=== PATIENT | female | born 1930 | race Caucasian/White ===

== ENCOUNTER 2017-04-02 07:46 | Inpatient (IN) | payer MEDICARE, OTHER ==
[~2017-04-02] VITALS: Ht 152.4 cm; Wt 50.1 kg
[~2017-04-02 07:46] MED LIST: ACET500C5 PO; CARV3.12 PO; CLOP75TA4 PO; DOCU-144 PO; DONE5TAB32 PO; FERR-55 PO; FURO40TA4 PO; GABA300C16 PO; LISI2.5T59 PO; MELO-174 PO; POTA8TAB2 PO; SMV40T PO; TRAM-40 PO
[2017-04-02] MEDS ORDERED: morphine 4 MG/ML VIAL IV STA (07:54)
[2017-04-02] MEDS ORDERED: ONDANSETRON 4 MG INJ IV STA (07:54)
[2017-04-02] MEDS ORDERED: SOD CHLORIDE 0.9% 500 ML IV STA (07:54)
--- NOTE | 2017-04-02 08:42 | RADRPT ---
PROCEDURE: XR Chest. CLINICAL INDICATION: Syncope, fall. TECHNIQUE: Single frontal portable chest was obtained. COMPARISON: 06/27/2016.. FINDINGS: Cardiac silhouette is mildly enlarged. The patient is status post TAVR. There is calcification in the thoracic aorta. Vasculature appears normal. Lungs appear clear. There is extensive calcified pleural plaques in the right hemithorax similar to the prior study. There is a comminuted fracture of the right humeral head. IMPRESSION: 1. Cardiomegaly and aortic atherosclerosis. 2. Comminuted fracture of the right humeral head. Please see associated right shoulder series. 3. Stable-appearing extensive calcified pleural plaques in the right hemithorax. RPTAT: [facility] Physician Mila Date Time Electronically viewed and signed by Dom Ellis Physician on 04/02/2017 08:42 /
--- NOTE | 2017-04-02 08:44 | RADRPT ---
PROCEDURE: XR Shoulder. CLINICAL INDICATION: Syncope, fall. TECHNIQUE: Three views of the right shoulder are available for review. COMPARISON: None available FINDINGS: There is a a comminuted fracture of the surgical neck of the right humeral head with extension into the greater tuberosity which is mildly displaced. There is slight impaction and mild varus deformit y. IMPRESSION: 1. Mildly impacted, comminuted fracture of the humeral head with slight varus deformity. RPTAT: A[facility] Physician Mila Date Time Electronically viewed and signed by Dom Ellis Physician on 04/02/2017 08:44 /
[2017-04-02] MEDS ORDERED: HYDR-3671 PO (09:51)
[2017-04-02] MEDS ORDERED: QUET100T32 PO (09:51)
[2017-04-02] MEDS ORDERED: LISI-313 PO (09:51)
--- NOTE | 2017-04-02 09:57 | RADRPT ---
PROCEDURE: CT Brain without contrast. CLINICAL INDICATION: Syncope; Neurologic deficit TECHNIQUE: A CT of the brain was performed on multidetector high-resolution CT scanner utilizing a xial sections from the skull base through the vertex without contrast. One or more of the following dose reduction techniques were used: Automated exposure control, Adjustment of the mA and/or kV acc ording to patient size, and/or use of iterative reconstruction technique. DOSE: CTDI = 45 mGy and the DLP = 630 mGy-cm. COMPARISON: Head CT 06/27/2016 FINDINGS: Chronic left posterior frontal cortical encephalomalacia. No acute intracranial hemorrhage, signific ant mass effect or midline shift. Patchy hypoattenuation of the cerebral white matter is compatible with chronic microvascular ischemic changes. Chronic left thalamic lacunar infarct. Vascular calcif ications. Prominence of the cortical sulci and ventricles are related to mild cerebral volume loss. No significant opacification of the visualized paranasal sinuses or mastoids. The bilateral ocular lens are thin which could be due to prior lens replacement surgery. IMPRESSION: No significant change. No acute intracranial findings. Chronic microvascular disease and intracranial atherosclerosis. Chronic left posterior frontal cortical encephalomalacia. Chronic left thalamic lacunar infarct. RPTAT: AA .Hema Riley MD, MD Date Time Electronically viewed and signed by .Hema Riley MD, MD on 04/02/2017 09:57 .T/
[2017-04-02 10:16] LABS: ADD SCAN DIFF NO
[2017-04-02 10:22] LABS: ABNORMAL IP MESSAGE 1; BASOPHILS % 0.1 % (0.0-2.0); EOSINOPHILS % 0.1 % (0.0-7.0); HEMATOCRIT 33.7 % (37.0-47.0); HEMOGLOBIN 10.7 g/dl (12.0-16.0); LYMPHOCYTES # 0.5 10^3/ul (0.8-2.9); LYMPHOCYTES % 5.3 % (15.0-51.0); MEAN CORPUSCULAR HGB CONC 31.8 g/dl (32.0-37.0); MEAN CORPUSCULAR VOLUME 91.3 fl (82.0-101.0); MONOCYTE # 0.4 10^3/ul (0.3-0.9); MONOCYTES % 4.2 % (0.0-11.0); NEUTROPHIL # 7.9 10^3/ul (1.6-7.5); NEUTROPHILS % 89.8 % (39.0-77.0); PLATELET COUNT 120 10^3/UL (140-415); RED BLOOD COUNT 3.69 10^6/ul (4.20-5.40); RED CELL DISTRIBUTION WIDTH 14.3 % (11.5-14.5); WHITE BLOOD COUNT 8.8 10^3/ul (4.8-10.8)
[2017-04-02 10:25] LABS: MEAN PLATELET VOLUME 12.4 fl (7.4-10.4)
[2017-04-02 10:36] LABS: POTASSIUM 4.2 mmol/L (3.5-5.1)
[2017-04-02 10:39] LABS: CREATININE 0.71 mg/dl (0.44-1.00)
[2017-04-02 10:40] LABS: CALCIUM 8.6 mg/dl (8.4-10.2)
[2017-04-02 11:03] LABS: TROPONIN-I 0.031 ng/ml (0.00-0.12)
--- NOTE | 2017-04-02 11:20 | ERA ---
ER Documentation Chief Complaint Date/Time DATE: 04/02/17 TIME: 11:19 Chief Complaint RIGHT SHOULDER PAIN AND SWELLING FROM FALL LAST NIGHT. UNK TIME/LOC HPI This is an 86-year-old female right shoulder pain and swelling from a fall last night. She was found down on the ground in the bathroom this morning by her son. She denies loss of consciousness or any head trauma. Denies any chest pain or palpitations. She does not remember the events preceding the fall however. Pain in right shoulder is mild to moderate. Worse when she moves it. No numbness or tingling. ROS All systems reviewed and are negative except as per history of present illness. Medications Home Meds Reported Medications Quetiapine Fumarate* (Quetiapine Fumarate*) 100 Mg Tablet, 100 MG PO HS, TAB 04/02/17 Hydralazine Hcl* (Hydralazine Hcl*) 25 Mg Tab, 25 MG PO DAILY Y for ELEVATED BLOOD PRESSURE, #120 TAB 04/02/17 Lisinopril* (Lisinopril*) 5 Mg Tablet, 5 MG PO BID, #30 TAB 04/02/17 Tramadol Hcl* (Ultram*) 50 Mg Tablet, 50 MG PO Q8 Y for PAIN, TAB 06/27/16 Potassium Chloride* (Klor-Con*) 8 Meq Tablet.sa, 8 MEQ PO DAILY, TAB 06/27/16 Donepezil* (Aricept*) 5 Mg Tablet, 5 MG PO DAILY, TAB 06/27/16 Carvedilol* (Coreg*) 3.125 Mg Tablet, 3.125 MG PO BID, #60 TAB 06/27/16 Simvastatin (Simvastatin) 40 Mg Tablet, 40 MG PO DAILY 05/19/13 Gabapentin* (Gabapentin*) 300 Mg Capsule, 300 MG PO DAILY 05/19/13 Ferrous Sulfate* (Ferrous Sulfate*) 325 Mg Tablet, 325 MG PO TID 05/19/13 Clopidogrel Bisulfate* (Clopidogrel Bisulfate*) 75 Mg Tablet, 75 MG PO DAILY 05/19/13 Furosemide (Lasix) 40 Mg Tab, 40 MG PO DAILY 05/19/13 Docusate Sodium* (Colace*) 100 Mg Capsule, 100 MG PO BID 05/19/13 Meloxicam* (Mobic*) 7.5 Mg Tab, 7.5 MG PO DAILY 05/19/13 Discontinued Reported Medications Lisinopril* (Lisinopril*) 2.5 Mg Tablet, 2.5 MG PO DAILY, #30 TAB 06/27/16 Potassium Chloride* (Klor-Con*) 8 Meq Tablet.sa, 8 MEQ PO DAILY 05/19/13 Discontinued Scripts Acetaminophen* (Tylophen*) 500 Mg Capsule, 2 CAP PO Q8H Y for PAIN AND OR ELEVATED TEMP, #20 CAP Prov:FELICITY MOORE MD 06/27/16 Allergies Allergies: Coded Allergies: vancomycin (Unverified Allergy, Severe, RASH, 04/02/17) PMhx/Soc Medical and Surgical Hx: Unable to obtain History of Surgery: Yes (Brain tumor, Heart valve replacement) Anesthesia Reaction: No Hx Neurological Disorder: No Hx Respiratory Disorders: No Hx Cardiac Disorders: Yes (HTN) Hx Psychiatric Problems: No Hx Miscellaneous Medical Probl: No Hx Alcohol Use: No Hx Substance Use: No Hx Tobacco Use: No Smoking Status: Unknown if ever smoked Physical Exam Vitals Vital Signs Date Time Temp Pulse Resp B/P Pulse Ox O2 Delivery O2 Flow Rate FiO2 04/02/17 10:07 69 19 155/69 97 Room Air 04/02/17 07:48 98.2 71 20 141/107 98 Physical Exam Const: [] Head: Atraumatic Eyes: Normal Conjunctiva ENT: Normal External Ears, Nose and Mouth. Neck: Full range of motion..~ No meningismus. Resp: Clear to auscultation bilaterally Cardio: Regular rate and rhythm, no murmurs Abd: Soft, non tender, non distended. Normal bowel sounds Skin: No petechiae or rashes Back: No midline or flank tenderness Ext: No cyanosis, or edema Neur: Awake and alert Psych: Normal Mood and Affect Result Diagram: 04/02/17 1005 04/02/17 1005 Results 24 hrs Laboratory Tests Test 04/02/17 08:30 04/02/17 10:05 Bedside Glucose 125mg/dL White Blood Count 8.810^3/ul Red Blood Count 3.6910^6/ul Hemoglobin 10.7g/dl Hematocrit 33.7% Mean Corpuscular Volume 91.3fl Mean Corpuscular Hemoglobin 29.0pg Mean Corpuscular Hemoglobin Concent 31.8g/dl Red Cell Distribution Width 14.3% Platelet Count 08119^3/UL Mean Platelet Volume 12.4fl Neutrophils % 89.8% Lymphocytes % 5.3% Monocytes % 4.2% Eosinophils % 0.1% Basophils % 0.1% Nucleated Red Blood Cells % 0.0/100WBC Neutrophils # 7.910^3/ul Lymphocytes # 0.510^3/ul Monocytes # 0.410^3/ul Eosinophils # 0.010^3/ul Basophils # 0.010^3/ul Nucleated Red Blood Cells # 0.010^3/ul Sodium Level 141mmol/L Potassium Level 4.2mmol/L Chloride Level 109mmol/L Carbon Dioxide Level 18mmol/L Anion Gap 18 Blood Urea Nitrogen 21mg/dl Creatinine 0.71mg/dl Glucose Level 134mg/dl Calcium Level 8.6mg/dl Troponin I 0.031ng/ml Current Medications Medications (Trade) Dose Ordered Sig/Ana Route PRN Reason Start Time Stop Time Status Last Admin Dose Admin Sodium Chloride (NS) 500 ml @ 500 mls/hr Q1H STAT IV 04/02/17 07:54 04/02/17 08:53 DC 04/02/17 08:36 Morphine Sulfate (morphine) 4 mg ONCE STAT IV 04/02/17 07:54 04/02/17 07:55 DC 04/02/17 08:39 Ondansetron HCl (Zofran Inj) 4 mg ONCE STAT IV 04/02/17 07:54 04/02/17 07:55 DC 04/02/17 08:37 Procedures/MDM EKG: Rate/Rhythm: Normal Sinus Rhythm QRS, ST, T-waves: No changes consistent w/ acute ischemia Impression: No evidence of ischemia or arrhythmia Chest X-ray 1V Interpreted by me: Soft Tissue: No acute abnormalities Bones: No acute abnormalities Mediastinum/Cardiac Silhouette/Lungs: No acute abnormalities X-ray Shoulder 3V Interpreted by me: Bones: Comminuted shoulder fracture Joints: No dislocation Foreign body: None Patient's syncopal symptoms are unstable at this time and require inpatient workup. No evidence of PE or dissection at this time but occult ischemia or fatal dysrhythmia cannot be ruled out. Patient will be admitted to hospitalist Departure Diagnosis: Primary Impression: Syncope Qualified Code: R55 - Syncope, unspecified syncope type Additional Impression: Shoulder fracture Qualified Code: S42.91XA - Shoulder fracture, right, closed, initial encounter Condition: Stable LUIS MÉNDEZ April 02, 2017 11:20
[2017-04-02 13:42] VITALS: PULSE 72
[2017-04-02 15:07] VITALS: RESP 19
[2017-04-02] MEDS ORDERED: morphine 2 MG INJ IV PRN (15:30)
[2017-04-02] MEDS ORDERED: SOD CHLORIDE 0.9% 1,000 ML IV SCH (15:30)
[2017-04-02 16:00] VITALS: PULSE 75
--- NOTE | 2017-04-02 16:04 | HP ---
DATE OF ADMISSION: 04/02/2017 PRESENTING COMPLAINT: Right shoulder pain. HISTORY OF PRESENTING COMPLAINT: This is an 86-year-old female who resides with her family, who unf ortunately was found on the floor this morning in the bathroom with a ___ and severe right shoulder pain and bruising injury to her right shoulder. This patient seemed alert and oriented, but she is an extremely poor historian. She does not seem to recall the events surrounding the fall and seems to space out intermittently during conversation. Hence, I am unable to get a detailed review of sy stems from the patient. Preliminary workup in the emergency room showed that she has sustained a mi ldly impacted comminuted fracture of the humeral head and a CT scan of the brain was negative for ac modoc injury or bleeding. She has been admitted for further evaluation and fracture management. PAST MEDICAL HISTORY: Positive for high blood pressure. Per report, she has had a heart valve repla kailyn and a brain tumor. Dyslipidemia on statins. PAST SURGICAL HISTORY: Heart valve replacement. ALLERGIES: SHE IS ALLERGIC TO VANCOMYCIN. Exact allergic reaction is unknown. SOCIAL HISTORY: She resides with her family. However, per chart, she does not smoke or drink alco hol. REVIEW OF SYSTEMS: Could not be done as the patient's memory is not the best. PHYSICAL EXAMINATION VITAL SIGNS: Temperature 98.2, pulse 72, respirations 19, blood pressure 114/57, saturations 97% on room air. When patient first got to the emergency room, blood pressure was 141/107. GENERAL: Elderly female, frail, alert and oriented to self and place. She is currently comfortable and in no acute distress except to move her right arm. HEENT: Head was normocephalic. Pupils were equal and reactive. There was no scleral jaundice, mi ld conjunctival pallor. Mucous membranes were slightly dry. Posterior pharynx is negative for eryt reva or exudate. NECK: Supple and there is a large right ecchymosis of the right shoulder. I did not attempt range of motion in the right arm, but she has good range of motion on the left. EXTREMITIES: Her right upper extremity is encased in a sling. Lower extremity did not show any fur ther bruising, no joint abnormalities and no edema. CHEST: Clear to auscultation with mildly reduced air entry in the bases. CARDIOVASCULAR: S1 and 2 without added sounds or murmurs. ABDOMEN: Soft, nontender, nondistended. PSYCHIATRIC: The patient is "confused", however, this could be due to acute trauma, but definitely has beginnings of mild dementia. LABORATORY VALUES: Her hematology is consistent with a mild thrombocytopenia of 120. Neutrophilia of 89%, even though she has normal white count and a mildly hypochromic anemia with hemoglobin of 10 . Her basic metabolic profile has a low CO2 of 18 and a BUN of 21, glucose is 134. Back in 2008, h er hemoglobin A1c was 5.3. As of today, her troponin is negative and the last TSH we have on her as well was back in 2008 and was normal. IMAGING: She had a chest x-ray that showed the aforementioned fracture as well as some cardiomegaly and aortic atherosclerosis and extensive calcified plaque. She also had a brain CT that shows timing adjuster bernardo microvascular disease, intracranial atherosclerosis, a chronic left posterior frontal ____enceph alomalacia, a chronic left thalamic lacunar infarct but no acute findings. The shoulder x-ray just confirms the presence of fracture. ASSESSMENT: 1. An 86-year-old female who was found on the bathroom floor by her family after a fall and sustain ed a right humeral fracture. Circumstances around the fall is unclear. 2. Right humeral fracture. Per emergency room physician, orthopedic surgeon has been consulted. I will also get cardiology consultation for cardiac clearance for surgery. 3. Probable syncopal episode versus accidental fall. I will do a syncope workup, as the patient do es not recall circumstances around her fall. She was monitored on telemetry. 4. History of heart valve replacement. We will do a 2D echo, and see what we have. 5. Thrombocytopenia, the source of which is not quite clear. Further workup is required. 6. Mild hypochromic anemia. We will check an iron. 7. Previous cerebrovascular accident with a mild encephalopathy, which could be secondary also to dementia. 8. 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 DISPOSITION: Patient to be monitored on telemetry floor. Further interventions per clinical course . All of her home medications will be continued and supportive care will include pain control, anti emetics and blood pressure regimen titration for good control. We will also follow consultants' rec ommendations. From report, the patient was on Plavix as an outpatient. I will be holding this in c ase she is going to have surgery. PROPHYLAXIS: She will be on Lovenox as well as oral PPI. Dictated By: GLENDY ZARATE MD, BA/JUAN Conf#: [id number] DID#: [id number]
--- NOTE | 2017-04-02 16:11 | CONS ---
DATE OF ADMISSION: 04/02/2017 DATE OF CONSULTATION: 04/02/2017 REASON FOR CONSULTATION: Preoperative evaluation as well as syncope, rule out cardiac etiology. REQUESTING PHYSICIAN: Dr. Zarate from the hospitalist service. HISTORY OF PRESENT ILLNESS: Ms. Warren is an 86-year-old female with a history of hypertension, dyslipidemia, coronary artery disease on medications, dementia, psychiatric disorder who initially presented status post fall with right shoulder pain. Upon arrival in the emergency department, temp erature 98.2, blood pressure 141/107, pulse ____, respiratory rate 20, saturating 98%. Patient's la bs showed white count of 8.8, hemoglobin 10.7, platelet count 120. Sodium 141, potassium 4.2, creat inine 0.7, BUN 21. Troponin negative. The patient underwent a shoulder x-ray revealing mildly impa cted comminuted fracture of the humeral head with slight varus deformity. The patient then underwen t a chest x-ray showing cardiomegaly, aortic valve sclerosis and comminuted fracture of the right hu meral head. The patient had a head CT revealing no significant change, no acute intracranial findin gs, chronic microvascular disease, intracranial atherosclerosis, chronic left posterior frontal dio ical encephalomalacia. The patient's electrocardiogram, normal sinus rhythm, rate of 68, left bundl e branch block pattern secondary to repolarization abnormalities. The patient has been admitted to the floor and since admit to floor was monitored on telemetry revealing sinus rhythm, no significant arrhythmias or pauses. The patient continues to have pain in her shoulder. PAST MEDICAL HISTORY: As above in HPI. MEDICATIONS CURRENTLY IN HOSPITAL: 1. Aricept 5 mg daily. 2. Lasix 40 mg daily. 3. Gabapentin 300 mg daily. 4. Potassium chloride 8 mEq daily. 5. MiraLax 8.5 grams daily. 6. Protonix 40 mg daily. 7. Carvedilol 3.125 mg p.o. b.i.d. 8. Colace 100 mg b.i.d. 9. Zestril 5 mg p.o. b.i.d. 10. Seroquel 100 mg at bedtime. 11. Heparin 5000 subq b.i.d. 12. Morphine p.r.n. 13. IV fluid hydration at 70 mL an hour. ALLERGIES: VANCOMYCIN. SOCIAL HISTORY: No tobacco, ETOH or illicit drug use. FAMILY HISTORY: Negative for sudden cardiac or early CAD. REVIEW OF SYSTEMS: As above in HPI. CONSTITUTIONAL: No fevers, chills. PULMONARY: No current signs of respiratory compromise. GASTROINTESTINAL: No vomiting. GENITOURINARY: No hematuria. MUSCULOSKELETAL: Shoulder fracture. PSYCHIATRIC: Positive psychiatric medications. NEUROLOGIC: History of dementia. PHYSICAL EXAMINATION: VITAL SIGNS: Temperature 97.9, blood pressure 114/57, pulse 68, respiration 19, saturating 97%. GENERAL: The patient is alert, awake, complaining of shoulder pain. NECK: JVP approximately 8 cm water. CHEST: Fair air movement throughout. HEART: Regular rate and rhythm. S1, S2, I/ systolic murmur, nondisplaced PMI. ABDOMEN: Positive bowel sounds, soft. EXTREMITIES: No pitting edema, 1+ pulses bilaterally posterior tibial. LABORATORY DATA: As above in HPI. No further labs for my review at this time. IMAGING STUDIES: As above in HPI. No further imaging studies for my review at this time. ELECTROCARDIOGRAM: As above in HPI. No further electrocardiograms for my review at this time. IMPRESSION: 1. Preoperative evaluation prior to possible surgery for shoulder fracture. 2. Syncope, assess for cardiac etiology. Rule out cardiac arrhythmia. 3. Hypertension. 4. Dyslipidemia. 5. Left bundle branch block on EKG. 6. Abnormal electrocardiogram. RECOMMENDATIONS: 1. At this time, would maintain patient on telemetry monitoring to follow rhythm and rate closely. 2. Continue the patient's carvedilol for control of blood pressure and her lisinopril. 3. Continue the patient's Lasix at this time, following volume status closely, strict I's and O's. 4. Would complete a rule out for myocardial infarction to ensure this patient's EKG abnormalities a re chronic in nature and not due to any recent acute coronary syndrome. 5. Check a 2D echocardiogram to further assess patient's ejection fraction, wall motion and any tae or valve abnormalities. 6. Pain control. 7. Further recommendations pertaining to the surgical candidacy of this patient will be made after completion of above studies. Dictated By: FREEMAN NESBITT/JUAN Conf#: [id number] DID#: [id number] CC: GLENDY ZARATE MD;*EndCC*
[2017-04-02] MEDS: POTASSIUM CHLORIDE (SR) 8 MEQ CAP PO SCH (17:02)
[2017-04-02] MEDS: FUROSEMIDE 40 MG TAB PO SCH (17:02)
[2017-04-02] MEDS: POLYETHYLENE GLYCOL 17 GM PACKET PO SCH (17:02)
[2017-04-02 17:03] LABS: CK-MB 3.12 ng/ml (0.0-2.4); TROPONIN-I 0.024 ng/ml (0.00-0.12)
[2017-04-02] MEDS: GABAPENTIN 300 MG CAP PO SCH (17:03)
[2017-04-02] MEDS: PANTOPRAZOLE (EC) 40 MG TAB PO SCH (17:03)
[2017-04-02 18:55] LABS: ADD UMIC YES; URINE BILIRUBIN (Dip) NEGATIVE (NEGATIVE); URINE BLOOD (Dip) 1+ (NEGATIVE); URINE COLOR YELLOW (YELLOW); URINE GLUCOSE (Dip) NEGATIVE (NEGATIVE); URINE KETONES (Dip) NEGATIVE (NEGATIVE); URINE LEUKOCYTE ESTERASE (Dip) NEGATIVE (NEGATIVE); URINE NITRITE (Dip) NEGATIVE (NEGATIVE); URINE TOTAL PROTEIN (Dip) 1+ (NEGATIVE); URINE UROBILINOGEN (Dip) 0.2 E.U./dL (0.1-1.0)
[2017-04-02 19:00] VITALS: BP 126/60; RESP 18
[2017-04-02 19:01] LABS: BACTERIA,URINE MANY; URINE RBCS 0-2 /HPF (0)
--- NOTE | 2017-04-02 19:13 | RADRPT ---
Echocardiogram Report Patient Name: BOBBY BURCH Gender: Female Date: 1930 Study Date: 02-Apr-2017 [employer] Operator: [facility] Location: 507 Ref. Physician: GLENDY ZARATE Quality: Adequate Procedures: Transthoracic echocardiogram with complete 2D, M-Mode, and doppler examination. Indications: CARDIAC CLEARANCE. 2D/M Mode Doppler Measurement Value Normal Ranges Measurement Value Normal Ranges LVIDd 2D 3.7 3.5 - 5.6 cm JULIO C Vmax 0.8 cm2 LVIDs 2D 3.2 2.1 - 4.1 cm JULIO C VTI 0.8 cm2 LVPWd 2D 2.0 0.6 - 1.1 cm AV Mean Hugo 1.5 m/sec IVSd 2D 2.0 0.6 - 1.1 cm AV Mean PG 10.2 mmHg AoR Diam 2D 2.1 2.0 - 3.7 cm AV Peak Hugo 2.1 m/sec EDV 2D 58.9 cm3 AV Peak PG 18.1 mmHg ESV 2D 34.2 cm3 AV VTI 34.9 cm LA Dimen 2D 3.5 2.3 - 4.0 cm LVOT Mean Hugo 0.4 m/sec LVOT Diam 1.8 cm LVOT Mean PG 0.7 mmHg LVOT Peak Hugo 0.7 m/sec LVOT Peak PG 1.8 mmHg LVOT VTI 10.1 cm MV PHT 118.0 msec MV Peak Hugo 1.6 m/sec MV Peak PG 10.2 mmHg MV Mean Hugo 0.8 m/sec MV Mean PG 3.4 mmHg MV PHT 118.0 msec MV VTI 39.3 cm MVA PHT 1.9 cm2 MVA VTI 0.6 cm Findings Left Ventricle: Severe concentric left ventricular hypertrophy. Mild enlargement of left ventricle cavity. Moderate left ventricular systolic dysfunction. Ejection fraction is visually estimated at 3540 %. Tissue Doppler/Mitral Doppler indices are consistent with impaired relaxation (Stage I diastolic dysfunction). These segments of the LV are hypokinetic anteroseptum mid segment, anteroseptum base segment, inferoseptum mid segment, inferoseptum basal segment, inferior mid segment and inferior base segment. Right Ventricle: Normal right ventricular size. Normal right ventricular systolic function. Left Atrium: There is moderate enlargement of left atrium. Right Atrium: The right atrium is normal in size. Mitral Valve: Mitral valve leaflets appear moderately thickened. Moderate mitral annular calcification. Mild mitral stenosis. Mitral valve Max Velocity 1.60 m/sec. MaxPG 10.20 mmHg. MeanPG 3.40 mmHg. Mitral Valve Area by PHT1.90 cm2. Mitral Valve Area by Continuity0.60 cm2. Aortic Valve: Aortic Valve Bio Prosthesis. Gradients normal for valve type and size. Tricuspid Valve: Tricuspid valve not well visualized. There is trace tricuspid regurgitation. Pulmonic Valve: Pulmonic valve not well visualized. There is trace pulmonic regurgitation. Pericardium: Small pericardial effusion. Aorta: Normal aortic root. IVC: Normal size and normal respiratory collapse consistent with normal right atrial pressure. Conclusions 1.Severe concentric left ventricular hypertrophy. Mild enlargement of left ventricle cavity. Moderate left ventricular systolic dysfunction. Ejection fraction is visually estimated at 35-40 %. Tissue Doppler/Mitral Doppler indices are consistent with impaired relaxation (Stage I diastolic dysfunction). 2.Mitral valve leaflets appear moderately thickened. Moderate mitral annular calcification. Mild mitral stenosis. MeanPG 3.40 mmHg. 3.Probable Aortic Valve Bio Prosthesis. Low mean gradient noted across the valve. 4.Tricuspid valve not well visualized. There is trace tricuspid regurgitation. 5.Pulmonic valve not well visualized. There is trace pulmonic regurgitation. 6.Small pericardial effusion. Electronically Signed By: Bright Coffey 02-Apr-2017 19:11:55 -0700 Patient Name: BOBBY BURCH Study Date: 02-Apr-2017 [id number]
[2017-04-02 20:00] VITALS: PULSE 79
[2017-04-02] MEDS: DONEPEZIL 5 MG TAB PO SCH (20:16)
[2017-04-02] MEDS: ATORVASTATIN 20 MG TAB PO SCH (20:16)
[2017-04-02] MEDS: FERROUS SULFATE (EC) 325 MG TAB PO SCH (20:16)
[2017-04-02] MEDS: DOCUSATE SODIUM 100 MG CAP PO SCH (20:16)
[2017-04-02] MEDS: QUETIAPINE 100 MG TAB PO SCH (20:16)
[2017-04-02] MEDS: LISINOPRIL 5 MG TAB PO SCH (20:16)
[2017-04-02] MEDS: HYDROCODONE/APAP (5/325) TAB PO PRN (20:18)
[2017-04-02] MEDS: HEPARIN 5,000 UNIT/0.5 ML VIAL SC SCH (20:26)
[2017-04-02 22:50] LABS: CK-MB 2.32 ng/ml (0.0-2.4)
[2017-04-02 22:53] LABS: TROPONIN-I 0.033 ng/ml (0.00-0.12)
[2017-04-02 23:37] VITALS: BP 115/57; PULSE 74; RESP 18
[2017-04-03] VITALS (11 sets, daily range): BP systolic 90–118; BP diastolic 52–73; PULSE 74–86; RESP 17–18
[2017-04-03] MEDS: PANTOPRAZOLE (EC) 40 MG TAB PO SCH (06:27)
[2017-04-03] MEDS: FUROSEMIDE 40 MG TAB PO SCH (06:27)
[2017-04-03 06:54] LABS: ADD SCAN DIFF NO
[2017-04-03 06:59] LABS: BASOPHILS % 0.5 % (0.0-2.0); EOSINOPHILS % 0.5 % (0.0-7.0); HEMATOCRIT 29.2 % (37.0-47.0); HEMOGLOBIN 9.2 g/dl (12.0-16.0); LYMPHOCYTES # 0.7 10^3/ul (0.8-2.9); LYMPHOCYTES % 10.4 % (15.0-51.0); MEAN CORPUSCULAR HEMOGLOBIN 29.6 pg (29.0-33.0); MEAN CORPUSCULAR HGB CONC 31.5 g/dl (32.0-37.0); MEAN CORPUSCULAR VOLUME 93.9 fl (82.0-101.0); MEAN PLATELET VOLUME 11.4 fl (7.4-10.4); MONOCYTE # 0.4 10^3/ul (0.3-0.9); MONOCYTES % 6.1 % (0.0-11.0); NEUTROPHIL # 5.1 10^3/ul (1.6-7.5); NEUTROPHILS % 82.2 % (39.0-77.0); PLATELET COUNT 145 10^3/UL (140-415); RED BLOOD COUNT 3.11 10^6/ul (4.20-5.40); RED CELL DISTRIBUTION WIDTH 14.6 % (11.5-14.5); WHITE BLOOD COUNT 6.3 10^3/ul (4.8-10.8)
[2017-04-03 07:14] LABS: ALBUMIN 3.1 g/dl (3.3-4.9)
[2017-04-03 07:16] LABS: CREATININE 1.29 mg/dl (0.44-1.00)
[2017-04-03 07:17] LABS: BILIRUBIN,INDIRECT 0.3 mg/dl (0-1.1); BILIRUBIN,TOTAL 0.3 mg/dl (0.2-1.3); CALCIUM 8.1 mg/dl (8.4-10.2); TOTAL PROTEIN 5.7 g/dl (6.1-8.1)
[2017-04-03 07:18] LABS: CHOL/HDL RATIO 3.1 RATIO
[2017-04-03 07:20] LABS: INR 1.01; PROTIME 13.3 Sec (12.2-14.2)
[2017-04-03 07:21] LABS: PARTIAL THROMBOPLASTIN TIME 33.7 Sec (25.0-35.0)
[2017-04-03 07:22] LABS: IRON 29 ug/dl (35-150)
[2017-04-03 07:31] LABS: TOTAL IRON BINDING CAPACITY 244 ug/dl (241-421)
[2017-04-03 08:13] LABS: THYROID STIMULATING HORMONE 0.892 MIU/L (0.465-4.680)
[2017-04-03] MEDS: POTASSIUM CHLORIDE (SR) 8 MEQ CAP PO SCH (08:31)
[2017-04-03] MEDS: FERROUS SULFATE (EC) 325 MG TAB PO SCH ×3 (08:31→21:07)
[2017-04-03] MEDS: GABAPENTIN 300 MG CAP PO SCH (08:32)
[2017-04-03] MEDS: DOCUSATE SODIUM 100 MG CAP PO SCH ×2 (08:32→21:08)
[2017-04-03] MEDS: HEPARIN 5,000 UNIT/0.5 ML VIAL SC SCH ×2 (08:32→21:19)
[2017-04-03] MEDS: LISINOPRIL 5 MG TAB PO SCH ×2 (08:32→21:00)
[2017-04-03] MEDS: POLYETHYLENE GLYCOL 17 GM PACKET PO SCH (08:33)
[2017-04-03 08:47] LABS: FOLATE 11.8 ng/ml (2.8-20.0)
[2017-04-03] MEDS ORDERED: NON-FORMULARY/PATIENT OWN MED (Simvastatin 40 MG) PO SCH (09:00)
--- NOTE | 2017-04-03 13:56 | PN ---
Date/Time of Note Date/Time of Note DATE: 04/03/17 TIME: 13:53 Assessment/Plan VTE Prophylaxis VTE Prophylaxis Intervention: heparin Lines/Catheters IV Catheter Type (from [facility]): Peripheral IV Urinary Cath still in place: Yes Reason Cath still needed: urinary retention Assessment/Plan Assessment/Plan 1. altered mental stauts s/p Syncopal episode 2. Right humeral fracture. Per emergency room physician, orthopedic surgeon has been consulted. I will also get cardiology consultation for cardiac clearance for surgery. 3. AMS multifactorial now resolved 4. History of heart valve replacement. We will do a 2D echo, and see what we have. 5. Thrombocytopenia, the source of which is not quite clear. Further workup is required. 6. Mild hypochromic anemia. We will check an iron. 7. Previous cerebrovascular accident with a mild encephalopathy, which could be secondary also to dementia. 8. 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 Plan: BP stable syncope work up Orthopedic surgery consutl In richy espinal to see for right shoulder comminuted fracture Cardiology has been following pt Heparin for DVT prophylaxis Subjective 24 Hr Interval Summary Free Text/Dictation c/o right shoulde rpain, BP stable, sling in place, Exam/Review of Systems Vital Signs Vitals Vital Signs Date Time Temp Pulse Resp B/P Pulse Ox O2 Delivery O2 Flow Rate FiO2 04/03/17 12:13 98.0 73 18 118/73 98 04/03/17 03:53 Room Air Intake and Output 04/02/17 04/02/17 04/03/17 15:00 23:00 07:00 Intake Total 480 ml 1160 ml Output Total 150 ml 600 ml Balance 330 ml 560 ml Exam GENERAL: Elderly female, frail, alert and oriented to self and place. She is currently comfortable and in no acute distress except to move her right arm. EXTREMITIES: Her right upper extremity is encased in a sling. Lower extremity did not show any further bruising, no joint abnormalities and no edema. CHEST: Clear to auscultation with mildly reduced air entry in the bases. CARDIOVASCULAR: S1 and 2 without added sounds or murmurs. ABDOMEN: Soft, nontender, nondistended. Results Result Diagram: 04/03/17 0600 04/03/17 0600 Results 24 hrs Laboratory Tests Test 04/02/17 16:20 04/02/17 18:40 04/02/17 21:55 04/03/17 06:00 Creatine Kinase 195 178 Creatine Kinase Index 1.6 1.3 Creatinine Kinase MB (Mass) 3.12 H 2.32 Troponin I 0.024 0.033 Thyroid Stimulating Hormone (TSH) 0.738 0.892 Urine Color YELLOW Urine Clarity CLEAR Urine pH 7.5 Urine Specific [place] 1.020 Urine Ketones NEGATIVE Urine Nitrite NEGATIVE Urine Bilirubin NEGATIVE Urine Urobilinogen 0.2 E.U./dL Urine Leukocyte Esterase NEGATIVE Urine Microscopic RBC 0-2 Urine Microscopic WBC 0-2 Urine Epithelial Cells RARE Urine Bacteria MANY Urine Hemoglobin 1+ H Urine Glucose NEGATIVE Urine Total Protein 1+ H White Blood Count 6.3 # Red Blood Count 3.11 L Hemoglobin 9.2 L Hematocrit 29.2 L Mean Corpuscular Volume 93.9 Mean Corpuscular Hemoglobin 29.6 Mean Corpuscular Hemoglobin Concent 31.5 L Red Cell Distribution Width 14.6 H Platelet Count 145 # Mean Platelet Volume 11.4 H Neutrophils % 82.2 H Lymphocytes % 10.4 L Monocytes % 6.1 Eosinophils % 0.5 Basophils % 0.5 Nucleated Red Blood Cells % 0.0 Neutrophils # 5.1 Lymphocytes # 0.7 L Monocytes # 0.4 Eosinophils # 0.0 Basophils # 0.0 Nucleated Red Blood Cells # 0.0 Prothrombin Time 13.3 Prothrombin Time Ratio 1.0 INR International Normalized Ratio 1.01 Activated Partial Thromboplast Time 33.7 Sodium Level 141 Potassium Level 4.0 Chloride Level 107 Carbon Dioxide Level 24 Anion Gap 14 Blood Urea Nitrogen 29 H Creatinine 1.29 H Glucose Level 102 Hemoglobin A1c 5.1 Lactic Acid Level 1.4 Calcium Level 8.1 L Magnesium Level 2.0 Total Bilirubin 0.3 Direct Bilirubin 0.00 Indirect Bilirubin 0.3 Aspartate Amino Transf (AST/SGOT) 26 Alanine Aminotransferase (ALT/SGPT) 19 Alkaline Phosphatase 61 Total Protein 5.7 L Albumin 3.1 L Triglycerides Level 138 Cholesterol Level 125 LDL Cholesterol, Calculated 57 HDL Cholesterol 40 Cholesterol/HDL Ratio 3.1 Folate 11.8 Test 04/03/17 06:05 Iron Level 29 L Total Iron Binding Capacity 244 Percent Iron Saturation 12 L Medications Medications Current Medications Carvedilol (Coreg) 3.125 mg BID PO Last administered on 04/03/17t 08:31; Admin Dose 3.125 MG; Start 04/02/17 at 21:00 Docusate Sodium (Colace) 100 mg BID PO Last administered on 04/03/17 08:32; Admin Dose 100 MG; Start 04/02/17 at 21:00 Donepezil HCl (Aricept) 5 mg QHS PO Last administered on 04/02/17 20:16; Admin Dose 5 MG; Start 04/02/17 at 21:00 Ferrous Sulfate (Ferrous Sulfate (Ec)) 325 mg TID PO Last administered on 13:11; Admin Dose 325 MG; Start 04/02/17 at 21:00 Furosemide (Lasix) 40 mg DAILY@06 PO Last administered on 04/03/17 06:27; Admin Dose 40 MG; Start 04/02/17 at 16:00 Gabapentin (Neurontin) 300 mg DAILY PO Last administered on 04/03/17 08:32; Admin Dose 300 MG; Start 04/02/17 at 16:00 Lisinopril (Zestril) 5 mg BID PO Last administered on 04/03/17 08:32; Admin Dose 5 MG; Start 04/02/17 at 21:00 Potassium Chloride (Micro-K) 8 meq DAILY PO Last administered on 04/03/17 08: 31; Admin Dose 8 MEQ; Start 04/02/17 at 16:00 Quetiapine Fumarate (Seroquel) 100 mg HS PO Last administered on 04/02/17 20: 16; Admin Dose 100 MG; Start 04/02/17 at 21:00 Morphine Sulfate (morphine) 2 mg Q4H PRN IV pain; Start 04/02/17 at 15:30 Pantoprazole (Protonix Tab) 40 mg DAILY@06 PO Last administered on 04/03/17 06 :27; Admin Dose 40 MG; Start 04/02/17 at 16:00 Polyethylene Glycol (Miralax) 8.5 gm DAILY PO Last administered on 04/03/17 08 :33; Admin Dose 8.5 GM; Start 04/02/17 at 16:00 Heparin Sodium (Porcine) (Heparin (5000 Units/0.5 ml)) 5,000 unit BID SC Last administered on 04/03/17 08:32; Admin Dose 5,000 UNIT; Start 04/02/17 at 21:00 Atorvastatin Calcium (Lipitor) 20 mg DAILY@21 PO Last administered on 20:16; Admin Dose 20 MG; Start 04/02/17 at 21:00 Acetaminophen/ Hydrocodone Bitart ([place] (5325)) 1 tab Q6H PRN PO pain Last administered on 04/02/17 20:18; Admin Dose 1 TAB; Start 04/02/17 at 18:00 GABBY DAVENPORT MD April 03, 2017 13:56
--- NOTE | 2017-04-03 16:22 | CONS ---
Date/Time of Note Date/Time of Note DATE: 04/03/17 TIME: 16:17 Assessment/Plan Assessment/Plan Additional Assessment/Plan Syncope S/P Bioprosthetic Aortic Valve Replacement Mild Mitral Stenosis Systolic dysfunction with EF 35-40% hypertension diabetes dyslipidemia Dementia Humerus fracture Hemodynamically stable Continue Coreg and Lisnopril Continue Lipitor Continue Insulin Consultation Date/Type/Reason Admit Date/Time April 02, 2017 at 10:58 Social History Smoking Status: Never smoker Exam/Review of Systems Vital Signs Vitals Vital Signs Date Time Temp Pulse Resp B/P Pulse Ox O2 Delivery O2 Flow Rate FiO2 04/03/17 16:12 86 04/03/17 16:05 98.0 18 109/55 98 04/03/17 03:53 Room Air Intake and Output 04/02/17 04/02/17 04/03/17 15:00 23:00 07:00 Intake Total 480 ml 1160 ml Output Total 150 ml 600 ml Balance 330 ml 560 ml Exam Constitutional: alert, oriented Head: atraumatic, normocephalic Neck: non-tender, supple Respiratory: clear to auscultation Cardiovascular: regular rate and rhythm Gastrointestinal: nl liver, spleen, non-tender, soft Extremities: normal pulses Results Result Diagram: 04/03/17 0600 04/03/17 0600 Results 24 hrs Laboratory Tests Test 04/02/17 16:20 04/02/17 18:40 04/02/17 21:55 04/03/17 06:00 Creatine Kinase 195 178 Creatine Kinase Index 1.6 1.3 Creatinine Kinase MB (Mass) 3.12 H 2.32 Troponin I 0.024 0.033 Thyroid Stimulating Hormone (TSH) 0.738 0.892 Urine Color YELLOW Urine Clarity CLEAR Urine pH 7.5 Urine Specific [place] 1.020 Urine Ketones NEGATIVE Urine Nitrite NEGATIVE Urine Bilirubin NEGATIVE Urine Urobilinogen 0.2 E.U./dL Urine Leukocyte Esterase NEGATIVE Urine Microscopic RBC 0-2 Urine Microscopic WBC 0-2 Urine Epithelial Cells RARE Urine Bacteria MANY Urine Hemoglobin 1+ H Urine Glucose NEGATIVE Urine Total Protein 1+ H White Blood Count 6.3 # Red Blood Count 3.11 L Hemoglobin 9.2 L Hematocrit 29.2 L Mean Corpuscular Volume 93.9 Mean Corpuscular Hemoglobin 29.6 Mean Corpuscular Hemoglobin Concent 31.5 L Red Cell Distribution Width 14.6 H Platelet Count 145 # Mean Platelet Volume 11.4 H Neutrophils % 82.2 H Lymphocytes % 10.4 L Monocytes % 6.1 Eosinophils % 0.5 Basophils % 0.5 Nucleated Red Blood Cells % 0.0 Neutrophils # 5.1 Lymphocytes # 0.7 L Monocytes # 0.4 Eosinophils # 0.0 Basophils # 0.0 Nucleated Red Blood Cells # 0.0 Prothrombin Time 13.3 Prothrombin Time Ratio 1.0 INR International Normalized Ratio 1.01 Activated Partial Thromboplast Time 33.7 Sodium Level 141 Potassium Level 4.0 Chloride Level 107 Carbon Dioxide Level 24 Anion Gap 14 Blood Urea Nitrogen 29 H Creatinine 1.29 H Glucose Level 102 Hemoglobin A1c 5.1 Lactic Acid Level 1.4 Calcium Level 8.1 L Magnesium Level 2.0 Total Bilirubin 0.3 Direct Bilirubin 0.00 Indirect Bilirubin 0.3 Aspartate Amino Transf (AST/SGOT) 26 Alanine Aminotransferase (ALT/SGPT) 19 Alkaline Phosphatase 61 Total Protein 5.7 L Albumin 3.1 L Triglycerides Level 138 Cholesterol Level 125 LDL Cholesterol, Calculated 57 HDL Cholesterol 40 Cholesterol/HDL Ratio 3.1 Folate 11.8 Test 04/03/17 06:05 Iron Level 29 L Total Iron Binding Capacity 244 Percent Iron Saturation 12 L Medications Medications Current Medications Carvedilol (Coreg) 3.125 mg BID PO Last administered on 04/03/17 08:31; Admin Dose 3.125 MG; Start 04/02/17 at 21:00 Docusate Sodium (Colace) 100 mg BID PO Last administered on 04/03/17 08:32; Admin Dose 100 MG; Start 04/02/17 at 21:00 Donepezil HCl (Aricept) 5 mg QHS PO Last administered on 04/02/17 20:16; Admin Dose 5 MG; Start 04/02/17 at 21:00 Ferrous Sulfate (Ferrous Sulfate (Ec)) 325 mg TID PO Last administered on 13:11; Admin Dose 325 MG; Start 04/02/17 at 21:00 Furosemide (Lasix) 40 mg DAILY@06 PO Last administered on 04/03/17 06:27; Admin Dose 40 MG; Start 04/02/17 at 16:00 Gabapentin (Neurontin) 300 mg DAILY PO Last administered on 04/03/17 08:32; Admin Dose 300 MG; Start 04/02/17 at 16:00 Lisinopril (Zestril) 5 mg BID PO Last administered on 04/03/17 08:32; Admin Dose 5 MG; Start 04/02/17 at 21:00 Potassium Chloride (Micro-K) 8 meq DAILY PO Last administered on 04/03/17 08: 31; Admin Dose 8 MEQ; Start 04/02/17 at 16:00 Quetiapine Fumarate (Seroquel) 100 mg HS PO Last administered on 04/02/17 20: 16; Admin Dose 100 MG; Start 04/02/17 at 21:00 Morphine Sulfate (morphine) 2 mg Q4H PRN IV pain; Start 04/02/17 at 15:30 Pantoprazole (Protonix Tab) 40 mg DAILY@06 PO Last administered on 04/03/17 06 :27; Admin Dose 40 MG; Start 04/02/17 at 16:00 Polyethylene Glycol (Miralax) 8.5 gm DAILY PO Last administered on 04/03/17 08 :33; Admin Dose 8.5 GM; Start 04/02/17 at 16:00 Heparin Sodium (Porcine) (Heparin (5000 Units/0.5 ml)) 5,000 unit BID SC Last administered on 04/03/17 08:32; Admin Dose 5,000 UNIT; Start 04/02/17 at 21:00 Atorvastatin Calcium (Lipitor) 20 mg DAILY@21 PO Last administered on 20:16; Admin Dose 20 MG; Start 04/02/17 at 21:00 Acetaminophen/ Hydrocodone Bitart ([place] (5/325)) 1 tab Q6H PRN PO pain Last administered on 04/02/17 20:18; Admin Dose 1 TAB; Start 04/02/17 at 18:00 NONA PIEDRA M.D. April 03, 2017 16:22
[2017-04-03] MEDS: HYDROCODONE/APAP (5/325) TAB PO PRN (18:15)
[2017-04-03] MEDS: DONEPEZIL 5 MG TAB PO SCH (21:07)
[2017-04-03] MEDS: ATORVASTATIN 20 MG TAB PO SCH (21:07)
[2017-04-03] MEDS: QUETIAPINE 100 MG TAB PO SCH (21:08)
[2017-04-04] VITALS (9 sets, daily range): BP systolic 103–148; BP diastolic 51–68; PULSE 75–83; RESP 18–19
[2017-04-04] MEDS: FUROSEMIDE 40 MG TAB PO SCH (06:24)
[2017-04-04] MEDS: PANTOPRAZOLE (EC) 40 MG TAB PO SCH (06:24)
[2017-04-04 06:28] LABS: ADD SCAN DIFF NO
[2017-04-04 06:35] LABS: HEMATOCRIT 26.7 % (37.0-47.0); HEMOGLOBIN 8.5 g/dl (12.0-16.0); MEAN CORPUSCULAR HEMOGLOBIN 29.4 pg (29.0-33.0); MEAN CORPUSCULAR HGB CONC 31.8 g/dl (32.0-37.0); MEAN CORPUSCULAR VOLUME 92.4 fl (82.0-101.0); MEAN PLATELET VOLUME 11.9 fl (7.4-10.4); RED BLOOD COUNT 2.89 10^6/ul (4.20-5.40); RED CELL DISTRIBUTION WIDTH 14.5 % (11.5-14.5); WHITE BLOOD COUNT 5.5 10^3/ul (4.8-10.8)
[2017-04-04 06:47] LABS: POTASSIUM 3.8 mmol/L (3.5-5.1)
[2017-04-04 06:50] LABS: CREATININE 1.57 mg/dl (0.44-1.00)
[2017-04-04 06:51] LABS: CALCIUM 8.1 mg/dl (8.4-10.2)
[2017-04-04 07:03] LABS: PLATELET COUNT 107 10^3/UL (140-415)
[2017-04-04] MEDS: POLYETHYLENE GLYCOL 17 GM PACKET PO SCH (08:54)
[2017-04-04] MEDS: GABAPENTIN 300 MG CAP PO SCH (08:55)
[2017-04-04] MEDS: POTASSIUM CHLORIDE (SR) 8 MEQ CAP PO SCH (08:55)
[2017-04-04] MEDS: LISINOPRIL 5 MG TAB PO SCH ×2 (08:55→20:21)
[2017-04-04] MEDS: DOCUSATE SODIUM 100 MG CAP PO SCH ×2 (08:55→20:21)
[2017-04-04] MEDS: FERROUS SULFATE (EC) 325 MG TAB PO SCH ×3 (08:55→20:21)
[2017-04-04] MEDS: HEPARIN 5,000 UNIT/0.5 ML VIAL SC SCH ×2 (09:00→20:33)
[2017-04-04 10:18] LABS: EOSINOPHILS # 0.1 10^3/ul (0.0-0.5); LYMPHOCYTES # 0.9 10^3/ul (0.8-2.9); MONOCYTE # 0.4 10^3/ul (0.3-0.9); NEUTROPHIL # 3.9 10^3/ul (1.6-7.5)
--- NOTE | 2017-04-04 11:39 | CONS ---
Date/Time of Note Date/Time of Note DATE: 04/04/17 TIME: 11:39 Assessment/Plan Assessment/Plan Additional Assessment/Plan Syncope S/P Bioprosthetic Aortic Valve Replacement Mild Mitral Stenosis Systolic dysfunction with EF 35-40% hypertension diabetes dyslipidemia Dementia Humerus fracture Hemodynamically stable Continue Coreg and Lisnopril Continue Lipitor Continue Insulin Consultation Date/Type/Reason Admit Date/Time April 02, 2017 at 10:58 Initial Consult Date Exam/Review of Systems Vital Signs Vitals Vital Signs Date Time Temp Pulse Resp B/P Pulse Ox O2 Delivery O2 Flow Rate FiO2 04/04/17 08:12 76 04/04/17 07:43 98.0 18 127/68 98 04/03/17 03:53 Room Air Intake and Output 04/03/17 04/03/17 04/04/17 15:00 23:00 07:00 Intake Total 750 ml 350 ml Output Total 1800 ml 1250 ml Balance -1050 ml -900 ml Exam Constitutional: alert, oriented Head: atraumatic, normocephalic Respiratory: clear to auscultation Cardiovascular: regular rate and rhythm Gastrointestinal: nl liver, spleen, non-tender, soft Extremities: normal pulses Results Result Diagram: 04/04/17 0552 04/04/17 0552 Results 24 hrs Laboratory Tests Test 04/04/17 05:52 White Blood Count 5.5 Red Blood Count 2.89 L Hemoglobin 8.5 L Hematocrit 26.7 L Mean Corpuscular Volume 92.4 Mean Corpuscular Hemoglobin 29.4 Mean Corpuscular Hemoglobin Concent 31.8 L Red Cell Distribution Width 14.5 Platelet Count 107 #L Mean Platelet Volume 11.9 H Neutrophils % 70.0 Band Neutrophils % 2.0 Lymphocytes % 17.0 Monocytes % 8.0 Eosinophils % 1.0 Metamyelocytes % 2.0 H Neutrophils # 3.9 Lymphocytes # 0.9 Monocytes # 0.4 Eosinophils # 0.1 Metamyelocytes # 0.1 Differential Comment MANUAL DIFF Large Platelets OCCASIONAL Sodium Level 140 Potassium Level 3.8 Chloride Level 107 Carbon Dioxide Level 25 Anion Gap 12 Blood Urea Nitrogen 34 H Creatinine 1.57 H Glucose Level 97 Calcium Level 8.1 L Medications Medications Current Medications Carvedilol (Coreg) 3.125 mg BID PO Last administered on 04/04/17t 08:54; Admin Dose 3.125 MG; Start 04/02/17 at 21:00 Docusate Sodium (Colace) 100 mg BID PO Last administered on 04/04/17 08:55; Admin Dose 100 MG; Start 04/02/17 at 21:00 Donepezil HCl (Aricept) 5 mg QHS PO Last administered on 04/03/17 21:07; Admin Dose 5 MG; Start 04/02/17 at 21:00 Ferrous Sulfate (Ferrous Sulfate (Ec)) 325 mg TID PO Last administered on 08:55; Admin Dose 325 MG; Start 04/02/17 at 21:00 Furosemide (Lasix) 40 mg DAILY@06 PO Last administered on 04/04/17 06:24; Admin Dose 40 MG; Start 04/02/17 at 16:00 Gabapentin (Neurontin) 300 mg DAILY PO Last administered on 04/04/17 08:55; Admin Dose 300 MG; Start 04/02/17 at 16:00 Lisinopril (Zestril) 5 mg BID PO Last administered on 04/04/17 08:55; Admin Dose 5 MG; Start 04/02/17 at 21:00 Potassium Chloride (Micro-K) 8 meq DAILY PO Last administered on 04/04/17 08: 55; Admin Dose 8 MEQ; Start 04/02/17 at 16:00 Quetiapine Fumarate (Seroquel) 100 mg HS PO Last administered on 04/03/17 21: 08; Admin Dose 100 MG; Start 04/02/17 at 21:00 Morphine Sulfate (morphine) 2 mg Q4H PRN IV pain; Start 04/02/17 at 15:30 Pantoprazole (Protonix Tab) 40 mg DAILY@06 PO Last administered on 04/04/17 06 :24; Admin Dose 40 MG; Start 04/02/17 at 16:00 Polyethylene Glycol (Miralax) 8.5 gm DAILY PO Last administered on 04/04/17 08 :54; Admin Dose 8.5 GM; Start 04/02/17 at 16:00 Heparin Sodium (Porcine) (Heparin (5000 Units/0.5 ml)) 5,000 unit BID SC Last administered on 04/04/17 09:00; Admin Dose 5,000 UNIT; Start 04/02/17 at 21:00 Atorvastatin Calcium (Lipitor) 20 mg DAILY@21 PO Last administered on 21:07; Admin Dose 20 MG; Start 04/02/17 at 21:00 Acetaminophen/ Hydrocodone Bitart ([place] (5)) 1 tab Q6H PRN PO pain Last administered on 04/03/17 18:15; Admin Dose 1 TAB; Start 04/02/17 at 18:00 NONA PIEDRA M.D. April 04, 2017 11:39
--- NOTE | 2017-04-04 14:15 | PN ---
Date/Time of Note Date/Time of Note DATE: 04/04/17 TIME: 14:12 Assessment/Plan VTE Prophylaxis VTE Prophylaxis Intervention: heparin Lines/Catheters IV Catheter Type (from [facility], [place]): Peripheral IV Urinary Cath still in place: Yes Reason Cath still needed: other (indicate) (d/c mauricio catheter ) Assessment/Plan Assessment/Plan 1. altered mental stauts s/p Syncopal episode 2. Right humeral fracture. s/p Ortho consult - no surgical plan 3. AMS multifactorial now resolved 4. History of heart valve replacement. We will do a 2D echo, and see what we have. 5. Thrombocytopenia, the source of which is not quite clear. Further workup is required. 6. Mild hypochromic anemia. We will check an iron. 7. Previous cerebrovascular accident with a mild encephalopathy, which could be secondary also to dementia. 8. 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 Plan: BP stable syncope work up negative, Physical therapy consult to assess for safety and ambulation S/p Ortho consult for right shoulder fracture, no sugery plan Cardiology has been following pt Heparin for DVT prophylaxis down grade to med/surge floor Case management consult for SNF placement, family wished for greek speaking Subjective 24 Hr Interval Summary Free Text/Dictation s/p Orthopedic consult, no surgical intervention, BP stable Exam/Review of Systems Vital Signs Vitals Vital Signs Date Time Temp Pulse Resp B/P Pulse Ox O2 Delivery O2 Flow Rate FiO2 04/04/17 12:32 80 04/04/17 12:19 98.0 18 119/53 98 04/03/17 03:53 Room Air Intake and Output 04/03/17 04/03/17 04/04/17 15:00 23:00 07:00 Intake Total 750 ml 350 ml Output Total 1800 ml 1250 ml Balance -1050 ml -900 ml Exam Constitutional: alert Head: normocephalic ENMT: nl external ears & nose Neck: supple Respiratory: clear to auscultation Cardiovascular: regular rate and rhythm Gastrointestinal: non-tender, soft Musculoskeletal: nl extremities to inspection, other (right sholder in sling ) Extremities: normal pulses Neurological: [employer]WARE DES[employer] II-XII intact Results Result Diagram: 04/04/17 0552 04/04/17 0552 Results 24 hrs Laboratory Tests Test 04/04/17 05:52 White Blood Count 5.5 Red Blood Count 2.89 L Hemoglobin 8.5 L Hematocrit 26.7 L Mean Corpuscular Volume 92.4 Mean Corpuscular Hemoglobin 29.4 Mean Corpuscular Hemoglobin Concent 31.8 L Red Cell Distribution Width 14.5 Platelet Count 107 #L Mean Platelet Volume 11.9 H Neutrophils % 70.0 Band Neutrophils % 2.0 Lymphocytes % 17.0 Monocytes % 8.0 Eosinophils % 1.0 Metamyelocytes % 2.0 H Neutrophils # 3.9 Lymphocytes # 0.9 Monocytes # 0.4 Eosinophils # 0.1 Metamyelocytes # 0.1 Differential Comment MANUAL DIFF Large Platelets OCCASIONAL Sodium Level 140 Potassium Level 3.8 Chloride Level 107 Carbon Dioxide Level 25 Anion Gap 12 Blood Urea Nitrogen 34 H Creatinine 1.57 H Glucose Level 97 Calcium Level 8.1 L Medications Medications Current Medications Carvedilol (Coreg) 3.125 mg BID PO Last administered on 04/04/17 08:54; Admin Dose 3.125 MG; Start 04/02/17 at 21:00 Docusate Sodium (Colace) 100 mg BID PO Last administered on 04/04/17 08:55; Admin Dose 100 MG; Start 04/02/17 at 21:00 Donepezil HCl (Aricept) 5 mg QHS PO Last administered on 04/03/17 21:07; Admin Dose 5 MG; Start 04/02/17 at 21:00 Ferrous Sulfate (Ferrous Sulfate (Ec)) 325 mg TID PO Last administered on 13:20; Admin Dose 325 MG; Start 04/02/17 at 21:00 Furosemide (Lasix) 40 mg DAILY@06 PO Last administered on 04/04/17 06:24; Admin Dose 40 MG; Start 04/02/17 at 16:00 Gabapentin (Neurontin) 300 mg DAILY PO Last administered on 04/04/17 08:55; Admin Dose 300 MG; Start 04/02/17 at 16:00 Lisinopril (Zestril) 5 mg BID PO Last administered on 04/04/17 08:55; Admin Dose 5 MG; Start 04/02/17 at 21:00 Potassium Chloride (Micro-K) 8 meq DAILY PO Last administered on 04/04/17 08: 55; Admin Dose 8 MEQ; Start 04/02/17 at 16:00 Quetiapine Fumarate (Seroquel) 100 mg HS PO Last administered on 04/03/17 21: 08; Admin Dose 100 MG; Start 04/02/17 at 21:00 Morphine Sulfate (morphine) 2 mg Q4H PRN IV pain; Start 04/02/17 at 15:30 Pantoprazole (Protonix Tab) 40 mg DAILY@06 PO Last administered on 04/04/17 06 :24; Admin Dose 40 MG; Start 04/02/17 at 16:00 Polyethylene Glycol (Miralax) 8.5 gm DAILY PO Last administered on 04/04/17 08 :54; Admin Dose 8.5 GM; Start 04/02/17 at 16:00 Heparin Sodium (Porcine) (Heparin (5000 Units/0.5 ml)) 5,000 unit BID SC Last administered on 04/04/17 09:00; Admin Dose 5,000 UNIT; Start 04/02/17 at 21:00 Atorvastatin Calcium (Lipitor) 20 mg DAILY@21 PO Last administered on 21:07; Admin Dose 20 MG; Start 04/02/17 at 21:00 Acetaminophen/ Hydrocodone Bitart ([place] (5/325)) 1 tab Q6H PRN PO pain Last administered on 04/03/17 18:15; Admin Dose 1 TAB; Start 04/02/17 at 18:00 GABBY DAVENPORT MD April 04, 2017 14:15
--- NOTE | 2017-04-04 19:44 | CONS ---
DATE OF ADMISSION: 04/02/2017 DATE OF CONSULTATION: 04/04/2017 TYPE OF CONSULTATION: Orthopedic surgical consultation. HISTORY OF PRESENT ILLNESS: The patient is an 86-year-old Faroese-speaking female who was admitted on 04/02/2017 when she was brought into the emergency room complaining of pain for swelling and sky it of motion involving her right shoulder. According to the available information, she was found do wn on the floor on the morning of her admission, but the fall was not witnessed. Following the even t, she was found to have a painful swelling and limit of motion of the right hip. She denies any si gns of head injury. She is known to have hypertension and heart valve replacement. She also has a history of brain tumo r. She has dyslipidemia and she is on statin. PHYSICAL EXAMINATION: My examination revealed an 86-year-old female who obviously has a painful swe lling and painful limit of motion involving her right shoulder at the range of motion of the right s houlder was considerably limited because of the pain. There were no signs of acute neurovascular co mpromise involving the right upper extremity. DIAGNOSTIC STUDIES: X-rays of the right shoulder revealed a fracture of the humeral head of the rig ht shoulder. An old chest x-ray which was obtained in June 2016 shows a slightly reduced size femo ral head without any evidence of fracture. DIAGNOSTIC IMPRESSION: Fracture involving the proximal humerus of the right shoulder., acute. TREATMENT PLAN: 1. CT scan of the right shoulder to further clarify of the type and shape of the fracture. 2. Possible trial of conservative treatment utilizing humerus stabilizing system brace and this has been ordered. Dictated By: LAURA CRONIN/JUAN Conf#: [id number] DID#: [id number]
[2017-04-04] MEDS: HYDROCODONE/APAP (5/325) TAB PO PRN (20:20)
[2017-04-04] MEDS: QUETIAPINE 100 MG TAB PO SCH (20:21)
[2017-04-04] MEDS: DONEPEZIL 5 MG TAB PO SCH (20:21)
[2017-04-04] MEDS: ATORVASTATIN 20 MG TAB PO SCH (20:21)
[2017-04-05] MEDS: PANTOPRAZOLE (EC) 40 MG TAB PO SCH (05:35)
[2017-04-05] MEDS: FUROSEMIDE 40 MG TAB PO SCH (05:35)
[2017-04-05 05:46] LABS: ADD SCAN DIFF NO
[2017-04-05 06:01] LABS: BASOPHILS % 0.4 % (0.0-2.0); EOSINOPHILS # 0.2 10^3/ul (0.0-0.5); EOSINOPHILS % 3.1 % (0.0-7.0); HEMATOCRIT 26.1 % (37.0-47.0); MEAN CORPUSCULAR HEMOGLOBIN 28.8 pg (29.0-33.0); MEAN CORPUSCULAR HGB CONC 30.7 g/dl (32.0-37.0); MEAN CORPUSCULAR VOLUME 93.9 fl (82.0-101.0); MEAN PLATELET VOLUME 11.8 fl (7.4-10.4); MONOCYTE # 0.4 10^3/ul (0.3-0.9); NEUTROPHIL # 3.2 10^3/ul (1.6-7.5); NEUTROPHILS % 67.3 % (39.0-77.0); PLATELET COUNT 107 10^3/UL (140-415); RED BLOOD COUNT 2.78 10^6/ul (4.20-5.40); RED CELL DISTRIBUTION WIDTH 14.6 % (11.5-14.5); WHITE BLOOD COUNT 4.8 10^3/ul (4.8-10.8)
[2017-04-05 06:58] LABS: CREATININE 1.39 mg/dl (0.44-1.00)
[2017-04-05 06:59] LABS: CALCIUM 8.1 mg/dl (8.4-10.2)
[2017-04-05 08:05] VITALS: BP 149/68; RESP 20
[2017-04-05] MEDS: DOCUSATE SODIUM 100 MG CAP PO SCH ×2 (09:49→21:11)
[2017-04-05] MEDS: LISINOPRIL 5 MG TAB PO SCH ×2 (09:50→21:12)
[2017-04-05] MEDS: GABAPENTIN 300 MG CAP PO SCH (09:50)
[2017-04-05] MEDS: POTASSIUM CHLORIDE (SR) 8 MEQ CAP PO SCH (09:50)
[2017-04-05] MEDS: FERROUS SULFATE (EC) 325 MG TAB PO SCH ×3 (09:50→21:11)
[2017-04-05] MEDS: POLYETHYLENE GLYCOL 17 GM PACKET PO SCH (09:51)
[2017-04-05] MEDS: HEPARIN 5,000 UNIT/0.5 ML VIAL SC SCH ×2 (09:53→21:27)
--- NOTE | 2017-04-05 15:17 | PN ---
Date/Time of Note Date/Time of Note DATE: 04/05/17 TIME: 15:12 Assessment/Plan VTE Prophylaxis VTE Prophylaxis Intervention: heparin Lines/Catheters [facility] Per[facility] IV Urinary Cath still in place: Yes Assessment/Plan Chief Complaint/Hosp Course Assessment and plan 1. reported altered Level of consciousness was reported. Syncope workup negative.. Continue to monitor neuro status. 2. Right humeral fracture. Patient seen by orthopedic surgeon. Continue the recommendations. 3. History of cardiomyopathy. 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 Note echocardiogram is seen with ejection fraction 35%. Continue optimization with cardiovascular medications and beta-hasmukh and SAÚL inhibitor. 4. Thrombocytopenia. No active bleeding noted at this time. Etiology unclear. Monitor for now. 5. Reported history of brain tumor. No active issue at this time. Monitor for now. Disposition plan: Continue with orthopedic surgeon recommendations. CT scan of the shoulder is pending. Will follow up. Discussed plan of care with Dr. Ernst Problems: Subjective 24 Hr Interval Summary Free Text/Dictation Comfortable at this time. No apparent distress. Family at bedside Exam/Review of Systems Vital Signs Vitals Vital Signs Date Time Temp Pulse Resp B/P Pulse Ox O2 Delivery O2 Flow Rate FiO2 04/05/17 08:05 98.1 78 20 149/68 95 04/04/17 19:30 Room Air Intake and Output 04/04/17 04/04/17 04/05/17 15:00 23:00 07:00 Intake Total 750 ml 580 ml Output Total 900 ml Balance -150 ml 580 ml Exam Constitutional: alert Psych: nl mood/affect Head: normocephalic Neck: supple, No jvd Respiratory: clear to auscultation, normal air movement Gastrointestinal: non-tender, soft Musculoskeletal: other (Right arm in sling) Neurological: nl mental status, nl speech Results Result Diagram: 04/05/17 0449 04/05/17 0449 Results 24 hrs Laboratory Tests Test 04/05/17 04:49 White Blood Count 4.8 Red Blood Count 2.78 L Hemoglobin 8.0 L Hematocrit 26.1 L Mean Corpuscular Volume 93.9 Mean Corpuscular Hemoglobin 28.8 L Mean Corpuscular Hemoglobin Concent 30.7 L Red Cell Distribution Width 14.6 H Platelet Count 107 L Mean Platelet Volume 11.8 H Neutrophils % 67.3 Lymphocytes % 21.0 Monocytes % 8.0 Eosinophils % 3.1 Basophils % 0.4 Nucleated Red Blood Cells % 0.0 Neutrophils # 3.2 Lymphocytes # 1.0 Monocytes # 0.4 Eosinophils # 0.2 Basophils # 0.0 Nucleated Red Blood Cells # 0.0 Sodium Level 140 Potassium Level 4.0 Chloride Level 107 Carbon Dioxide Level 24 Anion Gap 13 Blood Urea Nitrogen 33 H Creatinine 1.39 H Glucose Level 92 Calcium Level 8.1 L Medications Medications Current Medications Carvedilol (Coreg) 3.125 mg BID PO Last administered on 04/05/17 09:51; Admin Dose 3.125 MG; Start 04/02/17 at 21:00 Docusate Sodium (Colace) 100 mg BID PO Last administered on 04/05/17 09:49; Admin Dose 100 MG; Start 04/02/17 at 21:00 Donepezil HCl (Aricept) 5 mg QHS PO Last administered on 04/04/17 20:21; Admin Dose 5 MG; Start 04/02/17 at 21:00 Ferrous Sulfate (Ferrous Sulfate (Ec)) 325 mg TID PO Last administered on 13:11; Admin Dose 325 MG; Start 04/02/17 at 21:00 Furosemide (Lasix) 40 mg DAILY@06 PO Last administered on 04/05/17 05:35; Admin Dose 40 MG; Start 04/02/17 at 16:00 Gabapentin (Neurontin) 300 mg DAILY PO Last administered on 04/05/17 09:50; Admin Dose 300 MG; Start 04/02/17 at 16:00 Lisinopril (Zestril) 5 mg BID PO Last administered on 04/05/17 09:50; Admin Dose 5 MG; Start 04/02/17 at 21:00 Potassium Chloride (Micro-K) 8 meq DAILY PO Last administered on 04/05/17 09: 50; Admin Dose 8 MEQ; Start 04/02/17 at 16:00 Quetiapine Fumarate (Seroquel) 100 mg HS PO Last administered on 04/04/17 20: 21; Admin Dose 100 MG; Start 04/02/17 at 21:00 Morphine Sulfate (morphine) 2 mg Q4H PRN IV pain; Start 04/02/17 at 15:30 Pantoprazole (Protonix Tab) 40 mg DAILY@06 PO Last administered on 04/05/17 05 :35; Admin Dose 40 MG; Start 04/02/17 at 16:00 Polyethylene Glycol (Miralax) 8.5 gm DAILY PO Last administered on 04/05/17 09 :51; Admin Dose 8.5 GM; Start 04/02/17 at 16:00 Heparin Sodium (Porcine) (Heparin (5000 Units/0.5 ml)) 5,000 unit BID SC Last administered on 04/05/17 09:53; Admin Dose 5,000 UNIT; Start 04/02/17 at 21:00 Atorvastatin Calcium (Lipitor) 20 mg DAILY@21 PO Last administered on 20:21; Admin Dose 20 MG; Start 04/02/17 at 21:00 Acetaminophen/ Hydrocodone Bitart ([place] (5/325)) 1 tab Q6H PRN PO pain Last administered on 04/04/17 20:20; Admin Dose 1 TAB; Start 04/02/17 at 18:00 EDUARDA VALADEZ April 05, 2017 15:17
--- NOTE | 2017-04-05 16:34 | RADRPT ---
PROCEDURE: CT RIGHT SHOULDER. CLINICAL INDICATION: Pain and swelling. TECHNIQUE: CT scan of the right shoulder was performed on a multi -slice scanner. No IV contrast was administered. Coronal and sagittal reformatted images were obtained from the axial source imag es. The total exam DLP equals 236.31 mGy-cm. The CDTI volume was 13.55 mGy. One or more of the following dose reduction techniques were used: - Automated exposure control. - Adjustment of the mA and/or kV according to patient size . - Use of iterative reconstruction technique. Images were reviewed on a high-resolution PACS workstation. COMPARISON: X-ray of the right shoulder dated 04/02/2017. FINDINGS: Osseous acromion outlet: The acromion is type 2. Coronal images demonstrate mild lateral downslopin g. There is mild AC arthrosis. Rotator Cuff: The supraspinatus tendon density is thickened but intact and still attached to the rot ated humeral head. No fatty atrophy of the muscle bellies identified. Osseous structures: There is a subacute to chronic-appearing right proximal humeral fracture, predom inately anatomic neck. There is remodel at the fracture site and some sclerosis indicating either l ate subacute or chronic status. The humeral head is rotated. The fractures comminuted and overall is consistent with a Neer three-part greater tuberosity type fracture. The bones are osteoporotic. Other findings: No radiopaque foreign body is seen. IMPRESSION: 1. Subacute to chronic-appearing right proximal humeral fracture, predominantly the anatomic neck f racture. Findings overall are consistent with a Neer three-part greater tuberosity type fracture. 2. Osteoporosis. RPTAT: XX .Darnell Hubbard MD, Date Time Electronically viewed and signed by .Darnell Hubbard MD, on 04/05/2017 16:34 .T/
--- NOTE | 2017-04-05 19:44 | CONS ---
Date/Time of Note Date/Time of Note DATE: 04/05/17 TIME: 19:41 Assessment/Plan Assessment/Plan Chief Complaint/Hosp Course IMPRESSION: 1. Preoperative evaluation prior to possible surgery for shoulder fracture.- negative troponin x 3/Low EF by echo 2. Syncope, assess for cardiac etiology. Rule out cardiac arrhythmia. 3. Hypertension. 4. Dyslipidemia. 5. Left bundle branch block on EKG. 6. Abnormal electrocardiogram. Recc: -Continue coreg/zestril -Continue lasix -pain control -ongoing ortho f/u -Recc stress test to rule out any ischemia given EF in anticipation of possible surgery Problems: Consultation Date/Type/Reason Admit Date/Time April 04, 2017 at 14:16 Initial Consult Date 04/04/2017 Type of Consultation: Cardiology Reason for Consultation syncope/cardiomyopathy Referring Provider: GLENDY ZARATE Exam/Review of Systems Vital Signs Vitals Vital Signs Date Time Temp Pulse Resp B/P Pulse Ox O2 Delivery O2 Flow Rate FiO2 04/05/17 08:05 98.1 78 20 149/68 95 04/04/17 19:30 Room Air Intake and Output 04/04/17 04/04/17 04/05/17 14:59 22:59 06:59 Intake Total 750 ml 580 ml Output Total 900 ml Balance -150 ml 580 ml Exam Review of Systems: CONSTITUTIONAL: No fevers, chills. PULMONARY: No sob CARDIOVASCULAR: No chest pain/palpitations GASTROINTESTINAL: No nausea/vomiting. GENITOURINARY: No hematuria/dysuria. MUSCULOSKELETAL: shoulder fracture PSYCHIATRIC: The patient denies depression. NEUROLOGIC: lethargic Constitutional: other (sleeping) Psych: no complaints Head: normocephalic ENMT: mucosa pink and moist Neck: jvd (8 cm water), supple Respiratory: diminished breath sounds (at bases/B) Cardiovascular: regular rate and rhythm Gastrointestinal: non-tender, soft Musculoskeletal: muscle tone (normal) Extremities: edema (none) Neurological: other (No focal deficits) Results Result Diagram: 04/05/17 0449 04/05/17 0449 Results 24 hrs Laboratory Tests Test 04/05/17 04:49 White Blood Count 4.8 Red Blood Count 2.78 L Hemoglobin 8.0 L Hematocrit 26.1 L Mean Corpuscular Volume 93.9 Mean Corpuscular Hemoglobin 28.8 L Mean Corpuscular Hemoglobin Concent 30.7 L Red Cell Distribution Width 14.6 H Platelet Count 107 L Mean Platelet Volume 11.8 H Neutrophils % 67.3 Lymphocytes % 21.0 Monocytes % 8.0 Eosinophils % 3.1 Basophils % 0.4 Nucleated Red Blood Cells % 0.0 Neutrophils # 3.2 Lymphocytes # 1.0 Monocytes # 0.4 Eosinophils # 0.2 Basophils # 0.0 Nucleated Red Blood Cells # 0.0 Sodium Level 140 Potassium Level 4.0 Chloride Level 107 Carbon Dioxide Level 24 Anion Gap 13 Blood Urea Nitrogen 33 H Creatinine 1.39 H Glucose Level 92 Calcium Level 8.1 L Medications Medications Current Medications Carvedilol (Coreg) 3.125 mg BID PO Last administered on 04/05/17 09:51; Admin Dose 3.125 MG; Start 04/02/17 at 21:00 Docusate Sodium (Colace) 100 mg BID PO Last administered on 04/05/17 09:49; Admin Dose 100 MG; Start 04/02/17 at 21:00 Donepezil HCl (Aricept) 5 mg QHS PO Last administered on 04/04/17 20:21; Admin Dose 5 MG; Start 04/02/17 at 21:00 Ferrous Sulfate (Ferrous Sulfate (Ec)) 325 mg TID PO Last administered on 13:11; Admin Dose 325 MG; Start 04/02/17 at 21:00 Furosemide (Lasix) 40 mg DAILY@06 PO Last administered on 04/05/17 05:35; Admin Dose 40 MG; Start 04/02/17 at 16:00 Gabapentin (Neurontin) 300 mg DAILY PO Last administered on 04/05/17 09:50; Admin Dose 300 MG; Start 04/02/17 at 16:00 Lisinopril (Zestril) 5 mg BID PO Last administered on 04/05/17 09:50; Admin Dose 5 MG; Start 04/02/17 at 21:00 Potassium Chloride (Micro-K) 8 meq DAILY PO Last administered on 04/05/17 09: 50; Admin Dose 8 MEQ; Start 04/02/17 at 16:00 Quetiapine Fumarate (Seroquel) 100 mg HS PO Last administered on 04/04/17 20: 21; Admin Dose 100 MG; Start 04/02/17 at 21:00 Morphine Sulfate (morphine) 2 mg Q4H PRN IV pain; Start 04/02/17 at 15:30 Pantoprazole (Protonix Tab) 40 mg DAILY@06 PO Last administered on 04/05/17 05 :35; Admin Dose 40 MG; Start 04/02/17 at 16:00 Polyethylene Glycol (Miralax) 8.5 gm DAILY PO Last administered on 04/05/17 09 :51; Admin Dose 8.5 GM; Start 04/02/17 at 16:00 Heparin Sodium (Porcine) (Heparin (5000 Units/0.5 ml)) 5,000 unit BID SC Last administered on 04/05/17 09:53; Admin Dose 5,000 UNIT; Start 04/02/17 at 21:00 Atorvastatin Calcium (Lipitor) 20 mg DAILY@21 PO Last administered on 20:21; Admin Dose 20 MG; Start 04/02/17 at 21:00 Acetaminophen/ Hydrocodone Bitart ([place] (5/325)) 1 tab Q6H PRN PO pain Last administered on 04/04/17 20:20; Admin Dose 1 TAB; Start 04/02/17 at 18:00 FREEMAN BALTAZAR April 05, 2017 19:44
[2017-04-05 20:00] VITALS: BP 163/72; RESP 20
[2017-04-05] MEDS: DONEPEZIL 5 MG TAB PO SCH (21:11)
[2017-04-05] MEDS: ATORVASTATIN 20 MG TAB PO SCH (21:11)
[2017-04-05] MEDS: QUETIAPINE 100 MG TAB PO SCH (21:11)
[2017-04-05 23:00] VITALS: BP 150/68; PULSE 75; RESP 20
--- NOTE | 2017-04-06 00:23 | RADRPT ---
Vent Rate: 75 bpm RR Interval: 0 msec NM Interval: 162 msec QRS Duration: 146 msec QT Interval: 464 msec QTC Interval: 518 msec P-R-T [place]: 63 - -57 - 134 degrees Normal sinus rhythm Left axis deviation Left bundle branch block Abnormal ECG Electronically Signed By: Bright Coffey [id number]
[2017-04-06] MEDS: PANTOPRAZOLE (EC) 40 MG TAB PO SCH (06:47)
[2017-04-06] MEDS: FUROSEMIDE 40 MG TAB PO SCH (06:52)
[2017-04-06 07:41] VITALS: BP 160/69; RESP 20
[2017-04-06] MEDS: DOCUSATE SODIUM 100 MG CAP PO SCH ×2 (09:14→22:34)
[2017-04-06] MEDS: FERROUS SULFATE (EC) 325 MG TAB PO SCH ×3 (09:14→22:34)
[2017-04-06] MEDS: POTASSIUM CHLORIDE (SR) 8 MEQ CAP PO SCH (09:14)
[2017-04-06] MEDS: GABAPENTIN 300 MG CAP PO SCH (09:14)
[2017-04-06] MEDS: POLYETHYLENE GLYCOL 17 GM PACKET PO SCH (09:18)
[2017-04-06] MEDS: LISINOPRIL 5 MG TAB PO SCH ×2 (09:20→22:35)
[2017-04-06] MEDS: HEPARIN 5,000 UNIT/0.5 ML VIAL SC SCH ×2 (09:33→22:41)
--- NOTE | 2017-04-06 10:56 | CONS ---
Date/Time of Note Date/Time of Note DATE: 04/06/17 TIME: 10:54 Assessment/Plan Assessment/Plan Additional Assessment/Plan 1. Preoperative evaluation prior to possible surgery for shoulder fracture.- negative troponin x 3/Low EF by echo - stress test planned today 2. Syncope, assess for cardiac etiology. Rule out cardiac arrhythmia. Off tele now 3. Hypertension - well Rx, con'tt o adjust Rx as needed 4. Dyslipidemia. 5. Left bundle branch block on EKG- stable 6. Abnormal electrocardiogram. Consultation Date/Type/Reason Admit Date/Time April 04, 2017 at 14:16 Initial Consult Date Type of Consultation: Cardiology Referring Provider: GLENDY ZARATE 24 HR Interval Summary Free Text/Dictation No acute change - plan for stress test today ROS: No fever, no chills, no nausea, no vomiting, no diarrhea/constipation No recent weight changes No chest pain, no PND, no orthopnea No dizziness, blurred vision No thirst, no heat or cold intolerance Exam/Review of Systems Vital Signs Vitals Vital Signs Date Time Temp Pulse Resp B/P Pulse Ox O2 Delivery O2 Flow Rate FiO2 04/06/17 07:41 98.1 69 20 160/69 93 04/05/17 23:00 Room Air Intake and Output 04/05/17 04/05/17 04/06/17 15:00 23:00 07:00 Intake Total 620 ml Output Total 450 ml Balance 170 ml Exam General: WN/WD/NAD, AOx 2-3 HEENT: Unicetric/atraumatic/EOMI (follow commands) NECK: JVD elevated, no thyromegaly Lymph: no lymphadenopathy HEART: regular with no S3, II/ systolic murmur at apex LUNGS: Coarse sounds ABD: soft, NT, ND, +BS : Intact Neuro: non focal SKIN: chronic changes EXT: trace edema Results Result Diagram: 04/05/1744804/05/17448 Medications Medications Current Medications Carvedilol (Coreg) 3.125 mg BID PO Last administered on 04/06/17 09:13; Admin Dose 3.125 MG; Start 04/02/17 at 21:00 Docusate Sodium (Colace) 100 mg BID PO Last administered on 04/06/17 09:14; Admin Dose 100 MG; Start 04/02/17 at 21:00 Donepezil HCl (Aricept) 5 mg QHS PO Last administered on 04/05/17 21:11; Admin Dose 5 MG; Start 04/02/17 at 21:00 Ferrous Sulfate (Ferrous Sulfate (Ec)) 325 mg TID PO Last administered on 09:14; Admin Dose 325 MG; Start 04/02/17 at 21:00 Furosemide (Lasix) 40 mg DAILY@06 PO Last administered on 04/06/17 06:52; Admin Dose 40 MG; Start 04/02/17 at 16:00 Gabapentin (Neurontin) 300 mg DAILY PO Last administered on 04/06/17 09:14; Admin Dose 300 MG; Start 04/02/17 at 16:00 Lisinopril (Zestril) 5 mg BID PO Last administered on 04/06/17 09:20; Admin Dose 5 MG; Start 04/02/17 at 21:00 Potassium Chloride (Micro-K) 8 meq DAILY PO Last administered on 04/06/17 09: 14; Admin Dose 8 MEQ; Start 04/02/17 at 16:00 Quetiapine Fumarate (Seroquel) 100 mg HS PO Last administered on 04/05/17 21: 11; Admin Dose 100 MG; Start 04/02/17 at 21:00 Morphine Sulfate (morphine) 2 mg Q4H PRN IV pain; Start 04/02/17 at 15:30 Pantoprazole (Protonix Tab) 40 mg DAILY@06 PO Last administered on 04/06/17 06 :47; Admin Dose 40 MG; Start 04/02/17 at 16:00 Polyethylene Glycol (Miralax) 8.5 gm DAILY PO Last administered on 04/06/17 09 :18; Admin Dose 8.5 GM; Start 04/02/17 at 16:00 Heparin Sodium (Porcine) (Heparin (5000 Units/0.5 ml)) 5,000 unit BID SC Last administered on 04/06/17 09:33; Admin Dose 5,000 UNIT; Start 04/02/17 at 21:00 Atorvastatin Calcium (Lipitor) 20 mg DAILY@21 PO Last administered on 21:11; Admin Dose 20 MG; Start 04/02/17 at 21:00 Acetaminophen/ Hydrocodone Bitart ([place] (5/325)) 1 tab Q6H PRN PO pain Last administered on 04/04/17t 20:20; Admin Dose 1 TAB; Start 04/02/17 at 18:00 TANJA HADLEY MD April 06, 2017 10:56
[2017-04-06] MEDS ORDERED: REGADENOSON 0.4 MG/5 ML SYG ONE (12:22)
--- NOTE | 2017-04-06 14:11 | PN ---
Date/Time of Note Date/Time of Note DATE: 04/06/17 TIME: 14:09 Assessment/Plan VTE Prophylaxis VTE Prophylaxis Intervention: heparin Lines/Catheters IV C[facility]ter Type (from [facility]): Peripheral IV Urinary Cath still in place: No Assessment/Plan Chief Complaint/Hosp Course Assessment and plan 1. Altered level of consciousness was reported. Syncope workup negative.. Continue to monitor neuro status. 2. Right humeral fracture. Patient seen by orthopedic surgeon. Continue the recommendations. 3. History of cardiomyopathy. Plant Technician following. Note echocardiogram is seen with ejection fraction 35%. Continue optimization with cardiovascular medications and beta-hasmukh and SAÚL inhibitor. 4. Thrombocytopenia. No active bleeding noted at this time. Etiology unclear. Monitor for now. 5. Reported history of brain tumor. No active issue at this time. Monitor for now. Disposition plan: Plan for stress test today. We will follow-up Discussed plan of care with Dr. Ernst Problems: Subjective 24 Hr Interval Summary Free Text/Dictation No apparent distress seen at this time. Exam/Review of Systems Vital Signs Vitals Vital Signs Date Time Temp Pulse Resp B/P Pulse Ox O2 Delivery O2 Flow Rate FiO2 04/06/17 07:41 98.1 69 20 160/69 93 04/05/17 23:00 Room Air Intake and Output 04/05/17 04/05/17 04/06/17 15:00 23:00 07:00 Intake Total 620 ml Output Total 450 ml Balance 170 ml Exam Constitutional: alert, oriented Psych: nl mood/affect Neck: No jvd Respiratory: clear to auscultation, normal air movement Cardiovascular: other (Regular rate) Gastrointestinal: non-tender, soft Musculoskeletal: other (Right arm in sling) Extremities: normal pulses Neurological: nl mental status Results Result Diagram: 04/05/17 0449 04/05/17 0449 Medications Medications Current Medications Carvedilol (Coreg) 3.125 mg BID PO Last administered on 04/06/17 09:13; Admin Dose 3.125 MG; Start 04/02/17 at 21:00 Docusate Sodium (Colace) 100 mg BID PO Last administered on 04/06/17 09:14; Admin Dose 100 MG; Start 04/02/17 at 21:00 Donepezil HCl (Aricept) 5 mg QHS PO Last administered on 04/05/17 21:11; Admin Dose 5 MG; Start 04/02/17 at 21:00 Ferrous Sulfate (Ferrous Sulfate (Ec)) 325 mg TID PO Last administered on 14:00; Admin Dose 325 MG; Start 04/02/17 at 21:00 Furosemide (Lasix) 40 mg DAILY@06 PO Last administered on 04/06/17 06:52; Admin Dose 40 MG; Start 04/02/17 at 16:00 Gabapentin (Neurontin) 300 mg DAILY PO Last administered on 04/06/17 09:14; Admin Dose 300 MG; Start 04/02/17 at 16:00 Lisinopril (Zestril) 5 mg BID PO Last administered on 04/06/17 09:20; Admin Dose 5 MG; Start 04/02/17 at 21:00 Potassium Chloride (Micro-K) 8 meq DAILY PO Last administered on 04/06/17 09: 14; Admin Dose 8 MEQ; Start 04/02/17 at 16:00 Quetiapine Fumarate (Seroquel) 100 mg HS PO Last administered on 04/05/17 21: 11; Admin Dose 100 MG; Start 04/02/17 at 21:00 Morphine Sulfate (morphine) 2 mg Q4H PRN IV pain; Start 04/02/17 at 15:30 Pantoprazole (Protonix Tab) 40 mg DAILY@06 PO Last administered on 04/06/17 06 :47; Admin Dose 40 MG; Start 04/02/17 at 16:00 Polyethylene Glycol (Miralax) 8.5 gm DAILY PO Last administered on 04/06/17 09 :18; Admin Dose 8.5 GM; Start 04/02/17 at 16:00 Heparin Sodium (Porcine) (Heparin (5000 Units/0.5 ml)) 5,000 unit BID SC Last administered on 04/06/17 09:33; Admin Dose 5,000 UNIT; Start 04/02/17 at 21:00 Atorvastatin Calcium (Lipitor) 20 mg DAILY@21 PO Last administered on 21:11; Admin Dose 20 MG; Start 04/02/17 at 21:00 Acetaminophen/ Hydrocodone Bitart ([place] (5/325)) 1 tab Q6H PRN PO pain Last administered on 04/04/17 20:20; Admin Dose 1 TAB; Start 04/02/17 at 18:00 EDUARDA VALADEZ April 06, 2017 14:11
--- NOTE | 2017-04-06 15:09 | RADRPT ---
PROCEDURE: Lexiscan myocardial perfusion study CLINICAL INDICATION: 86 -year-old patient with syncope, complaining of chest pain. TECHNIQUE: Lexiscan 0.4 mg intravenously separate acquisition gated myocardial perfusion SPECT usi ng Tc 99m Myoview 28.1 mCi intravenously at stress and Tc-99m Myoview, 8.5 mCi intravenously at rest was performed using the rest/stress sequence. Poststress Myoview SPECT images were obtained in the supine position. COMPARISON: No prior studies. FINDINGS: Perfusion images reveal a small mild nonreversible perfusion abnormality in the apical and distal an teroseptal wall. Lexiscan post stress gated SPECT images demonstrate mild hypokinesis of the left ventricle. IMPRESSION: 1. The type and distribution of the scintigraphic abnormalities are most consistent with a small no nreversible perfusion defect in the apex and distal anteroseptal wall. 2. No evidence of stress-induced ischemia. 3. Mild hypokinesis of the left ventricle. 4. The left ventricle ejection fraction at stress is 35%. A call report was made to Dr. Rowan at 03:06 p.m. on April 06, 2017. RPTAT: HH .Joanna Cantu MD, MD Date Time Electronically viewed and signed by .Joanna Cantu MD, MD on 04/06/2017 15:08 .Alessandro/
[2017-04-06] MEDS ORDERED: VITAMIN A & D 5 GM OINT PACKET TOP ONE ×2 (15:52→15:53)
--- NOTE | 2017-04-06 19:47 | ECORPT ---
DATE OF SERVICE: 04/06/2017 LEXISCAN CARDIAC STRESS TEST REFERRING PHYSICIAN: Bright Coffey MD REASON FOR TEST: Preoperative assessment of chest pain. DESCRIPTION: The patient was brought into the heart station in a fasting condition. Initial blood pressure was about 147/65. The patient had successful Lexiscan injection. She developed some tachy cardia during the injection with some nonspecific ST-T changes. The imaging portion of the report w as dictated separately. Dictated By: TANJA HADLEY MD ML/NTS Conf#: [id number] DID#: [id number]
[2017-04-06 20:00] VITALS: BP 168/72; RESP 20
[2017-04-06] MEDS: QUETIAPINE 100 MG TAB PO SCH (22:33)
[2017-04-06] MEDS: ATORVASTATIN 20 MG TAB PO SCH (22:34)
[2017-04-06] MEDS: DONEPEZIL 5 MG TAB PO SCH (22:35)
[2017-04-07] MEDS: PANTOPRAZOLE (EC) 40 MG TAB PO SCH (06:32)
[2017-04-07] MEDS: FUROSEMIDE 40 MG TAB PO SCH (06:34)
[2017-04-07 07:30] VITALS: BP 143/67; RESP 18
[2017-04-07] MEDS: GABAPENTIN 300 MG CAP PO SCH (09:36)
[2017-04-07] MEDS: POLYETHYLENE GLYCOL 17 GM PACKET PO SCH (09:36)
[2017-04-07] MEDS: POTASSIUM CHLORIDE (SR) 8 MEQ CAP PO SCH (09:36)
[2017-04-07] MEDS: DOCUSATE SODIUM 100 MG CAP PO SCH ×2 (09:36→20:39)
[2017-04-07] MEDS: FERROUS SULFATE (EC) 325 MG TAB PO SCH ×3 (09:36→20:39)
[2017-04-07] MEDS: LISINOPRIL 5 MG TAB PO SCH (09:37)
[2017-04-07] MEDS: HEPARIN 5,000 UNIT/0.5 ML VIAL SC SCH ×2 (09:38→20:43)
--- NOTE | 2017-04-07 13:27 | CONS ---
Date/Time of Note Date/Time of Note DATE: 04/07/17 TIME: 13:23 Assessment/Plan Assessment/Plan Chief Complaint/Hosp Course IMPRESSION: 1. Preoperative evaluation prior to possible surgery for shoulder fracture.- negative troponin x 3/Low EF by echo 2. Syncope, assess for cardiac etiology. Rule out cardiac arrhythmia. 3. Hypertension. 4. Dyslipidemia. 5. Left bundle branch block on EKG. 6. Abnormal electrocardiogram. Recc: -Continue coreg and increase zestril to improve BP -Continue lasix -pain control -ongoing ortho f/u Problems: Consultation Date/Type/Reason Admit Date/Time April 04, 2017 at 14:16 Initial Consult Date 04/04/2017 Type of Consultation: Cardiology Reason for Consultation Pre-op/HTN Referring Provider: GLENDY ZARATE Exam/Review of Systems Vital Signs Vitals Vital Signs Date Time Temp Pulse Resp B/P Pulse Ox O2 Delivery O2 Flow Rate FiO2 04/07/17 07:30 97.8 69 18 143/67 95 04/05/17 23:00 Room Air Intake and Output 04/06/17 04/06/17 04/07/17 15:00 23:00 07:00 Intake Total 840 ml 480 ml Output Total 1450 ml 650 ml Balance -610 ml -170 ml Exam Review of Systems: CONSTITUTIONAL: No fevers, chills. PULMONARY: No sob CARDIOVASCULAR: No chest pain/palpitations GASTROINTESTINAL: No nausea/vomiting. GENITOURINARY: No hematuria/dysuria. MUSCULOSKELETAL: No myagias/arthalgias. PSYCHIATRIC: The patient denies depression. NEUROLOGIC: No weakness Constitutional: alert Psych: no complaints Head: normocephalic ENMT: mucosa pink and moist Neck: jvd (8 cm water), supple Respiratory: diminished breath sounds (at bases/B) Cardiovascular: regular rate and rhythm Gastrointestinal: non-tender, soft Musculoskeletal: muscle tone (normal) Extremities: edema (none) Neurological: other (No focal deficits) Results Result Diagram: 04/05/179 04/05/17448 Medications Medications Current Medications Carvedilol (Coreg) 3.125 mg BID PO Last administered on 04/07/17t 09:37; Admin Dose 3.125 MG; Start 04/02/17 at 21:00 Docusate Sodium (Colace) 100 mg BID PO Last administered on 04/07/17 09:36; Admin Dose 100 MG; Start 04/02/17 at 21:00 Donepezil HCl (Aricept) 5 mg QHS PO Last administered on 04/06/17 22:35; Admin Dose 5 MG; Start 04/02/17 at 21:00 Ferrous Sulfate (Ferrous Sulfate (Ec)) 325 mg TID PO Last administered on 09:36; Admin Dose 325 MG; Start 04/02/17 at 21:00 Furosemide (Lasix) 40 mg DAILY@06 PO Last administered on 04/07/17 06:34; Admin Dose 40 MG; Start 04/02/17 at 16:00 Gabapentin (Neurontin) 300 mg DAILY PO Last administered on 04/07/17 09:36; Admin Dose 300 MG; Start 04/02/17 at 16:00 Lisinopril (Zestril) 5 mg BID PO Last administered on 04/07/17 09:37; Admin Dose 5 MG; Start 04/02/17 at 21:00 Potassium Chloride (Micro-K) 8 meq DAILY PO Last administered on 04/07/17 09: 36; Admin Dose 8 MEQ; Start 04/02/17 at 16:00 Quetiapine Fumarate (Seroquel) 100 mg HS PO Last administered on 04/06/17 22: 33; Admin Dose 100 MG; Start 04/02/17 at 21:00 Morphine Sulfate (morphine) 2 mg Q4H PRN IV pain; Start 04/02/17 at 15:30 Pantoprazole (Protonix Tab) 40 mg DAILY@06 PO Last administered on 04/07/17 06 :32; Admin Dose 40 MG; Start 04/02/17 at 16:00 Polyethylene Glycol (Miralax) 8.5 gm DAILY PO Last administered on 04/07/17 09 :36; Admin Dose 8.5 GM; Start 04/02/17 at 16:00 Heparin Sodium (Porcine) (Heparin (5000 Units/0.5 ml)) 5,000 unit BID SC Last administered on 04/07/17 09:38; Admin Dose 5,000 UNIT; Start 04/02/17 at 21:00 Atorvastatin Calcium (Lipitor) 20 mg DAILY@21 PO Last administered on 22:34; Admin Dose 20 MG; Start 04/02/17 at 21:00 Acetaminophen/ Hydrocodone Bitart ([place] (5)) 1 tab Q6H PRN PO pain Last administered on 04/04/17t 20:20; Admin Dose 1 TAB; Start 04/02/17 at 18:00 FREEMAN BALTAZAR April 07, 2017 13:27
--- NOTE | 2017-04-07 15:49 | PN ---
Date/Time of Note Date/Time of Note DATE: 04/07/17 TIME: 15:46 Assessment/Plan VTE Prophylaxis VTE Prophylaxis Intervention: heparin Lines/Catheters IV [facility]from [facility] Saline Lock Urinary Cath still in place: No Assessment/Plan Chief Complaint/Hosp Course Assessment and plan 1. reported altered Level of consciousness was reported. Syncope workup negative.. Continue to monitor neuro status. 2. Right humeral fracture. Patient seen by orthopedic surgeon. Continue the recommendations. Follow-up with surgeon should surgical intervention be needed. 3. History of cardiomyopathy. Neonatal Nurse Practitioner following. Note echocardiogram is seen with ejection fraction 35%. Continue optimization with cardiovascular medications and beta-hasmukh and SAÚL inhibitor. 4. Thrombocytopenia. No active bleeding noted at this time. Etiology unclear. Monitor for now. 5. Reported history of brain tumor. No active issue at this time. Monitor for now. Disposition plan: Left call for orthopedic surgeon. We will follow-up should surgical intervention be needed. Continue with analgesics for now. Discussed plan of care with Dr. Ernst Problems: Subjective 24 Hr Interval Summary Free Text/Dictation still reports having some pain on right arm Exam/Review of Systems Vital Signs Vitals Vital Signs Date Time Temp Pulse Resp B/P Pulse Ox O2 Delivery O2 Flow Rate FiO2 04/07/17 07:30 97.8 69 18 143/67 95 04/05/17 23:00 Room Air Intake and Output 04/06/17 04/06/17 04/07/17 15:00 23:00 07:00 Intake Total 840 ml 480 ml Output Total 1450 ml 650 ml Balance -610 ml -170 ml Exam Constitutional: alert, oriented Psych: nl mood/affect Neck: No jvd Respiratory: clear to auscultation, normal air movement Cardiovascular: other (Regular rate) Gastrointestinal: non-tender, soft Musculoskeletal: other (Right arm in sling) Extremities: normal pulses Neurological: nl mental status Results Result Diagram: 04/05/17 0449 04/05/17 0449 Medications Medications Current Medications Carvedilol (Coreg) 3.125 mg BID PO Last administered on 04/07/17 09:37; Admin Dose 3.125 MG; Start 04/02/17 at 21:00 Docusate Sodium (Colace) 100 mg BID PO Last administered on 04/07/17 09:36; Admin Dose 100 MG; Start 04/02/17 at 21:00 Donepezil HCl (Aricept) 5 mg QHS PO Last administered on 04/06/17 22:35; Admin Dose 5 MG; Start 04/02/17 at 21:00 Ferrous Sulfate (Ferrous Sulfate (Ec)) 325 mg TID PO Last administered on 13:49; Admin Dose 325 MG; Start 04/02/17 at 21:00 Furosemide (Lasix) 40 mg DAILY@06 PO Last administered on 04/07/17 06:34; Admin Dose 40 MG; Start 04/02/17 at 16:00 Gabapentin (Neurontin) 300 mg DAILY PO Last administered on 04/07/17 09:36; Admin Dose 300 MG; Start 04/02/17 at 16:00 Potassium Chloride (Micro-K) 8 meq DAILY PO Last administered on 04/07/17 09: 36; Admin Dose 8 MEQ; Start 04/02/17 at 16:00 Quetiapine Fumarate (Seroquel) 100 mg HS PO Last administered on 04/06/17 22: 33; Admin Dose 100 MG; Start 04/02/17 at 21:00 Morphine Sulfate (morphine) 2 mg Q4H PRN IV pain; Start 04/02/17 at 15:30 Pantoprazole (Protonix Tab) 40 mg DAILY@06 PO Last administered on 04/07/17 06 :32; Admin Dose 40 MG; Start 04/02/17 at 16:00 Polyethylene Glycol (Miralax) 8.5 gm DAILY PO Last administered on 04/07/17 09 :36; Admin Dose 8.5 GM; Start 04/02/17 at 16:00 Heparin Sodium (Porcine) (Heparin (5000 Units/0.5 ml)) 5,000 unit BID SC Last administered on 04/07/17 09:38; Admin Dose 5,000 UNIT; Start 04/02/17 at 21:00 Atorvastatin Calcium (Lipitor) 20 mg DAILY@21 PO Last administered on 22:34; Admin Dose 20 MG; Start 04/02/17 at 21:00 Acetaminophen/ Hydrocodone Bitart ([place] (5/325)) 1 tab Q6H PRN PO pain Last administered on 04/04/17 20:20; Admin Dose 1 TAB; Start 04/02/17 at 18:00 Lisinopril (Zestril) 10 mg BID PO ; Start 04/07/17 at 21:00 EDUARDA VALADEZ April 07, 2017 15:49
[2017-04-07 19:50] VITALS: BP 176/76; RESP 20
[2017-04-07] MEDS: DONEPEZIL 5 MG TAB PO SCH (20:38)
[2017-04-07] MEDS: ATORVASTATIN 20 MG TAB PO SCH (20:39)
[2017-04-07] MEDS: LISINOPRIL 10 MG TAB PO SCH (20:39)
[2017-04-07] MEDS: QUETIAPINE 100 MG TAB PO SCH (20:39)
[2017-04-08] MEDS: HYDROCODONE/APAP (5/325) TAB PO PRN ×2 (05:29→21:14)
[2017-04-08] MEDS: FUROSEMIDE 40 MG TAB PO SCH (05:30)
[2017-04-08] MEDS: PANTOPRAZOLE (EC) 40 MG TAB PO SCH (05:30)
[2017-04-08 07:42] VITALS: BP 109/52; RESP 18
[2017-04-08] MEDS: FERROUS SULFATE (EC) 325 MG TAB PO SCH ×3 (09:00→21:08)
[2017-04-08] MEDS: POTASSIUM CHLORIDE (SR) 8 MEQ CAP PO SCH (10:03)
[2017-04-08] MEDS: HEPARIN 5,000 UNIT/0.5 ML VIAL SC SCH ×2 (10:06→21:17)
[2017-04-08] MEDS: POLYETHYLENE GLYCOL 17 GM PACKET PO SCH (10:14)
[2017-04-08] MEDS: GABAPENTIN 300 MG CAP PO SCH (10:14)
[2017-04-08] MEDS: DOCUSATE SODIUM 100 MG CAP PO SCH ×2 (10:14→21:09)
--- NOTE | 2017-04-08 11:08 | PN ---
Date/Time of Note Date/Time of Note DATE: 04/08/17 TIME: 11:05 Assessment/Plan VTE Prophylaxis VTE Prophylaxis Intervention: heparin Lines/Catheters IV [facility]from [facility] Saline Lock Urinary Cath still in place: No Assessment/Plan Chief Complaint/Hosp Course Assessment and plan 1. reported altered Level of consciousness was reported. Syncope workup negative.. Continue to monitor neuro status. 2. Right humeral fracture. Patient seen by orthopedic surgeon. Continue the recommendations. Await Surgical consult input. Plan for brace for right upper extremity for now. 3. History of cardiomyopathy. Commissary Worker following. Note echocardiogram is seen with ejection fraction 35%. Continue optimization with cardiovascular medications and beta-hasmukh and SAÚL inhibitor. Of note patient is moderate risk for surgical intervention 4. Thrombocytopenia. No active bleeding noted at this time. Etiology unclear. Monitor for now. 5. Reported history of brain tumor. No active issue at this time. Monitor for now. Disposition plan: Left call for orthopedic surgeon again. Awaiting callback. Tentative plan for brace placement on right upper extremity. Considering patient's low EF patient is moderate risk for surgical intervention however the benefits of orthopedic intervention make it reasonable to proceed. Follow-up with surgical consult input. Discussed plan of care with Dr. Ernst Problems: Subjective 24 Hr Interval Summary Free Text/Dictation still reports having some right arm pain. no other specific complaints Exam/Review of Systems Vital Signs Vitals Vital Signs Date Time Temp Pulse Resp B/P Pulse Ox O2 Delivery O2 Flow Rate FiO2 04/08/17 07:42 98.2 76 18 109/52 96 04/05/17 23:00 Room Air Intake and Output 04/07/17 04/07/17 04/08/17 15:00 23:00 07:00 Intake Total 600 ml Balance 600 ml Exam Constitutional: alert, oriented Psych: nl mood/affect Head: normocephalic Neck: supple, No jvd Respiratory: clear to auscultation Cardiovascular: regular rate and rhythm Gastrointestinal: non-tender, soft Musculoskeletal: swelling (right arm with ecchymosis) Neurological: FORENSIC AUDIT EXPERT II-XII intact, nl mental status, nl speech Results Result Diagram: 04/05/17 0449 04/05/179 Medications Medications Current Medications Carvedilol (Coreg) 3.125 mg BID PO Last administered on 04/08/17 09:00; Admin Dose 3.125 MG; Start 04/02/17 at 21:00 Docusate Sodium (Colace) 100 mg BID PO Last administered on 04/08/17 10:14; Admin Dose 100 MG; Start 04/02/17 at 21:00 Donepezil HCl (Aricept) 5 mg QHS PO Last administered on 04/07/17 20:38; Admin Dose 5 MG; Start 04/02/17 at 21:00 Ferrous Sulfate (Ferrous Sulfate (Ec)) 325 mg TID PO Last administered on 09:00; Admin Dose 325 MG; Start 04/02/17 at 21:00 Furosemide (Lasix) 40 mg DAILY@06 PO Last administered on 04/08/17 05:30; Admin Dose 40 MG; Start 04/02/17 at 16:00 Gabapentin (Neurontin) 300 mg DAILY PO Last administered on 04/08/17 10:14; Admin Dose 300 MG; Start 04/02/17 at 16:00 Potassium Chloride (Micro-K) 8 meq DAILY PO Last administered on 04/08/17 10: 03; Admin Dose 8 MEQ; Start 04/02/17 at 16:00 Quetiapine Fumarate (Seroquel) 100 mg HS PO Last administered on 04/07/17 20: 39; Admin Dose 100 MG; Start 04/02/17 at 21:00 Morphine Sulfate (morphine) 2 mg Q4H PRN IV pain; Start 04/02/17 at 15:30 Pantoprazole (Protonix Tab) 40 mg DAILY@06 PO Last administered on 04/08/17 05 :30; Admin Dose 40 MG; Start 04/02/17 at 16:00 Polyethylene Glycol (Miralax) 8.5 gm DAILY PO Last administered on 04/08/17 10 :14; Admin Dose 8.5 GM; Start 04/02/17 at 16:00 Heparin Sodium (Porcine) (Heparin (5000 Units/0.5 ml)) 5,000 unit BID SC Last administered on 04/08/17 10:06; Admin Dose 5,000 UNIT; Start 04/02/17 at 21:00 Atorvastatin Calcium (Lipitor) 20 mg DAILY@21 PO Last administered on 20:39; Admin Dose 20 MG; Start 5/19/17 at 21:00 Acetaminophen/ Hydrocodone Bitart ([place] (5/325)) 1 tab Q6H PRN PO pain Last administered on 04/08/17 05:29; Admin Dose 1 TAB; Start 04/02/17 at 18:00 Lisinopril (Zestril) 10 mg BID PO Last administered on 04/07/17 20:39; Admin Dose 10 MG; Start 04/07/17 at 21:00 EDUARDA VALADEZ April 08, 2017 11:08
[2017-04-08] MEDS: LISINOPRIL 10 MG TAB PO SCH ×2 (13:20→21:08)
[2017-04-08 13:22] VITALS: BP 138/63; PULSE 77
--- NOTE | 2017-04-08 13:27 | CONS ---
Date/Time of Note Date/Time of Note DATE: 04/08/17 TIME: 13:24 Assessment/Plan Assessment/Plan Chief Complaint/Hosp Course IMPRESSION: 1. Preoperative evaluation prior to possible surgery for shoulder fracture.- negative troponin x 3/Low EF by echo 35-40. lexiscan with no ischemia/+ scar( prior [facility]) and EF 35%. Thus ok to proceed to OR at [place] risk on current medications, without further noninvasive evaluation 2. Syncope, assess for cardiac etiology. Rule out cardiac arrhythmia. 3. Hypertension. 4. Dyslipidemia. 5. Left bundle branch block on EKG. 6. Abnormal electrocardiogram. Recc: -Continue coreg and zestril at increased dose with currently reasonable improve BP control -Continue lasix -Contiue statin -pain control -ongoing ortho f/u Problems: Consultation Date/Type/Reason Admit Date/Time April 04, 2017 at 14:16 Initial Consult Date 04/04/2017 Type of Consultation: Cardiology Reason for Consultation preop/cardiomyopathy Referring Provider: GLENDY ZARATE Exam/Review of Systems Vital Signs Vitals Vital Signs Date Time Temp Pulse Resp B/P Pulse Ox O2 Delivery O2 Flow Rate FiO2 04/08/17 13:22 77 138/63 04/08/17 07:42 98.2 18 96 04/05/17 23:00 Room Air Intake and Output 04/07/17 04/07/17 04/08/17 15:00 23:00 07:00 Intake Total 600 ml Balance 600 ml Exam Review of Systems: CONSTITUTIONAL: No fevers, chills. PULMONARY: No sob CARDIOVASCULAR: No chest pain/palpitations GASTROINTESTINAL: No nausea/vomiting. GENITOURINARY: No hematuria/dysuria. MUSCULOSKELETAL: No myagias/arthalgias. PSYCHIATRIC: The patient denies depression. NEUROLOGIC: No weakness Constitutional: alert Psych: no complaints Head: normocephalic ENMT: mucosa pink and moist Neck: jvd (9 cm water), supple Respiratory: clear to auscultation Cardiovascular: regular rate and rhythm Gastrointestinal: non-tender, soft Musculoskeletal: other (arm in sling) Extremities: edema (none) Neurological: other (No focal deficits) Results Result Diagram: 04/05/17 0449 04/05/17 0449 Medications Medications Current Medications Carvedilol (Coreg) 3.125 mg BID PO Last administered on 04/08/17 09:00; Admin Dose 3.125 MG; Start 04/02/17 at 21:00 Docusate Sodium (Colace) 100 mg BID PO Last administered on 04/08/17 10:14; Admin Dose 100 MG; Start 04/02/17 at 21:00 Donepezil HCl (Aricept) 5 mg QHS PO Last administered on 04/07/17 20:38; Admin Dose 5 MG; Start 04/02/17 at 21:00 Ferrous Sulfate (Ferrous Sulfate (Ec)) 325 mg TID PO Last administered on 13:18; Admin Dose 325 MG; Start 04/02/17 at 21:00 Furosemide (Lasix) 40 mg DAILY@06 PO Last administered on 04/08/17 05:30; Admin Dose 40 MG; Start 04/02/17 at 16:00 Gabapentin (Neurontin) 300 mg DAILY PO Last administered on 04/08/17 10:14; Admin Dose 300 MG; Start 04/02/17 at 16:00 Potassium Chloride (Micro-K) 8 meq DAILY PO Last administered on 04/08/17 10: 03; Admin Dose 8 MEQ; Start 04/02/17 at 16:00 Quetiapine Fumarate (Seroquel) 100 mg HS PO Last administered on 04/07/17 20: 39; Admin Dose 100 MG; Start 04/02/17 at 21:00 Morphine Sulfate (morphine) 2 mg Q4H PRN IV pain; Start 04/02/17 at 15:30 Pantoprazole (Protonix Tab) 40 mg DAILY@06 PO Last administered on 04/08/17 05 :30; Admin Dose 40 MG; Start 04/02/17 at 16:00 Polyethylene Glycol (Miralax) 8.5 gm DAILY PO Last administered on 04/08/17 10 :14; Admin Dose 8.5 GM; Start 04/02/17 at 16:00 Heparin Sodium (Porcine) (Heparin (5000 Units/0.5 ml)) 5,000 unit BID SC Last administered on 04/08/17 10:06; Admin Dose 5,000 UNIT; Start 04/02/17 at 21:00 Atorvastatin Calcium (Lipitor) 20 mg DAILY@21 PO Last administered on 20:39; Admin Dose 20 MG; Start 04/02/17 at 21:00 Acetaminophen/ Hydrocodone Bitart ([place] (5/)) 1 tab Q6H PRN PO pain Last administered on 04/08/17 05:29; Admin Dose 1 TAB; Start 04/02/17 at 18:00 Lisinopril (Zestril) 10 mg BID PO Last administered on 04/08/17 13:20; Admin Dose 10 MG; Start 04/07/17 at 21:00 FREEMAN BALTAZAR April 08, 2017 13:27
--- NOTE | 2017-04-08 17:43 | PN ---
DATE: 04/08/2017 Still waiting for HSS brace. CT scan of the right shoulder again revealed a fracture of the humeral neck with the impaction of the femoral fragment at the humeral head onto the neck. Repeat x-rays a fter right upper extremity is in a brace. Dictated By: LAURA CRONIN/JUAN Conf#: [id number] DID#: [id number]
[2017-04-08 19:33] VITALS: BP 133/60; RESP 18
[2017-04-08] MEDS: QUETIAPINE 100 MG TAB PO SCH (21:08)
[2017-04-08] MEDS: ATORVASTATIN 20 MG TAB PO SCH (21:08)
[2017-04-08] MEDS: DONEPEZIL 5 MG TAB PO SCH (21:09)
[2017-04-09 05:38] LABS: ADD SCAN DIFF NO
[2017-04-09 05:44] LABS: BASOPHILS % 0.3 % (0.0-2.0); EOSINOPHILS # 0.2 10^3/ul (0.0-0.5); EOSINOPHILS % 2.7 % (0.0-7.0); HEMATOCRIT 28.4 % (37.0-47.0); HEMOGLOBIN 8.9 g/dl (12.0-16.0); LYMPHOCYTES # 1.3 10^3/ul (0.8-2.9); LYMPHOCYTES % 20.5 % (15.0-51.0); MEAN CORPUSCULAR HEMOGLOBIN 29.2 pg (29.0-33.0); MEAN CORPUSCULAR HGB CONC 31.3 g/dl (32.0-37.0); MEAN CORPUSCULAR VOLUME 93.1 fl (82.0-101.0); MEAN PLATELET VOLUME 10.8 fl (7.4-10.4); MONOCYTE # 0.6 10^3/ul (0.3-0.9); MONOCYTES % 9.7 % (0.0-11.0); NEUTROPHIL # 4.3 10^3/ul (1.6-7.5); NEUTROPHILS % 66.5 % (39.0-77.0); PLATELET COUNT 164 10^3/UL (140-415); RED BLOOD COUNT 3.05 10^6/ul (4.20-5.40); RED CELL DISTRIBUTION WIDTH 14.7 % (11.5-14.5); WHITE BLOOD COUNT 6.4 10^3/ul (4.8-10.8)
[2017-04-09 06:06] LABS: POTASSIUM 4.8 mmol/L (3.5-5.1)
[2017-04-09 06:08] LABS: CREATININE 1.42 mg/dl (0.44-1.00)
[2017-04-09 06:09] LABS: CALCIUM 8.8 mg/dl (8.4-10.2)
[2017-04-09] MEDS: PANTOPRAZOLE (EC) 40 MG TAB PO SCH (06:18)
[2017-04-09] MEDS: FUROSEMIDE 40 MG TAB PO SCH (06:19)
[2017-04-09 07:59] VITALS: BP 121/56; RESP 16
[2017-04-09 08:10] VITALS: BP 121/56; RESP 16
[2017-04-09] MEDS: LISINOPRIL 10 MG TAB PO SCH ×2 (09:35→21:37)
[2017-04-09] MEDS: POTASSIUM CHLORIDE (SR) 8 MEQ CAP PO SCH (09:35)
[2017-04-09] MEDS: GABAPENTIN 300 MG CAP PO SCH (09:36)
[2017-04-09] MEDS: FERROUS SULFATE (EC) 325 MG TAB PO SCH ×3 (09:36→21:37)
[2017-04-09] MEDS: DOCUSATE SODIUM 100 MG CAP PO SCH ×2 (09:36→21:36)
[2017-04-09] MEDS: POLYETHYLENE GLYCOL 17 GM PACKET PO SCH (09:37)
[2017-04-09] MEDS: HEPARIN 5,000 UNIT/0.5 ML VIAL SC SCH ×2 (09:45→21:38)
[2017-04-09] MEDS: SOD CHLORIDE 0.9% 1,000 ML IV SCH (11:09)
--- NOTE | 2017-04-09 13:05 | RADRPT ---
PROCEDURE: XR Shoulder. CLINICAL INDICATION: Right shoulder pain. Brace placement. TECHNIQUE: Three views of the right shoulder are available for review. COMPARISON: CT scan dated 04/05/2017. FINDINGS: Again seen is the mildly displaced right proximal humerus fracture. The bones are osteoporotic. 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 no clavicular fractures seen. IMPRESSION: 1. Mildly displaced right proximal humerus fracture. 2. Osteoporosis. 3. 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 RPTAT: XX .Darnell Hubbard MD, MD Date Time Electronically viewed and signed by .Darnell Hubbard MD, on 04/09/2017 13:04 .T/
--- NOTE | 2017-04-09 15:26 | PN ---
Date/Time of Note Date/Time of Note DATE: 04/09/17 TIME: 15:24 Assessment/Plan VTE Prophylaxis VTE Prophylaxis Intervention: heparin Lines/Catheters [facility]from [facility] Saline Lock Urinary Cath still in place: No Assessment/Plan Chief Complaint/Hosp Course Assessment and plan 1. reported altered Level of consciousness was reported. Syncope workup negative.. Continue to monitor neuro status. 2. Right humeral fracture. Patient seen by orthopedic surgeon. Continue the recommendations. Plan for brace for right upper extremity for now. 3. History of cardiomyopathy. Embossing Calender Operator following. Note echocardiogram is seen with ejection fraction 35%. Continue optimization with cardiovascular medications and beta-hasmukh and SAÚL inhibitor. Of note patient is moderate risk for surgical intervention 4. Thrombocytopenia. No active bleeding noted at this time. Etiology unclear. Monitor for now. 5. Reported history of brain tumor. No active issue at this time. Monitor for now. Disposition plan: Plan for brace of right arm. follow up with surgeon. d/c when cleared by consultants Discussed plan of care with Dr. Ernst Problems: Subjective 24 Hr Interval Summary Free Text/Dictation no acute distress noted Exam/Review of Systems Vital Signs Vitals Vital Signs Date Time Temp Pulse Resp B/P Pulse Ox O2 Delivery O2 Flow Rate FiO2 04/09/17 08:10 98.0 74 16 121/56 98 04/05/17 23:00 Room Air Intake and Output 04/08/17 04/08/17 04/09/17 15:00 23:00 07:00 Intake Total 720 ml 200 ml Output Total 600 ml Balance 120 ml 200 ml Exam Constitutional: alert, oriented Head: normocephalic Neck: supple Respiratory: clear to auscultation, normal air movement Cardiovascular: other (regular rate ) Gastrointestinal: non-tender, soft Musculoskeletal: swelling (right upper arm with some bruising ) Neurological: BEAD MAKER II-XII intact, nl mental status, nl speech Skin: other (ecchymoses right upper arm ) Results Result Diagram: 04/09/1725 04/09/17 0525 Results 24 hrs Laboratory Tests Test 04/09/17 05:25 White Blood Count 6.4 # Red Blood Count 3.05 L Hemoglobin 8.9 L Hematocrit 28.4 L Mean Corpuscular Volume 93.1 Mean Corpuscular Hemoglobin 29.2 Mean Corpuscular Hemoglobin Concent 31.3 L Red Cell Distribution Width 14.7 H Platelet Count 164 # Mean Platelet Volume 10.8 H Neutrophils % 66.5 Lymphocytes % 20.5 Monocytes % 9.7 Eosinophils % 2.7 Basophils % 0.3 Nucleated Red Blood Cells % 0.0 Neutrophils # 4.3 Lymphocytes # 1.3 Monocytes # 0.6 Eosinophils # 0.2 Basophils # 0.0 Nucleated Red Blood Cells # 0.0 Sodium Level 142 Potassium Level 4.8 Chloride Level 102 Carbon Dioxide Level 29 Anion Gap 16 Blood Urea Nitrogen 51 H Creatinine 1.42 H Glucose Level 99 Calcium Level 8.8 Medications Medications Current Medications Carvedilol (Coreg) 3.125 mg BID PO Last administered on 04/09/17 09:36; Admin Dose 3.125 MG; Start 04/02/17 at 21:00 Docusate Sodium (Colace) 100 mg BID PO Last administered on 04/09/17 09:36; Admin Dose 100 MG; Start 04/02/17 at 21:00 Donepezil HCl (Aricept) 5 mg QHS PO Last administered on 04/08/17 21:09; Admin Dose 5 MG; Start 04/02/17 at 21:00 Ferrous Sulfate (Ferrous Sulfate (Ec)) 325 mg TID PO Last administered on 13:43; Admin Dose 325 MG; Start 04/02/17 at 21:00 Furosemide (Lasix) 40 mg DAILY@06 PO Last administered on 04/09/17 06:19; Admin Dose 40 MG; Start 04/02/17 at 16:00; Status Future Hold Gabapentin (Neurontin) 300 mg DAILY PO Last administered on 04/09/17 09:36; Admin Dose 300 MG; Start 04/02/17 at 16:00 Potassium Chloride (Micro-K) 8 meq DAILY PO Last administered on 04/09/17 09: 35; Admin Dose 8 MEQ; Start 04/02/17 at 16:00 Quetiapine Fumarate (Seroquel) 100 mg HS PO Last administered on 04/08/17 21: 08; Admin Dose 100 MG; Start 04/02/17 at 21:00 Morphine Sulfate (morphine) 2 mg Q4H PRN IV pain; Start 04/02/17 at 15:30 Pantoprazole (Protonix Tab) 40 mg DAILY@06 PO Last administered on 04/09/17 06 :18; Admin Dose 40 MG; Start 04/02/17 at 16:00 Polyethylene Glycol (Miralax) 8.5 gm DAILY PO Last administered on 04/09/17 09 :37; Admin Dose 8.5 GM; Start 04/02/17 at 16:00 Heparin Sodium (Porcine) (Heparin (5000 Units/0.5 ml)) 5,000 unit BID SC Last administered on 04/09/17 09:45; Admin Dose 5,000 UNIT; Start 04/02/17 at 21:00 Atorvastatin Calcium (Lipitor) 20 mg DAILY@21 PO Last administered on 21:08; Admin Dose 20 MG; Start 04/02/17 at 21:00 Acetaminophen/ Hydrocodone Bitart ([place] (5/325)) 1 tab Q6H PRN PO pain Last administered on 04/08/17 21:14; Admin Dose 1 TAB; Start 04/02/17 at 18:00 Lisinopril 10 mg 10 mg BID PO Last administered on 04/09/17 09:35; Admin Dose 10 MG; Start 04/07/17 at 21:00 Sodium Chloride (NS) 1,000 ml @ 75 mls/hr [id number] IV Last administered on 04/09 11:09; Admin Dose 75 MLS/HR; Start 04/09/17 at 10:30 EDUARDA VALADEZ April 09, 2017 15:26
[2017-04-09 19:23] VITALS: BP 123/60; RESP 18
[2017-04-09] MEDS: ATORVASTATIN 20 MG TAB PO SCH (21:36)
[2017-04-09] MEDS: QUETIAPINE 100 MG TAB PO SCH (21:36)
[2017-04-09] MEDS: DONEPEZIL 5 MG TAB PO SCH (21:36)
[2017-04-10] MEDS: SOD CHLORIDE 0.9% 1,000 ML IV SCH ×2 (00:37→14:29)
[2017-04-10] MEDS: PANTOPRAZOLE (EC) 40 MG TAB PO SCH (05:12)
[2017-04-10 05:55] LABS: ADD SCAN DIFF NO
[2017-04-10 05:58] LABS: BASOPHILS % 0.5 % (0.0-2.0); EOSINOPHILS # 0.1 10^3/ul (0.0-0.5); EOSINOPHILS % 1.8 % (0.0-7.0); HEMATOCRIT 26.6 % (37.0-47.0); HEMOGLOBIN 8.6 g/dl (12.0-16.0); LYMPHOCYTES # 1.2 10^3/ul (0.8-2.9); LYMPHOCYTES % 20.3 % (15.0-51.0); MEAN CORPUSCULAR HEMOGLOBIN 30.2 pg (29.0-33.0); MEAN CORPUSCULAR HGB CONC 32.3 g/dl (32.0-37.0); MEAN CORPUSCULAR VOLUME 93.3 fl (82.0-101.0); MEAN PLATELET VOLUME 11.1 fl (7.4-10.4); MONOCYTE # 0.5 10^3/ul (0.3-0.9); NEUTROPHIL # 4.1 10^3/ul (1.6-7.5); NEUTROPHILS % 67.7 % (39.0-77.0); PLATELET COUNT 183 10^3/UL (140-415); RED BLOOD COUNT 2.85 10^6/ul (4.20-5.40); RED CELL DISTRIBUTION WIDTH 14.8 % (11.5-14.5)
[2017-04-10 06:32] LABS: POTASSIUM 4.7 mmol/L (3.5-5.1)
[2017-04-10 06:35] LABS: CREATININE 1.3 mg/dl (0.44-1.00)
[2017-04-10 06:36] LABS: CALCIUM 8.6 mg/dl (8.4-10.2)
[2017-04-10 07:47] VITALS: BP 146/67; RESP 20
[2017-04-10] MEDS: DOCUSATE SODIUM 100 MG CAP PO SCH (10:01)
[2017-04-10] MEDS: GABAPENTIN 300 MG CAP PO SCH (10:02)
[2017-04-10] MEDS: FERROUS SULFATE (EC) 325 MG TAB PO SCH ×2 (10:02→12:18)
[2017-04-10] MEDS: POTASSIUM CHLORIDE (SR) 8 MEQ CAP PO SCH (10:03)
[2017-04-10] MEDS: LISINOPRIL 10 MG TAB PO SCH (10:03)
[2017-04-10] MEDS: POLYETHYLENE GLYCOL 17 GM PACKET PO SCH (10:04)
[2017-04-10] MEDS: HEPARIN 5,000 UNIT/0.5 ML VIAL SC SCH (10:25)
[2017-04-10] MEDS ORDERED: HYDR-3498 PO (15:51)
--- NOTE | 2017-04-10 15:58 | PN ---
Date/Time of Note Date/Time of Note DATE: 04/10/17 TIME: 15:55 Assessment/Plan VTE Prophylaxis VTE Prophylaxis Intervention: heparin Lines/Catheters IV Catheter Type (from [facility]): Peripheral IV Urinary Cath still in place: No Assessment/Plan Chief Complaint/Hosp Course Assessment and plan 1. reported altered Level of consciousness was reported. Syncope workup negative.. Continue to monitor neuro status. 2. Right humeral fracture. Patient seen by orthopedic surgeon. Continue the recommendations. brace put in place. Await for ortho evaluation 3. History of cardiomyopathy. Proposal Manager Writer following. Note echocardiogram is seen with ejection fraction 35%. Continue optimization with cardiovascular medications and beta-hasmukh and SAÚL inhibitor. Of note patient is moderate risk for surgical intervention 4. Thrombocytopenia. No active bleeding noted at this time. Etiology unclear. Monitor for now. 5. Reported history of brain tumor. No active issue at this time. Monitor for now. Disposition plan: Brace in right arm in place. Await ortho evaluation. plan for snf placement once cleared by consults. will follow up Discussed plan of care with Dr. Ernst Problems: Subjective 24 Hr Interval Summary Free Text/Dictation no s/s of distress family at bedside Exam/Review of Systems Vital Signs Vitals Vital Signs Date Time Temp Pulse Resp B/P Pulse Ox O2 Delivery O2 Flow Rate FiO2 04/10/17 07:47 98.5 78 20 146/67 95 Intake and Output 04/09/17 04/09/17 04/10/17 15:00 23:00 07:00 Intake Total 3485 ml 1000 ml Balance 3485 ml 1000 ml Exam Constitutional: alert, oriented Head: normocephalic Neck: supple Respiratory: clear to auscultation, normal air movement Cardiovascular: other (regular rate ) Gastrointestinal: non-tender, soft Musculoskeletal: swelling (right upper arm with some bruising ) Neurological: SOFTWARE SALES REPRESENTATIVE II-XII intact, nl mental status, nl speech Skin: other (ecchymoses right upper arm , noted with brace in place. ) Results Result Diagram: 04/10/1712 04/10/17 0512 Results 24 hrs Laboratory Tests Test 04/09/17 17:32 04/10/17 05:12 Bedside Glucose 114 White Blood Count 6.0 Red Blood Count 2.85 L Hemoglobin 8.6 L Hematocrit 26.6 L Mean Corpuscular Volume 93.3 Mean Corpuscular Hemoglobin 30.2 Mean Corpuscular Hemoglobin Concent 32.3 Red Cell Distribution Width 14.8 H Platelet Count 183 Mean Platelet Volume 11.1 H Neutrophils % 67.7 Lymphocytes % 20.3 Monocytes % 9.0 Eosinophils % 1.8 Basophils % 0.5 Nucleated Red Blood Cells % 0.0 Neutrophils # 4.1 Lymphocytes # 1.2 Monocytes # 0.5 Eosinophils # 0.1 Basophils # 0.0 Nucleated Red Blood Cells # 0.0 Sodium Level 140 Potassium Level 4.7 Chloride Level 105 Carbon Dioxide Level 25 Anion Gap 15 Blood Urea Nitrogen 52 H Creatinine 1.30 H Glucose Level 97 Calcium Level 8.6 Medications Medications Current Medications Carvedilol (Coreg) 3.125 mg BID PO Last administered on 04/10/17 10:22; Admin Dose 3.125 MG; Start 04/02/17 at 21:00 Docusate Sodium (Colace) 100 mg BID PO Last administered on 04/10/17 10:01; Admin Dose 100 MG; Start 04/02/17 at 21:00 Donepezil HCl (Aricept) 5 mg QHS PO Last administered on 04/09/17 21:36; Admin Dose 5 MG; Start 04/02/17 at 21:00 Ferrous Sulfate (Ferrous Sulfate (Ec)) 325 mg TID PO Last administered on 12:18; Admin Dose 325 MG; Start 04/02/17 at 21:00 Furosemide (Lasix) 40 mg DAILY@06 PO Last administered on 04/09/17 06:19; Admin Dose 40 MG; Start 04/02/17 at 16:00; Status Future Hold Gabapentin (Neurontin) 300 mg DAILY PO Last administered on 04/10/17 10:02; Admin Dose 300 MG; Start 04/02/17 at 16:00 Potassium Chloride (Micro-K) 8 meq DAILY PO Last administered on 04/10/17 10: 03; Admin Dose 8 MEQ; Start 04/02/17 at 16:00 Quetiapine Fumarate (Seroquel) 100 mg HS PO Last administered on 04/09/17 21: 36; Admin Dose 100 MG; Start 04/02/17 at 21:00 Morphine Sulfate (morphine) 2 mg Q4H PRN IV pain; Start 04/02/17 at 15:30 Pantoprazole (Protonix Tab) 40 mg DAILY@06 PO Last administered on 04/10/17 05 :12; Admin Dose 40 MG; Start 04/02/17 at 16:00 Polyethylene Glycol (Miralax) 8.5 gm DAILY PO Last administered on 04/10/17 10 :04; Admin Dose 8.5 GM; Start 04/02/17 at 16:00 Heparin Sodium (Porcine) (Heparin (5000 Units/0.5 ml)) 5,000 unit BID SC Last administered on 04/10/17 10:25; Admin Dose 5,000 UNIT; Start 04/02/17 at 21:00 Atorvastatin Calcium (Lipitor) 20 mg DAILY@21 PO Last administered on 21:36; Admin Dose 20 MG; Start 04/02/17 at 21:00 Acetaminophen/ Hydrocodone Bitart ([place] (5/325)) 1 tab Q6H PRN PO pain Last administered on 04/08/17 21:14; Admin Dose 1 TAB; Start 04/02/17 at 18:00 Lisinopril 10 mg 10 mg BID PO Last administered on 04/10/17 10:03; Admin Dose 10 MG; Start 04/07/17 at 21:00 Sodium Chloride (NS) 1,000 ml @ 75 mls/hr [id number] IV Last administered on 04/10 14:29; Admin Dose 75 MLS/HR; Start 04/09/17 at 10:30 EDUARDA VALADEZ April 10, 2017 15:58
--- NOTE | 2017-04-10 17:23 | PDOCDIS ---
Discharge Instructions DIAGNOSIS Discharge Diagnosis: 1. Reported altered level of consciousness 2. Right humeral fracture 3. CONDITION Patient Condition: Stable HOME CARE INSTRUCTIONS: Diet Instructions: Low Fat /Cholesterol FOLLOW UP/APPOINTMENTS Appointments 1. Follow up with Dr. Kathe Corona in one week for repeat xray of right arm OTHER ORDERS: Other Orders: 1. Further care and management per [facility] facility EDUARDA VALADEZ April 10, 2017 17:23
--- NOTE | 2017-04-10 17:36 | CONS ---
Date/Time of Note Date/Time of Note DATE: 04/10/17 TIME: 17:34 Assessment/Plan Assessment/Plan Additional Assessment/Plan Syncope S/P Bioprosthetic Aortic Valve Replacement Mild Mitral Stenosis Systolic dysfunction with EF 35-40% Hypertension Dyslipidemia Dementia Humerus fracture in brace Hemodynamically stable Continue Coreg and Lisinopril Continue Lipitor Continue GI and DVT Prophylaxis Continue Braces Consultation Date/Type/Reason Admit Date/Time April 04, 2017 at 14:16 Psychological: no complaints Social History Smoking Status: Never smoker Exam/Review of Systems Vital Signs Vitals Vital Signs Date Time Temp Pulse Resp B/P Pulse Ox O2 Delivery O2 Flow Rate FiO2 04/10/17 07:47 98.5 78 20 146/67 95 Intake and Output 04/09/17 04/09/17 04/10/17 15:00 23:00 07:00 Intake Total 3485 ml 1000 ml Balance 3485 ml 1000 ml Exam Constitutional: alert Head: atraumatic, normocephalic Neck: non-tender, supple Respiratory: clear to auscultation Cardiovascular: regular rate and rhythm Gastrointestinal: nl liver, spleen, non-tender, soft Extremities: normal pulses Results Result Diagram: 04/10/17 0512 04/10/17 0512 Results 24 hrs Laboratory Tests Test 04/10/17 05:12 White Blood Count 6.0 Red Blood Count 2.85 L Hemoglobin 8.6 L Hematocrit 26.6 L Mean Corpuscular Volume 93.3 Mean Corpuscular Hemoglobin 30.2 Mean Corpuscular Hemoglobin Concent 32.3 Red Cell Distribution Width 14.8 H Platelet Count 183 Mean Platelet Volume 11.1 H Neutrophils % 67.7 Lymphocytes % 20.3 Monocytes % 9.0 Eosinophils % 1.8 Basophils % 0.5 Nucleated Red Blood Cells % 0.0 Neutrophils # 4.1 Lymphocytes # 1.2 Monocytes # 0.5 Eosinophils # 0.1 Basophils # 0.0 Nucleated Red Blood Cells # 0.0 Sodium Level 140 Potassium Level 4.7 Chloride Level 105 Carbon Dioxide Level 25 Anion Gap 15 Blood Urea Nitrogen 52 H Creatinine 1.30 H Glucose Level 97 Calcium Level 8.6 Medications Medications Current Medications Carvedilol (Coreg) 3.125 mg BID PO Last administered on 04/10/17t 10:22; Admin Dose 3.125 MG; Start 04/02/17 at 21:00 Docusate Sodium (Colace) 100 mg BID PO Last administered on 04/10/17 10:01; Admin Dose 100 MG; Start 04/02/17 at 21:00 Donepezil HCl (Aricept) 5 mg QHS PO Last administered on 04/09/17 21:36; Admin Dose 5 MG; Start 04/02/17 at 21:00 Ferrous Sulfate (Ferrous Sulfate (Ec)) 325 mg TID PO Last administered on 12:18; Admin Dose 325 MG; Start 04/02/17 at 21:00 Furosemide (Lasix) 40 mg DAILY@06 PO Last administered on 04/09/17 06:19; Admin Dose 40 MG; Start 04/02/17 at 16:00; Status Future Hold Gabapentin (Neurontin) 300 mg DAILY PO Last administered on 04/10/17 10:02; Admin Dose 300 MG; Start 04/02/17 at 16:00 Potassium Chloride (Micro-K) 8 meq DAILY PO Last administered on 04/10/17 10: 03; Admin Dose 8 MEQ; Start 04/02/17 at 16:00 Quetiapine Fumarate (Seroquel) 100 mg HS PO Last administered on 04/09/17 21: 36; Admin Dose 100 MG; Start 04/02/17 at 21:00 Morphine Sulfate (morphine) 2 mg Q4H PRN IV pain; Start 04/02/17 at 15:30 Pantoprazole (Protonix Tab) 40 mg DAILY@06 PO Last administered on 04/10/17 05 :12; Admin Dose 40 MG; Start 04/02/17 at 16:00 Polyethylene Glycol (Miralax) 8.5 gm DAILY PO Last administered on 04/10/17 10 :04; Admin Dose 8.5 GM; Start 04/02/17 at 16:00 Heparin Sodium (Porcine) (Heparin (5000 Units/0.5 ml)) 5,000 unit BID SC Last administered on 04/10/17 10:25; Admin Dose 5,000 UNIT; Start 04/02/17 at 21:00 Atorvastatin Calcium (Lipitor) 20 mg DAILY@21 PO Last administered on 21:36; Admin Dose 20 MG; Start 04/02/17 at 21:00 Acetaminophen/ Hydrocodone Bitart ([place] (5/325)) 1 tab Q6H PRN PO pain Last administered on 04/08/17 21:14; Admin Dose 1 TAB; Start 04/02/17 at 18:00 Lisinopril 10 mg 10 mg BID PO Last administered on 04/10/17 10:03; Admin Dose 10 MG; Start 04/07/17 at 21:00 Sodium Chloride (NS) 1,000 ml @ 75 mls/hr [id number] IV Last administered on 04/10 14:29; Admin Dose 75 MLS/HR; Start 04/09/17 at 10:30 NONA PIEDRA M.D. April 10, 2017 17:36
[2017-04-10 19:36] VITALS: BP 121/55; RESP 18
== END 2017-04-10 19:55 | DRG 562 ==
LOC: E/R 07:46 → TEL 10:58 → OBSVTOIN 04-04 14:16 → MS2 04-04 20:00
PROVIDERS: ADMIT Family Medicine; ATTEND Family Medicine
PROC: 2W38X3Z Immobilization of Right Upper Extremity using Brace (ICD-10-PCS; principal; 2017-04-04)
DX: S42.231A 3-part fracture of surgical neck of right humerus, initial encounter for closed fracture (principal); G93.40 Encephalopathy, unspecified; I42.9 Cardiomyopathy, unspecified; R55 Syncope and collapse; D69.6 Thrombocytopenia, unspecified; F03.90 Unspecified dementia, unspecified severity, without behavioral disturbance, psychotic disturbance, mood disturbance, and anxiety; I10 Essential (primary) hypertension; Z95.2 Presence of prosthetic heart valve; W19.XXXA Unspecified fall, initial encounter; E78.5 Hyperlipidemia, unspecified; I44.7 Left bundle-branch block, unspecified; D50.9 Iron deficiency anemia, unspecified; I69.998 Other sequelae following unspecified cerebrovascular disease
CPT/HCPCS: 36415; 70450; 71010; 73200; 78452; 80048; 80061; 80076; 81001; 81003; 82550; 82553; 82746; 82962; 83036; 83540; 83605; 83735; 84443; 84484; 85025; 85610; 85730; 92610; 93005; 93017; 93306; 96374; 96375; 97162; G0378; A9500; A9505; J1644; J2270; J2405; J2785; J7030; J7040; L3980

== ENCOUNTER 2017-07-13 11:48 | Inpatient (IN) | payer MEDICARE, OTHER ==
[~2017-07-13] VITALS: Ht 152.4 cm; Wt 50.0 kg
[~2017-07-13 11:48] MED LIST changes: -ACET500C5 PO; +HYDR-3498 PO; +HYDR-3671 PO; +LISI-313 PO; -LISI2.5T59 PO; +QUET100T32 PO; +SIMV40TA3 PO; -SMV40T PO
[2017-07-13] MEDS ORDERED: morphine 4 MG/ML VIAL IV STA (12:20)
[2017-07-13] MEDS ORDERED: SOD CHLORIDE 0.9% 500 ML IV ONE ×2 (12:30→21:00)
[2017-07-13 12:35] LABS: BASOPHILS % 0.2 % (0.0-2.0); EOSINOPHILS # 0.1 10^3/ul (0.0-0.5); EOSINOPHILS % 0.7 % (0.0-7.0); HEMATOCRIT 24.8 % (37.0-47.0); HEMOGLOBIN 7.9 g/dl (12.0-16.0); LYMPHOCYTES # 1.6 10^3/ul (0.8-2.9); LYMPHOCYTES % 15.2 % (15.0-51.0); MEAN CORPUSCULAR HEMOGLOBIN 28.8 pg (29.0-33.0); MEAN CORPUSCULAR HGB CONC 31.9 g/dl (32.0-37.0); MEAN CORPUSCULAR VOLUME 90.5 fl (82.0-101.0); MEAN PLATELET VOLUME 9.3 fl (7.4-10.4); MONOCYTE # 0.6 10^3/ul (0.3-0.9); NEUTROPHILS % 77.3 % (39.0-77.0); PLATELET COUNT 305 10^3/UL (140-415); RED BLOOD COUNT 2.74 10^6/ul (4.20-5.40); RED CELL DISTRIBUTION WIDTH 13.3 % (11.5-14.5); WHITE BLOOD COUNT 10.4 10^3/ul (4.8-10.8)
--- NOTE | 2017-07-13 12:41 | ERA ---
ER Documentation Chief Complaint Date/Time DATE: 07/13/17 TIME: 12:25 Chief Complaint RIGHT LEG AND FOOT PAIN WITH POSSIBLE INFECTED WOUND. NO FEVER. NO TRAUMA HPI This is an 87-year-old female with a past medical history of hypertension, hyperlipidemia, heart failure, dementia, a fall 1 year ago and again 3 months ago reportedly with injuries to her RUE and RLE complicated by open ankle ulceration, chronic pains to her right lower extremity since with contractures and atrophy of that leg and a chronic wound to the right ankle, who is now presenting with worsening of her right lower extremity pain since around 9 AM this morning. The patient reportedly woke up and was screaming in pain. The patient does have gabapentin and meloxicam and Vicodin ordered at her nursing facility, but this is reportedly not adequately helping her pain at this time. The patient does have wound care at her nursing facility, but the wounds in her right ankle have remained open. The family is concerned of infection. The patient has not been sick recently. She has not had fever or chills. She does not endorse chest pain or trouble breathing. She does not endorse abdominal pain. Her only pain is related to her right lower extremity. She has had no changes to bowel movements urination, but she does have a history of long-standing constipation. ROS All systems reviewed and are negative except as per history of present illness. Medications Home Meds Reported Medications Heparin Sodium,Porcine/Pf (HEPARIN SOD 5,000 UNIT/ 0.5 ML) 5,000 Unit/0.5 Ml Vial, 5000 UNIT IJ BID, VIAL 07/13/17 Simvastatin* (Zocor*) 40 Mg Tablet, 40 MG PO DAILY, #30 TAB 07/13/17 Potassium Chloride* (Potassium Chloride*) 8 Meq Capsule.er, 8 MEQ PO DAILY, CAP 07/13/17 Furosemide* (Furosemide*) 20 Mg Tablet, 20 MG PO DAILY, #60 TAB 07/13/17 Mirtazapine* (Mirtazapine*) 7.5 Mg Tablet, 7.5 MG PO HS, TAB 07/13/17 Clopidogrel Bisulfate* (Clopidogrel Bisulfate*) 75 Mg Tablet, 75 MG PO DAILY, # 30 TAB 07/13/17 Carvedilol* (Carvedilol*) 3.125 Mg Tablet, 3.125 MG PO BID, #60 TAB HOLD IF SBP<110 OR HR<60 07/13/17 Hydralazine Hcl* (Hydralazine Hcl*) 25 Mg Tab, 25 MG PO BID Y for HTN, #60 TAB HOLD IF SBP<110 OR HR<60 07/13/17 Lisinopril* (Lisinopril*) 5 Mg Tablet, 5 MG PO BID, #30 TAB HOLD IF SBP<110 OR HR<60 07/13/17 Gabapentin* (Gabapentin*) 100 Mg Capsule, 200 MG PO Q4 RIGHT, #180 CAP 07/13/17 Tramadol Hcl* (Ultram*) 50 Mg Tablet, 50 MG PO Q8 Y for PAIN4-04/24, TAB 07/13/17 Hydrocodone/Acetaminophen ([place] 5-325 Tablet) 1 Each Tablet, 1 EACH PO Q6H Y for PAIN7-08/24, TAB 07/13/17 Discontinued Reported Medications Quetiapine Fumarate* (Quetiapine Fumarate*) 100 Mg Tablet, 100 MG PO HS, TAB 04/02/17 Hydralazine Hcl* (Hydralazine Hcl*) 25 Mg Tab, 25 MG PO DAILY Y for ELEVATED BLOOD PRESSURE, #120 TAB 04/02/17 Lisinopril* (Lisinopril*) 5 Mg Tablet, 5 MG PO BID, #30 TAB 04/02/17 Tramadol Hcl* (Ultram*) 50 Mg Tablet, 50 MG PO Q8 Y for PAIN, TAB 06/27/16 Potassium Chloride* (Klor-Con*) 8 Meq Tablet.sa, 8 MEQ PO DAILY, TAB 06/27/16 Donepezil* (Aricept*) 5 Mg Tablet, 5 MG PO DAILY, TAB 06/27/16 Carvedilol* (Coreg*) 3.125 Mg Tablet, 3.125 MG PO BID, #60 TAB 06/27/16 Simvastatin (Simvastatin) 40 Mg Tablet, 40 MG PO DAILY 05/19/13 Gabapentin* (Gabapentin*) 300 Mg Capsule, 300 MG PO DAILY 05/19/13 Ferrous Sulfate* (Ferrous Sulfate*) 325 Mg Tablet, 325 MG PO TID 05/19/13 Clopidogrel Bisulfate* (Clopidogrel Bisulfate*) 75 Mg Tablet, 75 MG PO DAILY 05/19/13 Furosemide (Lasix) 40 Mg Tab, 40 MG PO DAILY 05/19/13 Docusate Sodium* (Colace*) 100 Mg Capsule, 100 MG PO BID 05/19/13 Meloxicam* (Mobic*) 7.5 Mg Tab, 7.5 MG PO DAILY 05/19/13 Discontinued Scripts Hydrocodone Bit-Acetaminophen (Hydrocodone Bit-APAP) 5-325MG Tablet, 1 TAB PO Q6H Y for pain, #30 TAB Prov:EDUARDA VALADEZ 04/10/17 Allergies Allergies: Coded Allergies: vancomycin (Unverified Allergy, Severe, RASH, 07/13/17) PMhx/Soc History of Surgery: Yes (Brain tumor) Anesthesia Reaction: No Hx Neurological Disorder: Yes (Chronic Pain) Hx Respiratory Disorders: No Hx Cardiac Disorders: Yes (HTN, HLD) Hx Psychiatric Problems: Yes (Dementia) Hx Miscellaneous Medical Probl: Yes (HTN, brain tumor. See EMR for more details. ) Hx Alcohol Use: No Hx Substance Use: No Hx Tobacco Use: No FmHx Family History: No diabetes Physical Exam Vitals Vital Signs Date Time Temp Pulse Resp B/P Pulse Ox O2 Delivery O2 Flow Rate FiO2 07/13/17 12:01 98.9 80 22 119/48 99 Physical Exam Const: Screaming in pain, significant distress related to pain, vitals stable Head: Atraumatic Eyes: Normal Conjunctiva ENT: Normal External Ears, Nose and Mouth. Neck: Full range of motion. ~ No meningismus. Resp: Clear to auscultation bilaterally Cardio: Regular rate and rhythm, no murmurs Abd: Soft, non tender, non distended. Normal bowel sounds Skin: No petechiae. Candidal rash with satellite lesions to her buttock Back: No midline or flank tenderness Ext: No cyanosis, no edema. Contracturing to RLE, no tenderness to palpation of hip, femur, knee or tib/fib of RLE, Tenderness to ankle, open wound to right ankle with granulation tissue, no erythema or induration around the chronic open lesions, bone not visualized. Neur: Awake and alert, oriented x1 to person Psych: Anxious, Agitated Result Diagram: 07/13/17 1223 07/13/17 1223 Results 24 hrs Laboratory Tests Test 07/13/17 12:23 White Blood Count 10.410^3/ul Red Blood Count 2.7410^6/ul Hemoglobin 7.9g/dl Hematocrit 24.8% Mean Corpuscular Volume 90.5fl Mean Corpuscular Hemoglobin 28.8pg Mean Corpuscular Hemoglobin Concent 31.9g/dl Red Cell Distribution Width 13.3% Platelet Count 62778^3/UL Mean Platelet Volume 9.3fl Neutrophils % 77.3% Lymphocytes % 15.2% Monocytes % 6.0% Eosinophils % 0.7% Basophils % 0.2% Nucleated Red Blood Cells % 0.0/100WBC Neutrophils # (Manual) 8.010^3/ul Lymphocytes # 1.610^3/ul Monocytes # 0.610^3/ul Eosinophils # 0.110^3/ul Basophils # 0.010^3/ul Nucleated Red Blood Cells # 0.010^3/ul Erythrocyte Sedimentation Rate 135.0mm/Hr Sodium Level 140mmol/L Potassium Level 5.0mmol/L Chloride Level 99mmol/L Carbon Dioxide Level 27mmol/L Anion Gap 19 Blood Urea Nitrogen 34mg/dl Creatinine 1.21mg/dl Glucose Level 115mg/dl Calcium Level 9.2mg/dl C-Reactive Protein 23.1mg/dl Current Medications Medications (Trade) Dose Ordered Sig/Ana Route PRN Reason Start Time Stop Time Status Last Admin Dose Admin Sodium Chloride (NS) 500 ml @ 500 mls/hr Q1H ONCE IV 07/13/17 12:30 07/13/17 13:29 DC 07/13/17 12:35 Morphine Sulfate (morphine) 4 mg ONCE STAT IV 07/13/17 12:20 07/13/17 12:25 DC 07/13/17 12:39 Procedures/MDM The patient's presenting with progressive worsening of chronic pain to her right lower extremity. She does have an open wound over the right ankle that does appear to have some purulence. Her pulses and sensation are intact, she does not want to move her ankle secondary to pain, but she will move her toes. I do not suspect an arterial acute lesion given her strong pulse in the leg. The leg is not swollen and the calf is not tender. I do not suspect DVT. I have some suspicion of infection at the site of her wounds based on her worsening pains, but it clinically does not appear infected. I will also evaluate for osteomyelitis. Patient does have chronic contracturing of the leg since her fall. She does not have tenderness to palpation to the rest of the leg and I do not see any external signs of trauma or injury. The patient's blood work was obtained and reviewed. The patient's CBC showed no leukocytosis. She is anemic with a hemoglobin of 7.9, which is around her baseline. The patient's BMP revealed elevated Cr, but this actually an improved Cr from several previous visits. The patient's ESR and CRP were both elevated. The patient's xray imaging of the RLE showed findings that were concerning for possible osteomyelitis. There are no obvious fractures or dislocations. They recommended an MRI of the ankle for further evaluation. The patient was given morphine in the emergency department with improvement of her pain. The patient is otherwise stable at this time. I do not intend to start antibiotics immediately until speaking to the orthopedic surgeon who may want to evaluate the wound and obtain a wound culture prior to antibiotic initiation. If the orthopedic physician requests antibiotic coverage now, I will started in the emergency department. Otherwise, I will defer to the hospitalist and orthopedic teams. Dr. Corona of orthopedics was called to discuss the case. He will see the patient in the hospital. He recommends and MRI for further evaluation. The patient will be admitted to the hospital for further evaluation and management. Morphine was given to the patient with adequate relief of her pain. Departure Diagnosis: Primary Impression: Wound of right ankle Qualified Code: S91.001D - Wound of right ankle, subsequent encounter Additional Impressions: Pain of right lower extremity Osteomyelitis of ankle Qualified Code: M86.9 - Osteomyelitis of right ankle, unspecified type Condition: Serious ALEX DE LUNA MD Jul 13, 2017 12:39
[2017-07-13 12:59] LABS: CALCIUM 9.2 mg/dl (8.4-10.2); CREATININE 1.21 mg/dl (0.44-1.00)
--- NOTE | 2017-07-13 14:46 | RADRPT ---
PROCEDURE: XR Hip. CLINICAL INDICATION: Pain TECHNIQUE: AP views of the right hip were performed. COMPARISON: None. FINDINGS: Single view of the right hip were obtained. The exam is extremely limited due to the patient's cont racted nature. The hip is in abduction. No displaced fracture seen. The femoral head articulates anatomically with the acetabulum. There is mild degenerative change of the hip joint. The bones ar e osteopenic. IMPRESSION: 1. Limited study due to contracture 2. Hip fixed in abduction 3. No displaced fracture visualized on this limited view RPTAT: HH .Quinn Graham MD, Date Time Electronically viewed and signed by .Quinn Graham MD, on 07/13/2017 14:45 .W/
--- NOTE | 2017-07-13 14:53 | RADRPT ---
PROCEDURE: XR Ankle. CLINICAL INDICATION: Right ankle pain, ulceration, concern for osteomyelitis TECHNIQUE: 3 views of the right ankle were performed. COMPARISON: None. FINDINGS: The bones are osteopenic. There is lateral soft tissue swelling and possible soft tissue gas with ulceration. There is suggestion of cortical irregularity of the distal fibula, cannot exclude osteomyelitis. Thi s is poorly assessed due to overlying external material. There is diffuse soft tissue swelling. There is no definite fracture. IMPRESSION: 1. Lateral soft tissue swelling and suggestion of skin ulceration/soft tissue gas overlying the dist al fibula. 2. Questionable cortical irregularity of the distal fibula, cannot exclude osteomyelitis. Recommend MRI for further evaluation. 3. Background osteopenia. RPTAT: UU .Vishnu Persaud MD, Date Time Electronically viewed and signed by .Vishnu Persaud MD, on 07/13/2017 14:53 .K/
--- NOTE | 2017-07-13 14:54 | RADRPT ---
PROCEDURE: XR Tibia and Fibula. CLINICAL INDICATION: Right ankle pain, ulceration, concern for osteomyelitis TECHNIQUE: 3 views of the right ankle were performed. COMPARISON: Radiographs of the right ankle same day FINDINGS: The bones are osteopenic. There is lateral soft tissue swelling and possible soft tissue gas with ulceration. There is suggestion of cortical irregularity of the distal fibula, cannot exclude osteomyelitis. Thi s is poorly assessed due to overlying external material. There is diffuse soft tissue swelling. There is no definite fracture. There are vascular calcificat ions. Limited evaluation of the knee is grossly unremarkable. IMPRESSION: 1. Lateral soft tissue swelling and suggestion of skin ulceration/soft tissue gas overlying the dist al fibula. 2. Questionable cortical irregularity of the distal fibula, cannot exclude osteomyelitis. Recommend MRI for further evaluation. 3. Background osteopenia. RPTAT: UU .Vishnu Persaud MD, Date Time Electronically viewed and signed by .Vishnu Persaud MD, on 07/13/2017 14:54 .K/
[2017-07-13] MEDS ORDERED: HYDR-906 PO (16:06)
[2017-07-13] MEDS ORDERED: GABA100C14 PO (16:07)
[2017-07-13] MEDS ORDERED: TRAM-40 PO (16:07)
[2017-07-13] MEDS ORDERED: LISI-313 PO (16:09)
[2017-07-13] MEDS ORDERED: CARV3.1260 PO (16:10)
[2017-07-13] MEDS ORDERED: HYDR-3671 PO (16:10)
[2017-07-13] MEDS ORDERED: MIRT7.5T8 PO (16:11)
[2017-07-13] MEDS ORDERED: CLOP75TA4 PO (16:11)
[2017-07-13] MEDS ORDERED: FURO20TA3 PO (16:11)
[2017-07-13] MEDS ORDERED: HEPA500021 IJ (16:12)
[2017-07-13] MEDS ORDERED: SIMV40TA2 PO (16:12)
[2017-07-13] MEDS ORDERED: POTA8CAP PO (16:12)
[2017-07-13] MEDS ORDERED: ONDANSETRON 4 MG INJ IV PRN ×2 (18:30→19:00)
[2017-07-13] MEDS ORDERED: ACETAMINOPHEN 325 MG TAB PO PRN ×2 (18:30→19:00)
[2017-07-13] MEDS ORDERED: DEXTROSE 5%-0.45% NACL 1,000 ML IV SCH (18:31)
--- NOTE | 2017-07-13 18:42 | HP ---
Date/Time of Note Date/Time of Note DATE: 07/13/17 TIME: 18:31 Assessment/Plan VTE Prophylaxis VTE Prophylaxis Intervention: LMWH Assessment/Plan Chief Complaint/Hosp Course 1. Lower extremity ulcer with possible underlying osteomyelitis MRI of right ankle Ortho aware IV antibiotics 2. History of dementia with debility 3. History of hypertension 4. Acute on chronic kidney disease IV fluids Prophylaxis-Lovenox Problems: HPI/ROS Admit Date/Time Admit Date/Time July 13, 2017 Hx of Present Illness Patient is an 87-year-old female with a past medical history of hypertension, hyperlipidemia, heart failure, dementia with debility and history of fall 1 year ago and again 3 months ago reportedly with injuries to her RUE and RLE complicated by open ankle ulceration pain. Patient was at a nursing facility up until 1 week ago but did not want to stay any further and was brought home and has home care. The patient was brought in by son who states that the wound has become worse in the right leg. The patient does have pain medications but apparently this is not helping. The patient did have wound care at her nursing facility, but the wounds in her right ankle have remained open. Patient is unable to provide any history and history is obtained by son who was bedside. ROS Unable to obtain secondary to dementia PMH/Family/Social Past Medical History Per HPI Family History Significant Family History: no pertinent family hx Social History Alcohol Use: none Smoking Status: Smoker,current status unk Drug Use: none Exam/Review of Systems Vital Signs Vitals Vital Signs Date Time Temp Pulse Resp B/P Pulse Ox O2 Delivery O2 Flow Rate FiO2 07/13/17 12:01 98.9 80 22 119/48 99 Exam Psych: confusion Head: normocephalic Respiratory: clear to auscultation Cardiovascular: regular rate and rhythm Gastrointestinal: soft, No distended Musculoskeletal: No nl extremities to inspection Labs Result Diagram: 07/13/17 1223 07/13/17 1223 REINA SWANSON Jul 13, 2017 18:42
[2017-07-13 18:57] VITALS: TEMP 101.1
[2017-07-13] MEDS ORDERED: VANCOMYCIN IV PER PHARMACY XX SCH ×2 (19:00→21:00)
[2017-07-13] MEDS ORDERED: DOCUSATE SODIUM 100 MG CAP PO PRN (19:00)
[2017-07-13] MEDS ORDERED: MAGNESIUM HYDROXIDE 30ML CUP PO PRN (19:00)
[2017-07-13] MEDS ORDERED: ACETAMINOPHEN 650MG/20.3ML CUP ONE (19:04)
[2017-07-13 20:05] VITALS: BP 88/53; RESP 18
[2017-07-13] MEDS: LISINOPRIL 5 MG TAB PO SCH (20:54)
[2017-07-13 21:46] VITALS: Ht 152.4 cm; Wt 50.0 kg
[2017-07-13] MEDS: MIRTAZAPINE 15 MG TAB PO SCH (22:05)
[2017-07-13] MEDS: morphine 2 MG INJ IV PRN (22:05)
[2017-07-13] MEDS: SOD CHLORIDE 0.9% 1,000 ML IV SCH (22:05)
[2017-07-14] MEDS: CLINDAMYCIN 600 MG/D5W (PMX) 50 ML IVPB SCH ×4 (01:01→21:45)
[2017-07-14 02:50] VITALS: BP 108/67; RESP 19
[2017-07-14] MEDS: morphine 2 MG INJ IV PRN ×3 (04:41→19:18)
[2017-07-14 06:31] LABS: ABNORMAL IP MESSAGE 1; BASOPHILS % 0.2 % (0.0-2.0); EOSINOPHILS % 0.5 % (0.0-7.0); HEMATOCRIT 22.9 % (37.0-47.0); LYMPHOCYTES # 0.9 10^3/ul (0.8-2.9); LYMPHOCYTES % 10.1 % (15.0-51.0); MEAN CORPUSCULAR HEMOGLOBIN 27.1 pg (29.0-33.0); MEAN CORPUSCULAR HGB CONC 30.1 g/dl (32.0-37.0); MEAN CORPUSCULAR VOLUME 89.8 fl (82.0-101.0); MEAN PLATELET VOLUME 10.4 fl (7.4-10.4); MONOCYTE # 0.4 10^3/ul (0.3-0.9); MONOCYTES % 5.1 % (0.0-11.0); NEUTROPHILS % 83.4 % (39.0-77.0); PLATELET COUNT 236 10^3/UL (140-415); RED BLOOD COUNT 2.55 10^6/ul (4.20-5.40); RED CELL DISTRIBUTION WIDTH 13.7 % (11.5-14.5); WHITE BLOOD COUNT 8.7 10^3/ul (4.8-10.8)
[2017-07-14] MEDS: SOD CHLORIDE 0.9% 1,000 ML IV SCH ×3 (06:31→20:49)
[2017-07-14 06:34] LABS: POSITIVE DIFF @See below
[2017-07-14 06:40] LABS: HEMOGLOBIN 6.9 g/dl (12.0-16.0)
[2017-07-14 07:12] LABS: CALCIUM 8.5 mg/dl (8.4-10.2); CREATININE 1.19 mg/dl (0.44-1.00); MAGNESIUM 2.3 mg/dl (1.7-2.5); PHOSPHORUS 3.4 mg/dl (2.5-4.9); POTASSIUM 4.6 mmol/L (3.5-5.1)
[2017-07-14 08:30] VITALS: BP 100/49; RESP 19
[2017-07-14] MEDS: FUROSEMIDE 20 MG TAB PO SCH (09:00)
[2017-07-14] MEDS: ENOXAPARIN 30 MG/0.3 ML SYG SC SCH (09:00)
[2017-07-14] MEDS: LISINOPRIL 5 MG TAB PO SCH ×2 (09:00→20:42)
[2017-07-14] MEDS: POTASSIUM CHLORIDE (SR) 8 MEQ CAP PO SCH (09:18)
[2017-07-14] MEDS ORDERED: BALSAM PERU/CASTOR OIL 60 GM TUBE TOP SCH (12:00)
[2017-07-14] MEDS: COLLAGENASE 30 GM TUBE TOP SCH ×3 (12:00→20:24)
[2017-07-14] MEDS: HYDROCODONE/APAP (5/325) TAB PO PRN (12:24)
[2017-07-14] MEDS: CEFTRIAXONE 1 GM/50 ML (PMX) 50 ML IVPB SCH (13:40)
[2017-07-14] MEDS: BALSAM PERU/CASTOR OIL 60 GM TUBE TOP SCH ×2 (14:00→20:24)
[2017-07-14] MEDS: NYSTATIN 30 GM POWDER BTL TOP SCH ×2 (14:00→20:41)
[2017-07-14 15:20] VITALS: BP 127/60; RESP 19
--- NOTE | 2017-07-14 16:03 | PN ---
Date/Time of Note Date/Time of Note DATE: 07/14/17 TIME: 16:00 Assessment/Plan VTE Prophylaxis VTE Prophylaxis Intervention: LMWH Lines/Catheters IV Catheter Type (from Nrs): Peripheral IV Urinary Cath still in place: No Assessment/Plan Chief Complaint/Hosp Course 1. Lower extremity ulcer with possible underlying osteomyelitis MRI of right ankle cannot be obtained secondary to patient's contractions and significant pain Ortho aware IV antibiotics ID consult obtained Vascular consultation obtained for evaluation of possible ischemic ulcer 2. History of dementia with debility 3. History of hypertension 4. Acute on chronic kidney disease IV fluids Prophylaxis-Lovenox Problems: Subjective 24 Hr Interval Summary Constitutional: disoriented Exam/Review of Systems Vital Signs Vitals Vital Signs Date Time Temp Pulse Resp B/P Pulse Ox O2 Delivery O2 Flow Rate FiO2 07/14/17 08:30 99.0 84 19 100/49 95 07/13/17 18:57 Room Air Intake and Output 07/13/17 07/13/17 07/14/17 15:00 23:00 07:00 Intake Total 500 ml 750 ml Balance 500 ml 750 ml Exam Psych: confusion Respiratory: clear to auscultation Cardiovascular: regular rate and rhythm Gastrointestinal: soft, No distended Musculoskeletal: nl extremities to inspection Results Result Diagram: 07/14/17 0553 07/14/17 0553 Results 24 hrs Laboratory Tests Test 07/14/17 05:53 White Blood Count 8.7 Red Blood Count 2.55 L Hemoglobin 6.9 *L Hematocrit 22.9 L Mean Corpuscular Volume 89.8 Mean Corpuscular Hemoglobin 27.1 L Mean Corpuscular Hemoglobin Concent 30.1 L Red Cell Distribution Width 13.7 Platelet Count 236 # Mean Platelet Volume 10.4 Neutrophils % 83.4 H Lymphocytes % 10.1 L Monocytes % 5.1 Eosinophils % 0.5 Basophils % 0.2 Nucleated Red Blood Cells % 0.0 Neutrophils # (Manual) 7.3 Lymphocytes # 0.9 Monocytes # 0.4 Eosinophils # 0.0 Basophils # 0.0 Nucleated Red Blood Cells # 0.0 Sodium Level 138 Potassium Level 4.6 Chloride Level 101 Carbon Dioxide Level 25 Anion Gap 17 H Blood Urea Nitrogen 33 H Creatinine 1.19 H Glucose Level 120 Calcium Level 8.5 Phosphorus Level 3.4 Magnesium Level 2.3 Medications Medications Current Medications Ondansetron HCl (Zofran Inj) 4 mg Q6H PRN IV NAUSEA AND/OR VOMITING; Start at 19:00 Acetaminophen (Tylenol Tab) 650 mg Q6H PRN PO PAIN LEVEL 1-3 OR FEVER; Start at 19:00 Acetaminophen/ Hydrocodone Bitart ([place] (5/325)) 1 tab Q6H PRN PO MODERATE PAIN LEVEL 4-6 Last administered on 07/14/17 12:24; Admin Dose 1 TAB; Start at 19:00 Morphine Sulfate (morphine) 2 mg Q4H PRN IV SEVERE PAIN LEVEL 7-10 Last administered on 07/14/17 10:15; Admin Dose 2 MG; Start 07/13/17 at 19:00 Docusate Sodium (Colace) 100 mg Q12H PRN PO CONSTIPATION; Start 07/13/17 at 19: 00 Magnesium Hydroxide (Milk Of Mag) 30 ml DAILY PRN PO CONSTIPATION; Start at 19:00 Zolpidem Tartrate (Ambien) 5 mg QHS PRN PO SLEEP; Start 07/13/17 at 19:00 Enoxaparin Sodium (Lovenox) 30 mg DAILY SC ; Start 07/14/17 at 09:00 Carvedilol (Coreg) 3.125 mg BID PO ; Start 07/13/17 at 21:00 Furosemide (Lasix) 20 mg DAILY PO ; Start 07/14/17 at 09:00 Hydralazine HCl (Apresoline) 25 mg BID PRN PO SBP>160; Start 07/13/17 at 19:00 Lisinopril (Zestril) 5 mg BID PO ; Start 07/13/17 at 21:00 Mirtazapine (Remeron) 7.5 mg HS PO Last administered on 07/13/17 22:05; Admin Dose 7.5 MG; Start 07/13/17 at 21:00 Potassium Chloride 8 meq 8 meq DAILY PO Last administered on 07/14/17 09:18; Admin Dose 8 MEQ; Start 07/14/17 at 09:00 Sodium Chloride 1,000 ml @ 100 mls/hr Q10H IV Last administered on 07/13/17 22:05; Admin Dose 100 MLS/HR; Start 07/13/17 at 21:00 Clindamycin HCl/ Dextrose 50 ml @ 50 mls/hr Q8 IVPB Last administered on 15:15; Admin Dose 50 MLS/HR; Start 07/14/17 at 00:00 Ceftriaxone Sodium (Rocephin) 50 ml @ 100 mls/hr Q24H IVPB Last administered on 07/14/17 13:40; Admin Dose 100 MLS/HR; Start 07/14/17 at 10:00 Collagenase (Santyl) 1 applic DAILY TOP ; Start 07/14/17 at 12:00 Collagenase (Santyl) 1 applic DAILY TOP ; Start 07/14/17 at 14:00 Nystatin (Nystatin Powder) 1 applic BID TOP ; Start 07/14/17 at 14:00 REINA SWANSON Jul 14, 2017 16:03
--- NOTE | 2017-07-14 18:26 | HP ---
DATE OF ADMISSION: 07/13/2017 HISTORY OF PRESENT ILLNESS: Dear Doctors, Ms. Warren is an 87-year-old female with significant dementia and bedridden, and nonverbal who presents with 3 months of right lower extremity non- healing ankle ulcer that has been gradually getting worse. It seems the patient had been in a nursing facility, in which she had transitioned to home with home care and they had noticed that the patient's wound had become significantly worse. Unfortunately, patient has also significant contracture of the right lower extremity. REVIEW OF SYSTEMS: Fourteen point review is limited and unable to ascertain as the patient is non-communicative and has dementia. PAST MEDICAL HISTORY: Entails, hypertension, hyperlipidemia, hyperlipidemia, congestive heart failure unspecified, bed ridden. History of a fall about a year ago. Right lower extremity nonhealing ulcer. This bilateral lower extremity atherosclerosis. PAST SURGICAL HISTORY: None reported. FAMILY HISTORY: Hypertension. SOCIAL HISTORY: Denies tobacco, alcohol or illicit drug use. PHYSICAL EXAMINATION: GENERAL APPEARANCE: The patient is awake, unable to communicate, speak or answer any basic questions. HEENT: Normocephalic and atraumatic. Mucosa is moist. NECK: Supple. No carotid bruit. Poor dentition. LUNGS: Coarse breath sounds bilaterally. No crackles. HEART: S1, S2 present. No murmurs. ABDOMEN: Soft, nontender, nondistended. Bowel sounds positive. EXTREMITIES: Right lower extremity, palpable femoral pulse. Nonpalpable pedal pulse significant ulceration of the lateral malleolus with a necrotic tissue, with exposed tendon and surrounding erythema, dorsal foot ulcer with eschar and surrounding erythema. Left lower extremity, palpable femoral pulse. Nonpalpable pedal pulse. Motor and sensory unable to ascertain as the patient is non-communicative. Capillary refill 3-4 seconds. Right lower extremity. Motor and sensory unable to ascertain as the patient is non-communicative. Knee contracture of greater than 40 degrees. IMPRESSION AND PLAN: 1. Bilateral lower extremity atherosclerosis with right lower extremity nonhealing ulcer: It seems the patient has developed a lateral malleolar ulcer that has been gradually worsening, with now an eschar that has developed on the dorsum aspect of the foot. Unfortunately, the patient has significant knee contracture, with dementia and non-ambulatory, limits the amount of vascular intervention that can be performed. The patient would not be a candidate for any open vascular surgery. We will plan to obtain noninvasive vascular studies to better ascertain the patient's infrainguinal atherosclerotic disease. 2. Optimize vascular status (blood pressure medications, diet, nutrition, exercise, sugar control, and antiplatelets). Discussed findings, plan and management with the primary service. Thank you for allowing us to partake in the care of your patient. Please call with any questions. Dictated By: Garry Mena MD /[email or web address]/erik /Document#: [id number]
[2017-07-14 20:00] VITALS: BP 119/56; RESP 20
[2017-07-14 20:40] VITALS: BP 119/56; PULSE 92; RESP 20
[2017-07-14] MEDS: MIRTAZAPINE 15 MG TAB PO SCH (20:42)
--- NOTE | 2017-07-14 23:40 | CONS ---
DATE OF ADMISSION: 07/13/2017 DATE OF CONSULTATION: 07/14/2017 REASON FOR CONSULTATION: Antibiotic management. HISTORY OF PRESENT ILLNESS: Madhavi Mcclellan is an 87-year-old female, who is admitted with a lower extremity ulcer and possible underlying osteomyelitis and is being seen for antibiotic management. PROBLEMS: 1. Hypertension. 2. Hyperlipidemia. 3. Coronary artery disease with congestive heart failure. 4. Dementia with debility. 5. History of a fall 1 year ago and 3 months ago with injuries to right upper and right lower extremities complicated by open ankle ulceration and pain. The patient was at a long term until 1 week ago then was brought home. She was brought in by her son who states that the wound has become worse in the right leg. She has pain medicines but apparently is not helping. The wounds on her ankle and remained open. LABORATORY: On admission, white count was 10.4, H and H of 7.9 and 24.8, and platelet count 305,000. BUN and creatinine is 34/1.21 and glucose of 115 random. PAST MEDICAL HISTORY/OPERATIONS: As outlined. FAMILY HISTORY: Noncontributory. SOCIAL HISTORY: She does not smoke, drink, or abuse drugs. ALLERGIES: NONE TO PENICILLIN, SULFA, OR FOODS. MEDICATION: Per chart review. REVIEW OF SYSTEMS: As per HPI. PHYSICAL EXAMINATION: GENERAL APPEARANCE: The patient is an elderly appearing female who is awake, responsive, in no acute distress. VITAL SIGNS: Stable. She is afebrile. SKIN: Without generalized rash. HEENT: Within normal limits. NECK: Supple. Lymph nodes nonpalpable. CHEST: Decreased breath sounds at the bases. HEART: Without murmur or gallop. ABDOMEN: Soft, nontender, without organosplenomegaly or masses. EXTREMITIES: She has lower extremity ulcer of the right ankle. RECTAL: Deferred. NEUROLOGIC: Confused. No focal neurological abnormalities. TREATMENT: The patient was begun on ceftriaxone and clindamycin. She is allergic to vancomycin. An x-ray of the ankle shows background osteopenia, questionable cortical irregularity of the distal fibula. Cannot exclude osteomyelitis. Recommend MRI for further evaluation. Lateral soft tissue swelling suggestion of skin ulceration and soft tissue gas overlying the distal fibula. Tibia and fibula x-rays lateral soft tissue swelling. Suggestion is skin ulceration. Her hip x-ray shows contractures, but no displaced fracture. IMPRESSION AND PLAN: Continue on current therapy, clindamycin and ceftriaxone and await MRI. I will dictate my findings to the hospitalist. Dictated By: Nakul Lagos MD JD/miguelangel/tyrone /Document#: [id number]
--- NOTE | 2017-07-14 23:55 | RADRPT ---
PROCEDURE: US Lower extremity Veins. CLINICAL INDICATION: Lower extremity ulcer. TECHNIQUE: Multiple sonographic images of the lower extremity veins were obtained. Evaluation is pa rtially limited due to the patient's inability to tolerate the examination. COMPARISON: None available FINDINGS: Right lower extremity: Upper thigh GSV 0.34 cm Mid thigh GSV 0.38 cm Lower thigh GSV 0.27 cm Knee GSV 0.26 cm Upper calf GSV 0.22 cm Mid calf GSV 0.25 cm Ankle GSV0.34 cm The vessels compressible throughout. IMPRESSION: 1. Right lower extremity venous mapping as above. RPTAT: HLBP .Gera Silva MD, MD Date Time Electronically viewed and signed by .Gera Silva MD, on 07/14/2017 23:55 .P/
[2017-07-15] VITALS (24 sets, daily range): BP systolic 83–181; BP diastolic 48–108; PULSE 49–132; RESP 18–36
--- NOTE | 2017-07-15 01:22 | CONS ---
Date/Time of Note Date/Time of Note DATE: 07/14/17 TIME: 10:18 Assessment/Plan Assessment/Plan Problems: (1) Wound of right ankle Status: Acute Qualifiers: Qualified Code: S91.001D - Wound of right ankle, subsequent encounter (2) Pain of right lower extremity Status: Acute (3) Osteomyelitis of ankle Status: Acute Qualifiers: Qualified Code: M86.9 - Osteomyelitis of right ankle, unspecified type (4) Fall Status: Acute Additional Assessment/Plan Patient is being taken for arterial studies and vein mapping. Patient will be reevaluated after these studies. Thank you again for involving me in the care of this patient. If you have any questions regarding this case, please feel free to contact me at pager: or reach me at mobile: [phone]. Consultation Date/Type/Reason Admit Date/Time July 13, 2017 Hx of Present Illness Thank you Dr. Mena for involving me in the care of this patient. Patient is a very poor historian and is non cooperative. Patient's family is present and most of the history was obtained from the family. Constitutional: disoriented Psychological: confusion Social History Alcohol Use: none Smoking Status: Never smoker Drug Use: none Exam/Review of Systems Vital Signs Vitals Vital Signs Date Time Temp Pulse Resp B/P Pulse Ox O2 Delivery O2 Flow Rate FiO2 07/14/17 20:40 97.7 92 20 119/56 94 Room Air Intake and Output 07/14/17 07/14/17 07/15/17 15:00 23:00 07:00 Intake Total 400 ml 750 ml Balance 400 ml 750 ml Results Result Diagram: 07/14/17 0553 07/14/17 0553 Results 24 hrs Laboratory Tests Test 07/14/17 05:53 White Blood Count 8.7 Red Blood Count 2.55 L Hemoglobin 6.9 *L Hematocrit 22.9 L Mean Corpuscular Volume 89.8 Mean Corpuscular Hemoglobin 27.1 L Mean Corpuscular Hemoglobin Concent 30.1 L Red Cell Distribution Width 13.7 Platelet Count 236 # Mean Platelet Volume 10.4 Neutrophils % 83.4 H Lymphocytes % 10.1 L Monocytes % 5.1 Eosinophils % 0.5 Basophils % 0.2 Nucleated Red Blood Cells % 0.0 Neutrophils # (Manual) 7.3 Lymphocytes # 0.9 Monocytes # 0.4 Eosinophils # 0.0 Basophils # 0.0 Nucleated Red Blood Cells # 0.0 Sodium Level 138 Potassium Level 4.6 Chloride Level 101 Carbon Dioxide Level 25 Anion Gap 17 H Blood Urea Nitrogen 33 H Creatinine 1.19 H Glucose Level 120 Calcium Level 8.5 Phosphorus Level 3.4 Magnesium Level 2.3 Medications Medications Current Medications Ondansetron HCl (Zofran Inj) 4 mg Q6H PRN IV NAUSEA AND/OR VOMITING; Start at 19:00 Acetaminophen (Tylenol Tab) 650 mg Q6H PRN PO PAIN LEVEL 1-3 OR FEVER; Start at 19:00 Acetaminophen/ Hydrocodone Bitart ([place] (5/325)) 1 tab Q6H PRN PO MODERATE PAIN LEVEL 4-6 Last administered on 07/14/17 12:24; Admin Dose 1 TAB; Start at 19:00 Morphine Sulfate (morphine) 2 mg Q4H PRN IV SEVERE PAIN LEVEL 7-10 Last administered on 07/14/17 19:18; Admin Dose 2 MG; Start 07/13/17 at 19:00 Docusate Sodium (Colace) 100 mg Q12H PRN PO CONSTIPATION; Start 07/13/17 at 19: 00 Magnesium Hydroxide (Milk Of Mag) 30 ml DAILY PRN PO CONSTIPATION; Start at 19:00 Zolpidem Tartrate (Ambien) 5 mg QHS PRN PO SLEEP; Start 07/13/17 at 19:00 Enoxaparin Sodium (Lovenox) 30 mg DAILY SC ; Start 07/14/17 at 09:00 Carvedilol (Coreg) 3.125 mg BID PO Last administered on 07/14/17 20:42; Admin Dose 3.125 MG; Start 07/13/17 at 21:00 Furosemide (Lasix) 20 mg DAILY PO ; Start 07/14/17 at 09:00 Hydralazine HCl (Apresoline) 25 mg BID PRN PO SBP>160; Start 07/13/17 at 19:00 Lisinopril (Zestril) 5 mg BID PO Last administered on 07/14/17 20:42; Admin Dose 5 MG; Start 07/13/17 at 21:00 Mirtazapine (Remeron) 7.5 mg HS PO Last administered on 07/14/17 20:42; Admin Dose 7.5 MG; Start 07/13/17 at 21:00 Potassium Chloride 8 meq 8 meq DAILY PO Last administered on 07/14/17 09:18; Admin Dose 8 MEQ; Start 07/14/17 at 09:00 Sodium Chloride 1,000 ml @ 100 mls/hr Q10H IV Last administered on 07/14/17 20:49; Admin Dose 100 MLS/HR; Start 07/13/17 at 21:00 Clindamycin HCl/ Dextrose 50 ml @ 50 mls/hr Q8 IVPB Last administered on 21:45; Admin Dose 50 MLS/HR; Start 07/14/17 at 00:00 Ceftriaxone Sodium (Rocephin) 50 ml @ 100 mls/hr Q24H IVPB Last administered on 07/14/17 13:40; Admin Dose 100 MLS/HR; Start 07/14/17 at 10:00 Collagenase (Santyl) 1 applic DAILY TOP Last administered on 07/14/17 20:24; Admin Dose 1 APPLIC; Start 07/14/17 at 12:00 Collagenase (Santyl) 1 applic DAILY TOP ; Start 07/14/17 at 14:00 Nystatin (Nystatin Powder) 1 applic BID TOP Last administered on 07/14/17 20: 41; Admin Dose 1 APPLIC; Start 07/14/17 at 14:00 MAYO BROWNLEE DPM Jul 15, 2017 01:21
[2017-07-15] MEDS: SOD CHLORIDE 0.9% 1,000 ML IV SCH ×3 (02:40→21:19)
--- NOTE | 2017-07-15 05:06 | CONS ---
DATE OF ADMISSION: 07/13/2017 DATE OF CONSULTATION: 07/14/2017 HISTORY OF PRESENT ILLNESS: Patient is an 87-year-old female with dementia, who was admitted on 13 July 2017 when she was brought into the emergency room because of the chronic decubitus ulcer over the lateral aspect of the right ankle, which seems to be getting worse and persistent. According to available information, she has been bedridden for about 5 months, and she was slowly developing a decubitus ulcer involving the lateral aspect of the right ankle, which has been getting worse progressively. She was also developing a flexure contracture involving right lower extremity, which has been getting progressively worse. Her main treatment has been local wound care. She is known to have multiple medical problems, including hypertension, hyperlipidemia, heart failure. She had it for about a year ago, and her mobility has been compromised since her fall about a year ago; however, she was completely bedridden for about 4-5 months. PHYSICAL EXAMINATION: My examination revealed an 87-year-old female, who could not participate in any history taking or physical examination because of her dementia. She was holding her right lower extremity flexed at the knee and the hip along with the external rotation of the right lower extremity causing constant pressure around the lateral aspect of the right ankle right over the lateral malleolus. There was a chronic ulceration over the lateral malleolus with exposed bony structures and tendinous structures. There also was an ulceration developed over the dorsum of the right foot, most probably from ischemia. Femoral pulse was palpable; however, popliteal pulse and tether pulses are not palpable. LABORATORY: X-rays of the right ankle were showing the changes in the lateral malleolar bony structures, which are suggestive of osteomyelitis. The patient was afebrile, and there was no leukocytosis at the time of admission. DIAGNOSTIC IMPRESSION: 1. Chronic decubitus ulceration over the lateral aspect of the right ankle right over the lateral malleolus with possible osteomyelitis, healing. 2. Peripheral vascular insufficiency. DISCUSSION FOR TREATMENT: 1. MRI scan of the right ankle should be done in order to rule in or to rule out the osteomyelitis completely; however, this could not be done because of the less than ideal cooperation from the patient. 2. The decubitus ulceration over the lateral aspect of the right ankle will be difficult to heal because of persistent pressure caused by an unusual position causing pressure over the area because of the flexion contracture involving the right hip and right knee. Unless some type of vascular surgical procedure to improve the peripheral circulation can be done, the healing of the decubitus ulcer over the lateral aspect of the right ankle will be difficult. 3. In the presence of an osteomyelitis over the lateral malleolus, again, healing of the decubitus ulcer will be rather difficult. 4. Because of the continuous pressure over the area, because of the unusual posture caused by flexion contractures and because of the peripheral vascular insufficiency and also because of possible presence of osteomyelitis, healing of the decubitus ulcer over the lateral aspect of the right ankle will be very difficult. Considering the fact that this patient is nonambulatory, amputation, preferably low above the knee level and reluctantly through the level below the knee, could be a more reasonable option. Dictated By: In Ashley Corona MD /[email or web address]/daisha /Document#: [id number]
[2017-07-15 05:51] LABS: BASOPHILS % 0.1 % (0.0-2.0); EOSINOPHILS % 0.2 % (0.0-7.0); HEMATOCRIT 22.8 % (37.0-47.0); HEMOGLOBIN 7.4 g/dl (12.0-16.0); LYMPHOCYTES # 0.9 10^3/ul (0.8-2.9); LYMPHOCYTES % 9.9 % (15.0-51.0); MEAN CORPUSCULAR HEMOGLOBIN 28.8 pg (29.0-33.0); MEAN CORPUSCULAR HGB CONC 32.5 g/dl (32.0-37.0); MEAN CORPUSCULAR VOLUME 88.7 fl (82.0-101.0); MEAN PLATELET VOLUME 10.6 fl (7.4-10.4); MONOCYTE # 0.5 10^3/ul (0.3-0.9); MONOCYTES % 5.6 % (0.0-11.0); NEUTROPHILS % 83.5 % (39.0-77.0); PLATELET COUNT 253 10^3/UL (140-415); RED BLOOD COUNT 2.57 10^6/ul (4.20-5.40); RED CELL DISTRIBUTION WIDTH 13.5 % (11.5-14.5); WHITE BLOOD COUNT 8.7 10^3/ul (4.8-10.8)
[2017-07-15] MEDS: CLINDAMYCIN 600 MG/D5W (PMX) 50 ML IVPB SCH ×3 (05:52→21:19)
[2017-07-15 05:59] LABS: POSITIVE DIFF @See below
[2017-07-15 06:13] LABS: CALCIUM 8.5 mg/dl (8.4-10.2); CREATININE 0.85 mg/dl (0.44-1.00); POTASSIUM 5.1 mmol/L (3.5-5.1)
[2017-07-15] MEDS: NYSTATIN 30 GM POWDER BTL TOP SCH (09:00)
[2017-07-15] MEDS: FUROSEMIDE 20 MG TAB PO SCH (09:34)
[2017-07-15] MEDS: LISINOPRIL 5 MG TAB PO SCH ×2 (09:35→20:48)
[2017-07-15] MEDS: POTASSIUM CHLORIDE (SR) 8 MEQ CAP PO SCH (09:35)
[2017-07-15] MEDS: ENOXAPARIN 30 MG/0.3 ML SYG SC SCH (09:36)
[2017-07-15] MEDS: CEFTRIAXONE 1 GM/50 ML (PMX) 50 ML IVPB SCH (10:40)
[2017-07-15] MEDS: hydrALAzine 20 MG INJ IV ONE ×2 (14:40→15:18)
[2017-07-15] MEDS ORDERED: hydrALAzine 20 MG INJ ONE (14:48)
[2017-07-15] MEDS: morphine 2 MG INJ IV PRN ×2 (14:52→17:13)
[2017-07-15] MEDS: MEROPENEM 500MG/50 ML (PMX) 50 ML IVPB SCH ×3 (15:00→23:44)
--- NOTE | 2017-07-15 15:34 | PN ---
DATE: 07/15/2017 SUBJECTIVE DATA: No acute changes. No acute changes overnight. OBJECTIVE DATA: The patient is lying comfortably in bed spiking low-grade fevers with a T-max of 100.8, temperature currently 97.6, pulse 80, respirations 20, blood pressure 119/56, saturation 95 on room air. LABORATORY AND DIAGNOSTIC DATA: WBC 8.7, hemoglobin 7.4, hematocrit 22.8, platelets 253,000, neutrophils 83.5, BUN 25, creatinine 0.85. MICROBIOLOGY: No cultures done. ANTIMICROBIALS: The patient is on ceftriaxone and clindamycin. ALLERGIES: VANCOMYCIN. PHYSICAL EXAMINATION: This is a fragile, chronically ill appearing, elderly woman who is in no distress. HEENT: Head atraumatic, normocephalic. Sclerae anicteric. Buccal mucosa dry. NECK: Supple. CHEST: Rise symmetrical. Breath sounds diminished at the bases. HEART: S1, S2. ABDOMEN: Soft, bowel sounds present. EXTREMITIES: Right foot contracture. Dressing intact. SKIN: No jaundice. No cyanosis. Patient has unstageable right ankle wound. ASSESSMENT: 1. Systemic inflammatory response syndrome with low-grade fevers, likely secondary to #2. 2. Unstageable right ankle decubitus with probable osteomyelitis. 3. Dementia. 4. Right lower extremity severe contracture. 5. History of congestive heart failure (CHF) and coronary artery disease. PLAN: Patient remains clinically stable. She is being followed by Orthopedics and Podiatry. We will send a wound culture. We will send a urine culture and order blood cultures, since she is spiking fevers. We will change Rocephin to meropenem, continue clindamycin. Further recommendations per patient's clinical course. CODE STATUS: FULL CODE. Dictated By: Agusto Watson NP /miguelangel/elizabeth /Document#: [id number]
[2017-07-15 16:48] LABS: AADO2 Arterial 152.5 mmHg (7.0-24.0); Allen Test ACCEPTAB; Arterial Base Excess -2.8 mmol/L (-3.0-3); Arterial COHb 0.3 % (0.0-3.0); Arterial Fraction of Oxyhgb 98.3 % (93.0-99.0); Arterial HCO3 19.3 mmol/L (22.0-26.0); Arterial MetHb 0.3 % (0.0-1.5); Arterial Total Hemglobin 9.5 g/dl (12.0-18.0); MODE MASK - SIMPLE
--- NOTE | 2017-07-15 17:11 | RADRPT ---
Vent Rate: 130 bpm RR Interval: 0 msec [place] Interval: 0 msec QRS Duration: 152 msec QT Interval: 360 msec QTC Interval: 529 msec P-R-T [place]: 0 - -48 - 156 degrees Atrial fibrillation with rapid ventricular response with premature ventricular or aberrantly conducted complexes Left axis deviation Left bundle branch block Abnormal ECG Electronically Signed By: Smith Del Cid [id number]
[2017-07-15] MEDS: BALSAM PERU/CASTOR OIL 60 GM TUBE TOP SCH ×2 (17:13→20:51)
[2017-07-15] MEDS: COLLAGENASE 30 GM TUBE TOP SCH (17:13)
--- NOTE | 2017-07-15 17:31 | PN ---
Date/Time of Note Date/Time of Note DATE: 07/15/17 TIME: 17:28 Assessment/Plan VTE Prophylaxis VTE Prophylaxis Intervention: LMWH Lines/Catheters IV Catheter Type (from [facility]): Saline Lock Urinary Cath still in place: No Assessment/Plan Chief Complaint/Hosp Course 1. Lower extremity decubitus ulcer with possible underlying osteomyelitis MRI of right ankle cannot be obtained secondary to patient's contractions and significant pain Ortho aware IV antibiotics ID consult appreciated Vascular consultation appreciated, nonaggressive therapy recommended considering patient's degree of dementia and contractures Wound care 2. History of dementia with debility 3. History of hypertension BP elevated after blood transfusion, status post hydralazine 4. Acute on chronic kidney disease IV fluids 5. A. fib with RVR Transfer to telemetry Prophylaxis-Lovenox Problems: Subjective 24 Hr Interval Summary Subjective hx not possible: pt non-verbal Exam/Review of Systems Vital Signs Vitals Vital Signs Date Time Temp Pulse Resp B/P Pulse Ox O2 Delivery O2 Flow Rate FiO2 07/15/17 14:52 50 32 164/108 99 Mask 10.0 07/15/17 14:20 97.5 Intake and Output 07/14/17 07/14/17 07/15/17 15:00 23:00 07:00 Intake Total 400 ml 750 ml 800 ml Balance 400 ml 750 ml 800 ml Exam Constitutional: non-verbal Respiratory: clear to auscultation Cardiovascular: regular rate and rhythm Gastrointestinal: soft, No distended Musculoskeletal: No nl extremities to inspection Results Result Diagram: 07/15/17 0512 07/15/17 0512 Results 24 hrs Laboratory Tests Test 07/15/17 05:12 07/15/17 15:57 White Blood Count 8.7 Red Blood Count 2.57 L Hemoglobin 7.4 L Hematocrit 22.8 L Mean Corpuscular Volume 88.7 Mean Corpuscular Hemoglobin 28.8 L Mean Corpuscular Hemoglobin Concent 32.5 Red Cell Distribution Width 13.5 Platelet Count 253 Mean Platelet Volume 10.6 H Neutrophils % 83.5 H Lymphocytes % 9.9 L Monocytes % 5.6 Eosinophils % 0.2 Basophils % 0.1 Nucleated Red Blood Cells % 0.0 Neutrophils # (Manual) 7.3 Lymphocytes # 0.9 Monocytes # 0.5 Eosinophils # 0.0 Basophils # 0.0 Nucleated Red Blood Cells # 0.0 Sodium Level 136 Potassium Level 5.1 Chloride Level 101 Carbon Dioxide Level 23 Anion Gap 17 H Blood Urea Nitrogen 25 H Creatinine 0.85 Glucose Level 107 Calcium Level 8.5 Blood Gas Specimen Source Blood arterial Arterial Blood Date Drawn 07/15/2017 4:39:43 PM Arterial Blood pH (Temp corrected) 7.508 H Arterial Blood pCO2 (Temp correct) 24.8 L Arterial Blood pO2 (Temp corrected) 197.7 H Arterial Blood HCO3 19.3 L Arterial Blood Base Excess -2.8 Arterial Blood Oxygen Saturation 98.9 Phil Test ACCEPTAB Arterial Blood Gas Puncture Site Right Radial Arterial Blood Carboxyhemoglobin 0.3 Arterial Blood Methemoglobin 0.3 Blood Gas A-a O2 Differential 152.5 H Oxyhemoglobin Percent 98.3 Total Hemoglobin 9.5 L Blood Gas Temperature 37.0 Blood Gas Modality MASK - SIMPLE FiO2 53.0 Blood Gas Notified Whom M.Leah Blood Gas Notified Time 07/15/2017 4:48:16 PM Medications Medications Current Medications Ondansetron HCl (Zofran Inj) 4 mg Q6H PRN IV NAUSEA AND/OR VOMITING; Start at 19:00 Acetaminophen (Tylenol Tab) 650 mg Q6H PRN PO PAIN LEVEL 1-3 OR FEVER Last administered on 07/15/17 09:34; Admin Dose 650 MG; Start 07/13/17 at 19:00 Acetaminophen/ Hydrocodone Bitart ([place] (5/325)) 1 tab Q6H PRN PO MODERATE PAIN LEVEL 4-6 Last administered on 07/14/17 12:24; Admin Dose 1 TAB; Start at 19:00 Morphine Sulfate (morphine) 2 mg Q4H PRN IV SEVERE PAIN LEVEL 7-10 Last administered on 07/15/17 17:13; Admin Dose 2 MG; Start 07/13/17 at 19:00 Docusate Sodium (Colace) 100 mg Q12H PRN PO CONSTIPATION; Start 07/13/17 at 19: 00 Magnesium Hydroxide (Milk Of Mag) 30 ml DAILY PRN PO CONSTIPATION; Start at 19:00 Zolpidem Tartrate (Ambien) 5 mg QHS PRN PO SLEEP; Start 07/13/17 at 19:00 Enoxaparin Sodium (Lovenox) 30 mg DAILY SC Last administered on 07/15/17 09:36 ; Admin Dose 30 MG; Start 07/14/17 at 09:00 Carvedilol (Coreg) 3.125 mg BID PO Last administered on 07/14/17 20:42; Admin Dose 3.125 MG; Start 07/13/17 at 21:00 Furosemide (Lasix) 20 mg DAILY PO Last administered on 07/15/17 09:34; Admin Dose 20 MG; Start 07/14/17 at 09:00 Hydralazine HCl (Apresoline) 25 mg BID PRN PO SBP>160; Start 07/13/17 at 19:00 Lisinopril (Zestril) 5 mg BID PO Last administered on 07/15/17 09:35; Admin Dose 5 MG; Start 07/13/17 at 21:00 Mirtazapine (Remeron) 7.5 mg HS PO Last administered on 07/14/17 20:42; Admin Dose 7.5 MG; Start 07/13/17 at 21:00 Potassium Chloride 8 meq 8 meq DAILY PO Last administered on 07/15/17 09:35; Admin Dose 8 MEQ; Start 07/14/17 at 09:00 Sodium Chloride 1,000 ml @ 100 mls/hr Q10H IV Last administered on 07/15/17 02:40; Admin Dose 100 MLS/HR; Start 07/13/17 at 21:00 Clindamycin HCl/ Dextrose (Cleocin 600 Mg/ D5W (Pmx)) 50 ml @ 50 mls/hr Q8 IVPB Last administered on 07/15/17 05:52; Admin Dose 50 MLS/HR; Start 07/14/17 at 00:00 Collagenase (Santyl) 1 applic DAILY TOP Last administered on 07/14/17 20:24; Admin Dose 1 APPLIC; Start 07/14/17 at 12:00 Collagenase (Santyl) 1 applic DAILY TOP Last administered on 07/15/17 17:13; Admin Dose 1 APPLIC; Start 07/14/17 at 14:00 Nystatin 1 applic 1 applic BID TOP Last administered on 07/15/17 09:00; Admin Dose 1 APPLIC; Start 07/14/17 at 14:00 Meropenem/Sodium Chloride (Merrem 500mg/50 ml(Pmx)) 50 ml @ 100 mls/hr Q12 IVPB ; Start 07/15/17 at 15:00 REINA SWANSON Jul 15, 2017 17:31
[2017-07-15] MEDS ORDERED: SOD CHLORIDE 0.9% 250 ML IV ONE (23:30)
[2017-07-15] MEDS: MIRTAZAPINE 15 MG TAB PO SCH (23:41)
--- NOTE | 2017-07-15 23:55 | PN ---
Date/Time of Note Date/Time of Note DATE: 07/15/17 TIME: 23:54 Assessment/Plan Lines/Catheters IV Catheter Type (from Nrs): Saline Lock Smalls in Place (from Nrs): No Assessment/Plan Problems: (1) Fall Status: Acute (2) Closed head injury Status: Acute (3) Scalp laceration Status: Acute (4) Closed fracture of distal radius and ulna Status: Acute (5) Wound of right ankle Status: Acute Qualifiers: Encounter type: subsequent encounter Qualified Code: S91.001D - Wound of right ankle, subsequent encounter (6) Pain of right lower extremity Status: Acute (7) Osteomyelitis of ankle Status: Acute Qualifiers: Osteomyelitis type: unspecified type Laterality: right Qualified Code: M86.9 - Osteomyelitis of right ankle, unspecified type Assessment/Plan I will discuss with vascular surgery as per their plan prior to any foot and ankle treatments. Patient will be followed in-house. Exam/Review of Systems Vital Signs Vitals Vital Signs Date Time Temp Pulse Resp B/P Pulse Ox O2 Delivery O2 Flow Rate FiO2 07/15/17 20:23 88 07/15/17 19:32 98.0 20 101/60 98 07/15/17 17:50 Simple Mask 10.0 Intake and Output 07/14/17 07/14/17 07/15/17 15:00 23:00 07:00 Intake Total 400 ml 750 ml 800 ml Balance 400 ml 750 ml 800 ml Results Result Diagram: 07/15/17 0512 07/15/17 0512 MAYO BROWNLEE DPM Jul 15, 2017 23:55
[2017-07-16] VITALS (11 sets, daily range): BP systolic 103–148; BP diastolic 51–64; PULSE 77–80; RESP 16–20
[2017-07-16 03:11] LABS: PRETRANSFUSION BILIRUBIN 0.1 mg/dl
[2017-07-16 03:12] LABS: POST-TRANSFUSION BILIRUBIN 0.3 mg/dl
[2017-07-16] MEDS: NYSTATIN 30 GM POWDER BTL TOP SCH ×3 (03:42→23:33)
[2017-07-16] MEDS: morphine 2 MG INJ IV PRN (03:45)
[2017-07-16] MEDS: CLINDAMYCIN 600 MG/D5W (PMX) 50 ML IVPB SCH ×3 (05:46→23:29)
[2017-07-16 08:34] LABS: BASOPHILS % 0.4 % (0.0-2.0); EOSINOPHILS # 0.1 10^3/ul (0.0-0.5); EOSINOPHILS % 1.9 % (0.0-7.0); HEMATOCRIT 23.6 % (37.0-47.0); HEMOGLOBIN 7.8 g/dl (12.0-16.0); LYMPHOCYTES # 0.9 10^3/ul (0.8-2.9); LYMPHOCYTES % 11.4 % (15.0-51.0); MEAN CORPUSCULAR HEMOGLOBIN 29.2 pg (29.0-33.0); MEAN CORPUSCULAR HGB CONC 33.1 g/dl (32.0-37.0); MEAN CORPUSCULAR VOLUME 88.4 fl (82.0-101.0); MEAN PLATELET VOLUME 9.6 fl (7.4-10.4); MONOCYTE # 0.6 10^3/ul (0.3-0.9); MONOCYTES % 7.7 % (0.0-11.0); NEUTROPHILS % 78.1 % (39.0-77.0); PLATELET COUNT 260 10^3/UL (140-415); RED BLOOD COUNT 2.67 10^6/ul (4.20-5.40); WHITE BLOOD COUNT 7.6 10^3/ul (4.8-10.8)
[2017-07-16 08:49] LABS: CALCIUM 8.2 mg/dl (8.4-10.2); CREATININE 0.92 mg/dl (0.44-1.00); POTASSIUM 4.1 mmol/L (3.5-5.1)
[2017-07-16] MEDS: MEROPENEM 500MG/50 ML (PMX) 50 ML IVPB SCH ×2 (08:50→21:14)
[2017-07-16] MEDS: POTASSIUM CHLORIDE (SR) 8 MEQ CAP PO SCH (08:50)
[2017-07-16] MEDS: LISINOPRIL 5 MG TAB PO SCH (08:50)
[2017-07-16] MEDS: BALSAM PERU/CASTOR OIL 60 GM TUBE TOP SCH ×2 (08:51→23:33)
[2017-07-16] MEDS: COLLAGENASE 30 GM TUBE TOP SCH ×2 (08:51→09:00)
[2017-07-16] MEDS: SOD CHLORIDE 0.9% 1,000 ML IV SCH ×2 (08:52→21:18)
[2017-07-16] MEDS: ENOXAPARIN 30 MG/0.3 ML SYG SC SCH (08:53)
[2017-07-16] MEDS: FUROSEMIDE 20 MG TAB PO SCH (09:00)
--- NOTE | 2017-07-16 13:48 | PN ---
DATE: 07/16/2017 SUBJECTIVE DATA: No acute changes. Patient is noncommunicative, lying comfortably in bed. No fevers. LABORATORY AND DIAGNOSTIC DATA: WBC 7.6, platelets 260,000; neutrophils 78.1. BUN 22, creatinine 0.92. MICROBIOLOGY: Urine culture pending. Right foot culture growing gram-negative rods, preliminary. ANTIMICROBIALS: The patient is on IV meropenem and clindamycin. ALLERGIES: VANCOMYCIN. OBJECTIVE DATA: GENERAL: This is a chronically ill-appearing, elderly woman, who is in no distress. HEENT: Head atraumatic, normocephalic. Sclerae anicteric. Buccal mucosa dry. CHEST: Rise symmetrical. Breath sounds diminished at the bases. HEART: S1, S2. ABDOMEN: Soft, bowel sounds present. EXTREMITIES: With contracture right lower extremity. SKIN: No jaundice. No cyanosis. ASSESSMENT: 1. Right ankle osteomyelitis with infected wound. 2. Systemic inflammatory response syndrome on admission, with low-grade fevers. 3. Right lower extremity contracture. 4. Dementia. 5. Coronary artery disease, history of congestive heart failure. PLAN: The patient is clinically unchanged. Ortho and podiatry follow her. Cultures are pending. We will continue her on current antimicrobials. Dictated By: Agusto Watson NP /miguelangel/ec /Document#: [id number]
--- NOTE | 2017-07-16 14:01 | RADRPT ---
PROCEDURE: US bilateral lower extremity arteries. CLINICAL INDICATION: Bilateral leg pain. Nonhealing ulcers of the right foot. TECHNIQUE: Multiple longitudinal and transverse images of the bilateral lower extremity arteries w ere obtained with jackson scale, pulsed Doppler, and color Doppler imaging. COMPARISON: No prior studies are available for comparison. FINDINGS: Right UNIT REACTOR OPERATOR:99 cm/sec PSFA:39 cm/sec MSFA:32 cm/sec DSFA:19 cm/sec POP:58 cm/sec WEBSPHERE ARCHITECT:8.6 cm/sec DPA:Occluded Left UNIT REACTOR OPERATOR:105 cm/sec PSFA:35 cm/sec MSFA:48 cm/sec DSFA:47 cm/sec POP:135 cm/sec WEBSPHERE ARCHITECT:41 cm/sec DPA:Occluded The ankle-brachial indices are unobtainable due to patient inability to tolerate the blood pressure cuffs. Abnormal flow is present bilaterally in the mid to distal superficial femoral artery consist ent significant stenosis. Bilateral popliteal and posterior tibial arteries demonstrate monophasic flow. IMPRESSION: 1. Significant stenosis bilaterally in the mid to distal superficial femoral artery. 2. Occluded bilateral dorsalis pedis artery. RPTAT: QQ .Jose Enrique Olivares MD, MD Date Time Electronically viewed and signed by .Jose Enrique Olivares MD, on 07/16/2017 14:01 .R/
--- NOTE | 2017-07-16 14:48 | PN ---
Date/Time of Note Date/Time of Note DATE: 07/16/17 TIME: 14:47 Assessment/Plan VTE Prophylaxis VTE Prophylaxis Intervention: LMWH Lines/Catheters IV Catheter Type (from Nrs): Peripheral IV Urinary Cath still in place: No Assessment/Plan Chief Complaint/Hosp Course 1. Lower extremity decubitus ulcer with possible underlying osteomyelitis MRI of right ankle cannot be obtained secondary to patient's contractions and significant pain Ortho aware IV antibiotics ID consult appreciated Vascular consultation appreciated, nonaggressive therapy recommended considering patient's degree of dementia and contractures Wound care, will discuss with surgery about possible debridement 2. History of dementia with debility 3. History of hypertension BP elevated after blood transfusion, status post hydralazine 4. Acute on chronic kidney disease IV fluids 5. A. fib with RVR Transfer to telemetry Prophylaxis-Lovenox Problems: Subjective 24 Hr Interval Summary Subjective hx not possible: pt non-verbal Exam/Review of Systems Vital Signs Vitals Vital Signs Date Time Temp Pulse Resp B/P Pulse Ox O2 Delivery O2 Flow Rate FiO2 07/16/17 12:16 80 07/16/17 12:04 98.2 16 103/53 94 07/15/17 17:50 Simple Mask 10.0 Intake and Output 07/15/17 07/15/17 07/16/17 15:00 23:00 07:00 Intake Total 900 ml 150 ml 1050 ml Balance 900 ml 150 ml 1050 ml Exam Constitutional: non-verbal Respiratory: clear to auscultation Cardiovascular: regular rate and rhythm Gastrointestinal: soft, No distended Musculoskeletal: No nl extremities to inspection Results Result Diagram: 07/16/17 0803 07/16/17 0803 Results 24 hrs Laboratory Tests Test 07/15/17 15:57 07/16/17 08:03 Blood Gas Specimen Source Blood arterial Arterial Blood Date Drawn 07/15/2017 4:39:43 PM Arterial Blood pH (Temp corrected) 7.508 H Arterial Blood pCO2 (Temp correct) 24.8 L Arterial Blood pO2 (Temp corrected) 197.7 H Arterial Blood HCO3 19.3 L Arterial Blood Base Excess -2.8 Arterial Blood Oxygen Saturation 98.9 Phil Test ACCEPTAB Arterial Blood Gas Puncture Site Right Radial Arterial Blood Carboxyhemoglobin 0.3 Arterial Blood Methemoglobin 0.3 Blood Gas A-a O2 Differential 152.5 H Oxyhemoglobin Percent 98.3 Total Hemoglobin 9.5 L Blood Gas Temperature 37.0 Blood Gas Modality MASK - SIMPLE FiO2 53.0 Blood Gas Notified Whom M.D. Blood Gas Notified Time 07/15/2017 4:48:16 PM White Blood Count 7.6 Red Blood Count 2.67 L Hemoglobin 7.8 L Hematocrit 23.6 L Mean Corpuscular Volume 88.4 Mean Corpuscular Hemoglobin 29.2 Mean Corpuscular Hemoglobin Concent 33.1 Red Cell Distribution Width 14.0 Platelet Count 260 Mean Platelet Volume 9.6 Neutrophils % 78.1 H Lymphocytes % 11.4 L Monocytes % 7.7 Eosinophils % 1.9 Basophils % 0.4 Nucleated Red Blood Cells % 0.0 Neutrophils # (Manual) 5.9 Lymphocytes # 0.9 Monocytes # 0.6 Eosinophils # 0.1 Basophils # 0.0 Nucleated Red Blood Cells # 0.0 Sodium Level 136 Potassium Level 4.1 Chloride Level 107 Carbon Dioxide Level 22 Anion Gap 11 Blood Urea Nitrogen 22 H Creatinine 0.92 Glucose Level 93 Calcium Level 8.2 L Medications Medications Current Medications Ondansetron HCl (Zofran Inj) 4 mg Q6H PRN IV NAUSEA AND/OR VOMITING Last administered on 07/15/17 21:25; Admin Dose 4 MG; Start 07/13/17 at 19:00 Acetaminophen (Tylenol Tab) 650 mg Q6H PRN PO PAIN LEVEL 1-3 OR FEVER Last administered on 07/15/17 09:34; Admin Dose 650 MG; Start 07/13/17 at 19:00 Acetaminophen/ Hydrocodone Bitart ([place] (5/325)) 1 tab Q6H PRN PO MODERATE PAIN LEVEL 4-6 Last administered on 07/14/17 12:24; Admin Dose 1 TAB; Start at 19:00 Morphine Sulfate (morphine) 2 mg Q4H PRN IV SEVERE PAIN LEVEL 7-10 Last administered on 07/16/17 03:45; Admin Dose 2 MG; Start 07/13/17 at 19:00 Docusate Sodium (Colace) 100 mg Q12H PRN PO CONSTIPATION Last administered on 21:25; Admin Dose 100 MG; Start 07/13/17 at 19:00 Magnesium Hydroxide (Milk Of Mag) 30 ml DAILY PRN PO CONSTIPATION; Start at 19:00 Zolpidem Tartrate (Ambien) 5 mg QHS PRN PO SLEEP; Start 07/13/17 at 19:00 Enoxaparin Sodium (Lovenox) 30 mg DAILY SC Last administered on 07/16/17 08:53 ; Admin Dose 30 MG; Start 07/14/17 at 09:00 Carvedilol (Coreg) 3.125 mg BID PO Last administered on 07/16/17 08:50; Admin Dose 3.125 MG; Start 07/13/17 at 21:00 Furosemide (Lasix) 20 mg DAILY PO Last administered on 07/15/17 09:34; Admin Dose 20 MG; Start 07/14/17 at 09:00 Hydralazine HCl (Apresoline) 25 mg BID PRN PO SBP>160; Start 07/13/17 at 19:00 Lisinopril (Zestril) 5 mg BID PO Last administered on 07/15/17 09:35; Admin Dose 5 MG; Start 07/13/17 at 21:00 Mirtazapine (Remeron) 7.5 mg HS PO Last administered on 07/15/17 23:41; Admin Dose 7.5 MG; Start 07/13/17 at 21:00 Potassium Chloride 8 meq 8 meq DAILY PO Last administered on 07/16/17 08:50; Admin Dose 8 MEQ; Start 07/14/17 at 09:00 Sodium Chloride 1,000 ml @ 100 mls/hr Q10H IV Last administered on 07/16/17 08 :52; Admin Dose 100 MLS/HR; Start 07/13/17 at 21:00 Clindamycin HCl/ Dextrose (Cleocin 600 Mg/ D5W (Pmx)) 50 ml @ 50 mls/hr Q8 IVPB Last administered on 07/16/17 13:11; Admin Dose 50 MLS/HR; Start 07/14/17 at 00:00 Collagenase (Santyl) 1 applic DAILY TOP Last administered on 07/16/17 08:51; Admin Dose 1 APPLIC; Start 07/14/17 at 12:00 Collagenase (Santyl) 1 applic DAILY TOP Last administered on 07/15/17 17:13; Admin Dose 1 APPLIC; Start 07/14/17 at 14:00 Nystatin 1 applic 1 applic BID TOP Last administered on 07/16/17 08:51; Admin Dose 1 APPLIC; Start 07/14/17 at 14:00 Meropenem/Sodium Chloride (Merrem 500mg/50 ml(Pmx)) 50 ml @ 100 mls/hr Q12 IVPB Last administered on 07/16/17 08:50; Admin Dose 100 MLS/HR; Start at 15:00 Miscellaneous Information Patients own medicat... BID@10,16 XX ; Start 07/16/17 at 10:00 REINA SWANSON Jul 16, 2017 14:48
[2017-07-16] MEDS: MIRTAZAPINE 15 MG TAB PO SCH (21:14)
[2017-07-17 02:00] VITALS: BP 133/63; RESP 19
[2017-07-17] MEDS: LISINOPRIL 5 MG TAB PO SCH ×3 (02:47→21:48)
[2017-07-17] MEDS: CLINDAMYCIN 600 MG/D5W (PMX) 50 ML IVPB SCH ×3 (05:59→21:49)
[2017-07-17 07:58] VITALS: BP 131/71; RESP 20
[2017-07-17] MEDS: SOD CHLORIDE 0.9% 1,000 ML IV SCH ×2 (08:00→09:36)
[2017-07-17] MEDS: FUROSEMIDE 20 MG TAB PO SCH (09:23)
[2017-07-17] MEDS: POTASSIUM CHLORIDE (SR) 8 MEQ CAP PO SCH (09:23)
[2017-07-17] MEDS: ENOXAPARIN 30 MG/0.3 ML SYG SC SCH (09:25)
[2017-07-17] MEDS: NYSTATIN 30 GM POWDER BTL TOP SCH ×2 (09:25→21:51)
[2017-07-17] MEDS: COLLAGENASE 30 GM TUBE TOP SCH ×2 (09:26)
[2017-07-17] MEDS: BALSAM PERU/CASTOR OIL 60 GM TUBE TOP SCH ×2 (09:26→21:51)
[2017-07-17] MEDS: MEROPENEM 500MG/50 ML (PMX) 50 ML IVPB SCH (09:36)
[2017-07-17] MEDS: morphine 2 MG INJ IV PRN ×3 (10:44→21:52)
--- NOTE | 2017-07-17 12:13 | CONS ---
Date/Time of Note Date/Time of Note DATE: 07/17/17 TIME: 11:47 Assessment/Plan Assessment/Plan Chief Complaint/Hosp Course ID PROGRESS NOTE CURRENT ABX: ABX Day #7 => Clindamycin #4 + Merrem #3 s/p Vanco IV x1 07/13 + Ceftriaxone 24H INTERVAL SUMMARY * Stable -- no fevers,NAD * MICROBIOLOGY: (+)Enterococcal <10,000 Urine Cx, * 07/15 Wound (+) GNR WOUND CULTURE Preliminary Organism 1 PROVID[employer]IA STUARTII QUANTITY 2+ P STUARTII M.I.C. RX --------- --- AMIKACIN <=2 S CEFEPIME <=1 S CEFOTAXIME I CIPROFLOXACIN 2 I GENTAMICIN >=16 R IMIPENEM 2 I LEVOFLOXACIN >=8 R TOBRAMYCIN R TRIMETHOPRIM/SULFAMETHOXAZOLE >=320 R PIPERACILLIN/TAZOBACTAM <=4 S PHYSICAL EXAMINATION: GENERAL: 87 yo F, VSS, afebrile HEENT: Unremarkable NECK: Supple. Trachea midline. CHEST: Rise symmetrical. Breath sounds diminished. HEART: S1, S2. ABDOMEN: Soft, bowel sounds present. EXT: Contracted RLEXT w/wounds ID ASSESSMENT 87 yo F s/PMHX Dementia, debility, admit with: 1. s/p SEPSIS on admission w/SIRS (+)TMax 101.1, ESR 135, CRP 23.1 => due to ( +)osteomyelitis * 07/15/17 BCx (-) to date 2. Right ankle osteomyelitis with infected wound. * 07/15/17 MICRO (+)P.Stuartii WOUND CULTURE Preliminary Organism 1 [employer] STUARTII QUANTITY 2+ P STUARTII M.I.C. RX --------- --- AMIKACIN <=2 S CEFEPIME <=1 S CEFOTAXIME I CIPROFLOXACIN 2 I GENTAMICIN >=16 R IMIPENEM 2 I LEVOFLOXACIN >=8 R TOBRAMYCIN R TRIMETHOPRIM/SULFAMETHOXAZOLE >=320 R PIPERACILLIN/TAZOBACTAM <=4 S 3. Right lower extremity contracture w/pressure ulcers 4. Severe peripheral arterial occlusive disease * 07/16/17 LEXT Arterial Duplex: IMPRESSION: * 1. Significant stenosis bilaterally in the mid to distal superficial femoral artery. * 2. Occluded bilateral dorsalis pedis artery 5. Enterococcal bacteruria vs early UTI * 07/15/17 Urine Cx: URINE CULTURE Preliminary Organism 1 ENTEROCOCCUS SPECIES COLONY COUNT <10,000 CFU/ml 6. Acute renal insufficiency 7. H/O CAD 8. H/O CHF ( - ) MRSA Nares INVASIVES: PICC 07/13 RUXT ABX ALLERGY: Vanco IV CURRENT ABX: ABX Day #7 => Clindamycin #4 + Merrem #3 s/p Vanco IV x1 07/13 + Ceftriaxone ID RECOMMENDATIONS * Continue Clinda, DC Merrem-> Replace with CEFEPIME #1 * Give Fosfomycin po x1 to cover concern Enterococcal UTI vs bacteruria * GNR is RESISTANT to po Bactrim/Quinolones -> Anticipate 6 weeks IV ABX w/ Cefepime * Further recs vascular/podiatry . Problems: Consultation Date/Type/Reason Admit Date/Time Jul 13, 2017 at 18:03 Initial Consult Date Exam/Review of Systems Vital Signs Vitals Vital Signs Date Time Temp Pulse Resp B/P Pulse Ox O2 Delivery O2 Flow Rate FiO2 07/17/17 07:58 98.3 71 20 131/71 97 07/15/17 17:50 Simple Mask 10.0 Intake and Output 07/16/17 07/16/17 07/17/17 14:59 22:59 06:59 Intake Total 1500 ml 800 ml Balance 1500 ml 800 ml Results Result Diagram: 07/16/17 0803 07/16/17 0803 Medications Medications Current Medications Ondansetron HCl (Zofran Inj) 4 mg Q6H PRN IV NAUSEA AND/OR VOMITING Last administered on 07/15/17 21:25; Admin Dose 4 MG; Start 07/13/17 at 19:00 Acetaminophen (Tylenol Tab) 650 mg Q6H PRN PO PAIN LEVEL 1-3 OR FEVER Last administered on 07/15/17 09:34; Admin Dose 650 MG; Start 07/13/17 at 19:00 Acetaminophen/ Hydrocodone Bitart ([place] (5/325)) 1 tab Q6H PRN PO MODERATE PAIN LEVEL 4-6 Last administered on 07/14/17 12:24; Admin Dose 1 TAB; Start at 19:00 Morphine Sulfate (morphine) 2 mg Q4H PRN IV SEVERE PAIN LEVEL 7-10 Last administered on 07/17/17 10:44; Admin Dose 2 MG; Start 07/13/17 at 19:00 Docusate Sodium (Colace) 100 mg Q12H PRN PO CONSTIPATION Last administered on 21:25; Admin Dose 100 MG; Start 07/13/17 at 19:00 Magnesium Hydroxide (Milk Of Mag) 30 ml DAILY PRN PO CONSTIPATION; Start at 19:00 Zolpidem Tartrate (Ambien) 5 mg QHS PRN PO SLEEP; Start 07/13/17 at 19:00 Enoxaparin Sodium (Lovenox) 30 mg DAILY SC Last administered on 07/17/17 09:25 ; Admin Dose 30 MG; Start 07/14/17 at 09:00 Carvedilol (Coreg) 3.125 mg BID PO Last administered on 07/17/17 09:22; Admin Dose 3.125 MG; Start 07/13/17 at 21:00 Furosemide (Lasix) 20 mg DAILY PO Last administered on 07/17/17 09:23; Admin Dose 20 MG; Start 07/14/17 at 09:00 Hydralazine HCl (Apresoline) 25 mg BID PRN PO SBP>160; Start 07/13/17 at 19:00 Lisinopril (Zestril) 5 mg BID PO Last administered on 07/17/17 09:23; Admin Dose 5 MG; Start 07/13/17 at 21:00 Mirtazapine (Remeron) 7.5 mg HS PO Last administered on 07/16/17 21:14; Admin Dose 7.5 MG; Start 07/13/17 at 21:00 Potassium Chloride 8 meq 8 meq DAILY PO Last administered on 07/17/17 09:23; Admin Dose 8 MEQ; Start 07/14/17 at 09:00 Sodium Chloride 1,000 ml @ 100 mls/hr Q10H IV Last administered on 07/17/17 09 :36; Admin Dose 100 MLS/HR; Start 07/13/17 at 21:00 Clindamycin HCl/ Dextrose (Cleocin 600 Mg/ D5W (Pmx)) 50 ml @ 50 mls/hr Q8 IVPB Last administered on 07/17/17 05:59; Admin Dose 50 MLS/HR; Start 07/14/17 at 00:00 Collagenase (Santyl) 1 applic DAILY TOP Last administered on 07/17/17 09:26; Admin Dose 1 APPLIC; Start 07/14/17 at 12:00 Collagenase (Santyl) 1 applic DAILY TOP Last administered on 07/17/17 09:26; Admin Dose 1 APPLIC; Start 07/14/17 at 14:00 Nystatin 1 applic 1 applic BID TOP Last administered on 07/17/17 09:25; Admin Dose 1 APPLIC; Start 07/14/17 at 14:00 Meropenem/Sodium Chloride (Merrem 500mg/50 ml(Pmx)) 50 ml @ 100 mls/hr Q12 IVPB Last administered on 07/17/17 09:36; Admin Dose 100 MLS/HR; Start at 15:00 Miscellaneous Information Patients own medicat... BID@10,16 XX ; Start 07/16/17 at 10:00 FREDY JOHNSON NP Jul 17, 2017 11:58
[2017-07-17] MEDS ORDERED: FOSFOMYCIN 3 GM PACKET PO ONE (12:30)
--- NOTE | 2017-07-17 13:23 | PN ---
Date/Time of Note Date/Time of Note DATE: 07/17/17 TIME: 13:20 Assessment/Plan VTE Prophylaxis VTE Prophylaxis Intervention: LMWH Lines/Catheters IV Catheter Type (from Nrs): Saline Lock Urinary Cath still in place: No Assessment/Plan Chief Complaint/Hosp Course 1. Lower extremity decubitus ulcer with possible underlying osteomyelitis MRI of right ankle cannot be obtained secondary to patient's contractions and significant pain Ortho aware IV antibiotics ID consult appreciated Vascular consultation appreciated, nonaggressive therapy recommended considering patient's degree of dementia and contractures Wound care Have discussed with surgery about possible debridement, will follow up with recommendations 2. History of dementia with debility 3. History of hypertension BP elevated after blood transfusion, status post hydralazine 4. Acute on chronic kidney disease IV fluids 5. A. fib with RVR-stable Prophylaxis-Lovenox Problems: Subjective 24 Hr Interval Summary Subjective hx not possible: pt non-verbal Exam/Review of Systems Vital Signs Vitals Vital Signs Date Time Temp Pulse Resp B/P Pulse Ox O2 Delivery O2 Flow Rate FiO2 07/17/17 07:58 98.3 71 20 131/71 97 07/15/17 17:50 Simple Mask 10.0 Intake and Output 07/16/17 07/16/17 07/17/17 15:00 23:00 07:00 Intake Total 1500 ml 800 ml Balance 1500 ml 800 ml Exam Constitutional: non-verbal Respiratory: clear to auscultation Cardiovascular: regular rate and rhythm Gastrointestinal: soft, No distended Musculoskeletal: No nl extremities to inspection Results Result Diagram: 07/16/17 0803 07/16/17 0803 Medications Medications Current Medications Ondansetron HCl (Zofran Inj) 4 mg Q6H PRN IV NAUSEA AND/OR VOMITING Last administered on 07/15/17 21:25; Admin Dose 4 MG; Start 07/13/17 at 19:00 Acetaminophen (Tylenol Tab) 650 mg Q6H PRN PO PAIN LEVEL 1-3 OR FEVER Last administered on 07/15/17 09:34; Admin Dose 650 MG; Start 07/13/17 at 19:00 Acetaminophen/ Hydrocodone Bitart ([place] (5/325)) 1 tab Q6H PRN PO MODERATE PAIN LEVEL 4-6 Last administered on 07/14/17 12:24; Admin Dose 1 TAB; Start at 19:00 Morphine Sulfate (morphine) 2 mg Q4H PRN IV SEVERE PAIN LEVEL 7-10 Last administered on 07/17/17 10:44; Admin Dose 2 MG; Start 07/13/17 at 19:00 Docusate Sodium (Colace) 100 mg Q12H PRN PO CONSTIPATION Last administered on 21:25; Admin Dose 100 MG; Start 07/13/17 at 19:00 Magnesium Hydroxide (Milk Of Mag) 30 ml DAILY PRN PO CONSTIPATION; Start at 19:00 Zolpidem Tartrate (Ambien) 5 mg QHS PRN PO SLEEP; Start 07/13/17 at 19:00 Enoxaparin Sodium (Lovenox) 30 mg DAILY SC Last administered on 07/17/17 09:25 ; Admin Dose 30 MG; Start 07/14/17 at 09:00 Carvedilol (Coreg) 3.125 mg BID PO Last administered on 07/17/17 09:22; Admin Dose 3.125 MG; Start 07/13/17 at 21:00 Furosemide (Lasix) 20 mg DAILY PO Last administered on 07/17/17 09:23; Admin Dose 20 MG; Start 07/14/17 at 09:00 Hydralazine HCl (Apresoline) 25 mg BID PRN PO SBP>160; Start 07/13/17 at 19:00 Lisinopril (Zestril) 5 mg BID PO Last administered on 07/17/17 09:23; Admin Dose 5 MG; Start 07/13/17 at 21:00 Mirtazapine (Remeron) 7.5 mg HS PO Last administered on 07/16/17 21:14; Admin Dose 7.5 MG; Start 07/13/17 at 21:00 Potassium Chloride 8 meq 8 meq DAILY PO Last administered on 07/17/17 09:23; Admin Dose 8 MEQ; Start 07/14/17 at 09:00 Sodium Chloride 1,000 ml @ 100 mls/hr Q10H IV Last administered on 07/17/17 09 :36; Admin Dose 100 MLS/HR; Start 07/13/17 at 21:00 Clindamycin HCl/ Dextrose (Cleocin 600 Mg/ D5W (Pmx)) 50 ml @ 50 mls/hr Q8 IVPB Last administered on 07/17/17 13:04; Admin Dose 50 MLS/HR; Start 07/14/17 at 00:00 Collagenase (Santyl) 1 applic DAILY TOP Last administered on 07/17/17 09:26; Admin Dose 1 APPLIC; Start 07/14/17 at 12:00 Collagenase (Santyl) 1 applic DAILY TOP Last administered on 07/17/17 09:26; Admin Dose 1 APPLIC; Start 07/14/17 at 14:00 Nystatin (Nystatin Powder) 1 applic BID TOP Last administered on 07/17/17 09:25 ; Admin Dose 1 APPLIC; Start 07/14/17 at 14:00 Miscellaneous Information Patients own medicat... BID@10,16 XX ; Start 07/16/17 at 10:00 Cefepime HCl (Maxipime 1gm/50 ml (Pmx)) 50 ml @ 100 mls/hr Q8 IVPB ; Start 07/17 at 14:00 REINA SWANSON Jul 17, 2017 13:23
[2017-07-17 13:44] LABS: ADD UMIC YES; UR ASCORBIC ACID NEGATIVE (NEGATIVE); UR BACTERIA FEW /HPF (NONE SEEN); UR BILIRUBIN (Dip) NEGATIVE (NEGATIVE); UR BLOOD (Dip) 2+ mg/dL (NEGATIVE); UR CLARITY CLEAR (CLEAR); UR COLOR AMBER (YELLOW); UR GLUCOSE (Dip) NEGATIVE (NEGATIVE); UR KETONES (Dip) NEGATIVE (NEGATIVE); UR LEUKOCYTE ESTERASE (Dip) 2+ Leu/ul (NEGATIVE); UR NITRITE (Dip) NEGATIVE (NEGATIVE); UR RBC 4 /HPF (0-5); UR SPECIFIC GRAVITY (Dip) 1.006 (1.003-1.030); UR TOTAL PROTEIN (Dip) NEGATIVE (NEGATIVE); UR UROBILINOGEN (Dip) NEGATIVE (NEGATIVE)
--- NOTE | 2017-07-17 14:46 | CONS ---
Date/Time of Note Date/Time of Note DATE: 07/17/17 TIME: 14:41 Assessment/Plan Assessment/Plan Chief Complaint/Hosp Course 1. Right ankle wound: with possible osteomyelitis (unable to obtain MRI 2/2 significant contractures); cultures noted -defer to podiatry and vascular -local wound care -frequent turning and offloading -low airloss mattress -recommend vitamin C and short term zinc -abx per sensitivity 2. Lower extremity atherosclerosis -optimize vascular status 3. LEYDA: +uop; cr normalized -continue to monitor 4. Hypochromic anemia: No acute bleed noted -monitor and transfuse prn -further work-up per medical team 5. UTI -abx per sensitivity -frequent bladder emptying 6. Hypertension -medical optimization 7. Dementia -supportive 8. Right ankle pain: 2/2 #1 -pain management 9. Atrial fibrillation: controlled -per cards Thank you. Patient seen and examined in collaboration with Dr. Mehrdad Casillas. Problems: Consultation Date/Type/Reason Admit Date/Time Jul 13, 2017 at 18:03 Date of Consultation: Jul 17, 2017 Type of Consultation: surgical Reason for Consultation Right leg wound Referring Provider: REINA SWANSON of Present Illness Madhavi Warren is an 87 yo woman with multiple medical conditions who was brought in by family to [facility] with complaints of worsening right leg wound. Reportedly she experienced a fall 1 year prior and again 3 months ago with injuries sustained to her right upper and lower extremities, including an open right ankle ulcer. She was receiving wound care for her right ankle at the nursing facility where she was residing until a week ago when the patient decided to go home with family and scheduled home care. There is also also associated pain from this wound, without reports of fevers, chills or paresthesia on the affected extremity. A contributing factor to her wound is pressure second to declining mobility where she mostly in bed. General surgery was asked to evaluate. Constitutional: disoriented, No chills, No diaphoresis, No febrile Eyes: No pain ENT: No congestion Respiratory: No shortness of breath Cardiovascular: No chest pain Gastrointestinal: No diarrhea, No nausea Genitourinary: No dysuria Musculoskeletal: restricted range of motion (right ankle) Skin: other (open right ankle wound) Neurologic: No seizure Psychological: confusion Past Medical History hypertension hyperlipidemia, congestive heart failure immobility currently bed ridden fall right lower extremity chronic wound atherosclerosis. Past Surgical History Past Surgical Hx: no surgical history Family History Significant Family History: no pertinent family hx Social History Alcohol Use: none Smoking Status: Never smoker Drug Use: none Exam/Review of Systems Vital Signs Vitals Vital Signs Date Time Temp Pulse Resp B/P Pulse Ox O2 Delivery O2 Flow Rate FiO2 07/17/17 07:58 98.3 71 20 131/71 97 07/15/17 17:50 Simple Mask 10.0 Intake and Output 07/16/17 07/16/17 07/17/17 15:00 23:00 07:00 Intake Total 1500 ml 800 ml Balance 1500 ml 800 ml Exam Constitutional: alert, No oriented Psych: confusion Head: atraumatic, normocephalic Eyes: nl lids, nl sclera ENMT: mucosa pink and moist Neck: non-tender, supple Respiratory: normal air movement, No congested cough Cardiovascular: irregular rhythm, No regular rate and rhythm (afib) Gastrointestinal: bowel sounds, non-tender, soft Musculoskeletal: other (contracture right leg), No nl gait and stance Extremities: No edema, No normal pulses (palpable Femoral pulse, non-palpable dp) Neurological: confused, No nl mental status Skin: other (right malleolous: with eschar and slough, periwound erythema and exposed tendon) Results Result Diagram: 07/16/1780207/16/17 0803 Medications Medications Current Medications Ondansetron HCl (Zofran Inj) 4 mg Q6H PRN IV NAUSEA AND/OR VOMITING Last administered on 07/15/17 21:25; Admin Dose 4 MG; Start 07/13/17 at 19:00 Acetaminophen (Tylenol Tab) 650 mg Q6H PRN PO PAIN LEVEL 1-3 OR FEVER Last administered on 07/15/17 09:34; Admin Dose 650 MG; Start 07/13/17 at 19:00 Acetaminophen/ Hydrocodone Bitart ([place] (5/325)) 1 tab Q6H PRN PO MODERATE PAIN LEVEL 4-6 Last administered on 07/14/17 12:24; Admin Dose 1 TAB; Start at 19:00 Morphine Sulfate (morphine) 2 mg Q4H PRN IV SEVERE PAIN LEVEL 7-10 Last administered on 07/17/17 10:44; Admin Dose 2 MG; Start 07/13/17 at 19:00 Docusate Sodium (Colace) 100 mg Q12H PRN PO CONSTIPATION Last administered on 21:25; Admin Dose 100 MG; Start 07/13/17 at 19:00 Magnesium Hydroxide (Milk Of Mag) 30 ml DAILY PRN PO CONSTIPATION; Start at 19:00 Zolpidem Tartrate (Ambien) 5 mg QHS PRN PO SLEEP; Start 07/13/17 at 19:00 Enoxaparin Sodium (Lovenox) 30 mg DAILY SC Last administered on 07/17/17 09:25 ; Admin Dose 30 MG; Start 07/14/17 at 09:00 Carvedilol (Coreg) 3.125 mg BID PO Last administered on 07/17/17 09:22; Admin Dose 3.125 MG; Start 07/13/17 at 21:00 Furosemide (Lasix) 20 mg DAILY PO Last administered on 07/17/17 09:23; Admin Dose 20 MG; Start 07/14/17 at 09:00 Hydralazine HCl (Apresoline) 25 mg BID PRN PO SBP>160; Start 07/13/17 at 19:00 Lisinopril (Zestril) 5 mg BID PO Last administered on 07/17/17 09:23; Admin Dose 5 MG; Start 07/13/17 at 21:00 Mirtazapine (Remeron) 7.5 mg HS PO Last administered on 07/16/17 21:14; Admin Dose 7.5 MG; Start 07/13/17 at 21:00 Potassium Chloride 8 meq 8 meq DAILY PO Last administered on 07/17/17 09:23; Admin Dose 8 MEQ; Start 07/14/17 at 09:00 Sodium Chloride 1,000 ml @ 100 mls/hr Q10H IV Last administered on 07/17/17 09 :36; Admin Dose 100 MLS/HR; Start 07/13/17 at 21:00 Clindamycin HCl/ Dextrose (Cleocin 600 Mg/ D5W (Pmx)) 50 ml @ 50 mls/hr Q8 IVPB Last administered on 07/17/17 13:04; Admin Dose 50 MLS/HR; Start 07/14/17 at 00:00 Collagenase (Santyl) 1 applic DAILY TOP Last administered on 07/17/17 09:26; Admin Dose 1 APPLIC; Start 07/14/17 at 12:00 Collagenase (Santyl) 1 applic DAILY TOP Last administered on 07/17/17 09:26; Admin Dose 1 APPLIC; Start 07/14/17 at 14:00 Nystatin (Nystatin Powder) 1 applic BID TOP Last administered on 07/17/17 09:25 ; Admin Dose 1 APPLIC; Start 07/14/17 at 14:00 Miscellaneous Information Patients own medicat... BID@10,16 XX ; Start 07/16/17 at 10:00 Cefepime HCl (Maxipime 1gm/50 ml (Pmx)) 50 ml @ 100 mls/hr Q8 IVPB ; Start 07/17 at 14:00 DILLON WOOD NP Jul 17, 2017 14:46
[2017-07-17] MEDS: CEFEPIME 1GM/50 ML (PMX) 50 ML IVPB SCH ×2 (14:50→21:58)
[2017-07-17 21:33] VITALS: BP 124/56; RESP 19
[2017-07-17] MEDS: MIRTAZAPINE 15 MG TAB PO SCH (21:48)
[2017-07-18] MEDS: SOD CHLORIDE 0.9% 1,000 ML IV SCH ×3 (01:28→22:00)
[2017-07-18 02:00] VITALS: BP 150/70; RESP 18
[2017-07-18] MEDS: CLINDAMYCIN 600 MG/D5W (PMX) 50 ML IVPB SCH ×3 (06:09→22:01)
[2017-07-18] MEDS: CEFEPIME 1GM/50 ML (PMX) 50 ML IVPB SCH ×3 (06:09→21:31)
[2017-07-18 07:15] VITALS: BP 155/62; RESP 20
--- NOTE | 2017-07-18 08:38 | CONS ---
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 6) coronary angioplasty status 7) CHF systolic and diastolic chronic 8) Old LBBB Problems: Additional Assessment/Plan 1) continue beta hasmukh and SAÚL 2) start of antiplatelet therapy if no further procedures planned 3) consideration of anticoagulation if no fall 4) repeat EKG Consultation Date/Type/Reason Admit Date/Time Jul 13, 2017 at 18:03 Date of Consultation: Jul 18, 2017 Type of Consultation: cv Reason for Consultation LV dysfunction Hx of Present Illness patient well known to me through office w h/o valvular heart disease, TAVR after and LV dysfunction and ischemic cardiomyopathy after NC with PCI. Currently no sob, no chest pain. Constitutional: disoriented ENT: no complaints Respiratory: no complaints Cardiovascular: no complaints Skin: laceration, skin lesions Neurologic: confusion Psychological: confusion Past Medical History Medical History: congestive heart failure, coronary artery disease, high cholesterol, hypertension, other (TAVR, aortic valve stenosis, old myocardial infarction, coronary angioplasty status, labile blood pressures) Past Surgical History Past Surgical Hx: angioplasty, other (TAVR) Family History Significant Family History: hypertension Social History Alcohol Use: none Smoking Status: Never smoker Drug Use: none Exam/Review of Systems Vital Signs Vitals Vital Signs Date Time Temp Pulse Resp B/P Pulse Ox O2 Delivery O2 Flow Rate FiO2 07/18/17 02:00 97.7 72 18 150/70 92 07/15/17 17:50 Simple Mask 10.0 Intake and Output 07/17/17 07/17/17 07/18/17 15:00 23:00 07:00 Intake Total 300 ml 1820 ml 650 ml Balance 300 ml 1820 ml 650 ml Exam Constitutional: frail Head: atraumatic, normocephalic Neck: supple Respiratory: clear to auscultation Cardiovascular: regular rate and rhythm Gastrointestinal: soft Musculoskeletal: nl extremities to inspection Extremities: normal pulses Neurological: confused Skin: laceration Results Result Diagram: 07/16/17 0803 07/16/17 0803 Medications Medications Current Medications Ondansetron HCl (Zofran Inj) 4 mg Q6H PRN IV NAUSEA AND/OR VOMITING Last administered on 07/15/17 21:25; Admin Dose 4 MG; Start 07/13/17 at 19:00 Acetaminophen (Tylenol Tab) 650 mg Q6H PRN PO PAIN LEVEL 1-3 OR FEVER Last administered on 07/15/17 09:34; Admin Dose 650 MG; Start 07/13/17 at 19:00 Acetaminophen/ Hydrocodone Bitart ([place] (5/325)) 1 tab Q6H PRN PO MODERATE PAIN LEVEL 4-6 Last administered on 07/14/17 12:24; Admin Dose 1 TAB; Start at 19:00 Morphine Sulfate (morphine) 2 mg Q4H PRN IV SEVERE PAIN LEVEL 7-10 Last administered on 07/17/17 21:52; Admin Dose 2 MG; Start 07/13/17 at 19:00 Docusate Sodium (Colace) 100 mg Q12H PRN PO CONSTIPATION Last administered on 21:25; Admin Dose 100 MG; Start 07/13/17 at 19:00 Magnesium Hydroxide (Milk Of Mag) 30 ml DAILY PRN PO CONSTIPATION; Start at 19:00 Zolpidem Tartrate (Ambien) 5 mg QHS PRN PO SLEEP; Start 07/13/17 at 19:00 Enoxaparin Sodium (Lovenox) 30 mg DAILY SC Last administered on 07/17/17 09:25 ; Admin Dose 30 MG; Start 07/14/17 at 09:00 Carvedilol (Coreg) 3.125 mg BID PO Last administered on 07/17/17 21:48; Admin Dose 3.125 MG; Start 07/13/17 at 21:00 Furosemide (Lasix) 20 mg DAILY PO Last administered on 07/17/17 09:23; Admin Dose 20 MG; Start 07/14/17 at 09:00 Hydralazine HCl (Apresoline) 25 mg BID PRN PO SBP>160; Start 07/13/17 at 19:00 Lisinopril (Zestril) 5 mg BID PO Last administered on 07/17/17 21:48; Admin Dose 5 MG; Start 07/13/17 at 21:00 Mirtazapine (Remeron) 7.5 mg HS PO Last administered on 07/17/17 21:48; Admin Dose 7.5 MG; Start 07/13/17 at 21:00 Potassium Chloride 8 meq 8 meq DAILY PO Last administered on 07/17/17 09:23; Admin Dose 8 MEQ; Start 07/14/17 at 09:00 Sodium Chloride 1,000 ml @ 100 mls/hr Q10H IV Last administered on 07/18/17 01 :28; Admin Dose 100 MLS/HR; Start 07/13/17 at 21:00 Clindamycin HCl/ Dextrose (Cleocin 600 Mg/ D5W (Pmx)) 50 ml @ 50 mls/hr Q8 IVPB Last administered on 07/18/17 06:09; Admin Dose 50 MLS/HR; Start 07/14/17 at 00:00 Collagenase (Santyl) 1 applic DAILY TOP Last administered on 07/17/17 09:26; Admin Dose 1 APPLIC; Start 07/14/17 at 12:00 Collagenase (Santyl) 1 applic DAILY TOP Last administered on 07/17/17 09:26; Admin Dose 1 APPLIC; Start 07/14/17 at 14:00 Nystatin (Nystatin Powder) 1 applic BID TOP Last administered on 07/17/17 21:51 ; Admin Dose 1 APPLIC; Start 07/14/17 at 14:00 Miscellaneous Information Patients own medicat... BID@10,16 XX ; Start 07/16/17 at 10:00 Cefepime HCl (Maxipime 1gm/50 ml (Pmx)) 50 ml @ 100 mls/hr Q8 IVPB Last administered on 07/18/17 06:09; Admin Dose 100 MLS/HR; Start 07/17/17 at 14:00 NATHANIEL WATT MD Jul 18, 2017 08:37
[2017-07-18] MEDS: FUROSEMIDE 20 MG TAB PO SCH (09:06)
[2017-07-18] MEDS: NYSTATIN 30 GM POWDER BTL TOP SCH ×2 (09:07→21:35)
[2017-07-18] MEDS: POTASSIUM CHLORIDE (SR) 8 MEQ CAP PO SCH (09:07)
[2017-07-18] MEDS: LISINOPRIL 5 MG TAB PO SCH ×2 (09:07→21:31)
[2017-07-18] MEDS: COLLAGENASE 30 GM TUBE TOP SCH ×2 (09:08)
[2017-07-18] MEDS: BALSAM PERU/CASTOR OIL 60 GM TUBE TOP SCH ×2 (09:08→21:34)
[2017-07-18] MEDS: ENOXAPARIN 30 MG/0.3 ML SYG SC SCH (09:10)
[2017-07-18 14:29] VITALS: BP 154/84; RESP 18
--- NOTE | 2017-07-18 15:14 | CONS ---
Date/Time of Note Date/Time of Note DATE: 07/18/17 TIME: 15:08 Assessment/Plan Assessment/Plan Chief Complaint/Hosp Course ID PROGRESS NOTE CURRENT ABX: ABX Day #8 => Start Daptomycin + Cefepime Clindamycin #5 + Merrem # 24H INTERVAL SUMMARY * Stable -- no fevers,NAD * MICROBIOLOGY: (+)Enterococcal <10,000 Urine Cx, * 07/15 Wound (+) WOUND CULTURE Preliminary Organism 1 PROVIDENCIA STUARTII QUANTITY 2+ Organism 2 STREP AGALACTIAE - (GROUP B) QUANTITY ISOLATED FROM BROTH ONLY Organism 3 GRAM NEGATIVE SIMON QUANTITY 2+ Organism 4 STAPHYLOCOCCUS AUREUS QUANTITY 2+ Organism 5 ENTEROCOCCUS SPECIES QUANTITY SCANT GROWTH P STUARTII M.I.C. RX --------- --- AMIKACIN <=2 S CEFEPIME <=1 S CEFOTAXIME I CIPROFLOXACIN 2 I GENTAMICIN >=16 R IMIPENEM 2 I LEVOFLOXACIN >=8 R TOBRAMYCIN R TRIMETHOPRIM/SULFAMETHOXAZOLE >=320 R PIPERACILLIN/TAZOBACTAM <=4 S PHYSICAL EXAMINATION: GENERAL: 87 yo F, VSS, afebrile HEENT: Unremarkable NECK: Supple. Trachea midline. CHEST: Rise symmetrical. Breath sounds diminished. HEART: S1, S2. ABDOMEN: Soft, bowel sounds present. EXT: Contracted RLEXT w/wounds ID ASSESSMENT 87 yo F s/PMHX Dementia, debility, admit with: 1. s/p SEPSIS on admission w/SIRS (+)TMax 101.1, ESR 135, CRP 23.1 => due to ( +)osteomyelitis * 07/15/17 BCx (-) to date 2. Right ankle osteomyelitis with infected wound. * 07/15/17 MICRO WOUND CULTURE Preliminary Organism 1 PROVIDENCIA STUARTII QUANTITY 2+ Organism 2 STREP AGALACTIAE - (GROUP B) QUANTITY ISOLATED FROM BROTH ONLY Organism 3 GRAM NEGATIVE SIMON QUANTITY 2+ Organism 4 STAPHYLOCOCCUS AUREUS QUANTITY 2+ Organism 5 ENTEROCOCCUS SPECIES QUANTITY SCANT GROWTH 3. Right lower extremity contracture w/pressure ulcers 4. Severe peripheral arterial occlusive disease * 07/16/17 LEXT Arterial Duplex: IMPRESSION: * 1. Significant stenosis bilaterally in the mid to distal superficial femoral artery. * 2. Occluded bilateral dorsalis pedis artery 5. Enterococcal bacteruria vs early UTI * 07/15/17 Urine Cx: URINE CULTURE Preliminary Organism 1 ENTEROCOCCUS SPECIES COLONY COUNT <10,000 CFU/ml 6. Acute renal insufficiency 7. H/O CAD 8. H/O CHF ( - ) MRSA Nares INVASIVES: PICC 07/13 RUXT ABX ALLERGY: Vanco IV CURRENT ABX: ABX Day #8 => Start Daptomycin + Cefepime Clindamycin #5 + Merrem # s/p Vanco IV x1 07/13 + Ceftriaxone ID RECOMMENDATIONS * DC Clinda -- it does not cover Enterococcus growing in the wound=> Start Daptomycin * CEFEPIME -> Continue for GNR coverage * Give Fosfomycin po x1 to cover concern Enterococcal UTI vs bacteruria * GNR is RESISTANT to po Bactrim/Quinolones -> Anticipate 6 weeks IV ABX w/ Cefepime * Further recs vascular/podiatry . Problems: Consultation Date/Type/Reason Admit Date/Time Jul 13, 2017 at 18:03 Type of Consultation: ID Referring Provider: REINA SWANSON Exam/Review of Systems Vital Signs Vitals Vital Signs Date Time Temp Pulse Resp B/P Pulse Ox O2 Delivery O2 Flow Rate FiO2 07/18/17 14:29 97.8 74 18 154/84 96 07/15/17 17:50 Simple Mask 10.0 Intake and Output 07/17/17 07/17/17 07/18/17 15:00 23:00 07:00 Intake Total 300 ml 1820 ml 650 ml Balance 300 ml 1820 ml 650 ml Results Result Diagram: 07/16/17 0803 07/16/17 0803 Medications Medications Current Medications Ondansetron HCl (Zofran Inj) 4 mg Q6H PRN IV NAUSEA AND/OR VOMITING Last administered on 07/15/17 21:25; Admin Dose 4 MG; Start 07/13/17 at 19:00 Acetaminophen (Tylenol Tab) 650 mg Q6H PRN PO PAIN LEVEL 1-3 OR FEVER Last administered on 07/15/17 09:34; Admin Dose 650 MG; Start 07/13/17 at 19:00 Acetaminophen/ Hydrocodone Bitart ([place] (5/325)) 1 tab Q6H PRN PO MODERATE PAIN LEVEL 4-6 Last administered on 07/14/17 12:24; Admin Dose 1 TAB; Start at 19:00 Morphine Sulfate (morphine) 2 mg Q4H PRN IV SEVERE PAIN LEVEL 7-10 Last administered on 07/17/17 21:52; Admin Dose 2 MG; Start 07/13/17 at 19:00 Docusate Sodium (Colace) 100 mg Q12H PRN PO CONSTIPATION Last administered on 21:25; Admin Dose 100 MG; Start 07/13/17 at 19:00 Magnesium Hydroxide (Milk Of Mag) 30 ml DAILY PRN PO CONSTIPATION; Start at 19:00 Zolpidem Tartrate (Ambien) 5 mg QHS PRN PO SLEEP; Start 07/13/17 at 19:00 Enoxaparin Sodium (Lovenox) 30 mg DAILY SC Last administered on 07/18/17 09:10 ; Admin Dose 30 MG; Start 07/14/17 at 09:00 Carvedilol (Coreg) 3.125 mg BID PO Last administered on 07/18/17 09:06; Admin Dose 3.125 MG; Start 07/13/17 at 21:00 Furosemide (Lasix) 20 mg DAILY PO Last administered on 07/18/17 09:06; Admin Dose 20 MG; Start 07/14/17 at 09:00 Hydralazine HCl (Apresoline) 25 mg BID PRN PO SBP>160; Start 07/13/17 at 19:00 Lisinopril (Zestril) 5 mg BID PO Last administered on 07/18/17 09:07; Admin Dose 5 MG; Start 07/13/17 at 21:00 Mirtazapine (Remeron) 7.5 mg HS PO Last administered on 07/17/17 21:48; Admin Dose 7.5 MG; Start 07/13/17 at 21:00 Potassium Chloride 8 meq 8 meq DAILY PO Last administered on 07/18/17 09:07; Admin Dose 8 MEQ; Start 07/14/17 at 09:00 Sodium Chloride 1,000 ml @ 100 mls/hr Q10H IV Last administered on 9/3/17at 11 :44; Admin Dose 100 MLS/HR; Start 07/13/17 at 21:00 Clindamycin HCl/ Dextrose (Cleocin 600 Mg/ D5W (Pmx)) 50 ml @ 50 mls/hr Q8 IVPB Last administered on 07/18/17 06:09; Admin Dose 50 MLS/HR; Start 07/14/17 at 00:00 Collagenase (Santyl) 1 applic DAILY TOP Last administered on 07/18/17 09:08; Admin Dose 1 APPLIC; Start 07/14/17 at 12:00 Collagenase (Santyl) 1 applic DAILY TOP Last administered on 07/18/17 09:08; Admin Dose 1 APPLIC; Start 07/14/17 at 14:00 Nystatin (Nystatin Powder) 1 applic BID TOP Last administered on 07/18/17 09:07 ; Admin Dose 1 APPLIC; Start 07/14/17 at 14:00 Miscellaneous Information Patients own medicat... BID@10,16 XX ; Start 07/16/17 at 10:00 Cefepime HCl (Maxipime 1gm/50 ml (Pmx)) 50 ml @ 100 mls/hr Q8 IVPB Last administered on 07/18/17 06:09; Admin Dose 100 MLS/HR; Start 07/17/17 at 14:00 FREDY JOHNSON NP Jul 18, 2017 15:14
--- NOTE | 2017-07-18 16:39 | PN ---
Date/Time of Note Date/Time of Note DATE: 07/18/17 TIME: 16:36 Assessment/Plan Lines/Catheters IV Catheter Type (from Nrs): Peripheral IV Smalls in Place (from Nrs): No Assessment/Plan Chief Complaint/Hosp Course 1. Right ankle wound: with possible osteomyelitis (unable to obtain MRI 2/2 significant contractures); cultures noted -defer to podiatry and vascular -local wound care -frequent turning and offloading -low airloss mattress -recommend vitamin C and short term zinc -abx per sensitivity 2. Lower extremity atherosclerosis -optimize vascular status 3. LEYDA: +uop; cr normalized -continue to monitor 4. Hypochromic anemia: No acute bleed noted -monitor and transfuse prn -further work-up per medical team 5. UTI -abx per sensitivity -frequent bladder emptying 6. Hypertension -medical optimization 7. Dementia -supportive 8. Right ankle pain: 2/2 #1 -pain management 9. Atrial fibrillation: controlled -per cards Thank you, Problems: Subjective 24 Hr Interval Summary Min pain from at the wound. No fevers, chills or paresthesia on the affected extremity. No cough, sz, rash, vomiting, bloating, dysuria. Bowel function. Exam/Review of Systems Vital Signs Vitals Vital Signs Date Time Temp Pulse Resp B/P Pulse Ox O2 Delivery O2 Flow Rate FiO2 07/18/17 14:29 97.8 74 18 154/84 96 07/15/17 17:50 Simple Mask 10.0 Intake and Output 07/17/17 07/17/17 07/18/17 15:00 23:00 07:00 Intake Total 300 ml 1820 ml 650 ml Balance 300 ml 1820 ml 650 ml Exam Free Text/Dictation Constitutional: awake, No oriented Psych: confusion Head: atraumatic, normocephalic Eyes: nl lids, nl sclera ENMT: mucosa pink and moist Neck: non-tender, supple Respiratory: normal air movement, No congested cough Cardiovascular: irregular rhythm, No regular rate and rhythm (afib) Gastrointestinal: bowel sounds, non-tender, soft Musculoskeletal: other (contracture right leg), No nl gait and stance Extremities: No edema, No normal pulses (palpable Femoral pulse, non-palpable dp) Neurological: confused, No nl mental status Skin: other (right malleolus: with eschar and slough, periwound erythema and exposed tendon) Results Result Diagram: 07/16/17 0803 07/16/17 0803 YANNI DENNIS MD Jul 18, 2017 16:39
--- NOTE | 2017-07-18 18:59 | PN ---
Date/Time of Note Date/Time of Note DATE: 07/18/17 TIME: 18:55 Assessment/Plan VTE Prophylaxis VTE Prophylaxis Intervention: LMWH Lines/Catheters Urinary Cath still in place: No Assessment/Plan Chief Complaint/Hosp Course 1. Lower extremity decubitus ulcer with possible underlying osteomyelitis MRI of right ankle cannot be obtained secondary to patient's contractions and significant pain Ortho aware IV antibiotics ID consult appreciated Wound care Arterial study shows significant stenosis bilaterally in the mid to distal superficial femoral artery was occluded bilateral dorsalis pedis artery Vascular and podiatry on the case, defer plan for debridement to them 2. History of dementia with debility 3. History of hypertension BP elevated after blood transfusion, status post hydralazine 4. Acute on chronic kidney disease IV fluids 5. A. fib with RVR-stable Prophylaxis-Lovenox Problems: Subjective 24 Hr Interval Summary Subjective hx not possible: pt non-verbal Exam/Review of Systems Vital Signs Vitals Vital Signs Date Time Temp Pulse Resp B/P Pulse Ox O2 Delivery O2 Flow Rate FiO2 07/18/17 14:29 97.8 74 18 154/84 96 07/15/17 17:50 Simple Mask 10.0 Intake and Output 07/17/17 07/17/17 07/18/17 14:59 22:59 06:59 Intake Total 300 ml 1820 ml 650 ml Balance 300 ml 1820 ml 650 ml Exam Constitutional: non-verbal Respiratory: clear to auscultation Cardiovascular: regular rate and rhythm Gastrointestinal: soft, No distended Musculoskeletal: No nl extremities to inspection Results Result Diagram: 07/16/17 0803 07/16/17 0803 Medications Medications Current Medications Ondansetron HCl (Zofran Inj) 4 mg Q6H PRN IV NAUSEA AND/OR VOMITING Last administered on 07/15/17 21:25; Admin Dose 4 MG; Start 07/13/17 at 19:00 Acetaminophen (Tylenol Tab) 650 mg Q6H PRN PO PAIN LEVEL 1-3 OR FEVER Last administered on 07/15/17 09:34; Admin Dose 650 MG; Start 07/13/17 at 19:00 Acetaminophen/ Hydrocodone Bitart ([place] (5/325)) 1 tab Q6H PRN PO MODERATE PAIN LEVEL 4-6 Last administered on 07/14/17 12:24; Admin Dose 1 TAB; Start at 19:00 Morphine Sulfate (morphine) 2 mg Q4H PRN IV SEVERE PAIN LEVEL 7-10 Last administered on 07/17/17 21:52; Admin Dose 2 MG; Start 07/13/17 at 19:00 Docusate Sodium (Colace) 100 mg Q12H PRN PO CONSTIPATION Last administered on 21:25; Admin Dose 100 MG; Start 07/13/17 at 19:00 Magnesium Hydroxide (Milk Of Mag) 30 ml DAILY PRN PO CONSTIPATION; Start at 19:00 Zolpidem Tartrate (Ambien) 5 mg QHS PRN PO SLEEP; Start 07/13/17 at 19:00 Enoxaparin Sodium (Lovenox) 30 mg DAILY SC Last administered on 07/18/17 09:10 ; Admin Dose 30 MG; Start 07/14/17 at 09:00 Carvedilol (Coreg) 3.125 mg BID PO Last administered on 07/18/17 09:06; Admin Dose 3.125 MG; Start 07/13/17 at 21:00 Furosemide (Lasix) 20 mg DAILY PO Last administered on 07/18/17 09:06; Admin Dose 20 MG; Start 07/14/17 at 09:00 Hydralazine HCl (Apresoline) 25 mg BID PRN PO SBP>160; Start 07/13/17 at 19:00 Lisinopril (Zestril) 5 mg BID PO Last administered on 07/18/17 09:07; Admin Dose 5 MG; Start 07/13/17 at 21:00 Mirtazapine (Remeron) 7.5 mg HS PO Last administered on 07/17/17 21:48; Admin Dose 7.5 MG; Start 07/13/17 at 21:00 Potassium Chloride 8 meq 8 meq DAILY PO Last administered on 07/18/17 09:07; Admin Dose 8 MEQ; Start 07/14/17 at 09:00 Sodium Chloride 1,000 ml @ 100 mls/hr Q10H IV Last administered on 07/18/17 11 :44; Admin Dose 100 MLS/HR; Start 07/13/17 at 21:00 Clindamycin HCl/ Dextrose (Cleocin 600 Mg/ D5W (Pmx)) 50 ml @ 50 mls/hr Q8 IVPB Last administered on 07/18/17 15:24; Admin Dose 50 MLS/HR; Start 07/14/17 at 00:00 Collagenase (Santyl) 1 applic DAILY TOP Last administered on 07/18/17 09:08; Admin Dose 1 APPLIC; Start 07/14/17 at 12:00 Collagenase (Santyl) 1 applic DAILY TOP Last administered on 07/18/17 09:08; Admin Dose 1 APPLIC; Start 07/14/17 at 14:00 Nystatin (Nystatin Powder) 1 applic BID TOP Last administered on 07/18/17 09:07 ; Admin Dose 1 APPLIC; Start 07/14/17 at 14:00 Miscellaneous Information Patients own medicat... BID@10,16 XX ; Start 07/16/17 at 10:00 Cefepime HCl (Maxipime 1gm/50 ml (Pmx)) 50 ml @ 100 mls/hr Q8 IVPB Last administered on 07/18/17 15:23; Admin Dose 100 MLS/HR; Start 07/17/17 at 14:00 REINA SWANSON Jul 18, 2017 18:59
[2017-07-18 20:00] VITALS: BP 143/64; RESP 19
[2017-07-18] MEDS: MIRTAZAPINE 15 MG TAB PO SCH (21:30)
[2017-07-19 02:00] VITALS: BP 152/70; RESP 18
[2017-07-19] MEDS: CEFEPIME 1GM/50 ML (PMX) 50 ML IVPB SCH ×3 (05:24→20:17)
[2017-07-19] MEDS: CLINDAMYCIN 600 MG/D5W (PMX) 50 ML IVPB SCH ×3 (06:14→20:17)
[2017-07-19 08:00] VITALS: BP 100/51; RESP 20
[2017-07-19] MEDS: ENOXAPARIN 30 MG/0.3 ML SYG SC SCH (10:05)
[2017-07-19] MEDS: FUROSEMIDE 20 MG TAB PO SCH (10:06)
[2017-07-19] MEDS: POTASSIUM CHLORIDE (SR) 8 MEQ CAP PO SCH (10:06)
[2017-07-19] MEDS: LISINOPRIL 5 MG TAB PO SCH ×2 (10:07→20:17)
[2017-07-19] MEDS: SOD CHLORIDE 0.9% 1,000 ML IV SCH ×2 (10:07→17:00)
[2017-07-19] MEDS: NYSTATIN 30 GM POWDER BTL TOP SCH ×2 (10:08→20:18)
[2017-07-19] MEDS: COLLAGENASE 30 GM TUBE TOP SCH ×2 (10:09)
[2017-07-19] MEDS: BALSAM PERU/CASTOR OIL 60 GM TUBE TOP SCH ×2 (10:09→20:19)
[2017-07-19 15:29] VITALS: BP 102/54; RESP 20
--- NOTE | 2017-07-19 15:52 | PN ---
Date/Time of Note Date/Time of Note DATE: 07/19/17 TIME: 15:47 Assessment/Plan Lines/Catheters IV Catheter Type (from Nrs): Peripheral IV Smalls in Place (from Nrs): No Assessment/Plan Chief Complaint/Hosp Course 1. Right ankle wound: with possible osteomyelitis (unable to obtain MRI 2/2 significant contractures); cultures noted -defer to podiatry and vascular -local wound care -frequent turning and offloading -low airloss mattress -recommend vitamin C and short term zinc -abx per sensitivity 2. Lower extremity atherosclerosis -optimize vascular status 3. LEYDA: +uop; cr normalized -continue to monitor 4. Hypochromic anemia: No acute bleed noted -monitor and transfuse prn -further work-up per medical team 5. UTI -abx per sensitivity -frequent bladder emptying 6. Hypertension -medical optimization 7. Dementia -supportive 8. Right ankle pain: 2/2 #1 -pain management 9. Atrial fibrillation: controlled -per cards Thank you, Problems: Subjective 24 Hr Interval Summary Min pain from at the wound. No fevers, chills or paresthesia on the affected extremity. No cough, sz, rash, vomiting, bloating, dysuria. Bowel function. Exam/Review of Systems Vital Signs Vitals Vital Signs Date Time Temp Pulse Resp B/P Pulse Ox O2 Delivery O2 Flow Rate FiO2 07/19/17 15:29 98.3 78 20 102/54 97 07/15/17 17:50 Simple Mask 10.0 Intake and Output 07/18/17 07/18/17 07/19/17 14:59 22:59 06:59 Intake Total 600 ml 1350 ml 850 ml Balance 600 ml 1350 ml 850 ml Exam Free Text/Dictation Constitutional: awake, No oriented Psych: confusion Head: atraumatic, normocephalic Eyes: nl lids, nl sclera ENMT: mucosa pink and moist Neck: non-tender, supple Respiratory: normal air movement, No congested cough Cardiovascular: irregular rhythm, No regular rate and rhythm (afib) Gastrointestinal: bowel sounds, non-tender, soft Musculoskeletal: other (contracture right leg), No nl gait and stance Extremities: No edema, No normal pulses (palpable Femoral pulse, non-palpable dp) Neurological: confused, No nl mental status Skin: other (right malleolus: with eschar and slough, periwound erythema and exposed tendon) Results Result Diagram: 07/16/17 0803 07/16/17 0803 YANNI DENNIS MD Jul 19, 2017 15:52
--- NOTE | 2017-07-19 19:25 | CONS ---
Date/Time of Note Date/Time of Note DATE: 07/19/17 TIME: 19:22 Assessment/Plan Assessment/Plan Chief Complaint/Hosp Course ID PROGRESS NOTE CURRENT ABX: ABX Day #9 =>Daptomycin + Cefepime Clindamycin #5 + Merrem # 24H INTERVAL SUMMARY * Stable -- no fevers,NAD * MICROBIOLOGY: (+)Enterococcal <10,000 Urine Cx, * 07/15 Wound (+) WOUND CULTURE Preliminary Organism 1 PROVIDENCIA STUARTII QUANTITY 2+ Organism 2 STREP AGALACTIAE - (GROUP B) QUANTITY ISOLATED FROM BROTH ONLY Organism 3 GRAM NEGATIVE SIMON QUANTITY 2+ Organism 4 STAPHYLOCOCCUS AUREUS QUANTITY 2+ Organism 5 ENTEROCOCCUS SPECIES QUANTITY SCANT GROWTH P STUARTII M.I.C. RX --------- --- AMIKACIN <=2 S CEFEPIME <=1 S CEFOTAXIME I CIPROFLOXACIN 2 I GENTAMICIN >=16 R IMIPENEM 2 I LEVOFLOXACIN >=8 R TOBRAMYCIN R TRIMETHOPRIM/SULFAMETHOXAZOLE >=320 R PIPERACILLIN/TAZOBACTAM <=4 S PHYSICAL EXAMINATION: GENERAL: 87 yo F, VSS, afebrile HEENT: Unremarkable NECK: Supple. Trachea midline. CHEST: Rise symmetrical. Breath sounds diminished. HEART: S1, S2. ABDOMEN: Soft, bowel sounds present. EXT: Contracted RLEXT w/wounds ID ASSESSMENT 87 yo F s/PMHX Dementia, debility, admit with: 1. s/p SEPSIS on admission w/SIRS (+)TMax 101.1, ESR 135, CRP 23.1 => due to ( +)osteomyelitis * 07/15/17 BCx (-) to date 2. Right ankle osteomyelitis with infected wound. * 07/15/17 MICRO WOUND CULTURE Preliminary Organism 1 PROVIDENCIA STUARTII QUANTITY 2+ Organism 2 STREP AGALACTIAE - (GROUP B) QUANTITY ISOLATED FROM BROTH ONLY Organism 3 GRAM NEGATIVE SIMON QUANTITY 2+ Organism 4 STAPHYLOCOCCUS AUREUS QUANTITY 2+ Organism 5 ENTEROCOCCUS SPECIES QUANTITY SCANT GROWTH 3. Right lower extremity contracture w/pressure ulcers 4. Severe peripheral arterial occlusive disease * 07/16/17 LEXT Arterial Duplex: IMPRESSION: * 1. Significant stenosis bilaterally in the mid to distal superficial femoral artery. * 2. Occluded bilateral dorsalis pedis artery 5. Enterococcal bacteruria vs early UTI * 07/15/17 Urine Cx: URINE CULTURE Preliminary Organism 1 ENTEROCOCCUS SPECIES COLONY COUNT <10,000 CFU/ml 6. Acute renal insufficiency 7. H/O CAD 8. H/O CHF ( - ) MRSA Nares INVASIVES: PICC 07/13 RUXT ABX ALLERGY: Vanco IV CURRENT ABX: ABX Day #9 => Daptomycin + Cefepime Clindamycin #5 + Merrem # s/p Vanco IV x1 07/13 + Ceftriaxone ID RECOMMENDATIONS * DC Clinda -- it does not cover Enterococcus growing in the wound=> Started Daptomycin * CEFEPIME -> Continue for GNR coverage * s/p Fosfomycin po x1 to cover concern Enterococcal UTI vs bacteruria * GNR is RESISTANT to po Bactrim/Quinolones -> Anticipate 6 weeks IV ABX w/ Cefepime * Further recs vascular/podiatry . Problems: Consultation Date/Type/Reason Admit Date/Time Jul 13, 2017 at 18:03 Type of Consultation: ID Referring Provider: REINA SWANSON Exam/Review of Systems Vital Signs Vitals Vital Signs Date Time Temp Pulse Resp B/P Pulse Ox O2 Delivery O2 Flow Rate FiO2 07/19/17 15:29 98.3 78 20 102/54 97 07/15/17 17:50 Simple Mask 10.0 Intake and Output 07/18/17 07/18/17 07/19/17 14:59 22:59 06:59 Intake Total 600 ml 1350 ml 850 ml Balance 600 ml 1350 ml 850 ml Results Result Diagram: 07/16/17 0803 07/16/17 0803 Medications Medications Current Medications Ondansetron HCl (Zofran Inj) 4 mg Q6H PRN IV NAUSEA AND/OR VOMITING Last administered on 07/15/17 21:25; Admin Dose 4 MG; Start 07/13/17 at 19:00 Acetaminophen (Tylenol Tab) 650 mg Q6H PRN PO PAIN LEVEL 1-3 OR FEVER Last administered on 07/15/17 09:34; Admin Dose 650 MG; Start 07/13/17 at 19:00 Acetaminophen/ Hydrocodone Bitart ([place] (5/325)) 1 tab Q6H PRN PO MODERATE PAIN LEVEL 4-6 Last administered on 07/14/17 12:24; Admin Dose 1 TAB; Start at 19:00 Morphine Sulfate (morphine) 2 mg Q4H PRN IV SEVERE PAIN LEVEL 7-10 Last administered on 07/17/17 21:52; Admin Dose 2 MG; Start 07/13/17 at 19:00 Docusate Sodium (Colace) 100 mg Q12H PRN PO CONSTIPATION Last administered on 21:25; Admin Dose 100 MG; Start 07/13/17 at 19:00 Magnesium Hydroxide (Milk Of Mag) 30 ml DAILY PRN PO CONSTIPATION; Start at 19:00 Zolpidem Tartrate (Ambien) 5 mg QHS PRN PO SLEEP; Start 07/13/17 at 19:00 Enoxaparin Sodium (Lovenox) 30 mg DAILY SC Last administered on 07/19/17 10:05 ; Admin Dose 30 MG; Start 07/14/17 at 09:00 Carvedilol (Coreg) 3.125 mg BID PO Last administered on 07/19/17 09:00; Admin Dose 3.125 MG; Start 07/13/17 at 21:00 Furosemide (Lasix) 20 mg DAILY PO Last administered on 07/19/17 10:06; Admin Dose 20 MG; Start 07/14/17 at 09:00 Hydralazine HCl (Apresoline) 25 mg BID PRN PO SBP>160; Start 07/13/17 at 19:00 Lisinopril (Zestril) 5 mg BID PO Last administered on 07/19/17 10:07; Admin Dose 5 MG; Start 07/13/17 at 21:00 Mirtazapine (Remeron) 7.5 mg HS PO Last administered on 07/18/17 21:30; Admin Dose 7.5 MG; Start 07/13/17 at 21:00 Potassium Chloride 8 meq 8 meq DAILY PO Last administered on 07/19/17 10:06; Admin Dose 8 MEQ; Start 07/14/17 at 09:00 Sodium Chloride 1,000 ml @ 100 mls/hr Q10H IV Last administered on 9/4/17at 10 :07; Admin Dose 100 MLS/HR; Start 07/13/17 at 21:00 Clindamycin HCl/ Dextrose (Cleocin 600 Mg/ D5W (Pmx)) 50 ml @ 50 mls/hr Q8 IVPB Last administered on 07/19/17 15:20; Admin Dose 50 MLS/HR; Start 07/14/17 at 00:00 Collagenase (Santyl) 1 applic DAILY TOP Last administered on 07/19/17 10:09; Admin Dose 1 APPLIC; Start 07/14/17 at 12:00 Collagenase (Santyl) 1 applic DAILY TOP Last administered on 07/19/17 10:09; Admin Dose 1 APPLIC; Start 07/14/17 at 14:00 Nystatin (Nystatin Powder) 1 applic BID TOP Last administered on 07/19/17 10:08 ; Admin Dose 1 APPLIC; Start 07/14/17 at 14:00 Miscellaneous Information Patients own medicat... BID@10,16 XX ; Start 07/16/17 at 10:00 Cefepime HCl (Maxipime 1gm/50 ml (Pmx)) 50 ml @ 100 mls/hr Q8 IVPB Last administered on 07/19/17 14:42; Admin Dose 100 MLS/HR; Start 07/17/17 at 14:00 FREDY JOHNSON NP Jul 19, 2017 19:25
[2017-07-19 19:40] VITALS: BP 185/81; RESP 16
--- NOTE | 2017-07-19 19:53 | PN ---
Date/Time of Note Date/Time of Note DATE: 07/19/17 TIME: 19:37 Assessment/Plan Lines/Catheters IV Catheter Type (from [facility]): Peripheral IV Smalls in Place (from [facility]): No Assessment/Plan Chief Complaint/Hosp Course -Bilateral lower extremity atherosclerosis with right lower extremity nonhealing ulcer: It seems the patient has developed a lateral malleolar ulcer in addition to infrainguinal atherosclerotic disease, that has been gradually worsening, with now an eschar that has developed on the dorsum aspect of the foot. Unfortunately, the patient has significant knee contracture, with dementia and non-ambulatory, which limits any vascular intervention. The patient would not be a candidate for any open vascular surgery. -If her wounds worsen or threaten her life would recommend an AKA -Optimize vascular status (blood pressure medications, diet, nutrition, exercise , sugar control, and antiplatelets). -Discussed findings, plan and management with the primary service. -Thank you for allowing us to partake in the care of your patient. Please call with any questions. Problems: Subjective 24 Hr Interval Summary no new vascular events overnight Exam/Review of Systems Vital Signs Vitals Vital Signs Date Time Temp Pulse Resp B/P Pulse Ox O2 Delivery O2 Flow Rate FiO2 07/19/17 15:29 98.3 78 20 102/54 97 07/15/17 17:50 Simple Mask 10.0 Intake and Output 07/18/17 07/18/17 07/19/17 15:00 23:00 07:00 Intake Total 600 ml 1350 ml 850 ml Balance 600 ml 1350 ml 850 ml Exam Free Text/Dictation GENERAL APPEARANCE: awake, unable to communicate LUNGS: Coarse breath sounds bilaterally. HEART: S1, S2 present ABDOMEN: Soft, nontender, nondistended. Bowel sounds positive. EXTREMITIES: -Right lower extremity, palpable femoral pulse. Nonpalpable pedal pulse, significant ulceration of the lateral malleolus with a necrotic tissue, with exposed tendon and improving erythema, dorsal foot ulcer with eschar and surrounding erythema.Knee contracture of greater than 40 degrees. -Left lower extremity, palpable femoral pulse. Nonpalpable pedal pulse. Motor and sensory unable to ascertain as the patient is non-communicative. Capillary refill 3-4 seconds. Results Result Diagram: 07/16/1780207/16/17802 UNIQUE ARVIZU MD Jul 19, 2017 19:53
[2017-07-19] MEDS: MIRTAZAPINE 15 MG TAB PO SCH (20:17)
[2017-07-20] VITALS (7 sets, daily range): BP systolic 125–174; BP diastolic 67–82; PULSE 78; RESP 16–20
[2017-07-20] MEDS: SOD CHLORIDE 0.9% 1,000 ML IV SCH ×2 (01:38→13:00)
[2017-07-20] MEDS: CLINDAMYCIN 600 MG/D5W (PMX) 50 ML IVPB SCH ×3 (04:41→22:05)
[2017-07-20] MEDS: CEFEPIME 1GM/50 ML (PMX) 50 ML IVPB SCH ×3 (04:41→21:35)
[2017-07-20 07:08] LABS: IRON 18 ug/dl (35-150)
[2017-07-20 07:18] LABS: TOTAL IRON BINDING CAPACITY 158 ug/dl (241-421)
[2017-07-20] MEDS: ENOXAPARIN 30 MG/0.3 ML SYG SC SCH (08:29)
[2017-07-20] MEDS: POTASSIUM CHLORIDE (SR) 8 MEQ CAP PO SCH (08:29)
[2017-07-20] MEDS: LISINOPRIL 5 MG TAB PO SCH ×2 (08:31→21:09)
[2017-07-20] MEDS: FUROSEMIDE 20 MG TAB PO SCH (08:31)
[2017-07-20] MEDS: BALSAM PERU/CASTOR OIL 60 GM TUBE TOP SCH ×2 (08:33→21:11)
[2017-07-20] MEDS: NYSTATIN 30 GM POWDER BTL TOP SCH ×2 (08:33→21:10)
[2017-07-20] MEDS: COLLAGENASE 30 GM TUBE TOP SCH ×2 (08:33)
--- NOTE | 2017-07-20 12:31 | PN ---
Date/Time of Note Date/Time of Note DATE: 07/20/17 TIME: 12:30 Assessment/Plan Lines/Catheters IV Catheter Type (from Nrs): Peripheral IV Smalls in Place (from Nrs): No Assessment/Plan Chief Complaint/Hosp Course 1. Right ankle wound: with possible osteomyelitis (unable to obtain MRI 2/2 significant contractures); cultures noted. Vascular input noted. -defer to podiatry and vascular -local wound care -frequent turning and offloading -low airloss mattress -recommend vitamin C and short term zinc -abx per sensitivity 2. Lower extremity atherosclerosis -optimize vascular status 3. LEYDA: +uop; cr normalized -continue to monitor 4. Hypochromic anemia: No acute bleed noted -monitor and transfuse prn -further work-up per medical team 5. UTI -abx per sensitivity -frequent bladder emptying 6. Hypertension -medical optimization 7. Dementia -supportive 8. Right ankle pain: 2/2 #1 -pain management 9. Atrial fibrillation: controlled -per cards Thank you, Problems: Subjective 24 Hr Interval Summary Vascular input noted. Min pain from at the wound. No fevers, chills or paresthesia on the affected extremity. No cough, sz, rash, vomiting, bloating, dysuria. Bowel function. Exam/Review of Systems Vital Signs Vitals Vital Signs Date Time Temp Pulse Resp B/P Pulse Ox O2 Delivery O2 Flow Rate FiO2 07/20/17 08:00 97.9 70 19 160/76 94 07/20/17 04:45 Room Air Intake and Output 07/19/17 07/19/17 07/20/17 15:00 23:00 07:00 Intake Total 50 ml 560 ml 1450 ml Balance 50 ml 560 ml 1450 ml Exam Free Text/Dictation Constitutional: awake, No oriented Psych: confusion Head: atraumatic, normocephalic Eyes: nl lids, nl sclera ENMT: mucosa pink and moist Neck: non-tender, supple Respiratory: normal air movement, No congested cough Cardiovascular: irregular rhythm, No regular rate and rhythm (afib) Gastrointestinal: bowel sounds, non-tender, soft Musculoskeletal: other (contracture right leg), No nl gait and stance Extremities: No edema, No normal pulses (palpable Femoral pulse, non-palpable dp) Neurological: confused, No nl mental status Skin: other (right malleolus: with eschar and slough, periwound erythema and exposed tendon) Results Result Diagram: 07/16/17 0803 07/16/17 0803 YANNI DENNIS MD Jul 20, 2017 12:31
--- NOTE | 2017-07-20 17:01 | PN ---
Date/Time of Note Date/Time of Note DATE: 07/20/17 TIME: 16:56 Assessment/Plan VTE Prophylaxis VTE Prophylaxis Intervention: LMWH Lines/Catheters IV Catheter Type (from Nrsg): Peripheral IV Urinary Cath still in place: No Assessment/Plan Chief Complaint/Hosp Course 87 yo dementia, A Fib, PVD, with osteomyelitis and nonhealing ulcers Osteomyelitis: - Cefepime course per ID PVD and pressure ulcerations: - Local wound care - No acute need for surgery per vascular and general surgery A Fib: - Restart AC - Rate controlled Dementia: - Continue mirtazapine Discharge to facility Problems: Subjective 24 Hr Interval Summary Free Text/Dictation Patient sleeping comfortably when seen Awoken for interview, clearly w dementia but no complaints Exam/Review of Systems Vital Signs Vitals Vital Signs Date Time Temp Pulse Resp B/P Pulse Ox O2 Delivery O2 Flow Rate FiO2 07/20/17 08:00 97.9 70 19 160/76 94 07/20/17 04:45 Room Air Intake and Output 07/19/17 07/19/17 07/20/17 15:00 23:00 07:00 Intake Total 50 ml 560 ml 1450 ml Balance 50 ml 560 ml 1450 ml Exam Constitutional: alert, oriented, well developed Results Result Diagram: 07/16/17 0803 07/16/17 0803 Results 24 hrs Laboratory Tests Test 07/20/17 05:32 07/20/17 08:41 Iron Level 18 L Total Iron Binding Capacity 158 L Percent Iron Saturation 11 L Ferritin 234.0 Lab Scanned Report BLOOD TRANSFUSION Medications Medications Current Medications Ondansetron HCl (Zofran Inj) 4 mg Q6H PRN IV NAUSEA AND/OR VOMITING Last administered on 07/15/17 21:25; Admin Dose 4 MG; Start 07/13/17 at 19:00 Acetaminophen (Tylenol Tab) 650 mg Q6H PRN PO PAIN LEVEL 1-3 OR FEVER Last administered on 07/15/17 09:34; Admin Dose 650 MG; Start 07/13/17 at 19:00 Acetaminophen/ Hydrocodone Bitart ([place] (5/325)) 1 tab Q6H PRN PO MODERATE PAIN LEVEL 4-6 Last administered on 07/14/17 12:24; Admin Dose 1 TAB; Start at 19:00 Morphine Sulfate (morphine) 2 mg Q4H PRN IV SEVERE PAIN LEVEL 7-10 Last administered on 07/17/17 21:52; Admin Dose 2 MG; Start 07/13/17 at 19:00 Docusate Sodium (Colace) 100 mg Q12H PRN PO CONSTIPATION Last administered on 21:25; Admin Dose 100 MG; Start 07/13/17 at 19:00 Magnesium Hydroxide (Milk Of Mag) 30 ml DAILY PRN PO CONSTIPATION; Start at 19:00 Zolpidem Tartrate (Ambien) 5 mg QHS PRN PO SLEEP; Start 07/13/17 at 19:00 Enoxaparin Sodium (Lovenox) 30 mg DAILY SC Last administered on 07/20/17 08:29 ; Admin Dose 30 MG; Start 07/14/17 at 09:00 Carvedilol (Coreg) 3.125 mg BID PO Last administered on 07/20/17 08:30; Admin Dose 3.125 MG; Start 07/13/17 at 21:00 Furosemide (Lasix) 20 mg DAILY PO Last administered on 07/20/17 08:31; Admin Dose 20 MG; Start 07/14/17 at 09:00 Hydralazine HCl (Apresoline) 25 mg BID PRN PO SBP>160; Start 07/13/17 at 19:00 Lisinopril (Zestril) 5 mg BID PO Last administered on 07/20/17 08:31; Admin Dose 5 MG; Start 07/13/17 at 21:00 Mirtazapine (Remeron) 7.5 mg HS PO Last administered on 07/19/17 20:17; Admin Dose 7.5 MG; Start 07/13/17 at 21:00 Potassium Chloride 8 meq 8 meq DAILY PO Last administered on 07/20/17 08:29; Admin Dose 8 MEQ; Start 07/14/17 at 09:00 Sodium Chloride 1,000 ml @ 100 mls/hr Q10H IV Last administered on 07/20/17 01 :38; Admin Dose 100 MLS/HR; Start 07/13/17 at 21:00 Clindamycin HCl/ Dextrose (Cleocin 600 Mg/ D5W (Pmx)) 50 ml @ 50 mls/hr Q8 IVPB Last administered on 07/20/17 15:08; Admin Dose 50 MLS/HR; Start 07/14/17 at 00:00 Collagenase (Santyl) 1 applic DAILY TOP Last administered on 07/20/17 08:33; Admin Dose 1 APPLIC; Start 07/14/17 at 12:00 Collagenase (Santyl) 1 applic DAILY TOP Last administered on 07/20/17 08:33; Admin Dose 1 APPLIC; Start 07/14/17 at 14:00 Nystatin (Nystatin Powder) 1 applic BID TOP Last administered on 07/20/17 08:33 ; Admin Dose 1 APPLIC; Start 07/14/17 at 14:00 Miscellaneous Information Patients own medicat... BID@10,16 XX ; Start 07/16/17 at 10:00 Cefepime HCl (Maxipime 1gm/50 ml (Pmx)) 50 ml @ 100 mls/hr Q8 IVPB Last administered on 07/20/17 14:21; Admin Dose 100 MLS/HR; Start 07/17/17 at 14:00 AUDRA PLASCENCIA MD Jul 20, 2017 17:01
--- NOTE | 2017-07-20 17:02 | PN ---
Date/Time of Note Date/Time of Note DATE: 07/19/17 TIME: 17:01 Assessment/Plan VTE Prophylaxis VTE Prophylaxis Intervention: LMWH Lines/Catheters IV Catheter Type (from Nrs): Peripheral IV Urinary Cath still in place: No Assessment/Plan Chief Complaint/Hosp Course 87 yo dementia, A Fib, PVD, with osteomyelitis and nonhealing ulcers Osteomyelitis: - Cefepime/clinda course per ID PVD and pressure ulcerations: - Local wound care - No acute need for surgery per vascular and general surgery A Fib: - Restart AC - Rate controlled Dementia: - Continue mirtazapine Discharge to facility Problems: Subjective 24 Hr Interval Summary Free Text/Dictation Patient comfortable, no compliaints Exam/Review of Systems Vital Signs Vitals Vital Signs Date Time Temp Pulse Resp B/P Pulse Ox O2 Delivery O2 Flow Rate FiO2 07/20/17 08:00 97.9 70 19 160/76 94 07/20/17 04:45 Room Air Intake and Output 07/19/17 07/19/17 07/20/17 15:00 23:00 07:00 Intake Total 50 ml 560 ml 1450 ml Balance 50 ml 560 ml 1450 ml Exam Constitutional: alert, oriented, well developed Psych: nl mood/affect, no complaints Head: atraumatic, normocephalic Eyes: EOMI, PERRL, nl conjunctiva, nl lids, nl sclera ENMT: nl external ears & nose, nl lips & teeth, nl nasal mucosa & septum Neck: non-tender, supple Respiratory: clear to auscultation, normal air movement Cardiovascular: nl pulses, regular rate and rhythm Gastrointestinal: nl liver, spleen, non-tender, soft Musculoskeletal: nl extremities to inspection, nl gait and stance Extremities: normal pulses Neurological: DIE TROUBLE SHOOTER II-XII intact, nl mental status, nl speech, nl strength Skin: nl turgor, No rash or lesions Lymph: nl lymph nodes Results Result Diagram: 07/16/1780207/16/17 0803 Results 24 hrs Laboratory Tests Test 07/20/17 05:32 07/20/17 08:41 Iron Level 18 L Total Iron Binding Capacity 158 L Percent Iron Saturation 11 L Ferritin 234.0 Lab Scanned Report BLOOD TRANSFUSION Medications Medications Current Medications Ondansetron HCl (Zofran Inj) 4 mg Q6H PRN IV NAUSEA AND/OR VOMITING Last administered on 07/15/17 21:25; Admin Dose 4 MG; Start 07/13/17 at 19:00 Acetaminophen (Tylenol Tab) 650 mg Q6H PRN PO PAIN LEVEL 1-3 OR FEVER Last administered on 07/15/17 09:34; Admin Dose 650 MG; Start 07/13/17 at 19:00 Acetaminophen/ Hydrocodone Bitart ([place] (5/325)) 1 tab Q6H PRN PO MODERATE PAIN LEVEL 4-6 Last administered on 07/14/17 12:24; Admin Dose 1 TAB; Start at 19:00 Morphine Sulfate (morphine) 2 mg Q4H PRN IV SEVERE PAIN LEVEL 7-10 Last administered on 07/17/17 21:52; Admin Dose 2 MG; Start 07/13/17 at 19:00 Docusate Sodium (Colace) 100 mg Q12H PRN PO CONSTIPATION Last administered on 21:25; Admin Dose 100 MG; Start 07/13/17 at 19:00 Magnesium Hydroxide (Milk Of Mag) 30 ml DAILY PRN PO CONSTIPATION; Start at 19:00 Zolpidem Tartrate (Ambien) 5 mg QHS PRN PO SLEEP; Start 07/13/17 at 19:00 Enoxaparin Sodium (Lovenox) 30 mg DAILY SC Last administered on 07/20/17 08:29 ; Admin Dose 30 MG; Start 07/14/17 at 09:00 Carvedilol (Coreg) 3.125 mg BID PO Last administered on 07/20/17 08:30; Admin Dose 3.125 MG; Start 07/13/17 at 21:00 Furosemide (Lasix) 20 mg DAILY PO Last administered on 07/20/17 08:31; Admin Dose 20 MG; Start 07/14/17 at 09:00 Hydralazine HCl (Apresoline) 25 mg BID PRN PO SBP>160; Start 07/13/17 at 19:00 Lisinopril (Zestril) 5 mg BID PO Last administered on 07/20/17 08:31; Admin Dose 5 MG; Start 07/13/17 at 21:00 Mirtazapine (Remeron) 7.5 mg HS PO Last administered on 07/19/17 20:17; Admin Dose 7.5 MG; Start 07/13/17 at 21:00 Potassium Chloride 8 meq 8 meq DAILY PO Last administered on 07/20/17 08:29; Admin Dose 8 MEQ; Start 07/14/17 at 09:00 Sodium Chloride 1,000 ml @ 100 mls/hr Q10H IV Last administered on 07/20/17 01 :38; Admin Dose 100 MLS/HR; Start 07/13/17 at 21:00 Clindamycin HCl/ Dextrose (Cleocin 600 Mg/ D5W (Pmx)) 50 ml @ 50 mls/hr Q8 IVPB Last administered on 07/20/17 15:08; Admin Dose 50 MLS/HR; Start 07/14/17 at 00:00 Collagenase (Santyl) 1 applic DAILY TOP Last administered on 07/20/17 08:33; Admin Dose 1 APPLIC; Start 07/14/17 at 12:00 Collagenase (Santyl) 1 applic DAILY TOP Last administered on 07/20/17 08:33; Admin Dose 1 APPLIC; Start 07/14/17 at 14:00 Nystatin (Nystatin Powder) 1 applic BID TOP Last administered on 07/20/17 08:33 ; Admin Dose 1 APPLIC; Start 07/14/17 at 14:00 Miscellaneous Information Patients own medicat... BID@10,16 XX ; Start 07/16/17 at 10:00 Cefepime HCl (Maxipime 1gm/50 ml (Pmx)) 50 ml @ 100 mls/hr Q8 IVPB Last administered on 07/20/17 14:21; Admin Dose 100 MLS/HR; Start 07/17/17 at 14:00 AUDRA PLASCENCIA MD Jul 20, 2017 17:02
--- NOTE | 2017-07-20 18:41 | CONS ---
Date/Time of Note Date/Time of Note DATE: 07/20/17 TIME: 18:35 Assessment/Plan Assessment/Plan Additional Assessment/Plan Lower extremity ulcer Peripheral atrial disease Cardiomyopathy with ejection fraction 35-40% Aortic stenosis with history of TAVR Atrial fibrillation Severe anemia requiring blood transfusion -On review of vascular surgery consult note, patient on plan for any intervention. Extensive discussion had with patient's family regarding anticoagulation. Patient has been bedbound since her fall approximately 4 months ago. On review of laboratory studies, patient with severe anemia requiring blood transfusion. Would hold off on reinitiating anticoagulation at the current time. Blood pressure trend has been labile, if remains elevated, would consider increasing Coreg or lisinopril, based on heart rate and renal function. Consultation Date/Type/Reason Admit Date/Time Jul 13, 2017 at 18:03 Initial Consult Date 07/18/17 Type of Consultation: cv Referring Provider: REINA SWANSON 24 HR Interval Summary Free Text/Dictation Patient seen and examined. Family at bedside, concerned regarding management of lower extremity ulcer. Shortness of breath or chest pain or palpitations, as per family, patient has been bedbound for the past 4 months since her recent fall Exam/Review of Systems Vital Signs Vitals Vital Signs Date Time Temp Pulse Resp B/P Pulse Ox O2 Delivery O2 Flow Rate FiO2 07/20/17 08:00 97.9 70 19 160/76 94 07/20/17 04:45 Room Air Intake and Output 07/19/17 07/19/17 07/20/17 15:00 23:00 07:00 Intake Total 50 ml 560 ml 1450 ml Balance 50 ml 560 ml 1450 ml Exam Follows commands, no apparent distress Constitutional: alert Head: normocephalic Respiratory: other (First breath sounds bilaterally, no wheezing) Cardiovascular: other (S1-S2 heard), regular rate and rhythm (With occasional irregularities) Gastrointestinal: bowel sounds, non-tender, soft Extremities: other (Edema right lower extremity with bandage present) Results Result Diagram: 07/16/1780207/16/17 0803 Results 24 hrs Laboratory Tests Test 07/20/17 05:32 07/20/17 08:41 Iron Level 18 L Total Iron Binding Capacity 158 L Percent Iron Saturation 11 L Ferritin 234.0 Lab Scanned Report BLOOD TRANSFUSION Medications Medications Current Medications Ondansetron HCl (Zofran Inj) 4 mg Q6H PRN IV NAUSEA AND/OR VOMITING Last administered on 07/15/17 21:25; Admin Dose 4 MG; Start 07/13/17 at 19:00 Acetaminophen (Tylenol Tab) 650 mg Q6H PRN PO PAIN LEVEL 1-3 OR FEVER Last administered on 07/15/17 09:34; Admin Dose 650 MG; Start 07/13/17 at 19:00 Acetaminophen/ Hydrocodone Bitart ([place] (5/325)) 1 tab Q6H PRN PO MODERATE PAIN LEVEL 4-6 Last administered on 07/14/17 12:24; Admin Dose 1 TAB; Start at 19:00 Morphine Sulfate (morphine) 2 mg Q4H PRN IV SEVERE PAIN LEVEL 7-10 Last administered on 07/17/17 21:52; Admin Dose 2 MG; Start 07/13/17 at 19:00 Docusate Sodium (Colace) 100 mg Q12H PRN PO CONSTIPATION Last administered on 21:25; Admin Dose 100 MG; Start 07/13/17 at 19:00 Magnesium Hydroxide (Milk Of Mag) 30 ml DAILY PRN PO CONSTIPATION; Start at 19:00 Zolpidem Tartrate (Ambien) 5 mg QHS PRN PO SLEEP; Start 07/13/17 at 19:00 Enoxaparin Sodium (Lovenox) 30 mg DAILY SC Last administered on 07/20/17 08:29 ; Admin Dose 30 MG; Start 07/14/17 at 09:00 Carvedilol (Coreg) 3.125 mg BID PO Last administered on 07/20/17 08:30; Admin Dose 3.125 MG; Start 07/13/17 at 21:00 Furosemide (Lasix) 20 mg DAILY PO Last administered on 07/20/17 08:31; Admin Dose 20 MG; Start 07/14/17 at 09:00 Hydralazine HCl (Apresoline) 25 mg BID PRN PO SBP>160; Start 07/13/17 at 19:00 Lisinopril (Zestril) 5 mg BID PO Last administered on 07/20/17 08:31; Admin Dose 5 MG; Start 07/13/17 at 21:00 Mirtazapine (Remeron) 7.5 mg HS PO Last administered on 07/19/17 20:17; Admin Dose 7.5 MG; Start 07/13/17 at 21:00 Potassium Chloride 8 meq 8 meq DAILY PO Last administered on 07/20/17 08:29; Admin Dose 8 MEQ; Start 07/14/17 at 09:00 Sodium Chloride 1,000 ml @ 100 mls/hr Q10H IV Last administered on 07/20/17 01 :38; Admin Dose 100 MLS/HR; Start 07/13/17 at 21:00 Clindamycin HCl/ Dextrose (Cleocin 600 Mg/ D5W (Pmx)) 50 ml @ 50 mls/hr Q8 IVPB Last administered on 07/20/17 15:08; Admin Dose 50 MLS/HR; Start 07/14/17 at 00:00 Collagenase (Santyl) 1 applic DAILY TOP Last administered on 07/20/17 08:33; Admin Dose 1 APPLIC; Start 07/14/17 at 12:00 Collagenase (Santyl) 1 applic DAILY TOP Last administered on 07/20/17 08:33; Admin Dose 1 APPLIC; Start 07/14/17 at 14:00 Nystatin (Nystatin Powder) 1 applic BID TOP Last administered on 07/20/17 08:33 ; Admin Dose 1 APPLIC; Start 07/14/17 at 14:00 Miscellaneous Information Patients own medicat... BID@10,16 XX ; Start 07/16/17 at 10:00 Cefepime HCl (Maxipime 1gm/50 ml (Pmx)) 50 ml @ 100 mls/hr Q8 IVPB Last administered on 07/20/17 14:21; Admin Dose 100 MLS/HR; Start 07/17/17 at 14:00 Atorvastatin Calcium (Lipitor) 20 mg HS PO ; Start 07/20/17 at 21:00 Smith Del Cid DO Jul 20, 2017 18:41
[2017-07-20] MEDS ORDERED: ATORVASTATIN 20 MG TAB PO SCH (21:00)
[2017-07-20] MEDS: MIRTAZAPINE 15 MG TAB PO SCH (21:10)
[2017-07-21 02:57] VITALS: BP 156/72; RESP 18
--- NOTE | 2017-07-21 03:37 | PN ---
DATE: 07/20/2017 SUBJECTIVE DATA: No events overnight. The patient is lying comfortably in bed. She is awake and in no distress. MICROBIOLOGY: Wound culture grew MRSA, Enterococcus species, streptococcal, Providencia stuartii, and Proteus mirabilis. Blood cultures negative. Urine culture on admission grew Enterococcus species. ANTIMICROBIALS: The patient is on clindamycin. PHYSICAL EXAMINATION: VITALS: Temperature 97.9, pulse 70, respirations 19, blood pressure 160/76, saturation 94 percent on room air. GENERAL: This is a well-developed, elderly woman, who is in no distress. HEENT: Head is atraumatic and normocephalic. Sclerae are anicteric. Buccal mucosa is dry. NECK: Supple. LUNGS: Chest rise is symmetrical. Breath sounds are diminished at the bases. HEART: S1, S2. ABDOMEN: Soft. Bowel sounds are present. EXTREMITIES: Right lower extremity severe contracture and unstageable wound. ASSESSMENT: 1. Right ankle osteomyelitis, infected wounds. 2. Status post urinary tract infection. 3. Dementia. 4. Right lower extremity contracture. 5. Coronary artery disease. 6. Allergy to vancomycin. PLAN: We are going to change clindamycin to daptomycin to cover Enterococcus species that she is growing in her wound. Continue cefepime. Continue local wound care as per ortho and vascular surgery. Anticipate long-term IV antibiotics to treat underlying osteomyelitis. Dictated By: Agusto Watson NP /miguelangel/toro /Document#: [id number]
[2017-07-21] MEDS: CEFEPIME 1GM/50 ML (PMX) 50 ML IVPB SCH ×3 (06:07→23:46)
[2017-07-21] MEDS: SOD CHLORIDE 0.9% 1,000 ML IV SCH (06:10)
[2017-07-21] MEDS: CLINDAMYCIN 600 MG/D5W (PMX) 50 ML IVPB SCH ×2 (06:52→16:16)
[2017-07-21 06:56] LABS: BASOPHILS % 0.4 % (0.0-2.0); EOSINOPHILS # 0.1 10^3/ul (0.0-0.5); EOSINOPHILS % 1.7 % (0.0-7.0); HEMATOCRIT 26.8 % (37.0-47.0); HEMOGLOBIN 8.6 g/dl (12.0-16.0); LYMPHOCYTES # 1.3 10^3/ul (0.8-2.9); LYMPHOCYTES % 17.6 % (15.0-51.0); MEAN CORPUSCULAR HEMOGLOBIN 27.9 pg (29.0-33.0); MEAN CORPUSCULAR HGB CONC 32.1 g/dl (32.0-37.0); MEAN PLATELET VOLUME 9.5 fl (7.4-10.4); MONOCYTE # 0.5 10^3/ul (0.3-0.9); NEUTROPHILS % 71.6 % (39.0-77.0); PLATELET COUNT 320 10^3/UL (140-415); RED BLOOD COUNT 3.08 10^6/ul (4.20-5.40); RED CELL DISTRIBUTION WIDTH 13.9 % (11.5-14.5); WHITE BLOOD COUNT 7.3 10^3/ul (4.8-10.8)
[2017-07-21 07:30] LABS: IRON 25 ug/dl (35-150)
[2017-07-21 07:34] LABS: ALBUMIN 2.6 g/dl (3.3-4.9); ALBUMIN/GLOBULIN RATIO 0.83; BILIRUBIN,INDIRECT 0.2 mg/dl (0-1.1); BILIRUBIN,TOTAL 0.2 mg/dl (0.2-1.3); CALCIUM 8.4 mg/dl (8.4-10.2); CREATININE 0.68 mg/dl (0.44-1.00); TOTAL PROTEIN 5.7 g/dl (6.1-8.1)
[2017-07-21 07:38] LABS: POTASSIUM 2.9 mmol/L (3.5-5.1)
[2017-07-21 07:39] LABS: TOTAL IRON BINDING CAPACITY 162 ug/dl (241-421)
[2017-07-21 09:03] VITALS: BP 166/73; RESP 22
[2017-07-21] MEDS ORDERED: POTASSIUM CHLORIDE (SR) 20 MEQ TAB PO STA (09:08)
[2017-07-21] MEDS: ENOXAPARIN 30 MG/0.3 ML SYG SC SCH (09:27)
[2017-07-21] MEDS: COLLAGENASE 30 GM TUBE TOP SCH ×2 (09:31→09:32)
[2017-07-21] MEDS: NYSTATIN 30 GM POWDER BTL TOP SCH ×2 (09:31→20:57)
[2017-07-21] MEDS: POTASSIUM CHLORIDE (SR) 8 MEQ CAP PO SCH (09:31)
[2017-07-21] MEDS: LISINOPRIL 5 MG TAB PO SCH ×2 (09:31→20:52)
[2017-07-21] MEDS: BALSAM PERU/CASTOR OIL 60 GM TUBE TOP SCH ×2 (09:32→20:57)
[2017-07-21] MEDS ORDERED: LIDOCAINE 1% (MPF) 5 ML VIAL SC ONE ×2 (11:00→14:00)
[2017-07-21] MEDS ORDERED: LIDOCAINE 1% (MDV) 20 ML INJ INJ SCH (11:30)
[2017-07-21] MEDS ORDERED: POTASSIUM CHLORIDE 250 ML IVPB SCH (12:30)
--- NOTE | 2017-07-21 14:22 | PN ---
DATE: 07/21/2017 SUBJECTIVE DATA: No acute changes. The patient is lying comfortably in bed, afebrile. WBC 7.3, no shift, no bands. BUN 7, creatinine 0.68. ANTIMICROBIALS: Cefepime, clindamycin. MICROBIOLOGY: Right foot wound culture grew enterococcus Enterococcus species. MRSA Proteus strep and Proteus, Providencia stuartii. PHYSICAL EXAMINATION: GENERAL: This is a fragile, well-developed, elderly woman, who is in no distress. HEENT: Head atraumatic, normocephalic. Sclerae anicteric. Buccal mucosa dry. NECK: Neck is supple. CHEST: Chest rise symmetrical. Breath sounds are diminished at the bases. HEART: Heart S1, S2. ABDOMEN: Soft. Bowel sounds present. EXTREMITIES: Extremities without cyanosis. Right foot contracture with unstageable wound. SKIN: No jaundice. No cyanosis. ASSESSMENT: 1. Right ankle cellulitis with chronic nonhealing wound and evidence of osteomyelitis. 2. Severe right lower extremity contracture. 3. Dementia. 4. Urinary tract infection on admission. 5. Allergy to vancomycin. 6. History of coronary artery disease. PLAN: The patient remains stable. We will change clindamycin to daptomycin. Continue Cefepime. Continue local wound care and anticipate treatment with IV antibiotics for 6-8 weeks, continue offload. Dictated By: Agusto Watson NP /miguelangel/erik /Document#: [id number]
--- NOTE | 2017-07-21 14:48 | PN ---
Date/Time of Note Date/Time of Note DATE: 07/21/17 TIME: 14:46 Assessment/Plan VTE Prophylaxis VTE Prophylaxis Intervention: LMWH Lines/Catheters IV Catheter Type (from Nrs): Peripheral IV Urinary Cath still in place: No Assessment/Plan Chief Complaint/Hosp Course 87 yo dementia, A Fib, PVD, chronic systolic CHF, with osteomyelitis and nonhealing ulcers from leg contracture of unclear etiology Osteomyelitis: - Cefepime/dapto course per ID - PICC to be placed PVD and pressure ulcerations: - Local wound care - No acute need for surgery per vascular and general surgery A Fib: - Restart AC - Rate controlled Dementia: - Continue mirtazapine Chronic sysotlic CHF: - Hold further lasix given marked hypoklemia, euvolemic currently and not eating much Discharge to facility Problems: Subjective 24 Hr Interval Summary Free Text/Dictation No change to clinical status Patient is resting comfortably Marked hypokalemia present today, holding furhter lasix Exam/Review of Systems Vital Signs Vitals Vital Signs Date Time Temp Pulse Resp B/P Pulse Ox O2 Delivery O2 Flow Rate FiO2 07/21/17 09:03 97.5 77 22 166/73 96 07/20/17 04:45 Room Air Intake and Output 07/20/17 07/20/17 07/21/17 15:00 23:00 07:00 Intake Total 50 ml 1090 ml 1100 ml Balance 50 ml 1090 ml 1100 ml Exam Constitutional: alert, oriented, well developed Results Result Diagram: 07/21/17 0548 07/21/17 0548 Results 24 hrs Laboratory Tests Test 07/21/17 05:48 White Blood Count 7.3 Red Blood Count 3.08 L Hemoglobin 8.6 L Hematocrit 26.8 L Mean Corpuscular Volume 87.0 Mean Corpuscular Hemoglobin 27.9 L Mean Corpuscular Hemoglobin Concent 32.1 Red Cell Distribution Width 13.9 Platelet Count 320 # Mean Platelet Volume 9.5 Neutrophils % 71.6 Lymphocytes % 17.6 Monocytes % 7.0 Eosinophils % 1.7 Basophils % 0.4 Nucleated Red Blood Cells % 0.0 Neutrophils # (Manual) 5.2 Lymphocytes # 1.3 Monocytes # 0.5 Eosinophils # 0.1 Basophils # 0.0 Nucleated Red Blood Cells # 0.0 Sodium Level 138 Potassium Level 2.9 *L Chloride Level 107 Carbon Dioxide Level 25 Anion Gap 9 Blood Urea Nitrogen 7 Creatinine 0.68 Glucose Level 94 Calcium Level 8.4 Iron Level 25 L Total Iron Binding Capacity 162 L Percent Iron Saturation 15 L Ferritin 220.0 Total Bilirubin 0.2 Direct Bilirubin 0.00 Indirect Bilirubin 0.2 Aspartate Amino Transf (AST/SGOT) 33 Alanine Aminotransferase (ALT/SGPT) 33 Alkaline Phosphatase 84 Total Protein 5.7 L Albumin 2.6 L Globulin 3.10 Albumin/Globulin Ratio 0.83 Medications Medications Current Medications Ondansetron HCl (Zofran Inj) 4 mg Q6H PRN IV NAUSEA AND/OR VOMITING Last administered on 07/15/17 21:25; Admin Dose 4 MG; Start 07/13/17 at 19:00 Acetaminophen (Tylenol Tab) 650 mg Q6H PRN PO PAIN LEVEL 1-3 OR FEVER Last administered on 07/15/17 09:34; Admin Dose 650 MG; Start 07/13/17 at 19:00 Acetaminophen/ Hydrocodone Bitart ([place] (5/325)) 1 tab Q6H PRN PO MODERATE PAIN LEVEL 4-6 Last administered on 07/14/17 12:24; Admin Dose 1 TAB; Start at 19:00 Docusate Sodium (Colace) 100 mg Q12H PRN PO CONSTIPATION Last administered on 21:25; Admin Dose 100 MG; Start 07/13/17 at 19:00 Magnesium Hydroxide (Milk Of Mag) 30 ml DAILY PRN PO CONSTIPATION; Start at 19:00 Zolpidem Tartrate (Ambien) 5 mg QHS PRN PO SLEEP; Start 07/13/17 at 19:00 Enoxaparin Sodium (Lovenox) 30 mg DAILY SC Last administered on 07/21/17 09:27 ; Admin Dose 30 MG; Start 07/14/17 at 09:00 Carvedilol (Coreg) 3.125 mg BID PO Last administered on 07/21/17 09:30; Admin Dose 3.125 MG; Start 07/13/17 at 21:00 Lisinopril (Zestril) 5 mg BID PO Last administered on 07/21/17 09:31; Admin Dose 5 MG; Start 07/13/17 at 21:00 Mirtazapine (Remeron) 7.5 mg HS PO Last administered on 07/20/17 21:10; Admin Dose 7.5 MG; Start 07/13/17 at 21:00 Potassium Chloride 8 meq 8 meq DAILY PO Last administered on 07/21/17 09:31; Admin Dose 8 MEQ; Start 07/14/17 at 09:00 Clindamycin HCl/ Dextrose (Cleocin 600 Mg/ D5W (Pmx)) 50 ml @ 50 mls/hr Q8 IVPB Last administered on 07/21/17 06:52; Admin Dose 50 MLS/HR; Start 07/14/17 at 00:00 Collagenase (Santyl) 1 applic DAILY TOP Last administered on 07/21/17 09:31; Admin Dose 1 APPLIC; Start 07/14/17 at 12:00 Collagenase (Santyl) 1 applic DAILY TOP Last administered on 07/21/17 09:32; Admin Dose 1 APPLIC; Start 07/14/17 at 14:00 Nystatin 1 applic 1 applic BID TOP Last administered on 07/21/17 09:31; Admin Dose 1 APPLIC; Start 07/14/17 at 14:00 Cefepime HCl (Maxipime 1gm/50 ml (Pmx)) 50 ml @ 100 mls/hr Q8 IVPB Last administered on 07/21/17 06:07; Admin Dose 100 MLS/HR; Start 07/17/17 at 14:00 Miscellaneous Information Patients own medicat... NOTE XX ; Start 07/21/17 at 10: 00 Potassium Chloride (KCl 40 MEQ/250 ML NS) 250 ml @ 62.5 mls/hr ONCE IVPB ; Start 07/21/17 at 12:30; Stop 07/21/17 at 16:29 Lidocaine (Xylocaine 1% (Mdv) 20 ml) 20 ml ONCE INJ ; Start 07/21/17 at 11:30; Stop 07/21/17 at 15:00 AUDRA PLASCENCIA MD Jul 21, 2017 14:48
--- NOTE | 2017-07-21 15:54 | RADRPT ---
PROCEDURE: Ultrasound guidance for placement of needle in the left upper extremity vein CLINICAL INDICATION: Venous access. TECHNIQUE: Limited sonography of the left upper extremity was performed. Ultrasound images were recorded and st ored in the patient's medical record. COMPARISON: None. FINDINGS: The ultrasound images demonstrate a patent left upper extremity vein. The PICC line was inserted by the PICC line nurse. IMPRESSION: 1. Ultrasound guidance for a needle placement in a left upper extremity vein. 2. The visualized left upper extremity vein is patent. RPTAT: QQ .Vishnu Persaud MD, MD Date Time Electronically viewed and signed by .Vishnu Persaud MD, on 07/21/2017 15:53 .K/
--- NOTE | 2017-07-21 16:03 | RADRPT ---
PROCEDURE: XR Chest. CLINICAL INDICATION: Post the placement evaluation TECHNIQUE: Single view of the chest COMPARISON: Chest radiograph April 02, 2017 FINDINGS: There is a left-sided PICC with its tip at the cavoatrial junction. There is some significant pleural calcification and thickening throughout the right lung. The cardia c silhouette is moderately enlarged. There is evidence of TAVR, as on prior. There is no pleural effusion. There is no pneumothorax. There is a subacute surgical neck fracture of the proximal humerus. IMPRESSION: 1. Left-sided PICC with its tip at the cavoatrial junction. 2. Redemonstration of extensive pleural plaques and thickening throughout the right lung. 3. Moderately enlarged cardiac silhouette and atherosclerotic calcifications of the aorta. 4. Subacute impacted surgical neck fracture of the right proximal humerus. RPTAT: UU .Vishnu Persaud MD, Date Time Electronically viewed and signed by .Vishnu Persaud MD, on 07/21/2017 16:02 .Sarahi/
--- NOTE | 2017-07-21 17:49 | PN ---
Date/Time of Note Date/Time of Note DATE: 07/21/17 TIME: 17:43 Assessment/Plan Lines/Catheters IV Catheter Type (from Nrs): Peripheral IV Smalls in Place (from Nrs): No Assessment/Plan Chief Complaint/Hosp Course 1. Right ankle wound: with possible osteomyelitis (unable to obtain MRI 2/2 significant contractures); cultures noted. Vascular input noted. -defer to podiatry and vascular -continue local wound care -frequent turning and offloading -low airloss mattress -recommend vitamin C and short term zinc -abx per sensitivity 2. Lower extremity atherosclerosis -optimize vascular status 3. LEYDA: +uop; cr normalized -continue to monitor 4. Hypochromic anemia: No acute bleed noted -monitor and transfuse prn -further work-up per medical team 5. UTI -abx per sensitivity -frequent bladder emptying 6. Hypertension -medical optimization 7. Dementia -supportive 8. Right ankle pain: 2/2 #1 -pain management 9. Atrial fibrillation: controlled -per cards 10. Hypokalemia -replete and monitor 11. Hypoalbuminemia -nutrition optimization Thank you. Patient seen and examined in collaboration with Dr. Mehrdad Casillas. Problems: Subjective 24 Hr Interval Summary Appears comfortable. Right foot with discomfort when touched. No drainage noted from wound. No fevers, chills or paresthesia on the affected extremity. No cough, sz, rash, vomiting, bloating, dysuria, sob, v/d. + Bowel function. Exam/Review of Systems Vital Signs Vitals Vital Signs Date Time Temp Pulse Resp B/P Pulse Ox O2 Delivery O2 Flow Rate FiO2 07/21/17 09:03 97.5 77 22 166/73 96 07/20/17 04:45 Room Air Intake and Output 07/20/17 07/20/17 07/21/17 15:00 23:00 07:00 Intake Total 50 ml 1090 ml 1100 ml Balance 50 ml 1090 ml 1100 ml Exam Free Text/Dictation Constitutional: awake, No oriented Psych: confusion Head: atraumatic, normocephalic Eyes: nl lids, nl sclera ENMT: mucosa pink and moist Neck: non-tender, supple Respiratory: normal air movement, No congested cough Cardiovascular: irregular rhythm, No regular rate and rhythm (afib) Gastrointestinal: bowel sounds, non-tender, soft Musculoskeletal: other (contracture right leg), No nl gait and stance Extremities: No edema, No normal pulses (palpable Femoral pulse, non-palpable dp) Neurological: confused, No nl mental status Skin: other (right malleolus: dressing in place dry without drainage Results Result Diagram: 07/21/17 0548 07/21/17 0548 DILLON WOOD NP Jul 21, 2017 17:49
[2017-07-21] MEDS: MIRTAZAPINE 15 MG TAB PO SCH (20:52)
[2017-07-21 21:12] VITALS: BP 166/72; RESP 16
[2017-07-21] MEDS ORDERED: hydrALAzine 20 MG INJ IV PRN (22:30)
[2017-07-21] MEDS: ZOLPIDEM 5 MG TAB PO PRN (23:52)
[2017-07-22 00:15] VITALS: BP 136/63
[2017-07-22] MEDS: CLINDAMYCIN 600 MG/D5W (PMX) 50 ML IVPB SCH ×3 (00:29→15:12)
[2017-07-22 02:58] VITALS: BP 150/71; RESP 16
[2017-07-22] MEDS: CEFEPIME 1GM/50 ML (PMX) 50 ML IVPB SCH ×3 (05:38→23:01)
[2017-07-22 06:19] LABS: CALCIUM 8.5 mg/dl (8.4-10.2); CREATININE 0.7 mg/dl (0.44-1.00); POTASSIUM 3.4 mmol/L (3.5-5.1)
[2017-07-22] MEDS: ENOXAPARIN 30 MG/0.3 ML SYG SC SCH (09:00)
--- NOTE | 2017-07-22 09:30 | PN ---
Date/Time of Note Date/Time of Note DATE: 07/22/17 TIME: 09:24 Assessment/Plan Lines/Catheters IV Catheter Type (from Nrs): PICC Line Smalls in Place (from Nrs): No Assessment/Plan Chief Complaint/Hosp Course 1. Right ankle wound: with possible osteomyelitis (unable to obtain MRI 2/2 significant contractures) -defer to podiatry and vascular -continue local wound care -frequent turning and offloading -low airloss mattress -recommend vitamin C and short term zinc -abx per sensitivity 2. Lower extremity atherosclerosis -optimize vascular status 3. Hypokalemia -replete and monitor 4. Hypochromic anemia: No acute bleed noted -monitor and transfuse prn -further work-up per medical team 5. UTI -abx per sensitivity -frequent bladder emptying 6. Hypertension -medical optimization 7. Dementia -supportive 8. Right ankle pain: 2/2 #1 -pain management 9. Atrial fibrillation: controlled -per cards 10. Hypoalbuminemia -nutrition optimization Thank you. Patient seen and examined in collaboration with Dr. Mehrdad Casillas. Problems: Subjective 24 Hr Interval Summary Right foot wrapped, no drainage noted. Appears comfortable, non verbal indicators of pain not present. Right foot with discomfort when touched. No fevers, chills or paresthesia on the affected extremity. No cough, sz, rash, vomiting, bloating, dysuria, sob, v/d. + Bowel function. Exam/Review of Systems Vital Signs Vitals Vital Signs Date Time Temp Pulse Resp B/P Pulse Ox O2 Delivery O2 Flow Rate FiO2 07/22/17 02:58 97.4 94 16 150/71 93 07/20/17 04:45 Room Air Intake and Output 07/21/17 07/21/17 07/22/17 15:00 23:00 07:00 Intake Total 50 ml 1700 ml 720 ml Balance 50 ml 1700 ml 720 ml Exam Free Text/Dictation Constitutional: awake, No oriented, NAD Psych: confusion Head: atraumatic, normocephalic Eyes: nl lids, nl sclera ENMT: mucosa pink and moist Neck: non-tender, supple Respiratory: normal air movement, No congested cough Cardiovascular: irregular rhythm, No regular rate and rhythm (afib) Gastrointestinal: bowel sounds, non-tender, soft Musculoskeletal: other (contracture right leg), right leg guarding, No nl gait and stance Extremities: No edema, No normal pulses (palpable Femoral pulse, non-palpable dp) Neurological: confused, No nl mental status Skin: other (right malleolus: dressing in place dry without drainage Results Result Diagram: 07/21/17 0548 07/22/17 0436 DILLON WOOD NP Jul 22, 2017 09:30
[2017-07-22] MEDS: POTASSIUM CHLORIDE (SR) 8 MEQ CAP PO SCH (11:15)
[2017-07-22] MEDS: LISINOPRIL 5 MG TAB PO SCH ×2 (11:16→21:19)
[2017-07-22] MEDS: NYSTATIN 30 GM POWDER BTL TOP SCH ×2 (11:17→21:21)
[2017-07-22] MEDS: COLLAGENASE 30 GM TUBE TOP SCH ×2 (11:17→11:18)
[2017-07-22] MEDS: BALSAM PERU/CASTOR OIL 60 GM TUBE TOP SCH ×2 (11:18→21:21)
[2017-07-22] MEDS ORDERED: POTASSIUM CHLORIDE 250 ML IVPB ONE (12:00)
[2017-07-22 12:38] VITALS: BP 150/70; RESP 24
[2017-07-22] MEDS: HYDROCODONE/APAP (5/325) TAB PO PRN (13:25)
--- NOTE | 2017-07-22 15:36 | CONS ---
Date/Time of Note Date/Time of Note DATE: 07/22/17 TIME: 15:34 Assessment/Plan Assessment/Plan Additional Assessment/Plan Lower extremity ulcer Peripheral atrial disease Cardiomyopathy with ejection fraction 35-40% Aortic stenosis with history of TAVR Atrial fibrillation Severe anemia requiring blood transfusion -Patient started on Coreg as per primary team, would follow blood pressure trend and if needed could up titrate Coreg and lisinopril given history of systolic left ventricular function. Given patient with anemia requiring blood transfusion and history of fall risk, would hold off on initiation of anticoagulation at the current time. Consultation Date/Type/Reason Admit Date/Time Jul 13, 2017 at 18:03 Initial Consult Date 07/18/17 Type of Consultation: cv Referring Provider: REINA SWANSON 24 HR Interval Summary Free Text/Dictation Patient seen and examined Exam/Review of Systems Vital Signs Vitals Vital Signs Date Time Temp Pulse Resp B/P Pulse Ox O2 Delivery O2 Flow Rate FiO2 07/22/17 12:38 99.3 82 24 150/70 94 07/20/17 04:45 Room Air Intake and Output 07/21/17 07/21/17 07/22/17 15:00 23:00 07:00 Intake Total 50 ml 1700 ml 720 ml Balance 50 ml 1700 ml 720 ml Exam Awake, alert, follows commands, no apparent distress Head: normocephalic Respiratory: other (Coarse breath sounds bilaterally, no wheezing) Cardiovascular: irregular rhythm, other (S1-S2 heard) Gastrointestinal: bowel sounds, non-tender, soft Extremities: edema, other (Bandaged lower extremity) Results Result Diagram: 07/21/17 0548 07/22/17 0436 Results 24 hrs Laboratory Tests Test 07/22/17 04:36 Sodium Level 141 Potassium Level 3.4 L Chloride Level 110 Carbon Dioxide Level 24 Anion Gap 10 Blood Urea Nitrogen 9 Creatinine 0.70 Glucose Level 95 Calcium Level 8.5 Medications Medications Current Medications Ondansetron HCl (Zofran Inj) 4 mg Q6H PRN IV NAUSEA AND/OR VOMITING Last administered on 07/15/17 21:25; Admin Dose 4 MG; Start 07/13/17 at 19:00 Acetaminophen (Tylenol Tab) 650 mg Q6H PRN PO PAIN LEVEL 1-3 OR FEVER Last administered on 07/15/17 09:34; Admin Dose 650 MG; Start 07/13/17 at 19:00 Acetaminophen/ Hydrocodone Bitart ([place] (5/325)) 1 tab Q6H PRN PO MODERATE PAIN LEVEL 4-6 Last administered on 07/22/17 13:25; Admin Dose 1 TAB; Start at 19:00 Docusate Sodium (Colace) 100 mg Q12H PRN PO CONSTIPATION Last administered on 21:25; Admin Dose 100 MG; Start 07/13/17 at 19:00 Magnesium Hydroxide (Milk Of Mag) 30 ml DAILY PRN PO CONSTIPATION; Start at 19:00 Zolpidem Tartrate (Ambien) 5 mg QHS PRN PO SLEEP Last administered on 07/21/17 23:52; Admin Dose 5 MG; Start 07/13/17 at 19:00 Enoxaparin Sodium (Lovenox) 30 mg DAILY SC Last administered on 07/21/17 09:27 ; Admin Dose 30 MG; Start 07/14/17 at 09:00 Lisinopril (Zestril) 5 mg BID PO Last administered on 07/22/17 11:16; Admin Dose 5 MG; Start 07/13/17 at 21:00 Mirtazapine (Remeron) 7.5 mg HS PO Last administered on 07/21/17 20:52; Admin Dose 7.5 MG; Start 07/13/17 at 21:00 Potassium Chloride 8 meq 8 meq DAILY PO Last administered on 07/22/17 11:15; Admin Dose 8 MEQ; Start 07/14/17 at 09:00 Clindamycin HCl/ Dextrose (Cleocin 600 Mg/ D5W (Pmx)) 50 ml @ 50 mls/hr Q8 IVPB Last administered on 07/22/17 15:12; Admin Dose 50 MLS/HR; Start 07/14/17 at 00:00 Collagenase (Santyl) 1 applic DAILY TOP Last administered on 07/22/17 11:17; Admin Dose 1 APPLIC; Start 07/14/17 at 12:00 Collagenase (Santyl) 1 applic DAILY TOP Last administered on 07/22/17 11:18; Admin Dose 1 APPLIC; Start 07/14/17 at 14:00 Nystatin 1 applic 1 applic BID TOP Last administered on 07/22/17 11:17; Admin Dose 1 APPLIC; Start 07/14/17 at 14:00 Cefepime HCl (Maxipime 1gm/50 ml (Pmx)) 50 ml @ 100 mls/hr Q8 IVPB Last administered on 07/22/17 15:12; Admin Dose 100 MLS/HR; Start 07/17/17 at 14:00 Miscellaneous Information Patients own medicat... NOTE XX ; Start 07/21/17 at 10: 00 IV Flush (NS 10 ml) 10 ml PRN PRN IV FLUSH LINE; Start 07/21/17 at 17:00 Carvedilol 6.25 mg 6.25 mg BID PO Last administered on 07/22/17 11:16; Admin Dose 6.25 MG; Start 07/21/17 at 21:00 Potassium Chloride (KCl 40 MEQ/250 ML NS) 250 ml @ 62.5 mls/hr ONCE ONCE IVPB Last administered on 07/22/17 13:14; Admin Dose 62.5 MLS/HR; Start 07/22/17 at 12:00; Stop 07/22/17 at 15:59 Carvedilol (Coreg) 3.125 mg BID PO Last administered on 07/22/17 15:14; Admin Dose 3.125 MG; Start 07/22/17 at 14:00 Smith Del Cid DO Jul 22, 2017 15:36
[2017-07-22 17:05] VITALS: BP 141/65; RESP 20
[2017-07-22] MEDS: DAPTOMYCIN 300 MG in SOD CHLORIDE 0.9% 100 ML IVPB SCH (19:01)
--- NOTE | 2017-07-22 19:13 | PN ---
Date/Time of Note Date/Time of Note DATE: 07/22/17 TIME: 19:11 Assessment/Plan VTE Prophylaxis VTE Prophylaxis Intervention: contraindicated Lines/Catheters IV Catheter Type (from Nrsg): PICC Line Central line still needed: No Urinary Cath still in place: No Assessment/Plan Chief Complaint/Hosp Course 87 yo dementia, A Fib, PVD, chronic systolic CHF, with osteomyelitis and nonhealing ulcers from leg contracture of unclear etiology Osteomyelitis: - Cefepime/dapto course per ID - PICC to be placed PVD and pressure ulcerations: - Local wound care - No acute need for surgery per vascular and general surgery A Fib: - Restart AC - Rate controlled Dementia: - Continue mirtazapine Chronic sysotlic CHF: - Hold further lasix given marked hypoklemia, euvolemic currently and not eating much Discharge to facility Problems: Subjective 24 Hr Interval Summary Free Text/Dictation No change to clinical status Awaiting transfer to SNF Exam/Review of Systems Vital Signs Vitals Vital Signs Date Time Temp Pulse Resp B/P Pulse Ox O2 Delivery O2 Flow Rate FiO2 07/22/17 17:05 98.6 80 20 141/65 94 07/20/17 04:45 Room Air Intake and Output 07/21/17 07/21/17 07/22/17 15:00 23:00 07:00 Intake Total 50 ml 1700 ml 720 ml Balance 50 ml 1700 ml 720 ml Exam Constitutional: alert, oriented, well developed Results Result Diagram: 07/21/17 0548 07/22/17 0436 Results 24 hrs Laboratory Tests Test 07/22/17 04:36 Sodium Level 141 Potassium Level 3.4 L Chloride Level 110 Carbon Dioxide Level 24 Anion Gap 10 Blood Urea Nitrogen 9 Creatinine 0.70 Glucose Level 95 Calcium Level 8.5 Medications Medications Current Medications Ondansetron HCl (Zofran Inj) 4 mg Q6H PRN IV NAUSEA AND/OR VOMITING Last administered on 07/15/17 21:25; Admin Dose 4 MG; Start 07/13/17 at 19:00 Acetaminophen (Tylenol Tab) 650 mg Q6H PRN PO PAIN LEVEL 1-3 OR FEVER Last administered on 07/15/17 09:34; Admin Dose 650 MG; Start 07/13/17 at 19:00 Acetaminophen/ Hydrocodone Bitart ([place] (5/325)) 1 tab Q6H PRN PO MODERATE PAIN LEVEL 4-6 Last administered on 07/22/17 13:25; Admin Dose 1 TAB; Start at 19:00 Docusate Sodium (Colace) 100 mg Q12H PRN PO CONSTIPATION Last administered on 21:25; Admin Dose 100 MG; Start 07/13/17 at 19:00 Magnesium Hydroxide (Milk Of Mag) 30 ml DAILY PRN PO CONSTIPATION; Start at 19:00 Zolpidem Tartrate (Ambien) 5 mg QHS PRN PO SLEEP Last administered on 07/21/17 23:52; Admin Dose 5 MG; Start 07/13/17 at 19:00 Enoxaparin Sodium (Lovenox) 30 mg DAILY SC Last administered on 07/21/17 09:27 ; Admin Dose 30 MG; Start 07/14/17 at 09:00 Lisinopril (Zestril) 5 mg BID PO Last administered on 07/22/17 11:16; Admin Dose 5 MG; Start 07/13/17 at 21:00 Mirtazapine (Remeron) 7.5 mg HS PO Last administered on 07/21/17 20:52; Admin Dose 7.5 MG; Start 07/13/17 at 21:00 Potassium Chloride (Micro-K) 8 meq DAILY PO Last administered on 07/22/17 11:15 ; Admin Dose 8 MEQ; Start 07/14/17 at 09:00 Collagenase (Santyl) 1 applic DAILY TOP Last administered on 07/22/17 11:17; Admin Dose 1 APPLIC; Start 07/14/17 at 12:00 Collagenase (Santyl) 1 applic DAILY TOP Last administered on 07/22/17 11:18; Admin Dose 1 APPLIC; Start 07/14/17 at 14:00 Nystatin (Nystatin Powder) 1 applic BID TOP Last administered on 07/22/17 11:17 ; Admin Dose 1 APPLIC; Start 07/14/17 at 14:00 Miscellaneous Information Patients own medicat... NOTE XX ; Start 07/21/17 at 10: 00 IV Flush (NS 10 ml) 10 ml PRN PRN IV FLUSH LINE; Start 07/21/17 at 17:00 Carvedilol (Coreg) 6.25 mg BID PO Last administered on 07/22/17 11:16; Admin Dose 6.25 MG; Start 07/21/17 at 21:00 Carvedilol 3.125 mg 3.125 mg BID PO Last administered on 07/22/17 15:14; Admin Dose 3.125 MG; Start 07/22/17 at 14:00 Daptomycin 300 mg/ Sodium Chloride 100 ml @ 200 mls/hr Q24H IVPB Last administered on 07/22/17 19:01; Admin Dose 200 MLS/HR; Start 07/22/17 at 18:00 Cefepime HCl (Maxipime 1gm/50 ml (Pmx)) 50 ml @ 100 mls/hr Q12 IVPB ; Start 07/22/17 at 23:00 AUDRA PLASCENCIA MD Jul 22, 2017 19:12
--- NOTE | 2017-07-22 19:40 | PN ---
DATE: 07/22/2017 SUBJECTIVE DATA: The patient is awake, looks comfortable. No fevers overnight per report. LABORATORY AND DIAGNOSTIC DATA: No CBC this morning. BUN 9, creatinine 0.70. INDWELLINGS: The patient had PICC line placed yesterday. ANTIMICROBIALS: Cefepime and Daptomycin. PHYSICAL EXAMINATION: GENERAL: This is a fragile, chronically ill-appearing, elderly woman, who is awake, in no distress. HEENT: Head atraumatic, normocephalic. Sclerae anicteric. Buccal mucosa dry. NECK: Supple. CHEST: Chest rise symmetrical. Breath sounds clear. Diminished at bases. HEART: S1, S2. ABDOMEN: Soft, bowel sounds present. EXTREMITIES: Without cyanosis. ASSESSMENT: 1. Right lower extremity nonhealing wound with evidence of osteomyelitis. 2. Right lower extremity severe structure. 3. Dementia. 4. Coronary artery disease. 5. Status post urinary tract infection. 6. Allergy vancomycin. PLAN: 1. The patient remains stable on appropriate antibiotics 2. Pending discharge planning. 3. Continue antibiotics for 6 weeks, possibly longer. 4. Follow Podiatry recommendations. Dictated By: Agusto Watson NP /miguelangel/tyrone /Document#: [id number]
[2017-07-22 21:04] VITALS: BP 122/56; RESP 16
[2017-07-22] MEDS: MIRTAZAPINE 15 MG TAB PO SCH (21:19)
[2017-07-23] MEDS: HYDROCODONE/APAP (5/325) TAB PO PRN (02:22)
[2017-07-23 03:18] VITALS: BP 139/63; RESP 16
[2017-07-23 07:53] VITALS: BP 136/66; RESP 18
[2017-07-23] MEDS: LISINOPRIL 5 MG TAB PO SCH ×2 (08:31→21:12)
[2017-07-23] MEDS: POTASSIUM CHLORIDE (SR) 8 MEQ CAP PO SCH (08:31)
[2017-07-23] MEDS: CEFEPIME 1GM/50 ML (PMX) 50 ML IVPB SCH ×2 (08:31→21:08)
[2017-07-23] MEDS: ENOXAPARIN 30 MG/0.3 ML SYG SC SCH (08:32)
[2017-07-23] MEDS: COLLAGENASE 30 GM TUBE TOP SCH ×2 (08:33)
[2017-07-23] MEDS: BALSAM PERU/CASTOR OIL 60 GM TUBE TOP SCH ×2 (08:33→21:10)
[2017-07-23] MEDS: NYSTATIN 30 GM POWDER BTL TOP SCH ×2 (08:33→21:09)
[2017-07-23] MEDS: NACL 0.9% 3 ML SYG IV SCH ×2 (08:42→17:02)
--- NOTE | 2017-07-23 08:45 | PN ---
Date/Time of Note Date/Time of Note DATE: 07/23/17 TIME: 08:42 Assessment/Plan Lines/Catheters IV Catheter Type (from Nrsg): PICC Line Smalls in Place (from Nrsg): No Assessment/Plan Chief Complaint/Hosp Course 1. Right ankle wound: with possible osteomyelitis: pending discharge with abx -defer to podiatry and vascular -continue local wound care -frequent turning and offloading -low airloss mattress -recommend vitamin C and short term zinc -abx per sensitivity 2. Lower extremity atherosclerosis -optimize vascular status 3. Atrial fibrillation: controlled -per cards 4. Hypochromic anemia: No acute bleed noted -monitor and transfuse prn -further work-up per medical team 5. UTI -abx per sensitivity -frequent bladder emptying 6. Hypertension -medical optimization 7. Dementia -supportive 8. Right ankle pain: 2/2 #1 -pain management 9. Hypoalbuminemia -nutrition optimization Thank you. Patient seen and examined in collaboration with Dr. Mehrdad Casillas. Problems: Subjective 24 Hr Interval Summary Appears comfortable, non verbal indicators of pain not present. Awake and tracks. Right foot contracted, wrapped, no drainage noted. No fevers, chills or paresthesia on the affected extremity. No cough, sz, rash, vomiting, bloating, dysuria, sob, v/d. + Bowel function. Exam/Review of Systems Vital Signs Vitals Vital Signs Date Time Temp Pulse Resp B/P Pulse Ox O2 Delivery O2 Flow Rate FiO2 07/23/17 07:53 98.5 77 18 136/66 95 07/20/17 04:45 Room Air Intake and Output 07/22/17 07/22/17 07/23/17 15:00 23:00 07:00 Intake Total 50 ml 100 ml 600 ml Balance 50 ml 100 ml 600 ml Exam Free Text/Dictation Constitutional: awake, No oriented, NAD, tracks Psych: confusion Head: atraumatic, normocephalic Eyes: nl lids, nl sclera ENMT: mucosa pink and moist Neck: non-tender, supple Respiratory: normal air movement, No congested cough Cardiovascular: irregular rhythm, No regular rate and rhythm (afib) Gastrointestinal: bowel sounds, non-tender, soft Musculoskeletal: other (contracture right leg), right leg guarding, No nl gait and stance Extremities: No edema, No normal pulses (palpable Femoral pulse, non-palpable dp) Neurological: confused, No nl mental status Skin: other (right malleolus: dressing in place dry without drainage Results Result Diagram: 07/21/17 0548 07/22/17 0436 DILLON WOOD NP Jul 23, 2017 08:45
--- NOTE | 2017-07-23 14:54 | CONS ---
Date/Time of Note Date/Time of Note DATE: 07/23/17 TIME: 14:52 Assessment/Plan Assessment/Plan Additional Assessment/Plan Lower extremity ulcer Peripheral atrial disease Cardiomyopathy with ejection fraction 35-40% Aortic stenosis with history of TAVR Atrial fibrillation Severe anemia requiring blood transfusion -Blood pressure trend overall improved. Given patient with anemia requiring blood transfusion and history of fall risk, would hold off on initiation of anticoagulation at the current time. Consultation Date/Type/Reason Admit Date/Time Jul 13, 2017 at 18:03 Initial Consult Date 07/18/17 Type of Consultation: cv Referring Provider: REINA SWANSON 24 HR Interval Summary Free Text/Dictation Patient seen and examined Exam/Review of Systems Vital Signs Vitals Vital Signs Date Time Temp Pulse Resp B/P Pulse Ox O2 Delivery O2 Flow Rate FiO2 07/23/17 07:53 98.5 77 18 136/66 95 07/20/17 04:45 Room Air Intake and Output 07/22/17 07/22/17 07/23/17 15:00 23:00 07:00 Intake Total 50 ml 100 ml 600 ml Balance 50 ml 100 ml 600 ml Exam No apparent distress, following commands Constitutional: alert Head: normocephalic Respiratory: other (Coarse breath sounds bilaterally, no wheezing) Cardiovascular: other (S1-S2 heard), regular rate and rhythm Gastrointestinal: bowel sounds, non-tender, soft Extremities: edema, other (Bandage lower extremity) Results Result Diagram: 07/21/17 0548 07/22/17 0436 Results 24 hrs Laboratory Tests Test 07/23/17 06:07 Creatine Kinase 29 Medications Medications Current Medications Ondansetron HCl (Zofran Inj) 4 mg Q6H PRN IV NAUSEA AND/OR VOMITING Last administered on 07/15/17 21:25; Admin Dose 4 MG; Start 07/13/17 at 19:00 Acetaminophen (Tylenol Tab) 650 mg Q6H PRN PO PAIN LEVEL 1-3 OR FEVER Last administered on 07/15/17 09:34; Admin Dose 650 MG; Start 07/13/17 at 19:00 Acetaminophen/ Hydrocodone Bitart ([place] (5/325)) 1 tab Q6H PRN PO MODERATE PAIN LEVEL 4-6 Last administered on 07/23/17 02:22; Admin Dose 1 TAB; Start at 19:00 Docusate Sodium (Colace) 100 mg Q12H PRN PO CONSTIPATION Last administered on 21:25; Admin Dose 100 MG; Start 07/13/17 at 19:00 Magnesium Hydroxide (Milk Of Mag) 30 ml DAILY PRN PO CONSTIPATION; Start at 19:00 Zolpidem Tartrate (Ambien) 5 mg QHS PRN PO SLEEP Last administered on 07/21/17 23:52; Admin Dose 5 MG; Start 07/13/17 at 19:00 Enoxaparin Sodium (Lovenox) 30 mg DAILY SC Last administered on 07/23/17 08:32 ; Admin Dose 30 MG; Start 07/14/17 at 09:00 Lisinopril (Zestril) 5 mg BID PO Last administered on 07/23/17 08:31; Admin Dose 5 MG; Start 07/13/17 at 21:00 Mirtazapine (Remeron) 7.5 mg HS PO Last administered on 07/22/17 21:19; Admin Dose 7.5 MG; Start 07/13/17 at 21:00 Potassium Chloride (Micro-K) 8 meq DAILY PO Last administered on 07/23/17 08:31 ; Admin Dose 8 MEQ; Start 07/14/17 at 09:00 Collagenase (Santyl) 1 applic DAILY TOP Last administered on 07/23/17 08:33; Admin Dose 1 APPLIC; Start 07/14/17 at 12:00 Collagenase (Santyl) 1 applic DAILY TOP Last administered on 07/23/17 08:33; Admin Dose 1 APPLIC; Start 07/14/17 at 14:00 Nystatin (Nystatin Powder) 1 applic BID TOP Last administered on 07/23/17 08:33 ; Admin Dose 1 APPLIC; Start 07/14/17 at 14:00 Miscellaneous Information Patients own medicat... NOTE XX ; Start 07/21/17 at 10: 00 IV Flush (NS 10 ml) 10 ml PRN PRN IV FLUSH LINE; Start 07/21/17 at 17:00 Carvedilol 3.125 mg 3.125 mg BID PO Last administered on 07/23/17 08:31; Admin Dose 3.125 MG; Start 07/22/17 at 14:00 Daptomycin 300 mg/ Sodium Chloride 100 ml @ 200 mls/hr Q24H IVPB Last administered on 07/22/17 19:01; Admin Dose 200 MLS/HR; Start 07/22/17 at 18:00 Cefepime HCl (Maxipime 1gm/50 ml (Pmx)) 50 ml @ 100 mls/hr Q12 IVPB Last administered on 07/23/17 08:31; Admin Dose 100 MLS/HR; Start 07/22/17 at 23:00 Smith Del Cid DO Jul 23, 2017 14:54
--- NOTE | 2017-07-23 16:29 | CONS ---
Date/Time of Note Date/Time of Note DATE: 07/23/17 TIME: 16:27 Assessment/Plan Assessment/Plan Chief Complaint/Hosp Course SUBJECTIVE DATA: No acute changes, sleep, no fevers, nad INDWELLINGS: PICC line ANTIMICROBIALS: Cefepime and Daptomycin. PHYSICAL EXAMINATION: GENERAL: This is a fragile, chronically ill-appearing, elderly woman, who is awake, in no distress. HEENT: Head atraumatic, normocephalic. Sclerae anicteric. Buccal mucosa dry. NECK: Supple. CHEST: Chest rise symmetrical. Breath sounds clear. Diminished at bases. HEART: S1, S2. ABDOMEN: Soft, bowel sounds present. EXTREMITIES: Without cyanosis. ASSESSMENT: 1. Right lower extremity nonhealing wound with evidence of osteomyelitis. 2. Right lower extremity severe contracture 3. Dementia. 4. Coronary artery disease. 5. Status post urinary tract infection. 6. Allergy: vancomycin. PLAN: The patient remains stable, continue on current antibiotics for 6-8 weeks , f/u podiatry and ortho rec-s [facility] staff Problems: Consultation Date/Type/Reason Admit Date/Time Jul 13, 2017 at 18:03 Initial Consult Date 07/18/17 Type of Consultation: id Referring Provider: REINA SWANSON Exam/Review of Systems Vital Signs Vitals Vital Signs Date Time Temp Pulse Resp B/P Pulse Ox O2 Delivery O2 Flow Rate FiO2 07/23/17 07:53 98.5 77 18 136/66 95 07/20/17 04:45 Room Air Intake and Output 07/22/17 07/22/17 07/23/17 15:00 23:00 07:00 Intake Total 50 ml 100 ml 600 ml Balance 50 ml 100 ml 600 ml Results Result Diagram: 07/21/17 0548 07/22/17 0436 Results 24 hrs Laboratory Tests Test 07/23/17 06:07 Creatine Kinase 29 Medications Medications Current Medications Ondansetron HCl (Zofran Inj) 4 mg Q6H PRN IV NAUSEA AND/OR VOMITING Last administered on 07/15/17 21:25; Admin Dose 4 MG; Start 07/13/17 at 19:00 Acetaminophen (Tylenol Tab) 650 mg Q6H PRN PO PAIN LEVEL 1-3 OR FEVER Last administered on 07/15/17 09:34; Admin Dose 650 MG; Start 07/13/17 at 19:00 Acetaminophen/ Hydrocodone Bitart ([place] (5/325)) 1 tab Q6H PRN PO MODERATE PAIN LEVEL 4-6 Last administered on 07/23/17 02:22; Admin Dose 1 TAB; Start at 19:00 Docusate Sodium (Colace) 100 mg Q12H PRN PO CONSTIPATION Last administered on 21:25; Admin Dose 100 MG; Start 07/13/17 at 19:00 Magnesium Hydroxide (Milk Of Mag) 30 ml DAILY PRN PO CONSTIPATION; Start at 19:00 Zolpidem Tartrate (Ambien) 5 mg QHS PRN PO SLEEP Last administered on 07/21/17 23:52; Admin Dose 5 MG; Start 07/13/17 at 19:00 Enoxaparin Sodium (Lovenox) 30 mg DAILY SC Last administered on 07/23/17 08:32 ; Admin Dose 30 MG; Start 07/14/17 at 09:00 Lisinopril (Zestril) 5 mg BID PO Last administered on 07/23/17 08:31; Admin Dose 5 MG; Start 07/13/17 at 21:00 Mirtazapine (Remeron) 7.5 mg HS PO Last administered on 07/22/17 21:19; Admin Dose 7.5 MG; Start 07/13/17 at 21:00 Potassium Chloride (Micro-K) 8 meq DAILY PO Last administered on 07/23/17 08:31 ; Admin Dose 8 MEQ; Start 07/14/17 at 09:00 Collagenase (Santyl) 1 applic DAILY TOP Last administered on 07/23/17 08:33; Admin Dose 1 APPLIC; Start 07/14/17 at 12:00 Collagenase (Santyl) 1 applic DAILY TOP Last administered on 07/23/17 08:33; Admin Dose 1 APPLIC; Start 07/14/17 at 14:00 Nystatin (Nystatin Powder) 1 applic BID TOP Last administered on 07/23/17 08:33 ; Admin Dose 1 APPLIC; Start 07/14/17 at 14:00 Miscellaneous Information Patients own medicat... NOTE XX ; Start 07/21/17 at 10: 00 IV Flush (NS 10 ml) 10 ml PRN PRN IV FLUSH LINE; Start 07/21/17 at 17:00 Carvedilol 3.125 mg 3.125 mg BID PO Last administered on 07/23/17 08:31; Admin Dose 3.125 MG; Start 07/22/17 at 14:00 Daptomycin 300 mg/ Sodium Chloride 100 ml @ 200 mls/hr Q24H IVPB Last administered on 07/22/17 19:01; Admin Dose 200 MLS/HR; Start 07/22/17 at 18:00 Cefepime HCl (Maxipime 1gm/50 ml (Pmx)) 50 ml @ 100 mls/hr Q12 IVPB Last administered on 07/23/17 08:31; Admin Dose 100 MLS/HR; Start 07/22/17 at 23:00 ROXANNE FERRARI NP Jul 23, 2017 16:29
[2017-07-23] MEDS: DAPTOMYCIN 300 MG in SOD CHLORIDE 0.9% 100 ML IVPB SCH (17:00)
--- NOTE | 2017-07-23 18:05 | PN ---
Date/Time of Note Date/Time of Note DATE: 07/23/17 TIME: 18:05 Assessment/Plan VTE Prophylaxis VTE Prophylaxis Intervention: LMWH Lines/Catheters IV Catheter Type (from Nrsg): PICC Line Central line still needed: No Urinary Cath still in place: No Assessment/Plan Chief Complaint/Hosp Course 87 yo dementia, A Fib, PVD, chronic systolic CHF, with osteomyelitis and nonhealing ulcers from leg contracture of unclear etiology Osteomyelitis: - Cefepime/dapto course per ID - PICC to be placed PVD and pressure ulcerations: - Local wound care - No acute need for surgery per vascular and general surgery A Fib: - Restart AC - Rate controlled Dementia: - Continue mirtazapine Chronic sysotlic CHF: - Hold further lasix given marked hypoklemia, euvolemic currently and not eating much Discharge to facility Problems: Subjective 24 Hr Interval Summary Free Text/Dictation No change to clinical status Continues on IV abx Awaiting placement in SNF Exam/Review of Systems Vital Signs Vitals Vital Signs Date Time Temp Pulse Resp B/P Pulse Ox O2 Delivery O2 Flow Rate FiO2 07/23/17 07:53 98.5 77 18 136/66 95 07/20/17 04:45 Room Air Intake and Output 07/22/17 07/22/17 07/23/17 15:00 23:00 07:00 Intake Total 50 ml 100 ml 600 ml Balance 50 ml 100 ml 600 ml Results Result Diagram: 07/21/17 0548 07/22/17 0436 Results 24 hrs Laboratory Tests Test 07/23/17 06:07 Creatine Kinase 29 Medications Medications Current Medications Ondansetron HCl (Zofran Inj) 4 mg Q6H PRN IV NAUSEA AND/OR VOMITING Last administered on 07/15/17 21:25; Admin Dose 4 MG; Start 07/13/17 at 19:00 Acetaminophen (Tylenol Tab) 650 mg Q6H PRN PO PAIN LEVEL 1-3 OR FEVER Last administered on 07/15/17 09:34; Admin Dose 650 MG; Start 07/13/17 at 19:00 Acetaminophen/ Hydrocodone Bitart ([employer] (5/325)) 1 tab Q6H PRN PO MODERATE PAIN LEVEL 4-6 Last administered on 07/23/17 02:22; Admin Dose 1 TAB; Start at 19:00 Docusate Sodium (Colace) 100 mg Q12H PRN PO CONSTIPATION Last administered on 21:25; Admin Dose 100 MG; Start 07/13/17 at 19:00 Magnesium Hydroxide (Milk Of Mag) 30 ml DAILY PRN PO CONSTIPATION; Start at 19:00 Zolpidem Tartrate (Ambien) 5 mg QHS PRN PO SLEEP Last administered on 07/21/17 23:52; Admin Dose 5 MG; Start 07/13/17 at 19:00 Enoxaparin Sodium (Lovenox) 30 mg DAILY SC Last administered on 07/23/17 08:32 ; Admin Dose 30 MG; Start 07/14/17 at 09:00 Lisinopril (Zestril) 5 mg BID PO Last administered on 07/23/17 08:31; Admin Dose 5 MG; Start 07/13/17 at 21:00 Mirtazapine (Remeron) 7.5 mg HS PO Last administered on 07/22/17 21:19; Admin Dose 7.5 MG; Start 07/13/17 at 21:00 Potassium Chloride (Micro-K) 8 meq DAILY PO Last administered on 07/23/17 08:31 ; Admin Dose 8 MEQ; Start 07/14/17 at 09:00 Collagenase (Santyl) 1 applic DAILY TOP Last administered on 07/23/17 08:33; Admin Dose 1 APPLIC; Start 07/14/17 at 12:00 Collagenase (Santyl) 1 applic DAILY TOP Last administered on 07/23/17 08:33; Admin Dose 1 APPLIC; Start 07/14/17 at 14:00 Nystatin (Nystatin Powder) 1 applic BID TOP Last administered on 07/23/17 08:33 ; Admin Dose 1 APPLIC; Start 07/14/17 at 14:00 Miscellaneous Information Patients own medicat... NOTE XX ; Start 07/21/17 at 10: 00 IV Flush (NS 10 ml) 10 ml PRN PRN IV FLUSH LINE; Start 07/21/17 at 17:00 Carvedilol 3.125 mg 3.125 mg BID PO Last administered on 07/23/17 08:31; Admin Dose 3.125 MG; Start 07/22/17 at 14:00 Daptomycin 300 mg/ Sodium Chloride 100 ml @ 200 mls/hr Q24H IVPB Last administered on 07/23/17 17:00; Admin Dose 200 MLS/HR; Start 07/22/17 at 18:00 Cefepime HCl (Maxipime 1gm/50 ml (Pmx)) 50 ml @ 100 mls/hr Q12 IVPB Last administered on 07/23/17 08:31; Admin Dose 100 MLS/HR; Start 07/22/17 at 23:00 AUDRA PLASCENCIA MD Jul 23, 2017 18:05
[2017-07-23 19:50] VITALS: BP 144/65; RESP 19
[2017-07-23] MEDS: MIRTAZAPINE 15 MG TAB PO SCH (21:09)
[2017-07-24 02:00] VITALS: BP 135/80; RESP 19
[2017-07-24 08:08] VITALS: BP 173/77; RESP 18
[2017-07-24] MEDS: LISINOPRIL 5 MG TAB PO SCH ×2 (08:41→22:08)
[2017-07-24] MEDS: ENOXAPARIN 30 MG/0.3 ML SYG SC SCH (08:41)
[2017-07-24] MEDS: CEFEPIME 1GM/50 ML (PMX) 50 ML IVPB SCH ×2 (08:41→22:07)
[2017-07-24] MEDS: POTASSIUM CHLORIDE (SR) 8 MEQ CAP PO SCH (08:42)
[2017-07-24] MEDS: COLLAGENASE 30 GM TUBE TOP SCH ×2 (08:47)
[2017-07-24] MEDS: BALSAM PERU/CASTOR OIL 60 GM TUBE TOP SCH ×2 (08:47→22:09)
[2017-07-24] MEDS: NYSTATIN 30 GM POWDER BTL TOP SCH ×2 (08:47→22:09)
--- NOTE | 2017-07-24 10:46 | PN ---
Date/Time of Note Date/Time of Note DATE: 07/24/17 TIME: 10:46 Assessment/Plan VTE Prophylaxis VTE Prophylaxis Intervention: SCD's Lines/Catheters IV Catheter Type (from Nrsg): PICC Line Central line still needed: No Urinary Cath still in place: No Assessment/Plan Assessment/Plan Lower extremity ulcer Peripheral atrial disease Cardiomyopathy with ejection fraction 35-40% Aortic stenosis with history of TAVR Atrial fibrillation Severe anemia requiring blood transfusion -Blood pressure trend overall improved. Given patient with anemia requiring blood transfusion and history of fall risk, would hold off on initiation of anticoagulation at the current time. Subjective 24 Hr Interval Summary Free Text/Dictation the patient is stable Exam/Review of Systems Vital Signs Vitals Vital Signs Date Time Temp Pulse Resp B/P Pulse Ox O2 Delivery O2 Flow Rate FiO2 07/24/17 08:08 98.8 79 18 173/77 95 Intake and Output 07/23/17 07/23/17 07/24/17 15:00 23:00 07:00 Intake Total 50 ml 450 ml Balance 50 ml 450 ml Results Result Diagram: 07/21/17 0548 07/22/17 0436 Medications Medications Current Medications Ondansetron HCl (Zofran Inj) 4 mg Q6H PRN IV NAUSEA AND/OR VOMITING Last administered on 07/15/17 21:25; Admin Dose 4 MG; Start 07/13/17 at 19:00 Acetaminophen (Tylenol Tab) 650 mg Q6H PRN PO PAIN LEVEL 1-3 OR FEVER Last administered on 07/15/17 09:34; Admin Dose 650 MG; Start 07/13/17 at 19:00 Acetaminophen/ Hydrocodone Bitart ([place] (5/325)) 1 tab Q6H PRN PO MODERATE PAIN LEVEL 4-6 Last administered on 07/23/17 02:22; Admin Dose 1 TAB; Start at 19:00 Docusate Sodium (Colace) 100 mg Q12H PRN PO CONSTIPATION Last administered on 21:25; Admin Dose 100 MG; Start 07/13/17 at 19:00 Magnesium Hydroxide (Milk Of Mag) 30 ml DAILY PRN PO CONSTIPATION; Start at 19:00 Zolpidem Tartrate (Ambien) 5 mg QHS PRN PO SLEEP Last administered on 07/21/17 23:52; Admin Dose 5 MG; Start 07/13/17 at 19:00 Enoxaparin Sodium (Lovenox) 30 mg DAILY SC Last administered on 07/24/17 08:41 ; Admin Dose 30 MG; Start 07/14/17 at 09:00 Lisinopril (Zestril) 5 mg BID PO Last administered on 07/24/17 08:41; Admin Dose 5 MG; Start 07/13/17 at 21:00 Mirtazapine (Remeron) 7.5 mg HS PO Last administered on 07/23/17 21:09; Admin Dose 7.5 MG; Start 07/13/17 at 21:00 Potassium Chloride (Micro-K) 8 meq DAILY PO Last administered on 07/24/17 08:42 ; Admin Dose 8 MEQ; Start 07/14/17 at 09:00 Collagenase (Santyl) 1 applic DAILY TOP Last administered on 07/24/17 08:47; Admin Dose 1 APPLIC; Start 07/14/17 at 12:00 Collagenase (Santyl) 1 applic DAILY TOP Last administered on 07/24/17 08:47; Admin Dose 1 APPLIC; Start 07/14/17 at 14:00 Nystatin (Nystatin Powder) 1 applic BID TOP Last administered on 07/24/17 08:47 ; Admin Dose 1 APPLIC; Start 07/14/17 at 14:00 Miscellaneous Information Patients own medicat... NOTE XX ; Start 07/21/17 at 10: 00 IV Flush (NS 10 ml) 10 ml PRN PRN IV FLUSH LINE; Start 07/21/17 at 17:00 Carvedilol 3.125 mg 3.125 mg BID PO Last administered on 07/24/17 08:42; Admin Dose 3.125 MG; Start 07/22/17 at 14:00 Daptomycin 300 mg/ Sodium Chloride 100 ml @ 200 mls/hr Q24H IVPB Last administered on 07/23/17 17:00; Admin Dose 200 MLS/HR; Start 07/22/17 at 18:00 Cefepime HCl (Maxipime 1gm/50 ml (Pmx)) 50 ml @ 100 mls/hr Q12 IVPB Last administered on 07/24/17 08:41; Admin Dose 100 MLS/HR; Start 07/22/17 at 23:00 ADELA SANDHU MD Jul 24, 2017 10:46
[2017-07-24 11:00] VITALS: BP 148/70; PULSE 70
--- NOTE | 2017-07-24 11:05 | PN ---
Date/Time of Note Date/Time of Note DATE: 07/24/17 TIME: 10:59 Assessment/Plan Lines/Catheters IV Catheter Type (from Nrsg): PICC Line Smalls in Place (from Nrsg): No Assessment/Plan Chief Complaint/Hosp Course 1. Right ankle wound: with possible osteomyelitis: pending discharge with abx -defer to podiatry and vascular -continue local wound care -frequent turning and offloading -low airloss mattress -recommend vitamin C and short term zinc -abx per sensitivity 2. Lower extremity atherosclerosis -optimize vascular status 3. Atrial fibrillation: controlled rate -per cards 4. Hypochromic anemia: No acute bleed noted -monitor and transfuse prn 5. UTI -abx per sensitivity -frequent bladder emptying 6. Hypertension -medical optimization 7. Dementia -supportive 8. Right ankle pain: 2/ #1; appears comfortable currently -pain management 9. Hypoalbuminemia -nutrition optimization Thank you. Patient seen and examined in collaboration with Dr. Mehrdad Casillas. Problems: Subjective 24 Hr Interval Summary Appears comfortable. Non verbal indicators of pain not present. Right leg with contracture, no excessive wound drainage or discomfort. No fevers, chills, vomiting, diarrhea, new contractures or wounds, sz or rash. Exam/Review of Systems Vital Signs Vitals Vital Signs Date Time Temp Pulse Resp B/P Pulse Ox O2 Delivery O2 Flow Rate FiO2 07/24/17 08:08 98.8 79 18 173/77 95 Intake and Output 07/23/17 07/23/17 07/24/17 15:00 23:00 07:00 Intake Total 50 ml 450 ml Balance 50 ml 450 ml Exam Free Text/Dictation Constitutional: awake, confused, NAD, tracks Psych: confusion Head: atraumatic, normocephalic Eyes: nl lids, nl sclera ENMT: mucosa pink and moist Neck: non-tender, supple Respiratory: normal air movement, No congested cough, supplemental oxygen Cardiovascular: irregular rhythm, No regular rate and rhythm Gastrointestinal: bowel sounds, non-tender, soft Musculoskeletal: other (contracture right leg), right leg guarding, No nl gait and stance Extremities: No edema, No normal pulses (RLE: palpable Femoral pulse, non- palpable dp) Neurological: confused, No nl mental status Skin: other (right malleolus: dressing in place dry without drainage Results Result Diagram: 07/21/17 0548 07/22/17 0436 DILLON WOOD NP Jul 24, 2017 11:05
[2017-07-24 15:05] VITALS: BP 152/76; RESP 16
--- NOTE | 2017-07-24 16:07 | CONS ---
Date/Time of Note Date/Time of Note DATE: 07/24/17 TIME: 16:06 Assessment/Plan Assessment/Plan Chief Complaint/Hosp Course SUBJECTIVE DATA: No acute changes, comfortable, no fevers INDWELLINGS: PICC line ANTIMICROBIALS: Cefepime and Daptomycin. PHYSICAL EXAMINATION: GENERAL: This is a fragile, chronically ill-appearing, elderly woman, who is awake, in no distress. HEENT: Head atraumatic, normocephalic. Sclerae anicteric. Buccal mucosa dry. NECK: Supple. CHEST: Chest rise symmetrical. Breath sounds clear. Diminished at bases. HEART: S1, S2. ABDOMEN: Soft, bowel sounds present. EXTREMITIES: Without cyanosis. ASSESSMENT: 1. Right lower extremity nonhealing wound with evidence of osteomyelitis. 2. Right lower extremity severe contracture 3. Dementia. 4. Coronary artery disease. 5. Status post urinary tract infection. 6. Allergy: vancomycin. PLAN: The patient remains stable, continue on current antibiotics for 6-8 weeks , f/u podiatry/surgery and ortho rec-s [facility] staff Problems: Consultation Date/Type/Reason Admit Date/Time Jul 13, 2017 at 18:03 Initial Consult Date 07/18/17 Type of Consultation: id Referring Provider: REINA SWANSON Exam/Review of Systems Vital Signs Vitals Vital Signs Date Time Temp Pulse Resp B/P Pulse Ox O2 Delivery O2 Flow Rate FiO2 07/24/17 15:05 99.0 82 16 152/76 96 Intake and Output 07/23/17 07/23/17 07/24/17 14:59 22:59 06:59 Intake Total 50 ml 450 ml Balance 50 ml 450 ml Results Result Diagram: 07/21/17 0548 07/22/17 0436 Medications Medications Current Medications Ondansetron HCl (Zofran Inj) 4 mg Q6H PRN IV NAUSEA AND/OR VOMITING Last administered on 07/15/17 21:25; Admin Dose 4 MG; Start 07/13/17 at 19:00 Acetaminophen (Tylenol Tab) 650 mg Q6H PRN PO PAIN LEVEL 1-3 OR FEVER Last administered on 07/15/17 09:34; Admin Dose 650 MG; Start 07/13/17 at 19:00 Acetaminophen/ Hydrocodone Bitart ([place] (5/325)) 1 tab Q6H PRN PO MODERATE PAIN LEVEL 4-6 Last administered on 07/23/17 02:22; Admin Dose 1 TAB; Start at 19:00 Docusate Sodium (Colace) 100 mg Q12H PRN PO CONSTIPATION Last administered on 21:25; Admin Dose 100 MG; Start 07/13/17 at 19:00 Magnesium Hydroxide (Milk Of Mag) 30 ml DAILY PRN PO CONSTIPATION; Start at 19:00 Zolpidem Tartrate (Ambien) 5 mg QHS PRN PO SLEEP Last administered on 07/21/17 23:52; Admin Dose 5 MG; Start 07/13/17 at 19:00 Enoxaparin Sodium (Lovenox) 30 mg DAILY SC Last administered on 07/24/17 08:41 ; Admin Dose 30 MG; Start 07/14/17 at 09:00 Lisinopril (Zestril) 5 mg BID PO Last administered on 07/24/17 08:41; Admin Dose 5 MG; Start 07/13/17 at 21:00 Mirtazapine (Remeron) 7.5 mg HS PO Last administered on 07/23/17 21:09; Admin Dose 7.5 MG; Start 07/13/17 at 21:00 Potassium Chloride (Micro-K) 8 meq DAILY PO Last administered on 07/24/17 08:42 ; Admin Dose 8 MEQ; Start 07/14/17 at 09:00 Collagenase (Santyl) 1 applic DAILY TOP Last administered on 07/24/17 08:47; Admin Dose 1 APPLIC; Start 07/14/17 at 12:00 Collagenase (Santyl) 1 applic DAILY TOP Last administered on 07/24/17 08:47; Admin Dose 1 APPLIC; Start 07/14/17 at 14:00 Nystatin (Nystatin Powder) 1 applic BID TOP Last administered on 07/24/17 08:47 ; Admin Dose 1 APPLIC; Start 07/14/17 at 14:00 Miscellaneous Information Patients own medicat... NOTE XX ; Start 07/21/17 at 10: 00 IV Flush (NS 10 ml) 10 ml PRN PRN IV FLUSH LINE; Start 07/21/17 at 17:00 Carvedilol 3.125 mg 3.125 mg BID PO Last administered on 07/24/17 08:42; Admin Dose 3.125 MG; Start 07/22/17 at 14:00 Daptomycin 300 mg/ Sodium Chloride 100 ml @ 200 mls/hr Q24H IVPB Last administered on 07/23/17 17:00; Admin Dose 200 MLS/HR; Start 07/22/17 at 18:00 Cefepime HCl (Maxipime 1gm/50 ml (Pmx)) 50 ml @ 100 mls/hr Q12 IVPB Last administered on 07/24/17 08:41; Admin Dose 100 MLS/HR; Start 07/22/17 at 23:00 ROXANNE FERRARI NP Jul 24, 2017 16:07
--- NOTE | 2017-07-24 16:52 | PN ---
Date/Time of Note Date/Time of Note DATE: 07/24/17 TIME: 16:52 Assessment/Plan VTE Prophylaxis VTE Prophylaxis Intervention: LMWH Lines/Catheters IV Catheter Type (from Nrsg): PICC Line Central line still needed: No Urinary Cath still in place: No Assessment/Plan Chief Complaint/Hosp Course 87 yo dementia, A Fib, PVD, chronic systolic CHF, with osteomyelitis and nonhealing ulcers from leg contracture of unclear etiology Osteomyelitis: - Cefepime/dapto course per ID - PICC to be placed PVD and pressure ulcerations: - Local wound care - No acute need for surgery per vascular and general surgery A Fib: - Restart AC - Rate controlled Dementia: - Continue mirtazapine Chronic sysotlic CHF: - Hold further lasix given marked hypoklemia, euvolemic currently and not eating much Discharge to facility Problems: Subjective 24 Hr Interval Summary Free Text/Dictation No change to clinical status. Awaiting transfer Exam/Review of Systems Vital Signs Vitals Vital Signs Date Time Temp Pulse Resp B/P Pulse Ox O2 Delivery O2 Flow Rate FiO2 07/24/17 15:05 99.0 82 16 152/76 96 Intake and Output 07/23/17 07/23/17 07/24/17 15:00 23:00 07:00 Intake Total 50 ml 450 ml Balance 50 ml 450 ml Exam Constitutional: alert, oriented, well developed Psych: nl mood/affect, no complaints Head: atraumatic, normocephalic Eyes: EOMI, PERRL, nl conjunctiva, nl lids, nl sclera ENMT: nl external ears & nose, nl lips & teeth, nl nasal mucosa & septum Neck: non-tender, supple Respiratory: clear to auscultation, normal air movement Cardiovascular: nl pulses, regular rate and rhythm Gastrointestinal: nl liver, spleen, non-tender, soft Musculoskeletal: nl extremities to inspection, nl gait and stance Extremities: normal pulses Neurological: RESEARCH PHYSIOLOGIST II-XII intact, nl mental status, nl speech, nl strength Skin: nl turgor, No rash or lesions Lymph: nl lymph nodes Results Result Diagram: 07/21/17 0548 07/22/17 0436 Medications Medications Current Medications Ondansetron HCl (Zofran Inj) 4 mg Q6H PRN IV NAUSEA AND/OR VOMITING Last administered on 07/15/17t 21:25; Admin Dose 4 MG; Start 07/13/17 at 19:00 Acetaminophen (Tylenol Tab) 650 mg Q6H PRN PO PAIN LEVEL 1-3 OR FEVER Last administered on 07/15/17 09:34; Admin Dose 650 MG; Start 07/13/17 at 19:00 Acetaminophen/ Hydrocodone Bitart ([place] (5/325)) 1 tab Q6H PRN PO MODERATE PAIN LEVEL 4-6 Last administered on 07/23/17 02:22; Admin Dose 1 TAB; Start at 19:00 Docusate Sodium (Colace) 100 mg Q12H PRN PO CONSTIPATION Last administered on 21:25; Admin Dose 100 MG; Start 07/13/17 at 19:00 Magnesium Hydroxide (Milk Of Mag) 30 ml DAILY PRN PO CONSTIPATION; Start at 19:00 Zolpidem Tartrate (Ambien) 5 mg QHS PRN PO SLEEP Last administered on 07/21/17 23:52; Admin Dose 5 MG; Start 07/13/17 at 19:00 Enoxaparin Sodium (Lovenox) 30 mg DAILY SC Last administered on 07/24/17 08:41 ; Admin Dose 30 MG; Start 07/14/17 at 09:00 Lisinopril (Zestril) 5 mg BID PO Last administered on 07/24/17 08:41; Admin Dose 5 MG; Start 07/13/17 at 21:00 Mirtazapine (Remeron) 7.5 mg HS PO Last administered on 07/23/17 21:09; Admin Dose 7.5 MG; Start 07/13/17 at 21:00 Potassium Chloride (Micro-K) 8 meq DAILY PO Last administered on 07/24/17 08:42 ; Admin Dose 8 MEQ; Start 07/14/17 at 09:00 Collagenase (Santyl) 1 applic DAILY TOP Last administered on 07/24/17 08:47; Admin Dose 1 APPLIC; Start 07/14/17 at 12:00 Collagenase (Santyl) 1 applic DAILY TOP Last administered on 07/24/17 08:47; Admin Dose 1 APPLIC; Start 07/14/17 at 14:00 Nystatin (Nystatin Powder) 1 applic BID TOP Last administered on 07/24/17 08:47 ; Admin Dose 1 APPLIC; Start 07/14/17 at 14:00 Miscellaneous Information Patients own medicat... NOTE XX ; Start 07/21/17 at 10: 00 IV Flush (NS 10 ml) 10 ml PRN PRN IV FLUSH LINE; Start 07/21/17 at 17:00 Carvedilol 3.125 mg 3.125 mg BID PO Last administered on 07/24/17 08:42; Admin Dose 3.125 MG; Start 07/22/17 at 14:00 Daptomycin 300 mg/ Sodium Chloride 100 ml @ 200 mls/hr Q24H IVPB Last administered on 07/23/17 17:00; Admin Dose 200 MLS/HR; Start 07/22/17 at 18:00 Cefepime HCl (Maxipime 1gm/50 ml (Pmx)) 50 ml @ 100 mls/hr Q12 IVPB Last administered on 07/24/17 08:41; Admin Dose 100 MLS/HR; Start 07/22/17 at 23:00 AUDRA PLASCENCIA MD Jul 24, 2017 16:52
[2017-07-24] MEDS: DAPTOMYCIN 300 MG in SOD CHLORIDE 0.9% 100 ML IVPB SCH (17:48)
[2017-07-24 20:00] VITALS: BP 134/67; RESP 20
[2017-07-24] MEDS: MIRTAZAPINE 15 MG TAB PO SCH (22:07)
[2017-07-25 02:00] VITALS: BP 142/71; RESP 19
[2017-07-25 08:19] VITALS: BP 142/65; RESP 17
[2017-07-25] MEDS: POTASSIUM CHLORIDE (SR) 8 MEQ CAP PO SCH (08:38)
[2017-07-25] MEDS: CEFEPIME 1GM/50 ML (PMX) 50 ML IVPB SCH ×2 (08:39→21:33)
[2017-07-25] MEDS: LISINOPRIL 5 MG TAB PO SCH ×2 (08:39→21:34)
[2017-07-25] MEDS: ENOXAPARIN 30 MG/0.3 ML SYG SC SCH (08:43)
[2017-07-25] MEDS: NYSTATIN 30 GM POWDER BTL TOP SCH ×2 (08:49→21:37)
[2017-07-25] MEDS: BALSAM PERU/CASTOR OIL 60 GM TUBE TOP SCH ×2 (08:49→21:36)
[2017-07-25] MEDS: COLLAGENASE 30 GM TUBE TOP SCH ×2 (08:49→08:50)
[2017-07-25 14:58] VITALS: BP 146/78; RESP 18
--- NOTE | 2017-07-25 17:03 | PN ---
Date/Time of Note Date/Time of Note DATE: 07/25/17 TIME: 16:58 Assessment/Plan VTE Prophylaxis VTE Prophylaxis Intervention: LMWH Lines/Catheters IV Catheter Type (from Nrsg): PICC Line Central line still needed: No Urinary Cath still in place: No Assessment/Plan Chief Complaint/Hosp Course 87 yo dementia, A Fib, PVD, chronic systolic CHF, with osteomyelitis and nonhealing ulcers from leg contracture of unclear etiology Osteomyelitis: - Cefepime/dapto course per ID - PICC placed PVD and pressure ulcerations: - Local wound care - No acute need for surgery per vascular and general surgery A Fib: - Restarted on AC - Rate controlled Dementia: - Continue mirtazapine Chronic sysotlic CHF: - Hold further lasix given marked hypoklemia, euvolemic currently and not eating much Discharge to facility Problems: Subjective 24 Hr Interval Summary Free Text/Dictation No change to clinical status Comfortable Awaitin placement Exam/Review of Systems Vital Signs Vitals Vital Signs Date Time Temp Pulse Resp B/P Pulse Ox O2 Delivery O2 Flow Rate FiO2 07/25/17 14:58 99.2 84 18 146/78 93 Intake and Output 07/24/17 07/24/17 07/25/17 15:00 23:00 07:00 Intake Total 50 ml 650 ml 100 ml Balance 50 ml 650 ml 100 ml Exam Constitutional: alert, oriented, well developed Psych: nl mood/affect, no complaints Head: atraumatic, normocephalic Eyes: EOMI, PERRL, nl conjunctiva, nl lids, nl sclera ENMT: nl external ears & nose, nl lips & teeth, nl nasal mucosa & septum Neck: non-tender, supple Respiratory: clear to auscultation, normal air movement Cardiovascular: nl pulses, regular rate and rhythm Gastrointestinal: nl liver, spleen, non-tender, soft Musculoskeletal: nl extremities to inspection, nl gait and stance Extremities: normal pulses Neurological: RN NAVIGATOR II-XII intact, nl mental status, nl speech, nl strength Skin: nl turgor, No rash or lesions Lymph: nl lymph nodes Results Result Diagram: 07/21/17 0548 07/22/17 0436 Medications Medications Current Medications Ondansetron HCl (Zofran Inj) 4 mg Q6H PRN IV NAUSEA AND/OR VOMITING Last administered on 8/31/17at 21:25; Admin Dose 4 MG; Start 07/13/17 at 19:00 Acetaminophen (Tylenol Tab) 650 mg Q6H PRN PO PAIN LEVEL 1-3 OR FEVER Last administered on 07/15/17 09:34; Admin Dose 650 MG; Start 07/13/17 at 19:00 Acetaminophen/ Hydrocodone Bitart ([place] (5/325)) 1 tab Q6H PRN PO MODERATE PAIN LEVEL 4-6 Last administered on 07/23/17 02:22; Admin Dose 1 TAB; Start at 19:00 Docusate Sodium (Colace) 100 mg Q12H PRN PO CONSTIPATION Last administered on 21:25; Admin Dose 100 MG; Start 07/13/17 at 19:00 Magnesium Hydroxide (Milk Of Mag) 30 ml DAILY PRN PO CONSTIPATION; Start at 19:00 Zolpidem Tartrate (Ambien) 5 mg QHS PRN PO SLEEP Last administered on 07/21/17 23:52; Admin Dose 5 MG; Start 07/13/17 at 19:00 Enoxaparin Sodium (Lovenox) 30 mg DAILY SC Last administered on 07/25/17 08:43 ; Admin Dose 30 MG; Start 07/14/17 at 09:00 Lisinopril (Zestril) 5 mg BID PO Last administered on 07/25/17 08:39; Admin Dose 5 MG; Start 07/13/17 at 21:00 Mirtazapine (Remeron) 7.5 mg HS PO Last administered on 07/24/17 22:07; Admin Dose 7.5 MG; Start 07/13/17 at 21:00 Potassium Chloride (Micro-K) 8 meq DAILY PO Last administered on 07/25/17 08: 38; Admin Dose 8 MEQ; Start 07/14/17 at 09:00 Collagenase (Santyl) 1 applic DAILY TOP Last administered on 07/25/17 08:49; Admin Dose 1 APPLIC; Start 07/14/17 at 12:00 Collagenase (Santyl) 1 applic DAILY TOP Last administered on 07/25/17 08:50; Admin Dose 1 APPLIC; Start 07/14/17 at 14:00 Nystatin (Nystatin Powder) 1 applic BID TOP Last administered on 07/25/17 08: 49; Admin Dose 1 APPLIC; Start 07/14/17 at 14:00 Miscellaneous Information Patients own medicat... NOTE XX ; Start 07/21/17 at 10: 00 IV Flush (NS 10 ml) 10 ml PRN PRN IV FLUSH LINE; Start 07/21/17 at 17:00 Carvedilol 3.125 mg 3.125 mg BID PO Last administered on 07/25/17 08:39; Admin Dose 3.125 MG; Start 07/22/17 at 14:00 Daptomycin 300 mg/ Sodium Chloride 100 ml @ 200 mls/hr Q24H IVPB Last administered on 07/24/17 17:48; Admin Dose 200 MLS/HR; Start 07/22/17 at 18:00 Cefepime HCl (Maxipime 1gm/50 ml (Pmx)) 50 ml @ 100 mls/hr Q12 IVPB Last administered on 07/25/17 08:39; Admin Dose 100 MLS/HR; Start 07/22/17 at 23:00 AUDRA PLASCENCIA MD Jul 25, 2017 17:03
--- NOTE | 2017-07-25 17:31 | CONS ---
Date/Time of Note Date/Time of Note DATE: 07/25/17 TIME: 17:26 Assessment/Plan Assessment/Plan Chief Complaint/Hosp Course SUBJECTIVE DATA: No acute changes. Denies pain. No Acute Distress. INDWELLINGS: PICC line ANTIMICROBIALS: Cefepime and Daptomycin. PHYSICAL EXAMINATION: GENERAL: This is a fragile, chronically ill-appearing, elderly woman, who is awake, in no distress. HEENT: Head atraumatic, normocephalic. Sclerae anicteric. Buccal mucosa dry. NECK: Supple. CHEST: Chest rise symmetrical. Breath sounds clear. Diminished at bases. HEART: S1, S2. ABDOMEN: Soft, bowel sounds present. EXTREMITIES: Without cyanosis. ASSESSMENT: 1. Right lower extremity nonhealing wound with evidence of osteomyelitis. 2. Right lower extremity severe contracture 3. Dementia. 4. Coronary artery disease. 5. Status post urinary tract infection. 6. Allergy: vancomycin. PLAN: The patient remains stable. Continue on current antibiotics for 6-8 weeks. Follow up with podiatry/surgery and ortho recommendations. [facility] staff Problems: Consultation Date/Type/Reason Admit Date/Time Jul 13, 2017 at 18:03 Initial Consult Date 07/18/17 Type of Consultation: id Referring Provider: REINA SWANSON Exam/Review of Systems Vital Signs Vitals Vital Signs Date Time Temp Pulse Resp B/P Pulse Ox O2 Delivery O2 Flow Rate FiO2 07/25/17 14:58 99.2 84 18 146/78 93 Intake and Output 07/24/17 07/24/17 07/25/17 14:59 22:59 06:59 Intake Total 50 ml 650 ml 100 ml Balance 50 ml 650 ml 100 ml Results Result Diagram: 07/21/17 0548 07/22/17 0436 Medications Medications Current Medications Ondansetron HCl (Zofran Inj) 4 mg Q6H PRN IV NAUSEA AND/OR VOMITING Last administered on 07/15/17 21:25; Admin Dose 4 MG; Start 07/13/17 at 19:00 Acetaminophen (Tylenol Tab) 650 mg Q6H PRN PO PAIN LEVEL 1-3 OR FEVER Last administered on 07/15/17 09:34; Admin Dose 650 MG; Start 07/13/17 at 19:00 Acetaminophen/ Hydrocodone Bitart ([place] (5/325)) 1 tab Q6H PRN PO MODERATE PAIN LEVEL 4-6 Last administered on 07/23/17 02:22; Admin Dose 1 TAB; Start at 19:00 Docusate Sodium (Colace) 100 mg Q12H PRN PO CONSTIPATION Last administered on 21:25; Admin Dose 100 MG; Start 07/13/17 at 19:00 Magnesium Hydroxide (Milk Of Mag) 30 ml DAILY PRN PO CONSTIPATION; Start at 19:00 Zolpidem Tartrate (Ambien) 5 mg QHS PRN PO SLEEP Last administered on 07/21/17 23:52; Admin Dose 5 MG; Start 07/13/17 at 19:00 Lisinopril (Zestril) 5 mg BID PO Last administered on 07/25/17 08:39; Admin Dose 5 MG; Start 07/13/17 at 21:00 Mirtazapine (Remeron) 7.5 mg HS PO Last administered on 07/24/17 22:07; Admin Dose 7.5 MG; Start 07/13/17 at 21:00 Potassium Chloride (Micro-K) 8 meq DAILY PO Last administered on 07/25/17 08: 38; Admin Dose 8 MEQ; Start 07/14/17 at 09:00 Collagenase (Santyl) 1 applic DAILY TOP Last administered on 07/25/17 08:49; Admin Dose 1 APPLIC; Start 07/14/17 at 12:00 Collagenase (Santyl) 1 applic DAILY TOP Last administered on 07/25/17 08:50; Admin Dose 1 APPLIC; Start 07/14/17 at 14:00 Nystatin (Nystatin Powder) 1 applic BID TOP Last administered on 07/25/17 08: 49; Admin Dose 1 APPLIC; Start 07/14/17 at 14:00 Miscellaneous Information Patients own medicat... NOTE XX ; Start 07/21/17 at 10: 00 IV Flush (NS 10 ml) 10 ml PRN PRN IV FLUSH LINE; Start 07/21/17 at 17:00 Carvedilol 3.125 mg 3.125 mg BID PO Last administered on 07/25/17 08:39; Admin Dose 3.125 MG; Start 07/22/17 at 14:00 Daptomycin 300 mg/ Sodium Chloride 100 ml @ 200 mls/hr Q24H IVPB Last administered on 07/24/17 17:48; Admin Dose 200 MLS/HR; Start 07/22/17 at 18:00 Cefepime HCl (Maxipime 1gm/50 ml (Pmx)) 50 ml @ 100 mls/hr Q12 IVPB Last administered on 07/25/17 08:39; Admin Dose 100 MLS/HR; Start 07/22/17 at 23:00 HELLEN GUNTER NP Jul 25, 2017 17:31
--- NOTE | 2017-07-25 17:39 | PN ---
Date/Time of Note Date/Time of Note DATE: 07/25/17 TIME: 17:29 Assessment/Plan Lines/Catheters IV Catheter Type (from Nrsg): PICC Line Smalls in Place (from Nrsg): No Assessment/Plan Chief Complaint/Hosp Course 1. Right ankle wound: with possible osteomyelitis: pending discharge with abx -defer to podiatry and vascular -continue local wound care -frequent turning and offloading -low airloss mattress -recommend vitamin C and short term zinc -abx per sensitivity 2. Lower extremity atherosclerosis -optimize vascular status 3. Atrial fibrillation: controlled rate -per cards 4. Hypochromic anemia: No acute bleed noted -monitor and transfuse prn 5. UTI -abx per sensitivity -frequent bladder emptying 6. Hypertension -medical optimization 7. Dementia -supportive 8. Right ankle pain: 2/2 #1; appears comfortable currently; pain with wound care -pain management 9. Hypoalbuminemia -nutrition optimization Thank you. Patient seen and examined in collaboration with Dr. Mehrdad Casillas. Problems: Subjective 24 Hr Interval Summary Nonverbal indicators of pain note present. Resting comfortably. Right foot wrapped. No drainage. Continues of IV abx. No fevers, chills, sob, cp, new wounds, vomiting, diarrhea. Exam/Review of Systems Vital Signs Vitals Vital Signs Date Time Temp Pulse Resp B/P Pulse Ox O2 Delivery O2 Flow Rate FiO2 07/25/17 14:58 99.2 84 18 146/78 93 Intake and Output 07/24/17 07/24/17 07/25/17 15:00 23:00 07:00 Intake Total 50 ml 650 ml 100 ml Balance 50 ml 650 ml 100 ml Exam Free Text/Dictation Constitutional: awake, confused, NAD, tracks Psych: confusion Head: atraumatic, normocephalic Eyes: nl lids, nl sclera ENMT: mucosa pink and moist Neck: non-tender, supple Respiratory: normal air movement, No congested cough, supplemental oxygen Cardiovascular: irregular rhythm, No regular rate and rhythm Gastrointestinal: bowel sounds, non-tender, soft Musculoskeletal: other (contracture right leg), right leg guarding, No nl gait and stance Extremities: No edema, No normal pulses (RLE: palpable Femoral pulse, non- palpable dp) Neurological: confused, No nl mental status Skin: other (right malleolus: slough with mod drainage, nonmalodorous Results Result Diagram: 07/21/17 0548 07/22/17 0436 DILLON WOOD NP Jul 25, 2017 17:39
[2017-07-25] MEDS: HYDROCODONE/APAP (5/325) TAB PO PRN (17:47)
[2017-07-25] MEDS: DAPTOMYCIN 300 MG in SOD CHLORIDE 0.9% 100 ML IVPB SCH (17:49)
[2017-07-25] MEDS: RIVAROXABAN 20 MG TABLET PO SCH (18:44)
[2017-07-25 20:00] VITALS: BP 147/76; RESP 19
[2017-07-25] MEDS: ZOLPIDEM 5 MG TAB PO PRN (21:33)
[2017-07-25] MEDS: MIRTAZAPINE 15 MG TAB PO SCH (21:34)
[2017-07-26 02:00] VITALS: BP 144/73; RESP 19
[2017-07-26 07:54] VITALS: BP 136/67; RESP 17
--- NOTE | 2017-07-26 09:38 | PN ---
Date/Time of Note Date/Time of Note DATE: 07/26/17 TIME: 09:32 Assessment/Plan Lines/Catheters IV Catheter Type (from Nrs): PICC Line Smalls in Place (from Nrs): No Assessment/Plan Chief Complaint/Hosp Course 1. Right ankle wound: with possible osteomyelitis: no surgical intervention recs. pending discharge with abx -defer to podiatry and vascular -continue local wound care -frequent turning and offloading -low airloss mattress -recommend vitamin C and short term zinc -abx per sensitivity -nutrition optimization-encourage increased intake 2. Lower extremity atherosclerosis -optimize vascular status 3. Atrial fibrillation: controlled rate -per cards 4. Hypochromic anemia: No acute bleed noted -monitor and transfuse prn 5. UTI -abx per sensitivity -frequent bladder emptying 6. Hypertension -medical optimization 7. Dementia -supportive 8. Right ankle pain: 2/ #1; pain with wound care -pain management 9. Hypoalbuminemia -nutrition optimization Thank you. Patient seen and examined in collaboration with Dr. Mehrdad Casillas. Problems: Subjective 24 Hr Interval Summary Sleepy. Appears comfortable. Non verbal indicators of pain not present. Right foot wrapped without drainage noted. No fevers, chills, pain, vomiting, diarrhea , new wounds, sz, rash, fainting. Exam/Review of Systems Vital Signs Vitals Vital Signs Date Time Temp Pulse Resp B/P Pulse Ox O2 Delivery O2 Flow Rate FiO2 07/26/17 07:54 98.6 83 17 136/67 94 Intake and Output 07/25/17 07/25/17 07/26/17 15:00 23:00 07:00 Intake Total 50 ml 610 ml 250 ml Balance 50 ml 610 ml 250 ml Exam Free Text/Dictation Constitutional: awake, confused, NAD Psych: confusion Head: atraumatic, normocephalic Eyes: nl lids, nl sclera ENMT: mucosa pink and moist Neck: non-tender, supple Respiratory: normal air movement, No congested cough, supplemental oxygen Cardiovascular: irregular rhythm, No regular rate and rhythm Gastrointestinal: bowel sounds, non-tender, soft Musculoskeletal: other (contracture right leg), right leg guarding, No nl gait and stance Extremities: No edema, No normal pulses (RLE: palpable Femoral pulse, non- palpable dp) Neurological: confused, No nl mental status Skin: other (right malleolus: slough with mod drainage, nonmalodorous) Results Result Diagram: 07/22/17 0436 DILLON WOOD NP Jul 26, 2017 09:38
[2017-07-26] MEDS: POTASSIUM CHLORIDE (SR) 8 MEQ CAP PO SCH (09:46)
[2017-07-26] MEDS: LISINOPRIL 5 MG TAB PO SCH ×2 (09:46→20:54)
[2017-07-26] MEDS: CEFEPIME 1GM/50 ML (PMX) 50 ML IVPB SCH ×2 (09:47→20:53)
[2017-07-26 09:49] LABS: BASOPHILS % 0.6 % (0.0-2.0); EOSINOPHILS # 0.1 10^3/ul (0.0-0.5); HEMATOCRIT 24.3 % (37.0-47.0); HEMOGLOBIN 7.8 g/dl (12.0-16.0); LYMPHOCYTES # 1.5 10^3/ul (0.8-2.9); MEAN CORPUSCULAR HEMOGLOBIN 28.4 pg (29.0-33.0); MEAN CORPUSCULAR HGB CONC 32.1 g/dl (32.0-37.0); MEAN CORPUSCULAR VOLUME 88.4 fl (82.0-101.0); MEAN PLATELET VOLUME 9.5 fl (7.4-10.4); MONOCYTE # 0.6 10^3/ul (0.3-0.9); MONOCYTES % 7.7 % (0.0-11.0); NEUTROPHILS % 69.7 % (39.0-77.0); PLATELET COUNT 178 10^3/UL (140-415); RED BLOOD COUNT 2.75 10^6/ul (4.20-5.40); RED CELL DISTRIBUTION WIDTH 14.8 % (11.5-14.5); WHITE BLOOD COUNT 7.3 10^3/ul (4.8-10.8)
[2017-07-26] MEDS: NYSTATIN 30 GM POWDER BTL TOP SCH ×2 (09:59→20:55)
[2017-07-26] MEDS: COLLAGENASE 30 GM TUBE TOP SCH ×2 (09:59→10:00)
[2017-07-26] MEDS: BALSAM PERU/CASTOR OIL 60 GM TUBE TOP SCH ×2 (10:00→20:55)
[2017-07-26 10:17] LABS: ALBUMIN 2.7 g/dl (3.3-4.9); ALBUMIN/GLOBULIN RATIO 0.84; CREATININE 0.67 mg/dl (0.44-1.00); POTASSIUM 3.9 mmol/L (3.5-5.1); TOTAL PROTEIN 5.9 g/dl (6.1-8.1)
--- NOTE | 2017-07-26 13:40 | CONS ---
Date/Time of Note Date/Time of Note DATE: 07/26/17 TIME: 13:39 Assessment/Plan Assessment/Plan Chief Complaint/Hosp Course SUBJECTIVE DATA: No acute changes, sleeping, looks comfortable, no fevers INDWELLINGS: PICC line ANTIMICROBIALS: Cefepime, Daptomycin. PHYSICAL EXAMINATION: GENERAL: This is a fragile, chronically ill-appearing, elderly woman, who is awake, in no distress. HEENT: Head atraumatic, normocephalic. Sclerae anicteric. Buccal mucosa dry. NECK: Supple. CHEST: Chest rise symmetrical. Breath sounds clear. Diminished at bases. HEART: S1, S2. ABDOMEN: Soft, bowel sounds present. EXTREMITIES: Without cyanosis. ASSESSMENT: 1. Right lower extremity nonhealing wound with evidence of osteomyelitis. 2. Right lower extremity severe contracture 3. Dementia. 4. Coronary artery disease. 5. Status post urinary tract infection. 6. Allergy: Vancomycin. PLAN: The patient remains stable, continue on current antibiotics for 6-8 weeks , f/u podiatry/surgery and ortho rec-s [facility] staff Problems: Consultation Date/Type/Reason Admit Date/Time Jul 13, 2017 at 18:03 Initial Consult Date 07/18/17 Type of Consultation: id Referring Provider: REINA SWANSON Exam/Review of Systems Vital Signs Vitals Vital Signs Date Time Temp Pulse Resp B/P Pulse Ox O2 Delivery O2 Flow Rate FiO2 07/26/17 07:54 98.6 83 17 136/67 94 Intake and Output 07/25/17 07/25/17 07/26/17 15:00 23:00 07:00 Intake Total 50 ml 610 ml 250 ml Balance 50 ml 610 ml 250 ml Results Result Diagram: 07/26/17 0940 07/26/17 0940 Results 24 hrs Laboratory Tests Test 07/26/17 09:40 White Blood Count 7.3 Red Blood Count 2.75 L Hemoglobin 7.8 L Hematocrit 24.3 L Mean Corpuscular Volume 88.4 Mean Corpuscular Hemoglobin 28.4 L Mean Corpuscular Hemoglobin Concent 32.1 Red Cell Distribution Width 14.8 H Platelet Count 178 # Mean Platelet Volume 9.5 Neutrophils % 69.7 Lymphocytes % 20.0 Monocytes % 7.7 Eosinophils % 1.0 Basophils % 0.6 Nucleated Red Blood Cells % 0.0 Neutrophils # (Manual) 5.1 Lymphocytes # 1.5 Monocytes # 0.6 Eosinophils # 0.1 Basophils # 0.0 Nucleated Red Blood Cells # 0.0 Sodium Level 137 Potassium Level 3.9 Chloride Level 107 Carbon Dioxide Level 26 Anion Gap 8 Blood Urea Nitrogen 12 Creatinine 0.67 Glucose Level 91 Calcium Level 9.0 Total Bilirubin 1.0 Direct Bilirubin 0.00 Indirect Bilirubin 1.0 Aspartate Amino Transf (AST/SGOT) 39 Alanine Aminotransferase (ALT/SGPT) 33 Alkaline Phosphatase 78 Total Protein 5.9 L Albumin 2.7 L Globulin 3.20 Albumin/Globulin Ratio 0.84 Medications Medications Current Medications Ondansetron HCl (Zofran Inj) 4 mg Q6H PRN IV NAUSEA AND/OR VOMITING Last administered on 07/15/17 21:25; Admin Dose 4 MG; Start 07/13/17 at 19:00 Acetaminophen (Tylenol Tab) 650 mg Q6H PRN PO PAIN LEVEL 1-3 OR FEVER Last administered on 07/15/17 09:34; Admin Dose 650 MG; Start 07/13/17 at 19:00 Acetaminophen/ Hydrocodone Bitart ([place] (5/325)) 1 tab Q6H PRN PO MODERATE PAIN LEVEL 4-6 Last administered on 07/25/17 17:47; Admin Dose 1 TAB; Start at 19:00 Docusate Sodium (Colace) 100 mg Q12H PRN PO CONSTIPATION Last administered on 21:25; Admin Dose 100 MG; Start 07/13/17 at 19:00 Magnesium Hydroxide (Milk Of Mag) 30 ml DAILY PRN PO CONSTIPATION; Start at 19:00 Zolpidem Tartrate (Ambien) 5 mg QHS PRN PO SLEEP Last administered on 21:33; Admin Dose 5 MG; Start 07/13/17 at 19:00 Lisinopril (Zestril) 5 mg BID PO Last administered on 07/26/17 09:46; Admin Dose 5 MG; Start 07/13/17 at 21:00 Mirtazapine (Remeron) 7.5 mg HS PO Last administered on 07/25/17 21:34; Admin Dose 7.5 MG; Start 07/13/17 at 21:00 Potassium Chloride (Micro-K) 8 meq DAILY PO Last administered on 07/26/17 09: 46; Admin Dose 8 MEQ; Start 07/14/17 at 09:00 Collagenase (Santyl) 1 applic DAILY TOP Last administered on 07/26/17 09:59; Admin Dose 1 APPLIC; Start 07/14/17 at 12:00 Collagenase (Santyl) 1 applic DAILY TOP Last administered on 07/26/17 10:00; Admin Dose 1 APPLIC; Start 07/14/17 at 14:00 Nystatin (Nystatin Powder) 1 applic BID TOP Last administered on 07/26/17 09: 59; Admin Dose 1 APPLIC; Start 07/14/17 at 14:00 Miscellaneous Information Patients own medicat... NOTE XX ; Start 07/21/17 at 10: 00 IV Flush (NS 10 ml) 10 ml PRN PRN IV FLUSH LINE; Start 07/21/17 at 17:00 Carvedilol 3.125 mg 3.125 mg BID PO Last administered on 07/26/17 09:46; Admin Dose 3.125 MG; Start 07/22/17 at 14:00 Daptomycin 300 mg/ Sodium Chloride 100 ml @ 200 mls/hr Q24H IVPB Last administered on 07/25/17 17:49; Admin Dose 200 MLS/HR; Start 07/22/17 at 18:00 Cefepime HCl (Maxipime 1gm/50 ml (Pmx)) 50 ml @ 100 mls/hr Q12 IVPB Last administered on 07/26/17 09:47; Admin Dose 100 MLS/HR; Start 07/22/17 at 23:00 ROXANNE FERRARI NP Jul 26, 2017 13:40
[2017-07-26 14:27] VITALS: BP 130/61; RESP 18
[2017-07-26] MEDS: HYDROCODONE/APAP (5/325) TAB PO PRN (14:53)
--- NOTE | 2017-07-26 15:43 | PN ---
Date/Time of Note Date/Time of Note DATE: 07/26/17 TIME: 15:38 Assessment/Plan VTE Prophylaxis VTE Prophylaxis Intervention: LMWH Lines/Catheters IV Catheter Type (from Nrsg): PICC Line Central line still needed: Yes Urinary Cath still in place: No Assessment/Plan Assessment/Plan 1. Right ankle wound: with osteomyelitis: 6-8 weeks of cefepime and daptomycin per ID 2. Dementia, chronic 3. Atrial fibrillation: controlled rate 4. Hypochromic anemia, chronic 5. UTI, antibiotics 6. Hypertension, controlled 7. Hypoalbuminemia 8. Discharge planning Subjective 24 Hr Interval Summary Free Text/Dictation calm, afebrile Exam/Review of Systems Vital Signs Vitals Vital Signs Date Time Temp Pulse Resp B/P Pulse Ox O2 Delivery O2 Flow Rate FiO2 07/26/17 14:27 97.9 82 18 130/61 96 Intake and Output 07/25/17 07/25/17 07/26/17 15:00 23:00 07:00 Intake Total 50 ml 610 ml 250 ml Balance 50 ml 610 ml 250 ml Exam Constitutional: alert Head: atraumatic, normocephalic Eyes: EOMI, PERRL, nl conjunctiva, nl lids ENMT: nl external ears & nose, nl lips & teeth, nl nasal mucosa & septum Neck: non-tender, supple Respiratory: clear to auscultation, normal air movement, No congested cough, No crackles/rales, No diminished breath sounds, No intercostal retraction, No labored breathing, No other, No respirations, No tactile fremitus, No wheezing Cardiovascular: nl pulses, regular rate and rhythm, No S3, No S4, No bruits, No diastolic murmur, No edema, No gallop, No irregular rhythm, No jugular venous distention (JVD), No murmurs/extra sounds, No other, No rub, No systolic murmur Gastrointestinal: nl liver, spleen, non-tender, soft, No ascites, No bowel sounds, No distended, No firm, No hepatomegaly, No mass , No other, No rebound or guarding, No splenomegaly, No surgical scars, No tender Musculoskeletal: nl extremities to inspection, other (right foot wound) Extremities: other (right foot wound) Neurological: K 9 POLICE OFFICER II-XII intact, nl speech, nl strength Results Result Diagram: 07/26/17 0940 07/26/17 0940 Results 24 hrs Laboratory Tests Test 07/26/17 09:40 White Blood Count 7.3 Red Blood Count 2.75 L Hemoglobin 7.8 L Hematocrit 24.3 L Mean Corpuscular Volume 88.4 Mean Corpuscular Hemoglobin 28.4 L Mean Corpuscular Hemoglobin Concent 32.1 Red Cell Distribution Width 14.8 H Platelet Count 178 # Mean Platelet Volume 9.5 Neutrophils % 69.7 Lymphocytes % 20.0 Monocytes % 7.7 Eosinophils % 1.0 Basophils % 0.6 Nucleated Red Blood Cells % 0.0 Neutrophils # (Manual) 5.1 Lymphocytes # 1.5 Monocytes # 0.6 Eosinophils # 0.1 Basophils # 0.0 Nucleated Red Blood Cells # 0.0 Sodium Level 137 Potassium Level 3.9 Chloride Level 107 Carbon Dioxide Level 26 Anion Gap 8 Blood Urea Nitrogen 12 Creatinine 0.67 Glucose Level 91 Calcium Level 9.0 Total Bilirubin 1.0 Direct Bilirubin 0.00 Indirect Bilirubin 1.0 Aspartate Amino Transf (AST/SGOT) 39 Alanine Aminotransferase (ALT/SGPT) 33 Alkaline Phosphatase 78 Total Protein 5.9 L Albumin 2.7 L Globulin 3.20 Albumin/Globulin Ratio 0.84 Medications Medications Current Medications Ondansetron HCl (Zofran Inj) 4 mg Q6H PRN IV NAUSEA AND/OR VOMITING Last administered on 07/15/17 21:25; Admin Dose 4 MG; Start 07/13/17 at 19:00 Acetaminophen (Tylenol Tab) 650 mg Q6H PRN PO PAIN LEVEL 1-3 OR FEVER Last administered on 07/15/17 09:34; Admin Dose 650 MG; Start 07/13/17 at 19:00 Acetaminophen/ Hydrocodone Bitart ([place] (5/325)) 1 tab Q6H PRN PO MODERATE PAIN LEVEL 4-6 Last administered on 07/26/17 14:53; Admin Dose 1 TAB; Start at 19:00 Docusate Sodium (Colace) 100 mg Q12H PRN PO CONSTIPATION Last administered on 21:25; Admin Dose 100 MG; Start 07/13/17 at 19:00 Magnesium Hydroxide (Milk Of Mag) 30 ml DAILY PRN PO CONSTIPATION; Start at 19:00 Zolpidem Tartrate (Ambien) 5 mg QHS PRN PO SLEEP Last administered on 21:33; Admin Dose 5 MG; Start 07/13/17 at 19:00 Lisinopril (Zestril) 5 mg BID PO Last administered on 07/26/17 09:46; Admin Dose 5 MG; Start 07/13/17 at 21:00 Mirtazapine (Remeron) 7.5 mg HS PO Last administered on 07/25/17 21:34; Admin Dose 7.5 MG; Start 07/13/17 at 21:00 Potassium Chloride (Micro-K) 8 meq DAILY PO Last administered on 07/26/17 09: 46; Admin Dose 8 MEQ; Start 07/14/17 at 09:00 Collagenase (Santyl) 1 applic DAILY TOP Last administered on 07/26/17 09:59; Admin Dose 1 APPLIC; Start 07/14/17 at 12:00 Collagenase (Santyl) 1 applic DAILY TOP Last administered on 07/26/17 10:00; Admin Dose 1 APPLIC; Start 07/14/17 at 14:00 Nystatin (Nystatin Powder) 1 applic BID TOP Last administered on 07/26/17 09: 59; Admin Dose 1 APPLIC; Start 07/14/17 at 14:00 Miscellaneous Information Patients own medicat... NOTE XX ; Start 07/21/17 at 10: 00 IV Flush (NS 10 ml) 10 ml PRN PRN IV FLUSH LINE; Start 07/21/17 at 17:00 Carvedilol 3.125 mg 3.125 mg BID PO Last administered on 07/26/17 09:46; Admin Dose 3.125 MG; Start 07/22/17 at 14:00 Daptomycin 300 mg/ Sodium Chloride 100 ml @ 200 mls/hr Q24H IVPB Last administered on 07/25/17 17:49; Admin Dose 200 MLS/HR; Start 07/22/17 at 18:00 Cefepime HCl (Maxipime 1gm/50 ml (Pmx)) 50 ml @ 100 mls/hr Q12 IVPB Last administered on 07/26/17 09:47; Admin Dose 100 MLS/HR; Start 07/22/17 at 23:00 FAVIO ISRAEL MD Jul 26, 2017 15:43
[2017-07-26] MEDS: DAPTOMYCIN 300 MG in SOD CHLORIDE 0.9% 100 ML IVPB SCH (17:09)
[2017-07-26] MEDS: RIVAROXABAN 20 MG TABLET PO SCH (17:09)
[2017-07-26 19:52] VITALS: BP 156/64; RESP 20
[2017-07-26] MEDS: MIRTAZAPINE 15 MG TAB PO SCH (20:54)
[2017-07-27 02:10] VITALS: BP 142/65; RESP 18
[2017-07-27 07:32] VITALS: BP 140/82; RESP 18
[2017-07-27] MEDS: POTASSIUM CHLORIDE (SR) 8 MEQ CAP PO SCH (09:43)
[2017-07-27] MEDS: CEFEPIME 1GM/50 ML (PMX) 50 ML IVPB SCH (09:44)
[2017-07-27] MEDS: LISINOPRIL 5 MG TAB PO SCH (09:44)
[2017-07-27] MEDS: COLLAGENASE 30 GM TUBE TOP SCH ×2 (09:45)
--- NOTE | 2017-07-27 14:13 | PN ---
Date/Time of Note Date/Time of Note DATE: 07/27/17 TIME: 14:09 Assessment/Plan Lines/Catheters IV Catheter Type (from Nrs): PICC Line Smalls in Place (from Nrs): No Assessment/Plan Chief Complaint/Hosp Course 1. Right ankle wound: with possible osteomyelitis: no surgical intervention recommended; pending discharge with abx -defer to podiatry and vascular -continue local wound care -frequent turning and offloading -low airloss mattress -recommend vitamin C and short term zinc -abx per sensitivity -nutrition optimization-encourage increased intake 2. Lower extremity atherosclerosis -optimize vascular status 3. Atrial fibrillation: controlled rate -per cards 4. Hypochromic anemia: No acute bleed noted -monitor and transfuse prn 5. UTI -abx per sensitivity -frequent bladder emptying 6. Hypertension -medical optimization 7. Dementia -supportive 8. Right ankle pain: 2/ #1; pain with wound care; guarding right leg, contracture -pain management 9. Hypoalbuminemia -nutrition optimization Thank you. Patient seen and examined in collaboration with Dr. Mehrdad Casillas. Problems: Subjective 24 Hr Interval Summary Appears comfortable. Non-verbal indicators of pain not present. No c/o right leg pain. No fevers, chills, sob, cp, palpitations, n/v/d/dysuria, new wounds. Exam/Review of Systems Vital Signs Vitals Vital Signs Date Time Temp Pulse Resp B/P Pulse Ox O2 Delivery O2 Flow Rate FiO2 07/27/17 07:32 98.4 87 18 140/82 96 Intake and Output 07/26/17 07/26/17 07/27/17 15:00 23:00 07:00 Intake Total 50 ml 490 ml 310 ml Balance 50 ml 490 ml 310 ml Exam Free Text/Dictation Constitutional: awake, confused, tracks Psych: confusion Head: atraumatic, normocephalic Eyes: nl lids, nl sclera ENMT: mucosa pink and moist Neck: non-tender, supple Respiratory: normal air movement, No congested cough, supplemental oxygen Cardiovascular: irregular rhythm, No regular rate and rhythm Gastrointestinal: bowel sounds, non-tender, soft Musculoskeletal: other (contracture right leg), right leg guarding, No nl gait and stance Extremities: No edema, No normal pulses (RLE: palpable Femoral pulse, non- palpable dp) Neurological: confused, No nl mental status Skin: other (right malleolus: packed, nonmalodorous, no drainage) Results Result Diagram: 07/26/17 0940 07/26/17 0940 DILLON WOOD NP Jul 27, 2017 14:13
[2017-07-27 14:16] VITALS: BP 165/75; RESP 18
[2017-07-27] MEDS: HYDROCODONE/APAP (5/325) TAB PO PRN (14:40)
[2017-07-27] MEDS ORDERED: DAPT500V IV (14:46)
[2017-07-27] MEDS ORDERED: CEFE1FRO IV (14:46)
[2017-07-27] MEDS ORDERED: RIVA20TA PO (14:51)
--- NOTE | 2017-07-27 15:09 | DS ---
Date/Time of Note Date/Time of Note DATE: 07/27/17 TIME: 14:52 Discharge Summary Admission/Discharge Info Admit Date/Time Jul 13, 2017 at 18:03 Discharge Date/Time Discharge Diagnosis 1. Right ankle wound: with osteomyelitis: 6-8 weeks of cefepime and daptomycin per ID 2. Dementia, chronic 3. Atrial fibrillation: controlled rate, on xarelto 4. Hypochromic anemia, chronic 5. UTI, antibiotics 6. Hypertension, controlled 7. Hypoalbuminemia 8. Peripheral atrial disease, follow up with vascular surgery 9. Cardiomyopathy with ejection fraction 35-40%, stable, follow up with cardiology 10. Aortic stenosis with history of TAVR Patient Condition: Stable Procedures [place] [address] Radiology Main Line: [phone] DIAGNOSTIC IMAGING REPORT Patient: BOBBY BURCH : 1930 Age: 87 Sex: F MR #: [id number] DOS: 07/16/17 1707 Ordering MD: UNIQUE ARVIZU [place] [facility] [place]Bed[place] [facility] PROCEDURE: US bilateral lower extremity arteries. CLINICAL INDICATION: Bilateral leg pain. Nonhealing ulcers of the right foot. TECHNIQUE: Multiple longitudinal and transverse images of the bilateral lower extremity arteries were obtained with jackson scale, pulsed Doppler, and color Doppler imaging. COMPARISON: No prior studies are available for comparison. FINDINGS: Right EXHIBITION DESIGNER: 99 cm/sec PSFA: 39 cm/sec MSFA: 32 cm/sec DSFA: 19 cm/sec POP: 58 cm/sec DISASTER DIRECTOR: 8.6 cm/sec DPA: Occluded Left EXHIBITION DESIGNER: 105 cm/sec PSFA: 35 cm/sec MSFA: 48 cm/sec DSFA: 47 cm/sec POP: 135 cm/sec DISASTER DIRECTOR: 41 cm/sec DPA: Occluded The ankle-brachial indices are unobtainable due to patient inability to tolerate the blood pressure cuffs. Abnormal flow is present bilaterally in the mid to distal superficial femoral artery consistent significant stenosis. Bilateral popliteal and posterior tibial arteries demonstrate monophasic flow. IMPRESSION: 1. Significant stenosis bilaterally in the mid to distal superficial femoral artery. 2. Occluded bilateral dorsalis pedis artery. RPTAT: QQ .Jose Enrique Olivares MD, MD Date Time Electronically viewed and signed by .Jose Enrique Olivares MD, MD on 07/16/2017 14:01 .R/ CC: UNIQUE ARVIZU MD Hx of Present Illness Hospital Course X-ray of right ankle indicates possible distal fibula osteomyelitis. There is significant peripheral vascular disease on right lower extremity. Patient was seen by highway patrol pilot Dr. Feliz, Ortho Dr. Corona, and vascular surgeon Dr. Arvizu. The patient has significant knee contracture, with dementia and non- ambulatory, which limits any vascular intervention. The patient would not be a candidate for any open vascular surgery. Patient will be treated with wound care , along with iv cefepime/daptomycin for 6-8 weeks per ID. If no improvement, patient may need BKA/AKA. Home Meds Active Scripts Rivaroxaban* (Xarelto*) 20 Mg Tablet, 20 MG PO WITH DINNER for 10 Days, TAB Prov:FAVIO ISRAEL MD 07/27/17 Daptomycin (Daptomycin) 500 Mg Vial, 300 MG IV DAILY for 42 Days, VIAL Prov:FAVIO ISRAEL MD 07/27/17 Cefepime Hcl/Dextrose, Iso-Osm (Cefepime 1 Gm Injection) 1 Gm/50 Ml Froz.piggy, 1 GM IV BID for 42 Days Prov:FAVIO ISRAEL MD 07/27/17 Reported Medications Simvastatin* (Zocor*) 40 Mg Tablet, 40 MG PO DAILY, #30 TAB 07/13/17 Potassium Chloride* (Potassium Chloride*) 8 Meq Capsule.er, 8 MEQ PO DAILY, CAP 07/13/17 Furosemide* (Furosemide*) 20 Mg Tablet, 20 MG PO DAILY, #60 TAB 07/13/17 Mirtazapine* (Mirtazapine*) 7.5 Mg Tablet, 7.5 MG PO HS, TAB 07/13/17 Carvedilol* (Carvedilol*) 3.125 Mg Tablet, 3.125 MG PO BID, #60 TAB HOLD IF SBP<110 OR HR<60 07/13/17 Lisinopril* (Lisinopril*) 5 Mg Tablet, 5 MG PO BID, #30 TAB HOLD IF SBP<110 OR HR<60 07/13/17 Gabapentin* (Gabapentin*) 100 Mg Capsule, 200 MG PO Q4 RIGHT, #180 CAP 07/13/17 Tramadol Hcl* (Ultram*) 50 Mg Tablet, 50 MG PO Q8 Y for PAIN4-04/24, TAB 07/13/17 Hydrocodone/Acetaminophen ([place] 5-325 Tablet) 1 Each Tablet, 1 EACH PO Q6H Y for PAIN7-08/24, TAB 07/13/17 Discontinued Reported Medications Heparin Sodium,Porcine/Pf (HEPARIN SOD 5,000 UNIT/ 0.5 ML) 5,000 Unit/0.5 Ml Vial, 5000 UNIT IJ BID, VIAL 07/13/17 Clopidogrel Bisulfate* (Clopidogrel Bisulfate*) 75 Mg Tablet, 75 MG PO DAILY, # 30 TAB 07/13/17 Hydralazine Hcl* (Hydralazine Hcl*) 25 Mg Tab, 25 MG PO BID Y for HTN, #60 TAB HOLD IF SBP<110 OR HR<60 07/13/17 Follow-up Plan podiatry in one week PCP in one week vascular surgery in two weeks cardiology in one week Primary Care Provider FAVIO Mir MD Jul 27, 2017 15:02
[2017-07-27] MEDS: NYSTATIN 30 GM POWDER BTL TOP SCH (17:04)
[2017-07-27] MEDS: BALSAM PERU/CASTOR OIL 60 GM TUBE TOP SCH (17:04)
--- NOTE | 2017-07-27 19:10 | CONS ---
Date/Time of Note Date/Time of Note DATE: 07/27/17 TIME: 19:09 Assessment/Plan Assessment/Plan Chief Complaint/Hosp Course SUBJECTIVE DATA: No acute changes, looks comfortable, afebrile INDWELLINGS: PICC line ANTIMICROBIALS: Cefepime, Daptomycin. PHYSICAL EXAMINATION: GENERAL: This is a fragile, chronically ill-appearing, elderly woman, who is awake, in no distress. HEENT: Head atraumatic, normocephalic. Sclerae anicteric. Buccal mucosa dry. NECK: Supple. CHEST: Chest rise symmetrical. Breath sounds clear. Diminished at bases. HEART: S1, S2. ABDOMEN: Soft, bowel sounds present. EXTREMITIES: Without cyanosis. ASSESSMENT: 1. Right lower extremity nonhealing wound with evidence of osteomyelitis. 2. Right lower extremity severe contracture 3. Dementia. 4. Coronary artery disease. 5. Status post urinary tract infection. 6. Allergy: Vancomycin. PLAN: The patient remains stable, pending dc, continue on current antibiotics for 6-8 weeks, f/u podiatry/surgery and ortho rec-s [facility] staff Problems: Consultation Date/Type/Reason Admit Date/Time Jul 13, 2017 at 18:03 Initial Consult Date 07/18/17 Type of Consultation: id Referring Provider: REINA SWANSON Exam/Review of Systems Vital Signs Vitals Vital Signs Date Time Temp Pulse Resp B/P Pulse Ox O2 Delivery O2 Flow Rate FiO2 07/27/17 14:16 98.6 86 18 165/75 97 Intake and Output 07/26/17 07/26/17 07/27/17 15:00 23:00 07:00 Intake Total 50 ml 490 ml 310 ml Balance 50 ml 490 ml 310 ml Results Result Diagram: 07/26/17 0940 07/26/17 0940 ROXANNE FERRARI NP Jul 27, 2017 19:10
== END 2017-07-27 18:31 | DRG 540 ==
LOC: E/R 11:48 → MS2 18:03 → MS4 07-15 17:40 → PP2 07-16 21:55 → MS2 07-27 06:51 → PP2 07-27 06:51
PROVIDERS: ADMIT Internal Medicine; ATTEND Internal Medicine
PROC: 30233N1 Transfusion of Nonautologous Red Blood Cells into Peripheral Vein, Percutaneous Approach (ICD-10-PCS; 2017-07-15)
PROC: 02HV33Z Insertion of Infusion Device into Superior Vena Cava, Percutaneous Approach (ICD-10-PCS; principal; 2017-07-21)
PROC: B548ZZA Ultrasonography of Superior Vena Cava, Guidance (ICD-10-PCS; 2017-07-21)
DX: M86.8X7 Other osteomyelitis, ankle and foot (principal); N17.9 Acute kidney failure, unspecified; I13.0 Hypertensive heart and chronic kidney disease with heart failure and stage 1 through stage 4 chronic kidney disease, or unspecified chronic kidney disease; R65.10 Systemic inflammatory response syndrome (SIRS) of non-infectious origin without acute organ dysfunction; I48.1 Persistent atrial fibrillation; L97.319 Non-pressure chronic ulcer of right ankle with unspecified severity; F03.90 Unspecified dementia, unspecified severity, without behavioral disturbance, psychotic disturbance, mood disturbance, and anxiety; I50.22 Chronic systolic (congestive) heart failure; N39.0 Urinary tract infection, site not specified; E88.09 Other disorders of plasma-protein metabolism, not elsewhere classified; N18.9 Chronic kidney disease, unspecified; E78.5 Hyperlipidemia, unspecified; Z74.01 Bed confinement status; M62.461 Contracture of muscle, right lower leg; I70.203 Unspecified atherosclerosis of native arteries of extremities, bilateral legs; I25.10 Atherosclerotic heart disease of native coronary artery without angina pectoris; D50.9 Iron deficiency anemia, unspecified; Z95.2 Presence of prosthetic heart valve; I25.5 Ischemic cardiomyopathy; I25.2 Old myocardial infarction; Z98.61 Coronary angioplasty status; Z88.1 Allergy status to other antibiotic agents
CPT/HCPCS: 36430; 36569; 36600; 71010; 73510; 73590; 76937; 80048; 80053; 81001; 82550; 82728; 82803; 83540; 83735; 84100; 85025; 85651; 86078; 86140; 86850; 86870; 86880; 86900; 86901; 86902; 86906; 86920; 86971; 87040; 87070; 87081; 87086; 93005; 93922; 93970; 96374; C1769; J0360; J0692; J0696; J1650; J2185; J2270; J2405; J3480; J7030; J7040; J7042; P9016